=== PATIENT | male | born 1955 | race Caucasian/White ===

== ENCOUNTER 2017-12-19 13:06 | Emergency (ER) | payer MEDICAID, SELFPAY ==
[2017-12-19] VITALS (7 sets, daily range): BP systolic 131–152; BP diastolic 69–96; PULSE 58–73; RESP 16–20; TEMP 35.9; O2SAT 97–98; BMI 26.4
--- NOTE | 2017-12-19 13:22 | EKG12_ITS ---
Test Reason : NEURO S/SX Blood Pressure : / mmHG Vent. Rate : 062 BPM Atrial Rate : 062 BPM P-R Int : 192 ms QRS Dur : 102 ms QT Int : 422 ms P-R-T Axes : 041 063 062 degrees QTc Int : 428 ms Normal sinus rhythm Normal ECG Confirmed by IRINA SCHMIDT, MARGUERITE ([id number]), newspaper editor managing ZINA TEJADA ([id number]) on 12/22/2017 1:41:16 PM Referred By: WILLOW Confirmed By:MARGUERITE AREVALO MD
--- NOTE | 2017-12-19 13:22 | RAD_ITS ---
STUDY: X-RAY CHEST REASON FOR EXAM: Male, 62 years old. Facial droop TECHNIQUE: Frontal view of the chest COMPARISON: None. FINDINGS: The lungs are clear. There are no pleural effusions. There is no pneumothorax. The heart is normal in size. The visualized osseous structures are within normal limits. RAD/Chest 1 View IMPRESSION: No acute thoracic pathology. Electronically Signed: Omid Mace, at 14:32 EDT Tel , Service support ,
--- NOTE | 2017-12-19 13:22 | CT_ITS ---
STUDY: CT BRAIN WITHOUT CONTRAST REASON FOR EXAM: Male, 62 years old. 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 Weakness of the left side today. RADIATION DOSAGE (If Supplied By Facility): CTDIvol = ( 44.99 ) mGy, DLP = ( 829.85 ) mGycm TECHNIQUE: Transaxial CT imaging of the brain was performed without administration of intravenous contrast material. Coronal and sagittal 2-D MPR Individualized dose optimization techniques were used for this CT. COMPARISON: None. FINDINGS: Extracranial soft tissues including orbital contents exhibit no acute abnormality. Craniofacial osseous structures within the field of view exhibit no acute abnormality. Paranasal sinuses, mastoid air cells and middle ear cavities are clear. Mild features of age-related atrophy. No significant chronic white matter disease. Normal pituitary, brainstem and cerebellum There is no acute intracranial bleed, mass or mass effect nor any specific evidence of acute territorial infarct. CT/Brain/Head without Contrast IMPRESSION: No acute intracranial process. Electronically Signed: Jim Velasquez, at 14:03 EDT Tel , Service support ,
--- NOTE | 2017-12-19 13:25 | PCA ---
NO OLD EKG
[2017-12-19 13:41] LABS: Bedside Glucose 379 mg/dL (70-110)
[2017-12-19 13:58] LABS: Absolute Lymphocyte Count 1.61 X10^3/ul (0.83-4.51); Absolute Neutrophil Count 5.5 X10^3/uL (2.0-7.7); Basophil# 0.02 X10^3/uL; Basophil% 0.3 % (0-1); Eosinophil# 0.05 X10^3/uL; Eosinophils% 0.6 % (0-5); Hematocrit 41.4 % (40-54); Lymphocyte # 1.61 X10^3/ul (4.0); Lymphocyte % 20.4 % (19-41); Mean Corp Hgb Conc 33.8 g/gl (32-36); Mean Corpuscular Volume 85.7 fL (80-94); Mean Platelet Vol. 9.5 fl (6.2-12.0); Monocyte# 0.73 X10^3/uL; Monocyte% 9.3 % (0-10); Neutrophil # 5.47 X10^3/uL (2.7-7.7); Neutrophil % 69.3 % (47-70); Platelet Count 204 K/mm3 (150-450); RBC Distribution Width CV 13.3 % (11.6-14.6); RBC Distribution Width SD 42.1 fl (35.1-43.9); Red Blood Count 4.83 M/mm3 (4.6-6.2); White Blood Count 7.9 K/mm3 (4.4-11.0)
[2017-12-19 14:02] LABS: POSITIVE COUNT NO; POSITIVE DIFFERENTIAL NO; POSITIVE MORPHOLOGY NO
[2017-12-19 14:07] LABS: Partial Thromboplast Time 28.3 Seconds (24.1-36.2)
[2017-12-19 14:11] LABS: Anion Gap 7 (5-15); BUN 23 mg/dL (7-18); BUN/Creat Ratio 21.5 RATIO (10-20); Calcium,Total 8.3 mg/dL (8.5-10.1); Chloride 104 mmol/L (98-107); Creatinine, Serum 1.07 mg/dL (0.70-1.30); EST Glomerular Filtration Rate 75 mL/min (>60); Est Glom Filt Rate - Afr Amer 90 mL/min (>60); Estimated Creatinine Clearance 79.57 ml/min; Glucose 350 mg/dL (74-106); Potassium 4.4 mmol/L (3.5-5.1); Sodium Level 137 mmol/L (136-145)
--- NOTE | 2017-12-19 14:42 | ED.DCSUM_ITS ---
- ER Visit Summary Date of Service: 12/19/17 Chief Complaint: [Paresthesias to the left face and speech difficulty] History of Present Illness: The patient is a 62 M [presents the emergency department complaint of paresthesias to the left side of his face that started around 8 AM yesterday. Patient states that he has had a history of Cardenas's palsy in the past of the left side of the face that he is not completely recovered from. Patient states that he has had difficulty finding words to speak and at times has to focus on trying to pronounce things properly. Patient states that he had a difficult time swallowing yesterday. Patient denies any weakness in extremities. He denies any visual changes. Past medical history significant for diabetes, hypertension, high cholesterol, Cardenas' s palsy, and anxiety.] Physical Examination: [HEENT-PERRLA, EOMI. Cranial nerves II through XII grossly intact. TMs clear. Mucous membranes moist. No adenopathy. Cardiovascular-regular rate and rhythm without murmur or ectopy Lungs-clear to auscultation, chest wall stable without crepitus or subcu emphysema Abdomen-normoactive bowel sounds, soft, nontender, no rebound or rigidity, no peritoneal signs. Neuro wymm-nrpyxg-fwxa and heel ballard testing within normal limits, negative Romberg, negative pronator drift, fundi benign. NIH stroke scale was a 4 given for paresthesia to the left side of the face. Patient actually has weakness to the right side of the face however. Extremities-intact ?4, normal range of motion, normal pulses, atraumatic] Test Results: [CT scan of the brain without contrast was unremarkable. EKG showed sinus rhythm with a ventricular rate of 62 bpm. Chemistries unremarkable. CBC with differential is normal. Troponin was less than 0.015. Chest x-ray showed nothing acute.] Emergency Department Course and Treatment: [I discussed case with Dr. Rei Montague and patient will be discussed with hospitalist evaluate for admission] Treatment Plan: Admit for further workup and evaluation of suspected stroke [] Disposition: [Admit] Impression: [CVA] This note was generated with [employer] dictation software. It may contain incorrect words, spelling, and punctuation that were not noted in review of the chart prior to signing ED Disposition - Plan for ED Patient: Chief Complaint: Neuro S/Sx Referrals: [facility] Doctor,Out of [Primary Care Provider] -
--- NOTE | 2017-12-19 14:52 | ED.RN ---
spoke with Dr. Hughes regarding pt's home insulin and pt's symptoms.
--- NOTE | 2017-12-19 15:12 | ED.RN ---
Dr. Montague at bedside
--- NOTE | 2017-12-19 15:13 | PCM.CONS.GEN ---
Problem List (1) Cardenas's palsy Status: Chronic Reason for Consult Date of Consultation: 12/19/17 Reason for Consultation: new left facial weakness History of Present Illness: The patient is a 62 year old M with history of bells palsy x2, occuring about 10yrs ago, over the past several days has noted new symptoms including inability to whistle, drooling and abnormal sensations in his left upper lip. admits this is confounded by anxiety. no other symptoms. history of diabetes, reports averages 160, most recent hgba1c about 7.4. no medication changes or recent illness although about 2 weeks ago noted abnormal taste sensation. both episodes of bells 10 yrs ago associated with low temperature exposure. per er note:The patient is a 62 M [presents the emergency department complaint of paresthesias to the left side of his face that started around 8 AM yesterday. Patient states that he has had a history of Cardenas's palsy in the past of the left side of the face that he is not completely recovered from. Patient states that he has had difficulty finding words to speak and at times has to focus on trying to pronounce things properly. Patient states that he had a difficult time swallowing yesterday. Patient denies any weakness in extremities. He denies any visual changes. Past medical history significant for diabetes, hypertension, high cholesterol, Cardenas's palsy, and anxiety. Past Medical History Past Medical History (Chronic Problems): Chronic Problems Cardenas's palsy (Chronic) Allergies pentazocine [From Abhishek] Allergy (Verified 12/19/17 13:09) Nausea Home Medications: Ambulatory Orders Medication Instructions Recorded ALPRAZolam [Xanax] 0.5 mg PO BID PRN PRN 12/19/17 Carvedilol [Coreg] 25 mg PO BID 12/19/17 Insulin NPH Human Isophane See Protocol SQ QHS 12/19/17 [Humulin N] Insulin Regular, Human [Humulin R] See Protocol IJ DAILY 12/19/17 Lives: Alone Smoking Status: Never smoker Tobacco Use: Non-smoker Alcohol: None Drugs: None Review of Systems Constitutional: Denies: Chills, Fever, Weight Change HEENT: Denies: Head Aches, Sinus Congestion, Sinus Drainage Cardiovascular: Denies: Chest Pain, Palpitations Respiratory: Denies: Cough, Shortness of breath at rest, Sputum production Gastrointestinal: Denies: Abdominal Pain, Nausea, Vomiting Genitourinary: Denies: Dysuria Musculoskeletal: Denies: Joint Pain, Joint Tenderness Skin: Denies: Rash, Wounds Neurological: Denies: Numbness, Tingling, Focal weakness Psychiatric: Denies: Anxiety, Depression, Homicidal Ideations, Suicidal Ideations Hematologic/ Lymphatic: Denies: Easy Bruising, Easy Bleeding - Physical Exam General: Alert, Oriented x3, Cooperative HEENT: Atraumatic, PERRLA, EOMI, Normocephalic Neurological: Deep Tendon Reflexes 2+/4 and Symmetrical, Neuro grossly intact, Motor Exam 5/5 strength throughout, Facial Droop, - - right periperal 7th Psych/Mental Status: Normal Affect Vital Signs Temp Pulse Resp BP Pulse Ox 35.9 C L 58 L 20 H 140/96 H 97 12/19/17 13:07 12/19/17 15:00 12/19/17 15:00 12/19/17 15:00 12/19/17 15:00 Oxygen Delivery Method Room Air Weight: 88.451 kg Body Mass Index (BMI) 26.4 Finger Stick Blood Glucose 379 Laboratory Tests Past 24 Hrs 12/19/17 12/19/17 12/19/17 13:38 13:38 13:38 WBC 7.9 RBC 4.83 Hgb 14.0 Hct 41.4 MCV 85.7 MCH 29.0 MCHC 33.8 RDW 13.3 RDW Differential 42.1 Plt Count 204 MPV 9.5 Immature Gran % (Auto) 0.100 Neut % (Auto) 69.3 Lymph % (Auto) 20.4 [place] % (Auto) 9.3 Eos % (Auto) 0.6 Baso % (Auto) 0.3 Absolute Neuts (auto) 5.5 Absolute Lymphs (auto) 1.61 Total Counted Not Reportable PT 13.0 INR 1.0 APTT 28.3 Sodium 137 Potassium 4.4 Chloride 104 Carbon Dioxide 26.0 Anion Gap 7 BUN 23 H Creatinine 1.07 Estim Creat Clear Calc 79.57 Est GFR (MDRD) Af Amer 90 Est GFR (MDRD) Non-Af 75 BUN/Creatinine Ratio 21.5 H Glucose 350 H Calcium 8.3 L Troponin I < 0.015 POC Glucose 12/19/17 13:21 POC Glucose 379 H Assessment/Plan bells, concerning for recurrence x3 mri acyclovir medrol dose nenita asa daily (takes at home) bp control prn xanax
--- NOTE | 2017-12-19 15:56 | ED.RN ---
Pt does not want to stay until Thursday for his MRI. Dr Bazan spoke with pt and neurologist- will sign AMA papers. Dr Bazan ordering medications for dc. Text sent to Dr. Webster.
--- NOTE | 2017-12-19 16:04 | ED.DCSUM_ITS ---
- ER Visit Summary Date of Service: 12/19/17 Chief Complaint: [Facial numbness and possible stroke] History of Present Illness: The patient is a 62 M [presented to the emergency department with symptoms for greater than 24 hours and not a thrombolytic candidate. Patient with history of prior Cardenas's palsy. Patient had a complete workup in the emergency department was to be admitted for further evaluation including MRI to differentiate between stroke and possible Cardenas's palsy. Patient initially agreed to be admitted however when he found out that MRI may not be done tomorrow because it is Thursday and may only be done the following day he states that he will not agree to be admitted and is now asking to be discharged home. Patient understands that I have concerns that he may be having issues related to a stroke and needs further diagnostic workup. Patient was seen in the emergency department by Dr. Rei Montague and I did have a discussion with Dr. Montague regarding the fact that patient wishes to sign out AGAINST MEDICAL ADVICE. Dr. Montague asked that I at least start patient on acyclovir and Medrol Dosepak. Patient understands risk of stroke, further disability, . Patient is a and O ?3 and his mother is also present in the room with him.] Physical Examination: [] Test Results: [] Emergency Department Course and Treatment: [] Treatment Plan: [] Disposition: [Patient signed out AGAINST MEDICAL ADVICE] Impression: [CVA] This note was generated with [employer] dictation software. It may contain incorrect words, spelling, and punctuation that were not noted in review of the chart prior to signing ED Disposition - Plan for ED Patient: Chief Complaint: Neuro S/Sx
--- NOTE | 2017-12-19 16:16 | ED.DEP ---
ED Disposition - Plan for ED Patient: Chief Complaint: Neuro S/Sx Instructions: ED Thoreau Palsy, ED Stroke Completed Prescriptions: Acyclovir 800 mg PO 5X/DAY #35 tab Methylprednisolone [Medrol] 4 mg PO X1 #1 tab.ds.pk Referrals: [facility] Doctor,Out of [NON-STAFF] - Rei Montague MD [STAFF PHYSICIAN] - 3-5 Days
--- NOTE | 2017-12-19 16:20 | DCINST.ED_ITS ---
ED Disposition - Plan for ED Patient: Chief Complaint: Neuro S/Sx Instructions: ED Boyle Palsy, ED Stroke Completed Prescriptions: Acyclovir 800 mg PO 5X/DAY #35 tab Methylprednisolone [Medrol] 4 mg PO X1 #1 tab.ds.pk Referrals: [facility] Doctor,Out of [NON-STAFF] - Rei Montague MD [STAFF PHYSICIAN] - 3-5 Days
== END 2017-12-19 15:31 | disposition left against medical advice (07) ==
LOC: ED 13:38 → PCU 15:31 → ED 16:20
PROVIDERS: Emergency Provider Emergency Medicine
DX: I63.9 Cerebral infarction, unspecified (principal); R47.89 Other speech disturbances; R29.704 NIHSS score 4; Z53.21 Procedure and treatment not carried out due to patient leaving prior to being seen by health care provider; E11.9 Type 2 diabetes mellitus without complications; I10 Essential (primary) hypertension; G51.0 Bell's palsy; E78.00 Pure hypercholesterolemia, unspecified; F41.9 Anxiety disorder, unspecified; Z79.4 Long term (current) use of insulin; Z79.899 Other long term (current) drug therapy
CPT/HCPCS: 70450; 71045; 80048; 82962; 84484; 85025; 85610; 85730; 93005; 99285; A4216

== ENCOUNTER 2018-09-01 14:25 | Emergency (ER) | payer MEDICAID, SELFPAY ==
[2018-09-01 14:25] VITALS: BP 148/77; PULSE 59; RESP 14; TEMP 36.9; O2SAT 96; BMI 27.8
--- NOTE | 2018-09-01 14:58 | RAD_ITS ---
STUDY: X-RAY - RIGHT RADIUS AND ULNA REASON FOR EXAM: Male, 63 years old. Pain following injury. TECHNIQUE: 3 view(s) of the forearm. COMPARISON: None. FINDINGS: Soft tissue swelling. Normal visualized radius. Nondisplaced transverse fracture through the proximal shaft of the ulna. RAD/Forearm 2 Views IMPRESSION: Nondisplaced transverse fracture through the proximal shaft of the ulna. Soft tissue swelling. Electronically Signed: Dane Hicks, at 15:45 EDT , Service support ,
--- NOTE | 2018-09-01 15:19 | ED.DCSUM_ITS ---
- ER Visit Summary Date of Service: 09/01/18 Chief Complaint: Right forearm injury History of Present Illness: The patient is a 63 M who was carrying a heavy car bumper. He tripped backwards and states he twisted and landed on his right forearm. He is complaining of pain to the proximal right forearm. He has significant pain with any movement. He is right-hand dominant. He denies paresthesia. Physical Examination: Vital signs unremarkable. Patient sitting in bedside chair. He is uncomfortable with any movement, resting comfortably when sitting at rest. Right upper extremity examination reveals no tenderness of the shoulder, humerus, or elbow. He has tenderness of the musculature of the proximal right forearm. The compartments are soft with no sign of compartment syndrome. He has strong distal pulses. Is a strong hand grasp. Normal sensation is noted. Test Results: Right forearm x-rays reveal nondisplaced transverse fractures of the proximal shaft of the ulna. Soft tissue swelling is noted. Emergency Department Course and Treatment: Given naproxen and oxycodone for pain. Test results reviewed with the patient. He is placed in a sugar tong splint and a sling. He is referred to Dr. Nguyen for follow-up. Treatment Plan: [] Disposition: Discharge Impression: Right forearm fracture status post fall This note was generated with [employer] dictation software. It may contain incorrect words, spelling, and punctuation that were not noted in review of the chart prior to signing ED Disposition - Plan for ED Patient: Referrals: Care Physician,No Primary [Primary Care Provider] -
[2018-09-01] MEDS: oxyCODONE 5 MG Tablet PO (15:29)
[2018-09-01] MEDS: Naproxen 500 MG Tablet PO (15:29)
--- NOTE | 2018-09-01 15:56 | ED.DEP ---
ED Disposition - Plan for ED Patient: Disposition: Home or Assisted Living Instructions: ED Fx Upper Ext Prescriptions: Oxycodone HCl/Acetaminophen [Percocet 5/325] 1 tablet PO Q6H PRN PRN 5 Days #20 tablet PRN Reason: Pain Referrals: Jose Ballesteros DO [STAFF PHYSICIAN] - 5-7 Days
[2018-09-01 16:17] VITALS: BP 141/93; PULSE 52; RESP 16
== END 2018-09-01 16:18 | disposition home or self-care (01) ==
PROVIDERS: Emergency Provider Emergency Medicine
DX: S52.224A Nondisplaced transverse fracture of shaft of right ulna, initial encounter for closed fracture (principal); W01.0XXA Fall on same level from slipping, tripping and stumbling without subsequent striking against object, initial encounter; Y93.9 Activity, unspecified; Y92.89 Other specified places as the place of occurrence of the external cause; Y99.9 Unspecified external cause status; I10 Essential (primary) hypertension
CPT/HCPCS: 73090; 99283

== ENCOUNTER → 2018-09-20 08:19 | Outpatient (CLI) | payer MEDICAID, SELFPAY ==
[2018-09-06 08:07] VITALS: BMI 27.8
--- NOTE | 2018-09-20 08:21 | RAD_ITS ---
STUDY: X-RAY - RIGHT RADIUS AND ULNA REASON FOR EXAM: Male, 63 years old. Cast removal TECHNIQUE: 2 view(s) of the forearm. COMPARISON: 09/01/18 right forearm x-ray while FINDINGS: There is no demonstrated soft tissue swelling. There is a persistent unchanged appearing fracture of the proximal radius. There is no significant callus formation or significant evidence of healing. Normal visualized ulna. RAD/Forearm 2 Views IMPRESSION: Persistent fracture of the proximal radius. Electronically Signed: Leia Child MD at 17:42 EDT Tel , Service support ,
== END ==
PROVIDERS: Referring Provider Orthopaedic Surgery; Visit Provider Orthopaedic Surgery
DX: S52.009A Unspecified fracture of upper end of unspecified ulna, initial encounter for closed fracture (principal); X58.XXXA Exposure to other specified factors, initial encounter; Y93.9 Activity, unspecified; Y92.9 Unspecified place or not applicable; Y99.9 Unspecified external cause status
CPT/HCPCS: 73090

== ENCOUNTER → 2018-09-24 13:14 | Outpatient (CLI) | payer MEDICAID, SELFPAY ==
[2018-09-24 13:12] VITALS: BMI 27.8
--- NOTE | 2018-09-24 13:17 | RAD_ITS ---
STUDY: X-RAY - RIGHT RADIUS AND ULNA REASON FOR EXAM: Male, 63 years old. Reinjured arm, increased pain. TECHNIQUE: 3 view(s) of the forearm. COMPARISON: September 20, 2018. 09/01/2018. FINDINGS: There is no demonstrated soft tissue swelling. The oblique proximal radial metaphyseal fracture demonstrate a new cortical step-off of 0.4 cm. Normal visualized ulna. RAD/Forearm 2 Views IMPRESSION: Proximal radial fracture has a new cortical step-off. Electronically Signed: Roselia Bethea MD at 12:14 EDT , Service support ,
== END ==
PROVIDERS: Referring Provider Physician Assistant; Visit Provider Physician Assistant
DX: S52.001D Unspecified fracture of upper end of right ulna, subsequent encounter for closed fracture with routine healing (principal)
CPT/HCPCS: 73090

== ENCOUNTER 2018-09-28 08:14 | Day surgery (SDC) | payer MEDICAID, SELFPAY ==
[2018-09-27 07:57] VITALS: BMI 27.8
[2018-09-28] VITALS (7 sets, daily range): BP systolic 116–142; BP diastolic 73–81; PULSE 54–65; RESP 16; TEMP 36.3–36.4; O2SAT 96–100; BMI 27.3
--- NOTE | 2018-09-28 08:26 | EKG12_ITS ---
Test Reason : PRE-OP Blood Pressure : / mmHG Vent. Rate : 056 BPM Atrial Rate : 056 BPM P-R Int : 200 ms QRS Dur : 104 ms QT Int : 434 ms P-R-T Axes : 032 051 055 degrees QTc Int : 418 ms Sinus bradycardia Otherwise normal ECG Confirmed by NOHEMI SCHMIDT, JANELLE ([id number]), editorial specialist ELOISA KAUR ([id number]) on 09/29/2018 1:43:47 PM Referred By: Jose Ballesteros Confirmed By:JANELLE SONG MD
[2018-09-28 09:01] LABS: Anion Gap 3 (5-15); BUN 22 mg/dL (7-18); BUN/Creat Ratio 22.9 RATIO (10-20); Calcium,Total 8.6 mg/dL (8.5-10.1); Chloride 107 mmol/L (98-107); Creatinine, Serum 0.96 mg/dL (0.70-1.30); EST Glomerular Filtration Rate 84 mL/min (>60); Est Glom Filt Rate - Afr Amer 102 mL/min (>60); Estimated Creatinine Clearance 84.97 ml/min; Glucose 257 mg/dL (74-106); Potassium 4.2 mmol/L (3.5-5.1); Sodium Level 136 mmol/L (136-145)
[2018-09-28 09:06] LABS: Hemoglobin A1c 8.2 % (4.2-6.3)
[2018-09-28] MEDS: Cefazolin 2 GM in 0.9% Normal Saline 100 ML IV (10:59)
--- NOTE | 2018-09-28 11:00 | RAD_ITS ---
STUDY: X-RAY - RIGHT RADIUS AND ULNA REASON FOR EXAM: Male, 63 years old. ORIF TECHNIQUE: 2 view(s) of the forearm. COMPARISON: 09/24/2018 FINDINGS: 2 intraoperative fluoroscopic images are presented. Plate and screws in the ulna with normal alignment. Normally aligned mid ulnar fracture. RAD/Forearm 2 Views IMPRESSION: Operative changes as described. Electronically Signed: Jeramie Mccarthy MD at 12:58 EDT Tel , Service support ,
[2018-09-28] MEDS: Bupiv/Epi 0.5% Mpf 30 ML Vial (12:46)
--- NOTE | 2018-09-28 13:09 | PCM.DC.ORTHO ---
Additional Activity Instructions:: keep iced and elevated above heart x 1 week. must keep dressing on clean and dry until 10/02/18, then may remove and shower daily with warm water and antibacterial soap but do not submerge until valencia are removed. if any drainage then cover with guaze and kiya wrap. encourang elbow wrist range of motion but do not lift anything more then a coffee cup and do not put yourself in a position where you may re-injure the arm. start physical therapy next week, call office to have this arranged. f/u with DR. sharma 2 wks. call if any concerns. Allergies/Adverse Reactions: Allergies diphenhydramine [From Benadryl] Allergy (Verified 09/27/18 09:53) Other PASSED OUT pentazocine [From Talwin] Allergy (Verified 09/27/18 09:51) Nausea 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 Allergy (Uncoded 09/01/18 14:28) Mucosal lesions Medications to take at Discharge Carvedilol [Coreg] 25 mg PO BID 12/19/17 Insulin NPH Human Isophane [Humulin N] See Protocol SQ QHS 12/19/17 Insulin Regular, Human [Humulin R] See Protocol IJ DAILY 12/19/17 Aspirin 325 mg PO DAILY@0800 09/01/18 Cholecalciferol (Vitamin D3) [Vitamin D3] 2,000 unit PO DAILY 09/01/18 Oxycodone HCl/Acetaminophen [Percocet 5/325] 1 - 2 tablet PO Q4H PRN PRN 5 Days #30 tablet 09/28/18 The following prescriptions were given: Oxycodone HCl/Acetaminophen [Percocet 5/325] 1 - 2 tablet PO Q4H PRN PRN 5 Days #30 tablet PRN Reason: Pain Primary Care Physician: [facility] Doctor,Out of [Primary Care Provider] - Test Results: Test results from this visit will be discussed in further detail at your follow-up appointment, if applicable. Please Follow Up With: Jose Sharma DO - 2 wk
--- NOTE | 2018-09-28 13:12 | DCINST_ITS ---
Additional Activity Instructions:: keep iced and elevated above heart x 1 week. must keep dressing on clean and dry until 10/02/18, then may remove and shower daily with warm water and antibacterial soap but do not submerge until valencia are removed. if any drainage then cover with guaze and kiya wrap. encourang elbow wrist range of motion but do not lift anything more then a coffee cup and do not put yourself in a position where you may re-injure the arm. start physical therapy next week, call office to have this arranged. f/u with DR. sharma 2 wks. call if any concerns. Allergies/Adverse Reactions: Allergies diphenhydramine [From Benadryl] Allergy (Verified 09/27/18 09:53) Other PASSED OUT pentazocine [From Talwin] Allergy (Verified 09/27/18 09:51) Nausea 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 Allergy (Uncoded 09/01/18 14:28) Mucosal lesions Medications to take at Discharge Carvedilol [Coreg] 25 mg PO BID 12/19/17 Insulin NPH Human Isophane [Humulin N] See Protocol SQ QHS 12/19/17 Insulin Regular, Human [Humulin R] See Protocol IJ DAILY 12/19/17 Aspirin 325 mg PO DAILY@0800 09/01/18 Cholecalciferol (Vitamin D3) [Vitamin D3] 2,000 unit PO DAILY 09/01/18 Oxycodone HCl/Acetaminophen [Percocet 5/325] 1 - 2 tablet PO Q4H PRN PRN 5 Days #30 tablet 09/28/18 The following prescriptions were given: Oxycodone HCl/Acetaminophen [Percocet 5/325] 1 - 2 tablet PO Q4H PRN PRN 5 Days #30 tablet PRN Reason: Pain Primary Care Physician: [facility] Doctor,Out of [Primary Care Provider] - Test Results: Test results from this visit will be discussed in further detail at your follow- up appointment, if applicable. Please Follow Up With: Jose Sharma DO - 2 wk
--- NOTE | 2018-09-28 13:19 | OP.PCM_ITS ---
Report of Operation Date of Procedure: 09/28/18 Description of Surgical Findings:: Preoperative diagnosis: Subacute displaced ulnar shaft fracture Postoperative diagnosis: Same Procedure: Open reduction internal fixation of ulnar shaft with Synthes 2.7 mm LCDCP Anesthesia: General EBL: 10 Complications: None Condition: Stable to PACU Indication for procedure: This is a 63-year-old male sustained an injury to his right forearm who initially had a nondisplaced proximal to middle third junction ulnar shaft fracture he was treated initially with a cast after a delayed presentation to us he was converted to a short arm cast after 2 weeks in a long- arm cast. Then the patient decided to work under his car and a muffler fell on his arm and displaced his fracture. This point we did discuss operative versus nonoperative intervention risk benefits and alternatives were reviewed including risk of bleeding infection nerve, artery, bone, tissue damage, blood clot need for further surgery and continued pain nonunion where failure if he does not compliant with postoperative restrictions. Procedure: Patient was met in the preoperative holding area. Once again the operative extremity was identified by both patient and physician and was marked. Patient was brought back to the operating room on a wheeled cart and transferred to the operating table in the supine position. A well-padded tourniquet was placed on the right upper extremity and he was prepped and draped in the usual sterile fashion. A timeout was called to ensure the proper patient procedure and extremity were being contemplated. Fluoroscopy was brought in to visualize the fracture location. An Esmarch was used and the tourniquet was inflated to 250 mmHg dissection was carried down with sharp 15 blade on the ulnar border tween ECU and FCU tendons this was carried down as a full-thickness flap until the bone was reached. Electrocautery was used dissection maintained in this subperiosteal manner around the fracture site there was some callus noted to be already forming the fracture site was cleaned of callus and hematoma with a rongeur and a curette. The fracture was shortened and we had to use a distraction device to regain her length we then placed a [id number] reduction clamp across the fracture and placed a 2.7 mm lag screw we then placed a 2.7 mm LCDCP plate on the extensor side of the bone with 3 cortical screws in the proximal and distal fragment the plate was contoured to fit the bone with plate benders the wound was thoroughly irrigated fluoroscopy was used to ensure hardware placement and screw length which were saved to the PACS system the fascial layer was closed with 2-0 Vicryl 2-0 Vicryl was also used in the subcutaneous layer followed by valencia in the skin 20 cc of Marcaine with epinephrine was injected into the incisional area a soft dressing was applied in the form of Xeroform 4 x 4 ABD web roll and an Francisco wrap from the wrist to the axilla patient tolerated the procedure well he was brought back to the PACU in stable condition and all counts were correct he will be allowed immediate range of motion will bit but will be nonweightbearing and he will follow-up in 2 weeks he will start physical therapy next week.
[2018-09-28 13:45] LABS: Bedside Glucose 283 mg/dL (70-110)
== END 2018-09-28 14:37 | disposition home or self-care (01) ==
LOC: SDC 08:16 → AC 08:16
PROVIDERS: Anesthesiology; Referring Provider Orthopaedic Surgery; Visit Provider Orthopaedic Surgery
PROC: (CPT 25545; principal; 2018-09-28 09:30)
DX: S52.201A Unspecified fracture of shaft of right ulna, initial encounter for closed fracture (principal); W22.8XXA Striking against or struck by other objects, initial encounter; Y93.89 Activity, other specified; Y92.9 Unspecified place or not applicable; E11.9 Type 2 diabetes mellitus without complications; I10 Essential (primary) hypertension; Z79.899 Other long term (current) drug therapy; Z79.82 Long term (current) use of aspirin; Z79.4 Long term (current) use of insulin; K21.9 Gastro-esophageal reflux disease without esophagitis
CPT/HCPCS: 25545; 36415; 73090; 76000; 80048; 82962; 83036; 93005; C1713; J7120; J2405

== ENCOUNTER → 2018-11-08 | Outpatient (CLI) | payer MEDICAID, SELFPAY ==
[2018-11-08 08:10] VITALS: BMI 27.3
--- NOTE | 2018-11-08 08:14 | RAD_ITS ---
STUDY: X-RAY - RIGHT RADIUS AND ULNA REASON FOR EXAM: Male, 63 years old. Trauma TECHNIQUE: 2 view(s) of the forearm. COMPARISON: September 28, 2018 FINDINGS: There is no demonstrated soft tissue swelling. There is partially healed fracture of the proximal to mid ulnar shaft. There is incomplete bridging of fracture line raising question of delayed healing however clinical correlation recommended Normal visualized radius RAD/Forearm 2 Views IMPRESSION: Early healing fracture of the proximal to mid ulnar shaft. Possibility of delayed union not excluded and clinical correlation is recommended Electronically Signed: Rishabh Rocha MD at 18:22 EDT , Service support ,
== END | disposition home or self-care (01) ==
LOC: HPRAD 08:13
PROVIDERS: Referring Provider Orthopaedic Surgery; Visit Provider Orthopaedic Surgery
DX: S52.201A Unspecified fracture of shaft of right ulna, initial encounter for closed fracture (principal); Z47.89 Encounter for other orthopedic aftercare
CPT/HCPCS: 73090

== ENCOUNTER 2019-04-20 23:13 | Emergency (ER) | payer MEDICAID, SELFPAY ==
[2018-11-08 08:10] VITALS: BMI 27.3
[2019-04-20 23:15] VITALS: BP 143/78; PULSE 69; RESP 18; TEMP 36.6; O2SAT 96; BMI 27.8
--- NOTE | 2019-04-20 23:37 | ED.VIS.GEN ---
History of Present Illness Chief Complaint: Foreign Body Informant: Patient Narrative: Stated that he was giving himself insulin injections at night for diabetes and pulled out the syringe and the needle was not on it. He is not sure if the needles in his body or fell to the ground. He denies any symptoms. Currently he stated he feels normal. He is never had this happen before. He cannot palpate a syringe needle under his skin. - Past Medical History (1) Cardenas's palsy Status: Chronic Past Medical History - Allergies and Home Meds Allergies/Adverse Reactions: Allergies diphenhydramine [From Benadryl] Allergy (Verified 04/20/19 23:17) Other PASSED OUT pentazocine [From Talwin] Allergy (Verified 04/20/19 23:17) Nausea 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 Allergy (Uncoded 04/20/19 23:17) Mucosal lesions Primary Care Physician: Care Physician,No Primary [Primary Care Provider] - Prior records reviewed: Yes Past Medical History: - - Diabetes Surgical History: noncontributory Lives: With Family Smoking Status: Never smoker Alcohol: None Drugs: None Review of Systems General: Denies: Chills, Fever, Sweats Eyes: Denies: Visual changes - bilaterally, Diplopia ENT: Denies: Rhinorrhea, Sore throat Cardiovascular: Denies: Chest pain, Palpitations Respiratory: Denies: Dyspnea, Cough, Dyspnea on exertion Gastrointestinal: Denies: Abdominal pain, Nausea, Vomiting, Diarrhea, Melena, Hematochezia Genitourinary: Denies: Dysuria, Hematuria, Frequency Musculoskeletal: Denies: Back pain, Extremity Pain Skin: Denies: Rash, Wounds Neurological: Denies: Headache, Weakness, Numbness Physical Exam Vital Signs/Narrative: Vital Signs Temp Pulse Resp BP Pulse Ox 04/20/19 23:15 97.9 F 69 18 143/78 H 96 General: Well nourished, Well developed, No Acute Distress Head: Normocephalic, Atraumatic Eyes: Perrl, EOMI ENT: Moist mucous membranes, No rhinorrhea Neck: Supple, Nontender Cardiovascular: Regular rate, Regular rhythm, No murmurs Respiratory: No distress, CTA bilaterally, Chest nontender Abdomen: Soft, Nontender, Nondistended, Normal bowel sounds Back: Nontender, Normal Inspection Extremities: Nontender, No edema Skin: Normal color, No rash Neurological: Alert, Oriented x3, Cranial nerves II-XII grossly intact, Normal Strength, Normal Sensation Psychological: Normal affect, Normal Mood Diagnostic/Tx/Re-eval - Medical Decision Making Abdominal x-ray done to look for foreign body. X-ray negative for foreign body. Patient reassured. We will follow-up as an outpatient. ED Disposition - Plan for ED Patient: Disposition: Home or Assisted Living Diagnosis: No foreign body found on evaluation Instructions: Blank Diagnosis Form Referrals: Care Physician,No Primary [Primary Care Provider] - Additional Instructions: There is no foreign body seen in your skin. Please follow-up as an outpatient if you develop pain
--- NOTE | 2019-04-20 23:52 | RAD_ITS ---
STUDY: X-RAY - ABDOMEN/PELVIS REASON FOR EXAM: Male, 63 years old. Patient states that he is not sure if his insulin needle broke off into his abdomen as he was giving himself and injection. Patient states at the injection site was below his belly button towards the right little. TECHNIQUE: Two AP supine views of the abdomen and pelvis. COMPARISON: None. FINDINGS: Normal visualized lung bases. There is an unremarkable bowel gas pattern. There is no demonstrated free abdominal air. The visualized liver, spleen and kidneys are grossly normal in size and morphology. Normal soft tissue structures. There are multilevel degenerative changes of the visualized lumbar spine. RAD/Abdomen Single View IMPRESSION: Normal x-ray examination of the abdomen and pelvis. There is no visualized metallic foreign body. Electronically Signed: Doron Gerard MD at 0:19 EST , Service support ,
== END 2019-04-21 00:11 | disposition home or self-care (01) ==
PROVIDERS: Emergency Provider Emergency Medicine; PCP Internal Medicine
DX: Z03.89 Encounter for observation for other suspected diseases and conditions ruled out (principal); E11.9 Type 2 diabetes mellitus without complications; Z86.69 Personal history of other diseases of the nervous system and sense organs; Z79.4 Long term (current) use of insulin
CPT/HCPCS: 74018; 99282

== ENCOUNTER → 2019-11-28 12:07 | Outpatient (CLI) | payer MEDICAID, SELFPAY ==
[2019-11-28 12:04] VITALS: BMI 27.8
--- NOTE | 2019-11-28 12:08 | RAD_ITS ---
STUDY: X-RAY - RIGHT RADIUS AND ULNA REASON FOR EXAM: Male, 64 years old. INJURED ARM ONE WEEK AGO, PAIN AND TENDERNESS OVER ENTIRE FOREARM TECHNIQUE: 2 view(s) of the forearm. COMPARISON: 11/08/2018 FINDINGS: A previously described, surgically reduced fracture in the proximal ulna has healed. The hardware placed along the shaft of the proximal ulna is intact and free of complication. No acute fracture or suspicious lesion in the visualized distal humerus radius or ulna.. Joint spaces are well preserved. RAD/Forearm 2 Views IMPRESSION: Previously described, surgically reduced fracture in the proximal ulna has healed. Hardware is intact and free of complications No acute findings Electronically Signed: Lukasz Hendrix MD at 12:22 EDT , Service support ,
== END ==
PROVIDERS: PCP Internal Medicine; Referring Provider Physician Assistant Surgical; Visit Provider Physician Assistant Surgical
DX: S56.911A Strain of unspecified muscles, fascia and tendons at forearm level, right arm, initial encounter (principal)
CPT/HCPCS: 73090

== ENCOUNTER 2020-01-14 22:33 | Emergency (ER) | payer MEDICAID, SELFPAY ==
[2020-01-14 22:33] VITALS: BMI 25.3
[2020-01-14 22:34] VITALS: BP 170/76; PULSE 60; RESP 16; TEMP 36.6; O2SAT 97; BMI 26.8
--- NOTE | 2020-01-14 22:39 | CT_ITS ---
STUDY: CT BRAIN WITHOUT CONTRAST REASON FOR EXAM: Male, 64 years old. LOW BLOOD SUGAR AND PASSED OUT,HAS ABRASIONS ABOVE RT EYE -- HX:DIABETES,HTN,THOMPSON''S PALSY X 2 ON LT SIDE RADIATION DOSAGE (If Supplied By Facility): CTDIvol = ( 44.99 ) mGy, DLP = ( 846.73 ) mGycm TECHNIQUE: Transaxial CT imaging of the brain was performed without administration of intravenous contrast material. Individualized dose optimization techniques were used for this CT. COMPARISON: 12/19/2017 FINDINGS: Normal soft tissue structures. Normal calvarium. Normal size ventricles and extra-axial spaces for the patient''s age. Normal white matter tracts of the cerebral hemispheres. Normal basal ganglia and thalami. Normal brainstem. Normal cerebellum. There is no intracranial hemorrhage. There are no findings of an acute ischemic infarction. Right maxillary sinus mild mucosal thickening. CT/Brain/Head without Contrast IMPRESSION: Normal unenhanced CT scan of the brain. Right maxillary sinus disease. Electronically Signed: Manny Cosby DO at 23:45 EDT Tel [phone], Service support ,
--- NOTE | 2020-01-14 22:42 | ED.VIS.GEN ---
History of Present Illness Chief Complaint: Hypoglycemia Informant: Patient Onset: Today Context: Sudden Onset Timing: Continuous Current Severity: Moderate Maximum Severity: Severe Narrative: The patient is a 64-year-old male with insulin-dependent diabetes that presents to the emergency department after being hypoglycemic. The patient states that around 4:00, he took his blood sugar. He states that it was around 290. He gave himself correction along with what he was going to eat within an hour. He states that he got busy in his workshop, did not eat, and then became symptomatic with his low blood sugar. He thinks that he may have been unconscious for an hour or 2. He states that he came to and was crawling out of his workshop. He states that his significant other was intoxicated and did not realize that his blood sugar was low. He was able to get some sugary soda and was feeling improved. He states he did scrape his face while he was crawling. He is unsure if he hit his head. He does not know his last tetanus shot. He is not on any oral anti-hypoglycemics. Prior similar symptoms: No Recent Illness/Hospitalization: No Past Medical History - Allergies and Home Meds Allergies/Adverse Reactions: Allergies diphenhydramine [From Benadryl] Allergy (Verified 01/14/20 22:42) Other PASSED OUT pentazocine [From Talwin] Allergy (Verified 01/14/20 22:42) Nausea 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 Allergy (Uncoded 01/14/20 22:42) Mucosal lesions Primary Care Physician: Miriam Martinez MD [Primary Care Provider] - Prior records reviewed: Yes Past Medical History: - - Insulin-dependent diabetes Surgical History: noncontributory Smoking Status: Never smoker Review of Systems General: Denies: Chills, Fever, Sweats Eyes: Denies: Visual changes - bilaterally, Diplopia ENT: Denies: Rhinorrhea, Sore throat Cardiovascular: Denies: Chest pain, Palpitations Respiratory: Denies: Dyspnea, Cough, Dyspnea on exertion Gastrointestinal: Denies: Abdominal pain, Nausea, Vomiting, Diarrhea, Melena, Hematochezia Genitourinary: Denies: Dysuria, Hematuria, Frequency Musculoskeletal: Denies: Back pain, Extremity Pain Skin: Denies: Rash, Wounds Neurological: Denies: Headache, Weakness, Numbness Physical Exam Vital Signs/Narrative: Vital Signs Temp Pulse Resp BP Pulse Ox 01/14/20 22:34 97.9 F 60 16 170/76 H 97 Inital Vital Signs reviewed: Yes General: Well nourished, Well developed, No Acute Distress Head: Normocephalic, Trauma - Multiple abrasions including above the right upper eye, right zygomatic arch, and below the nose. No step-off. No laceration. Eyes: Perrl, EOMI ENT: Moist mucous membranes, No rhinorrhea Neck: Supple, Nontender Cardiovascular: Regular rate, Regular rhythm, No murmurs Respiratory: No distress, CTA bilaterally, Chest nontender Abdomen: Soft, Nontender, Nondistended, Normal bowel sounds Back: Nontender, Normal Inspection Extremities: Nontender, No edema Skin: Normal color, No rash Neurological: Alert, Oriented x3, Cranial nerves II-XII grossly intact, Normal Strength, Normal Sensation Psychological: Normal affect, Normal Mood Diagnostic/Tx/Re-eval - Medical Decision Making On arrival, the patient has no complaints. He is awake and alert. He is a GCS of 15. His blood sugar was in the 80s. We did attempt to establish IV, but after 2 attempts, the patient states he did not want any further pokes. I do feel that this is reasonable given his current lack of symptoms. With his facial trauma, I did obtain head CT. This is unremarkable for acute process. The patient was observed for 2 hours. He was able to eat. Repeat blood sugar has been normal. He is not on any long-acting oral anti-hyperglycemics. As his blood sugar is now back to normal and he has no further complaints, I do feel that he is safe for outpatient follow-up. He is comfortable with this plan of care. Impression 1. Symptomatic hypoglycemia-resolved 2. Facial abrasion ED Disposition - Plan for ED Patient: Instructions: ED HYPOGLYCEMIA Insulin Rxn Referrals: Miriam Martinez MD [Primary Care Provider] -
[2020-01-14 22:45] LABS: Bedside Glucose 81 mg/dL (70-110)
--- NOTE | 2020-01-14 23:41 | ED.RN ---
PT ARRIVES WCOLE ABRASIONS ON FACE, KNEES AND ARMS. STATES HIS S.O. LEFT HIM OUTSIDE AFTER HE PASSED OUT AND REFUSED TO GIVE HIM PEPSI TO RAISE HIS BLOOD SUGAR WHILE SHE TOOK VIDEOS. PT REQUESTS TO SPEAK WITH [employer]. MAKENZIE ODOM TOOK STATEMENT AND PROVIDED PT W/RESOURCES.
[2020-01-14] MEDS: Diphth,Pertuss(Acell),Tet Vac 0.5 ML Vial IM (23:50)
[2020-01-15 00:08] VITALS: BP 165/85; PULSE 58; RESP 17; O2SAT 99
[2020-01-15 00:16] LABS: Bedside Glucose 136 mg/dL (70-110)
== END 2020-01-15 00:40 | disposition home or self-care (01) ==
LOC: ED 23:52
PROVIDERS: Emergency Provider Emergency Medicine; PCP Internal Medicine
DX: E11.649 Type 2 diabetes mellitus with hypoglycemia without coma (principal); S00.81XA Abrasion of other part of head, initial encounter; W22.8XXA Striking against or struck by other objects, initial encounter; Y93.9 Activity, unspecified; Y92.9 Unspecified place or not applicable; Z79.4 Long term (current) use of insulin
CPT/HCPCS: 70450; 82962; 90715; 99285; J7030

== ENCOUNTER 2021-12-24 21:06 | Emergency (ER) | payer MEDICARE, BC, SELFPAY ==
[2021-12-24 21:06] VITALS: BP 159/90; PULSE 66; RESP 16; TEMP 36.5; BMI 26.2
--- NOTE | 2021-12-24 21:36 | EX.ED.VIS.EY ---
HPI History of Present Illness Chief Complaint: Eye Problem Detail of Chief Complaint: Bilateral eye irritation Informant: patient Onset/Context/Timing Location: Bilateral Eyes Onset: Today Narrative Narrative: Patient presents secondary to bilateral eye infection. He has had URI symptoms for the past 3 weeks. He was tested for COVID multiple times and found to be negative. Patient states this morning he woke up with eye discharge. No vision changes. [facility] Medical History Anxiety Diabetes HTN (hypertension) Osteoporosis Pancreatitis Home Medications carvedilol 25 mg tablet 25 mg PO BID 12/19/17 [History Last Taken 09/28/18 07:00] insulin NPH isoph U-100 human 100 unit/mL subcutaneous suspension See Protocol SQ QHS 12/19/17 [History Last Taken Unknown] insulin regular human 100 unit/mL injection solution See Protocol IJ DAILY 12/19/17 [History Last Taken Unknown] aspirin 325 mg tablet 325 mg PO DAILY@0800 09/01/18 [History Last Taken 09/23/18] cholecalciferol (vitamin D3) 50 mcg (2,000 unit) capsule 2,000 unit PO DAILY 09/01/18 [History Last Taken Unknown] Allergy/AdvReac Type Severity Reaction Status Date / Time diphenhydramine Allergy Other Verified 01/14/20 22:42 [From Benadryl] pentazocine [From Talwin] Allergy Nausea Verified 01/14/20 22:42 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 Allergy Mucosal Uncoded 01/14/20 22:42 lesions Surgical History h/o right ulnar plating Social History Smoking Status: Never smoker ROS ROS ED Constitutional Constitutional ED: Denies chills or fever(s) Eyes Eyes: Reports discharge from eye(s); Denies change in vision ENT ENT ED: Reports discharge from eye(s) bilateral; Denies rhinorrhea or sore throat Cardiovascular Cardiovascular: Denies chest pain or palpitations Respiratory/Chest Respiratory/Chest: Reports cough; Denies dyspnea Gastrointestinal Gastrointestinal: Denies abdominal pain, diarrhea, nausea or vomiting Genitourinary Genitourinary ED: Denies difficulty urinating or dysuria Musculoskeletal Musculoskeletal: Denies back pain or extremity pain Integumentary Denies Abrasions or rash Neurologic Neurologic: Denies headache(s) or weakness Allergic/Immunologic Allergic/Immunologic ED: Denies lip swelling or urticaria EXAM Physical Exam Const Vital Signs: 12/24/21 21:06 12/24/21 21:06 Temperature 97.7 F L 97.7 F L Temperature Source Temporal Temporal Pulse Rate 66 66 Respiratory Rate 16 16 Blood Pressure 159/90 H 159/90 H Blood Pressure Mean 113 113 Positive well nourished and well developed General Appearance ED: well developed HEENT Reports normocephalic and head/scalp atraumatic Eyes PERRL and EOMs intact bilaterally Eyes Narrative: Mild eye injection bilaterally with watering. No evidence of periorbital cellulitis. Neck supple Chest Wall inspection of chest normal and palpation of chest normal Resp normal respiratory effort and clear to auscultation bilaterally Cardio regular rate and regular rhythm GI normal to inspection, nondistended, normoactive bowel sounds Palpation: soft Extremity normal to inspection Neuro oriented x3 and no sensory deficits noted Sensorium / Orientation: alert Motor Exam: strength 5/5 throughout Psych mental status grossly normal Skin no rashes or lesions noted MDM MDM MDM Narrative Medical decision making narrative: I did discuss with patient that my suspicion is this is a viral in light of the fact that he has had URI symptoms for the past 3 weeks. There is no good way to tell from physical exam whether this is a bacterial or viral infection. Since he now has both eyes involved just today he will be treated with gentamicin ophthalmic drops. He was referred to Ophtho if not improving. Discharge Plan Triage Chief Complaint: Eye Problem ED Provider: Dayana Bonds Dx/Rx/DC Orders Clinical Impression: Conjunctivitis Instructions: ED Conjunctivitis, Nonspecific Prescriptions: No Action carvedilol 25 MG tablet 25 mg PO BID insulin regular human 100 UNIT/ML solution See Protocol IJ DAILY Protocol: 2. Sliding Scale Insulin Low-Med Dosing Condition: 150-209 mg/dl = 1 unit Condition: 210-269 mg/dl = 2 units Condition: 270-329 mg/dl = 3 units Condition: 330-389 mg/dl = 4 units Condition: 390-449 mg/dl = 5 units Condition: Greater than 449 call physician Protocol Text: - Use for Total Daily Dose of Insulin 28-36 units - Average size patients LOW MEDIUM DOSING ALGORITHM insulin NPH isoph U-100 human 100 UNIT/ML suspension See Protocol SQ QHS Protocol: 2. Sliding Scale Insulin Low-Med Dosing Condition: 150-209 mg/dl = 1 unit Condition: 210-269 mg/dl = 2 units Condition: 270-329 mg/dl = 3 units Condition: 330-389 mg/dl = 4 units Condition: 390-449 mg/dl = 5 units Condition: Greater than 449 call physician Protocol Text: - Use for Total Daily Dose of Insulin 28-36 units - Average size patients LOW MEDIUM DOSING ALGORITHM aspirin 325 MG tablet 325 mg PO DAILY@0800 cholecalciferol (vitamin D3) 2,000 UNIT capsule 2,000 unit PO DAILY Primary Care Provider: Miriam Martinez Referrals: Miriam Martinez MD [Primary Care Provider] - Lester Navas MD [STAFF PHYSICIAN] - As Needed Activity Restrictions/Additional Instructions: Gentamicin drops: 2 drops to each eye every 6 hours until symptoms resolved for 24 hours. Disposition Disposition: Home, Self Care
[2021-12-24] MEDS: Gentamicin Sulfate 1 OPTH.BTL 2 DRP EACH EYE (21:41)
[2021-12-24 22:25] VITALS: BP 145/89; PULSE 79; RESP 16; O2SAT 97
== END 2021-12-24 22:26 | disposition home or self-care (01) ==
PROVIDERS: Emergency Provider Emergency Medicine; PCP Internal Medicine; Visit Provider Emergency Medicine
DX: H10.9 Unspecified conjunctivitis (principal); E11.9 Type 2 diabetes mellitus without complications; Z79.4 Long term (current) use of insulin; I10 Essential (primary) hypertension; M81.0 Age-related osteoporosis without current pathological fracture; Z87.19 Personal history of other diseases of the digestive system; Z79.82 Long term (current) use of aspirin; Z79.899 Other long term (current) drug therapy
CPT/HCPCS: 99283

== ENCOUNTER 2023-05-10 15:50 | Emergency (ER) | payer MEDICARE, BC, SELFPAY ==
[2023-05-10 15:53] VITALS: BP 188/90; PULSE 54; RESP 18; TEMP 36.2; O2SAT 100
[2023-05-10 16:16] VITALS: BMI 26.4
--- NOTE | 2023-05-10 16:21 | EDS_ITS ---
<Statement entered by Dayana Bonds MD - 05/10/23 19:36> I have personally performed a face to face assessment of the patient and have reviewed the JUAN ANTONIO Note. Patient presents after near syncopal episodes at home. He was recently diagnosed with COVID and was started on Paxlovid. Patient states he has been having frequent diarrhea. Today several times when he was on the commode he became lightheaded and had near syncopal episodes. He states he has not had much urine output and is concerned he is dehydrated. Patient sitting upright in bed no acute distress. Head and neck examination unremarkable. Heart is bradycardic and regular. Lung sounds are clear. Abdomen is soft with no focal tenderness. Active bowel sounds are noted throughout. Lab work is unremarkable. Patient's vital signs of been stable in the emergency room. EKG is sinus bradycardia with no evidence of ischemia. At this time patient does feel improved after IV fluids. He has been up to urinate without difficulty and does not feel dizzy. He is comfortable with discharge to home. Return instructions given. HPI History of Present Illness Chief Complaint: Syncope Narrative Narrative: 3Patient is a 67-year-old male of insulin-dependent diabetes, hypertension hyperlipidemia who presents to the emergency department for near syncopal episodes. Patient was diagnosed with COVID-19 4 days ago, he was started on Paxlovid. Over the last 48 hours, patient multiple episodes of diarrhea. Today, patient 3-4 episodes of diarrhea, after each episode, he felt like he was almost going to pass out. He states he is feeling very thirsty, he feels he might be dehydrated. He denies any chest pain or shortness of breath. He thinks it may be a side effect of the Paxlovid. [facility] Medical History (Updated 05/10/23 @ 17:54 by ANTHONY Soriano) Anxiety Diabetes HTN (hypertension) Osteoporosis Pancreatitis Home Medications carvedilol 25 mg tablet 25 mg PO BID 12/19/17 [History Last Taken 09/28/18 07:00] insulin NPH isoph U-100 human 100 unit/mL subcutaneous suspension See Protocol SQ QHS 12/19/17 [History Last Taken Unknown] insulin regular human 100 unit/mL injection solution See Protocol IJ DAILY 12/19/17 [History Last Taken Unknown] aspirin 325 mg tablet 325 mg PO DAILY@0800 09/01/18 [History Last Taken 09/23/18] cholecalciferol (vitamin D3) 50 mcg (2,000 unit) capsule 2,000 unit PO DAILY 09/01/18 [History Last Taken Unknown] cyclobenzaprine 10 mg tablet ea PO 07/28/22 [History Last Taken Unknown] etodolac 500 mg tablet 500 mg PO BID #30 tabs 07/28/22 [Rx Last Taken Unknown] Allergy/AdvReac Type Severity Reaction Status Date / Time diphenhydramine Allergy Other Verified 05/10/23 15:52 [From Benadryl] pentazocine [From Talwin] Allergy Nausea Verified 05/10/23 15:52 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 Positive for weakness Eyes: Negative for vision loss, vision change, double vision ENT: Negative for any sore throat, ear pain, congestion Cardiovascular: Negative for any chest pain, tightness, palpitations Respiratory: Negative for any sputum production, hemoptysis, dyspnea, dyspnea on exertion, orthopnea. Positive for cough Gastrointestinal: Negative for any abdominal pain, nausea, vomiting, constipation, blood in stool, blood in vomit. Positive for diarrhea : Negative for any urinary frequency, dysuria, retention, blood in urine Muscle skeletal: Negative for any myalgias, arthralgias, neck pain, back pain Neurological: Negative for any headache, numbness or tingling, dizziness. Positive for near syncope Skin: Negative for any rashes, lumps, itching, abrasions, lacerations Psychiatric: Negative for any depression, anxiety, stress, suicidal ideation, homicidal ideation Hematologic: Negative for any easy bruising, excessive bruising, easy bleeding Allergies: Negative for any eczema, hives, rash EXAM Physical Exam Narrative Exam Narrative: Vital signs reviewed. HEET: Head normocephalic atraumatic, TMs clear bilaterally. Posterior pharynx is clear, dry mucous membranes. Nares clear bilaterally. Neck: Supple with no lymphadenopathy or tenderness. No signs of meningismus. Cardiac: Regular rate and rhythm no murmurs gallops or rubs, equal peripheral pulses bilaterally. Respiratory: Lungs clear to auscultation bilaterally. No chest tenderness. Abdomen: Soft, nontender, nondistended. No abdominal bruit or pulsatile masses. No hepatosplenomegaly Extremities: No peripheral edema, no signs of gross trauma or deformity. Active full range of motion of all extremities. Neuro: Cranial nerves II through XII intact, no focal neurological deficits. Skin: Clean dry and intact with no rash, purpura, petechiae, vesicles or pustules. Backs/flank: No CVA tenderness, no midline spinal tenderness, no deformity. Psych: Normal mood and affect. No SI, HI or acute psychosis. Const Vital Signs: 05/10/23 15:53 05/10/23 16:12 Temperature 97.2 F L Temperature Source Temporal Pulse Rate 54 L Respiratory Rate 18 Respiratory Effort Normal Non-Labored Respiratory Pattern Normal Blood Pressure 188/90 H Blood Pressure Mean 122 Pulse Ox 100 Oxygen Delivery Method Room Air [facility] Lab Data Labs: Laboratory Results - last 24 hr 05/10/23 16:40 WBC 4.8 RBC 5.15 Hgb 14.7 Hct 45.2 MCV 87.8 MCH 28.5 MCHC 32.5 RDW Std Deviation 41.2 RDW Coeff of [place] 12.7 Plt Count 217 MPV 9.2 Immature Gran % (Auto) 0.200 Neut % (Auto) 49.9 Lymph % (Auto) 31.9 [place] % (Auto) 14.3 H Eos % (Auto) 2.9 Baso % (Auto) 0.8 Absolute Neuts (auto) 2.4 Absolute Lymphs (auto) 1.52 Nucleated RBC % 0 Sodium 136 Potassium 4.3 Chloride 104 Carbon Dioxide 29.0 Anion Gap 3 L BUN 18 Creatinine 1.07 Estim Creat Clear Calc 72.33 Est GFR (MDRD) Af Amer 89 Est GFR (MDRD) Non-Af 73 BUN/Creatinine Ratio 16.8 Glucose 176 H Calcium 8.4 L Troponin I High Sens 7 EKG Sinus bradycardia with first-degree AV block: Attestation: I personally reviewed and interpreted this EKG as follows: Interpretation: Sinus Bradycardia Comments: Sinus bradycardia with first-degree AV block, rate of 53 bpm, MO interval 210 ms, QRS duration 104 ms, no acute ST elevation, no acute infarct noted. Treatment and Re-Evaluation :: Patient appears to be in no obvious distress, vital signs are stable, patient presenting to the emergency department with near syncopal episodes after having diarrhea, patient states this happened 3-4 times today. He states he feels generally well however this concerned him, he is also concerning for dehydration because he is not eating and drinking normally. Patient is on Paxlovid, differential diagnosis includes ongoing COVID-19, dehydration, dysrhythmia. Patient's physical examination is consistent with possible vasovagal, as all of these are happening after the patient has a bowel movement or during. Patient will receive basic labs, ensuring that there is no leukocytosis, patient will also receive a BMP to look for any electrolyte abnormality, look at the kidney function. IV fluids IV Zofran given. Patient was able to pass the oral challenge here. Patient's laboratory values showed a normal CBC, patient's chemistries were unremarkable, patient's troponin was negative. There is no evidence of any acute cardiopulmonary process, EKG was unremarkable. Patient is likely suffering from some slight dehydration, as well as vasovagal syncope after the bowel movements. He is instructed to continue to maintain hydration, he will follow-up outpatient, all questions were answered, patient stable for discharge. Discharge Plan Triage Chief Complaint: Syncope ED Midlevel Provider: Jay Lala ED Provider: Dayana Bonds Dx/Rx/DC Orders Clinical Impression: Acute dehydration, Diarrhea, Vasovagal near syncope Instructions: Causes of Syncope, ED Dehydration (Adult) Prescriptions: No Action cyclobenzaprine 10 mg tablet PO Patient Comments: TAKE 1 TABLET BY MOUTH THREE TIMES DAILY NEEDED etodolac 500 mg tablet 500 mg PO BID Qty: 30 0RF carvedilol 25 MG tablet 25 mg PO BID insulin regular human 100 UNIT/ML solution See Protocol IJ DAILY Protocol: 2. Sliding Scale Insulin Low-Med Dosing Condition: 150-209 mg/dl = 1 unit Condition: 210-269 mg/dl = 2 units Condition: 270-329 mg/dl = 3 units Condition: 330-389 mg/dl = 4 units Condition: 390-449 mg/dl = 5 units Condition: Greater than 449 call physician Protocol Text: - Use for Total Daily Dose of Insulin 28-36 units - Average size patients LOW MEDIUM DOSING ALGORITHM insulin NPH isoph U-100 human 100 UNIT/ML suspension See Protocol SQ [facility] Protocol: 2. Sliding Scale Insulin Low-Med Dosing Condition: 150-209 mg/dl = 1 unit Condition: 210-269 mg/dl = 2 units Condition: 270-329 mg/dl = 3 units Condition: 330-389 mg/dl = 4 units Condition: 390-449 mg/dl = 5 units Condition: Greater than 449 call physician Protocol Text: - Use for Total Daily Dose of Insulin 28-36 units - Average size patients LOW MEDIUM DOSING ALGORITHM aspirin 325 MG tablet 325 mg PO DAILY@0800 cholecalciferol (vitamin D3) 2,000 UNIT capsule 2,000 unit PO DAILY Primary Care Provider: Miriam Martinez Referrals: Miriam Martinez MD [Primary Care Provider] - Activity Restrictions/Additional Instructions: Please maintain hydration Disposition Disposition: Home, Self Care
--- NOTE | 2023-05-10 16:21 | EKG12_ITS ---
Test Reason : dizziness Blood Pressure : / mmHG Vent. Rate : 053 BPM Atrial Rate : 053 BPM P-R Int : 210 ms QRS Dur : 104 ms QT Int : 422 ms P-R-T Axes : 048 066 058 degrees QTc Int : 395 ms Sinus bradycardia with 1st degree A-V block Incomplete right bundle branch block Borderline ECG Confirmed by IRINA SCHMIDT, MARGUERITE ([id number]), medical transcription editor ANNA BOWDEN ([id number]) on 05/11/2023 10:58:51 AM Referred By: Confirmed By:MARGUERITE AREVALO MD
[2023-05-10] MEDS: 0.9% Normal Saline (1000mL) 1,000 ML 1000 ML IV (16:38)
[2023-05-10 16:46] LABS: Absolute Lymphocyte Count 1.52 X10^3/uL (0.83-4.51); Absolute Neutrophil Count 2.4 X10^3/uL (2.0-7.7); Basophil# 0.04 X10^3/uL; Basophil% 0.8 % (0-1); Eosinophil# 0.14 X10^3/uL; Eosinophils% 2.9 % (0-5); Hematocrit 45.2 % (40-54); Hemoglobin 14.7 g/dL (13.0-16.5); Lymphocyte # 1.52 X10^3/ul (0.83-4.51); Lymphocyte % 31.9 % (19-41); Mean Corp Hgb Conc 32.5 g/dL (32-36); Mean Corpuscular Hgb 28.5 pg (27.0-32.0); Mean Corpuscular Volume 87.8 fL (80-94); Mean Platelet Vol. 9.2 fl (6.2-12.0); Monocyte# 0.68 X10^3/uL; Monocyte% 14.3 % (0-10); NRBC Flagged by Analyzer 0 % (0-5); Neutrophil # 2.38 X10^3/uL (2.7-7.7); Neutrophil % 49.9 % (47-70); Platelet Count 217 K/mm3 (150-450); RBC Distribution Width CV 12.7 % (11.6-14.6); RBC Distribution Width SD 41.2 fl (35.1-43.9); Red Blood Count 5.15 M/mm3 (4.6-6.2); White Blood Count 4.8 K/mm3 (4.4-11.0)
[2023-05-10 17:09] LABS: Anion Gap 3 (5-15); BUN 18 mg/dL (7-18); BUN/Creat Ratio 16.8 RATIO (10-20); Calcium,Total 8.4 mg/dL (8.5-10.1); Chloride 104 mmol/L (98-107); Creatinine, Serum 1.07 mg/dL (0.70-1.30); EST Glomerular Filtration Rate 73 mL/min (>60); Est Glom Filt Rate - Afr Amer 89 mL/min (>60); Estimated Creatinine Clearance 72.33 ml/min; Glucose 176 mg/dL (74-106); Potassium 4.3 mmol/L (3.5-5.1); Sodium Level 136 mmol/L (136-145); Troponin-I HS 7 pg/mL (3.0-78.0)
[2023-05-10 18:04] VITALS: BP 158/78; PULSE 55; RESP 18; O2SAT 95
== END 2023-05-10 18:35 | disposition home or self-care (01) ==
PROVIDERS: Nurse Practitioner; Emergency Provider Emergency Medicine; PCP Internal Medicine; Visit Provider Emergency Medicine
DX: E86.0 Dehydration (principal); Z79.4 Long term (current) use of insulin; E11.9 Type 2 diabetes mellitus without complications; R55 Syncope and collapse; I10 Essential (primary) hypertension; R19.7 Diarrhea, unspecified; E78.5 Hyperlipidemia, unspecified; Z79.899 Other long term (current) drug therapy; Z79.82 Long term (current) use of aspirin
CPT/HCPCS: 80048; 84484; 85025; 93005; 96361; 96374; 99282; J7030; A4216; J2405

== ENCOUNTER → 2023-07-03 | Outpatient (CLI) | payer MEDICARE, BC, SELFPAY ==
--- OUTSIDE RECORDS SUMMARY | 2023-07-03 09:31 | XMS RPT_ITS | CCD ---
Author Name Unknown Address [address] [place] [address] Organization [facility] Care Team Providers Care Admissions Evaluator Name Role Phone Miriam Martinez MD Primary Care Provider PROVIDER, UNKNOWN Attending Unavailable PROVIDER, UNKNOWN Admitting Unavailable PATIENT, SELF Referring Unavailable NemMiriam allen MD Primary Care Provider BELEM CALDERON Attending Unavailable NEMR, GASAN Primary Care Unavailable NEMR, GASAN Primary Care Unavailable KUPIEC, BELEM Referring Unavailable LILIA YATES Attending Unavailable NEMR, GASAN Primary Care Unavailable KUPIEC, BELEM Referring Unavailable NEMR, GASAN Primary Care Unavailable NEMR, GASAN Primary Care Unavailable KUPIEC, BELEM Attending Unavailable NEMR, GASAN Primary Care Unavailable NEMR, GASAN Referring Unavailable NEMR, GASAN Primary Care Unavailable Allergies Allergy Classification Reported Allergen(s) Allergy Type Date of Onset Reaction(s) Facility (17 sources) Pentazocine; Translations: [PENTAZOCINE LACTATE] Drug Allergy 0 [facility] Work Phone: (17 sources) traMADol; Translations: [TRAMADOL HCL] Drug Allergy 0 Other: See Comments [facility] (1 source) Pentazocine; Translations: [PENTAZOCINE] Drug Allergy 0 [facility] (1 source) traMADol; Translations: [TRAMADOL] Drug Allergy 0 [facility] Medications Current Medications Medication Drug Class(es) Dates Sig (Normalized) Sig (Original) benoxinate hydrochloride 4 mg/ml / fluorescein sodium 2.5 mg/ml ophthalmic solution (1 source) Diagnostic Dye Start: 07-16-2022 End: 07-16-2022 fluorescein-dante xinate 0.25-0.4 % 1 Drop (FLURESS) cephalexin 500 mg oral capsule (1 source) Cephalosporin Antibacterial Start: 12-06-2021 End: 12-11-2021 take 1 capsule by mouth four times daily cephALEXin (KEFLEX) 500 mg capsule Take 1 capsule by mouth four times daily for 5 days. 20 capsule 0 12/06/2021 12/11/2021 Active Completed/Discontinued Medications Medication Drug Class(es) Dates Sig (Normalized) Sig (Original) ALPRAZolam 0.5 mg oral tablet (16 sources) Benzodiazepine take 1 tablet by tahco th every twenty-four hours as needed ALPRAZolam (XANAX) 0.5 mg tablet Take 0.5 mg by mouth at bedtime as needed. 0 Active Problems Active Problems Problem Classification Problem Date Documented Da te Episodic/Chronic Anxiety disorders (1 source) Anxiety disorder, unspecified; Translations: [Anxiety hyperventilation] Onset: 09-16-2022 Chronic Cataract (11 sources) Bilateral age-related nuclear cataracts; Translations: [Age-related nuclear cataract, bilateral] Onset: 07-16-2022 Chronic Diabetes mellitus with complications (20 sources) Hypoglycemic disorder; Translations: [Type 2 diabetes mellitus with hypoglycemia without coma] Onset: 02-01-2021 02-01-2021 Chronic Diabetes mellitus without complication (20 sources) Type 2 diabetes mellitus without complication; Translations: [Type 2 diabetes mellitus without complications] Onset: 09-23-2019 Chronic Disorders of lipid metabolism (20 sources) Mixed hyperlipidemia; Translations: [Mixed hyperlipidemia] Onset: 09-23-2019 09-23-2019 Chronic Essential hypertension (20 sources) Essential hypertension; Translations: [Essential (primary) hypertension] Onset: 09-23-2019 09-23-2019 Chronic Hypertension with complications and secondary hypertension (1 source) Hypertensive heart disease without heart failure; Translations: [Malignant hypertensive heart disease without heart failure] Onset: 09-16-2022 Chronic Miscellaneous mental health disorders (1 source) Other somatoform disorders; Translations: [Anxiety hyperventilation] Onset: 09-16-2022 Chronic Nutritional deficiencies (1 source) Vitamin D deficiency, unspecified; Translations: [Avitaminosis D] Onset: 09-16-2022 Chronic Other injuries and conditions due to external causes (1 source) Puncture wound - injury; Translations: [Other injury of unspecified body region, initial encounter] Episodic Other screening for suspected conditions (not mental disorders or infectious disease) (3 sources) Elevated prostate specific antigen [PSA]; Translations: [Encounter for screening for malignant neoplasm of prostate] Onset: 09-16-2022 Episodic Syncope (1 source) Syncope; Translations: [Syncope and collapse] 05-10-2023 Episodic Past or Other Problems Problem Classification Problem Date Documented Da te Episodic/Chronic Blindness and vision defects (11 sources) Disorder of refraction; Translations: [Unspecified disorder of refraction] Onset: 07-16-2022 Episodic Other aftercare (1 source) terminal worker (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) use of insulin; Translations: [Type 2 diabetes mellitus without complication, with long-term current use of insulin (HCC)] Onset: 09-23-2019 Episodic Other gastrointestinal disorders (19 sources) History of pancreatitis; Translations: [Personal history of other diseases of the digestive system] Onset: 09-23-2019 09-23-2019 Episodic Other gastrointestinal disorders (1 source) Personal history of other diseases of the digestive system; Translations: [History of pancreatitis] Onset: 09-23-2019 Episodic Results Test Name Value Interpretation Reference Range Facil ity Vital Signs Date Time Vital Sign Value Performing Clinician Malissa calabrese 09-24-2022 10:31-0400 Body height 180 cm [facility] THEATER PROJECTIONIST.[facility] Work Phone: [facility] 09-24-2022 10:31-0400 Body weight 86.73 kg [facility] THEATER PROJECTIONIST.[facility] Work Phone: [facility] 09-24-2022 10:31-0400 Diastolic blood pressure 76 mm[Hg] [facility] THEATER PROJECTIONIST.[facility] Work Phone: [facility] 09-24-2022 10:31-0400 Heart rate 55 /min [facility] THEATER PROJECTIONIST.[facility] Work Phone: [facility] 09-24-2022 10:31-0400 Respiratory rate 16 /min [facility] THEATER PROJECTIONIST.[facility] Work Phone: [facility] 09-24-2022 10:31-0400 SaO2% (BldA) [Mass fraction] 98 % Belem Kupiec THEATER PROJECTIONIST.DIRECTOR OF GLOBAL TALENT Work Phone: [facility] 09-24-2022 10:31-0400 Systolic blood pressure 160 mm[Hg] Belem Kupiec THEATER PROJECTIONIST.DIRECTOR OF GLOBAL TALENT Work Phone: [facility] 02-18-2022 13:36-0400 Diastolic blood pressure 80 mm[Hg] Belem Kupiec THEATER PROJECTIONIST.DIRECTOR OF GLOBAL TALENT Work Phone: [facility] 02-18-2022 13:36-0400 Systolic blood pressure 130 mm[Hg] Belem Kupiec THEATER PROJECTIONIST.DIRECTOR OF GLOBAL TALENT Work Phone: [facility] 02-18-2022 13:12-0400 Body height 177.3 cm Belem Kupiec THEATER PROJECTIONIST.DIRECTOR OF GLOBAL TALENT Work Phone: [facility] 02-18-2022 13:12-0400 [facility].DIRECTOR OF GLOBAL TALENT Work Phone: [facility] 02-18-2022 13:12-0400 Heart rate 58 /[facility]CTION[facility].DIRECTOR OF GLOBAL TALENT Work Phone: [facility] 02-18-2022 13:12-0400 SaO2% (BldA) [Mass fraction] 99 % Belem Kupiec THEATER PROJECTIONIST.DIRECTOR OF GLOBAL TALENT Work Phone: [facility] 12-06-2021 14:38-0400 Body temperature 97.7 [degF] Sandy Moe THEATER PROJECTIONIST.DIRECTOR OF GLOBAL TALENT Work Phone: [facility] 12-06-2021 14:38-0400 Body weight 87.27 kg Sandy Moe THEATER PROJECTIONIST.DIRECTOR OF GLOBAL TALENT Work Phone: [facility] 12-06-2021 14:38-0400 Diastolic blood pressure 84 mm[Hg] Sandy Moe THEATER PROJECTIONIST.DIRECTOR OF GLOBAL TALENT Work Phone: [facility] 12-06-2021 14:38-0400 Heart rate 61 /min Sandy Moe THEATER PROJECTIONIST.DIRECTOR OF GLOBAL TALENT Work Phone: [facility] 12-06-2021 14:38-0400 Respiratory rate 16 /min Sandy Moe THEATER PROJECTIONIST.DIRECTOR OF GLOBAL TALENT Work Phone: [facility] 12-06-2021 14:38-0400 SaO2% (BldA) [Mass fraction] 97 % [facility] PROJECTION[facility].DIRECTOR OF GLOBAL TALENT Work Phone: [facility] 12-06-2021 14:38-0400 Systolic blood pressure 148 mm[Hg] [facility] PROJECTION[facility].DIRECTOR OF GLOBAL TALENT Work Phone: [facility] 10-30-2021 13:03-0400 Body height 176.7 cm [facility] THEATER PROJECTIONIST.DIRECTOR OF GLOBAL TALENT Work Phone: [facility] 10-30-2021 13:03-0400 Body weight 88.36 kg [facility] THEATER PROJECTIONIST.DIRECTOR OF GLOBAL TALENT Work Phone: [facility] 10-30-2021 13:03-0400 Diastolic blood pressure 77 mm[Hg] [facility] THEATER PROJECTIONIST.DIRECTOR OF GLOBAL TALENT Work Phone: [facility] 10-30-2021 13:03-0400 Heart rate 59 /min [facility] THEATER PROJECTIONIST.DIRECTOR OF GLOBAL TALENT Work Phone: [facility] 10-30-2021 13:03-0400 SaO2% (BldA) [Mass fraction] 97 % [facility] THEATER PROJECTIONIST.DIRECTOR OF GLOBAL TALENT Work Phone: [facility] 10-30-2021 13:03-0400 Systolic blood pressure 148 mm[Hg] [facility] THEATER PROJECTIONIST.DIRECTOR OF GLOBAL TALENT Work Phone: [facility] Encounters Encounter Date Encounter Type Care Provider Facility Start: 06-29-2023 End: 06-30-2023 ambulatory [facility] Facility:[facility] Start: 05-10-2023 End: 05-10-2023 ambulatory [facility] Facility:[facility] Start: 05-10-2023 End: 05-10-2023 Patient encounter procedure Tl MONAE Work Phone: [facility] Procedures Date Procedure Procedure Detail Performing Clinician Start: 10-30-2021 Hemoglobin A1c/Hemoglobin.total in Blood Belem Calderon APRN.CNP Work Phone: Plan of Treatment Date Care Activity Detail Author Start: 01-13-2030 Urine microalbumin profile DTa P,Tdap,Td Vaccine (4 - Td or Tdap) [facility] Start: 11-05-2027 Urine microalbumin profile DTA P,TDAP,TD (3 - Td or Tdap) [facility] Start: 09-17-2027 PROSTATE CANCER SCRE ENING DISCUSSION PROSTATE CANCER SCREENING DISCUSSION [facility] Start: 07-30-2026 PROSTATE CANCER SCRE ENING DISCUSSION PROSTATE CANCER SCREENING DISCUSSION [facility] Start: 01-01-2024 3 comp foot exam completed Diabetic Foot Exam [facility] Start: 01-01-2024 BP Controlled (<130/80) BP Controlle d (<130/80) [facility] Start: 09-17-2023 Hepatitis B screening URINE AL BUMIN:CREATININE RATIO [facility] Start: 09-17-2023 Hepatitis B surface antibody level LDL CHOLESTEROL [facility] Start: 07-16-2023 Hepatitis C antibody , confirmatory test DILATED RETINAL EXAM [facility] Start: 07-03-2023 Hemoglobin A1c/Hemoglobin.total in Blood HbA1C [facility] Start: 03-18-2023 Hemoglobin A1c/Hemoglobin.total in Blood HBA1C [facility] Start: 02-06-2023 Influenza vaccination INFLUENZA (#1) [facility] Start: 01-22-2023 Hepatitis B screening URINE AL BUMIN:CREATININE RATIO [facility] Start: 12-24-2022 Hemoglobin A1c/Hemoglobin.total in Blood HBA1C [facility] Start: 08-05-2022 COVID-19 VACCINE (6 - Moderna series) COVID-19 VACCINE (6 - Moderna series) [facility] Start: 07-30-2022 Hepatitis B screening URINE AL BUMIN:CREATININE RATIO [facility] Start: 06-08-2022 ADVANCE DIRECTIVE DISCUSSION ADVANCE DIRECTIVE DISCUSSION [facility] Start: 06-08-2022 DEPRESSION ASSESSMENT DEPRESSION ASS ESSMENT [facility] Start: 05-09-2022 3 comp foot exam completed DIABETIC FOOT EXAM [facility] Start: 05-02-2022 Hemoglobin A1c/Hemoglobin.total in Blood HBA1C [facility] Start: 04-24-2022 Hemoglobin A1c/Hemoglobin.total in Blood HBA1C [facility] Start: 04-22-2022 Hepatitis B surface antibody level LDL CHOLESTEROL [facility] Start: 02-06-2022 Influenza vaccination INFLUENZA (#1) [facility] Start: 01-27-2022 Hemoglobin A1c/Hemoglobin.total in Blood HBA1C [facility] Start: 11-05-2021 COVID-19 VACCINE (5 - Booster for Moderna series) COVID-19 VACCINE (5 - Booster for Moderna series) [facility] Start: 2021 ADVANCE DIRECTIVE DISCUSSION ADVANCE DIRECTIVE DISCUSSION [facility] Start: 2021 PNEUMOVAX AGE 65 AND OVER WITH 5YR LOOKBACK (#1) PNEUMOVAX AGE 65 AND OVER WITH 5YR LOOKBACK (#1) [facility] Start: 06-08-2021 DEPRESSION ASSESSMENT DEPRESSION ASS ESSMENT [facility] Start: 2006 SHINGRIX VACCINE (1 of 2) SHINGRIX V ACCINE (1 of 2) [facility] Start: 2001 COLOGUARD (FIT-DNA) COLOGUARD (FIT-D NA) [facility] Start: 2001 Colonoscopy COLONOSCOPY [facility] Start: 2001 COLORECTAL CANCER SCREENING COLORECTAL CANCER SCREENING [facility] Start: [address] COLONOGRAPHY [facility] Start: 2001 FECAL OCCULT BLOOD FECAL OCCULT BLOO D [facility] Start: [address] [facility] Start: 1974 ANNUAL PCP TEAM NEEDLEWORKER [place] DISEASE VISIT ANNUAL PCP TEAM CHRONIC DISEASE VISIT [facility] Start: 1974 BP CONTROLLED (<130/80) BP CONTROLLE D (<130/80) [facility] Start: 1974 HEPATITIS C SCREENING HEPATITIS C SC REENING [facility] Start: 1974 HIV SCREENING HIV SCREENING [facility] Start: 1968 Adult depression scr eening assessment DEPRESSION SCREENING [facility] Start: 1966 Hepatitis C antibody , confirmatory test DILATED RETINAL EXAM [facility] Start: 1962 PNEUMOCOCCAL: 65+ (1 - PCV) PNEUMOCOCCAL: 65+ (1 - PCV) [facility] Immun[facility] Immunization Date Immunization Notes Care Provider Regine alvarado 03-28-2021 influenza, seasonal, injectable Belem Kupiec THEATER PROJECTIONIST.DIRECTOR OF GLOBAL TALENT Work Phone: [facility] Work Phone: 03-29-2020 Seasonal, quadrivale nt, recombinant, injectable influenza vaccine, preservative free Belem Kupiec THEATER PROJECTIONIST.DIRECTOR OF GLOBAL TALENT Work Phone: [facility] 04-22-2019 Influenza, injectabl e, Madin [place] Canine Kidney, quadrivalent with preservative Belem Kupiec THEATER PROJECTIONIST.DIRECTOR OF GLOBAL TALENT Work Phone: [facility] 11-04-2017 tetanus toxoid, redu yvonne diphtheria toxoid, and acellular pertussis vaccine, adsorbed Belem Kupiec THEATER PROJECTIONIST.DIRECTOR OF GLOBAL TALENT Work Phone: [facility] 03-11-2017 influenza, injectabl e, quadrivalent, preservative free Belem Kupiec THEATER PROJECTIONIST.DIRECTOR OF GLOBAL TALENT Work Phone: [facility] 04-14-2016 influenza, seasonal, injectable Belem Kupiec THEATER PROJECTIONIST.DIRECTOR OF GLOBAL TALENT Work Phone: [facility] 04-06-2015 influenza, injectabl e, quadrivalent, preservative free Belem Kupiec THEATER PROJECTIONIST.DIRECTOR OF GLOBAL TALENT Work Phone: [facility] 03-06-2014 influenza, injectabl e, quadrivalent, preservative free Belem Kupiec THEATER PROJECTIONIST.DIRECTOR OF GLOBAL TALENT Work Phone: [facility] 03-06-2014 tetanus toxoid, redu yvonne diphtheria toxoid, and acellular pertussis vaccine, adsorbed Belem Kupiec THEATER PROJECTIONIST.DIRECTOR OF GLOBAL TALENT Work Phone: [facility] 03-30-2013 influenza, injectabl e, quadrivalent, preservative free Belem Kupiec THEATER PROJECTIONIST.DIRECTOR OF GLOBAL TALENT Work Phone: [facility] 04-24-2009 influenza, seasonal, injectable, preservative free Belem Kupiec THEATER PROJECTIONIST.DIRECTOR OF GLOBAL TALENT Work Phone: [facility] 04-11-2009 novel [id number], preservative-free, injectable Belem Calderon THEATER PROJECTIONIST.DIRECTOR OF GLOBAL TALENT Work Phone: [facility] 04-28-2007 influenza virus vaccine, whole virus Belem Calderon THEATER PROJECTIONIST.DIRECTOR OF GLOBAL TALENT Work Phone: [facility] Payers Date Payer Category Payer Medicaid MEDICAID [facility] MEDICAID [id number] 2021-Present [phone] [address] [place] [address] Medicaid [id number] 2021 Medicaid [id number] 2021 Unknown MARIANO [place] ME DICARE SUPPLEMENT [id number] 2021-Present [phone] [address] [place] [address] Indemnity [id number] 2021 Unknown MARIANO [place] ME DICARE SUPPLEMENT [id number] 2021-Present [phone] [address] [place] [address] Indemnity [id number] 2021 Unknown [id number] 2021 Medicare MEDICARE MEDICAR E A AND B [id number] 2021-Present [phone] [address] [place] [id number] Medicare [id number] 2021 Medicare MEDICARE MEDICAR E A AND B [id number] 2021-Present [phone] [place] [address] Medicare [id number] 2021 Medicare [id number] 2017 Medicaid [id number] 1955 Unknown [id number] Social History Date Type Detail Facility Start: 09-23-2019 End: 02-18-2022 Tobacco smoking status NHIS Never smoked tobacco [facility] Work Phone: Start: 09-23-2019 End: 02-18-2022 Tobacco use and exposure Smokeless tobacco non-user [facility] Work Phone: Start: 08-02-2021 End: 12-31-2022 Alcohol intake Current drinker of alcohol (finding) [facility] Start: 09-23-2019 History SDOH Alcohol Frequency 2 [facility] Start: 1955 Sex Assigned At Not on file [facility] Start: 10-20-2021 End: 02-18-2022 Exposure to SARS-CoV-2 (event) Not sure [facility] Start: 09-24-2022 End: 10-16-2022 History of Social function [facility] Work Phone: Start: 09-24-2022 End: 10-16-2022 Tobacco use panel [facility] Work Phone: National Score (1-10 0), lower number is lower risk 62 [facility] Start: 10-23-2021 Gender identity Identifies as male gender (finding) [facility] Start: 10-23-2021 Sexual orientation Choose not to dis close [facility] How often to you hav e a drink containing alcohol? Monthly or less [facility] Work Phone: Medical Equipment Procedure Code Equipment Code Equipment Origin al Text Equipment Identifier Dates Use 4 pen needle s daily Start: 02-01-2021 End: 02-18-2022 Clinical Notes 09-02-2021 to 05-10-2023 Tl Weaver PA - 05/10/2023 3:30 PM ESTTelephone Encounter - Heather Randle MA - 12/19/2022 3:06 PM EDTTelephone Encounter - Belem Calderon APRN.CNP - 12/19/2022 2:48 PM EDT Note Date & Type Note Facility 05-10-2023 Note HNO ID: [id number] Author: Tl Weaver PA Service: ? Author Type: Physician Distance Education Director Type: Progress Notes Filed: 05/10/2023 3:31 PM Note Text: 67-year-old male COVID-positive at home presents for diarrhea and syncope. Patient states he has had presyncopal episodes for the past few days. Today he had diarrhea and had a syncopal episode. He did not hit his head. He is on Paxlovid for the COVID. Due to syncopal episodes, recommended evaluation in the emergency room. He understands. He will go to [place] [facility]. [facility] 05-10-2023 History of Presen t illness Narrative 67-year-old male COVID-positive at home presents for diarrhea and syncope. Patient states he has had presyncopal episodes for the past few days. Today he had diarrhea and had a syncopal episode. He did not hit his head. He is on Paxlovid for the COVID. Due to syncopal episodes, recommended evaluation in the emergency room. He understands. He will go to [place] [facility]. documented in this encounter [facility] 12-31-2022 Note HNO ID: [id number] Author: Angely Tan Ma Service: ? Author Type: ? Type: Procedures Filed: 12/31/2022 11:36 AM Note Text: [facility] 12-31-2022 Note HNO ID: [id number] Author: Belem Calderon APRN.CNP Service: ? Author Type: Nurse Practitioner Type: Progress Notes Filed: 12/31/2022 11:36 AM Note Text: Reason for Consultation: DM Type 2 Referring Physician: SELF HISTORY OF PRESENT ILLNESS; Mr. Gonzalez is a 67 year old male presenting for follow up regarding DM Type 2. He was initially diagnosed with diabetes age 31 after having pancreatitis. He does not have a family history of diabetes mellitus in his family . LV 09/24/22 A1C today is 7.8 Negative SOLANGE and islet cell AB Cpeptide 0.3 History in addition to diabetes: pancreatitis, hypertension, hyperlipidemia, hypoglycemia He started Dexcom CGM on 07/26/20. He decided against an insulin pump. Just started new G7 CGM. Using administrative supervisor for now but plans to connect with fermin Still trying to trust new CGM. Was having lows on vacation. Adjusting his insulin doses His current diabetes regimen is: Glucagon: baqsimi lantus 34 units daily HS (only 25 units if under 150) -- 30 or 34 or whatever Fiasp plus SS---11-14 units breakfast, 20-28 units dinner Plus sliding scale of lispro/humalog at meals or to cover a high sugar at meal time if not eating If Blood Glucose (mg/dL) is < 150 Add 0 units 151-200 Add 2 unit 201-250 Add 3 units 251-300 Add 4 units 301-350 Add 5 units 351-400 Add 6 units >400 Add 7 units Previous DM medications: Unable to recall previous oral agents--did not feel well on them and prefers insulin Regarding symptoms of hyperglycemia, he is not experiencing any symptoms such as polyuria, polydipsia, nocturia or rapid weight loss or blurry vision. Exercise: occasionally; less active in the winter Simran is checking his blood glucose continuously with Dexcom G7 CGM He did bring a logbook today for review: Dexcom 14 day download--not enough data to report today Hypoglycemia frequency: occasionally Hypoglycemia awareness: not always ; had a low that required EMS assistance in the past ; has been as low as 40 Overall, the patient has no acute complaints at this time. HLD: crestor 5mg 1/2 tab daily --not taking secondary to myalgia PAST MEDICAL HISTORY Diagnosis Date Diabetes (HCC) type 2 Hyperlipidemia Hypertension Pancreatitis PAST SURGICAL HISTORY Procedure Laterality Date OTHER broken arm-right--has titanium plate FAMILY HISTORY Problem Relation Age of Onset Heart disease Father Social History Tobacco Use Smoking status: Never Smokeless tobacco: Never Vaping Use Vaping Use: Never used Substance Use Topics Alcohol use: Yes Current Outpatient Medications Medication Sig Dispense Refill insulin aspart, niacinamide, (FIASP FLEXTOUCH U-100 INSULIN) 100 unit/mL (3 mL) pen Inject subcutaneously 11- 14 units breakfast, 11-14 units lunch, 20-24 units dinner plus SS up to 70 30 mL 5 glucagon (BAQSIMI) 3 mg/actuation nasal spray Use 1 [place] in the nose as needed for low blood sugar. May repeat after 15 minutes using a new device if there is no response. 2 Each 1 insulin glargine (LANTUS SOLOSTAR U-100 INSULIN) 100 unit/mL (3 mL) INJECT 34 UNITS SUBCUTANEOUSLY ONCE DAILY AT BEDTIME IF GLUCOSE IS OVER 150; IF UNDER 150 ONLY TAKE 25 UNITS 45 mL 3 Insulin [place], Disposable, (BD ULTRAFINE III MINI PEN) 31 gauge x 3/16 Use 4 pen needles daily 400 Each 3 ALPRAZolam (XANAX) 0.5 mg tablet Take 0.5 mg by mouth at bedtime as needed. carvedilol (COREG) 25 mg tablet Take 1 tablet by mouth twice daily. aspirin 325 mg tablet Take 1 tablet by mouth once daily. No current facility-administered medications for this visit. Allergies As of Date: 12/31/2022 Allergen Noted Reaction SYDNEE [PENTAZOCINE LACTATE] 08/08/2009 TRAMADOL HCL 11/22/2019 Other: See Comments Fully Assessed 12/31/2022 REVIEW OF SYSTEMS: Review of Systems Respiratory: Negative for difficulty breathing. Cardiovascular: Negative for chest pain. Gastrointestinal: Negative for nausea, vomiting, diarrhea and constipation. PHYSICAL EXAM: BP 129/74 Pulse 87 Resp 16 Ht 180 cm (5' 10.87 ) Wt 85.3 kg (188 lb) SpO2 99% BMI 26.32 kg/m2 Physical Exam Constitutional: Appearance: Normal appearance. Cardiovascular: Rate and Rhythm: Normal rate and regular rhythm. Pulmonary: Effort: Pulmonary effort is normal. Breath sounds: Normal breath sounds. Skin: General: Skin is warm and dry. Neurological: Mental Status: He is alert and oriented to person, place, and time. Psychiatric: Mood and Affect: Mood normal. Behavior: Behavior normal. Feet:Shoes and socks removed, No deformities, ulcers, calluses, and sensitive to 10 gm monofilament DATA: Creatinine Date Value Ref Range Status 09/16/2022 0.86 0.73 - 1.22 mg/dL Final Hemoglobin A1C (%) Date Value 07/30/2021 7.8 Hemoglobin A1C (POCT) (%) Date Value 12/31/2022 7.8 ) No components found for: URINEALBUMIN Cholesterol, Total (mg/dL) Date Value 04 (more content not included)... [facility] 12-19-2022 Miscellaneous Notes Form faxed to [employer] [facility] at on December 19, 2022; transmission ok. Form signed. Thank you Form on docs desk/basket for review from [employer] for Dexcom. Please review and sign. Needs to be faxed to [phone]. Attached last office note. documented in this encounter [facility] 12-19-2022 Miscellaneous Notes Received a request of office notes from [facility]. Office notes from: 06/26/2022 and 09/24/2022. Faxed to:[phone] Confirmation fax received. Transmission successful. documented in this encounter [facility] 11-24-2022 Miscellaneous Notes Called patient and left voicemail to call office back or check his [employer] messages. Encounter closed We can skip labs for the December visit. A1C will be done in the office the day of the appt. Thank you PT went to [facility] to have blood drawn as a follow up to starting his new insulin. Per Gilbert, there was not an order placed for the PT. PT questions if he needs blood work done before upcoming visit. PT added he is feeling great on his new insulin and feels confident his A1C will show improvement. Please call PT to advise if blood work is needed. documented in this encounter [facility] 10-16-2022 Miscellaneous Notes Reviewed. [employer] message sent to patient Glucose readings on your desk for review documented in this encounter [facility] 10-16-2022 Note HNO ID: [id number] Author: Heather Randle MA Service: ? Author Type: Histology Tech Type: Progress Notes Filed: 11/12/2022 8:59 AM Note Text: Patient came in with their own dexcom(they supplied it)and 2 weeks of data was transmitted successfully. Date and time was off by 1 full year, adjusted before patient left [facility] 09-24-2022 Miscellaneous Notes Prior Authorization: Medication/Dose: Fiasp FlexTouch 100 units/mL. Inject subcutaneous three times daily with meals plus SSI. TDD: 70 units. Diagnosis: Type 2 Diabetes (E11.9) Provider: Belem Calderon CNP Completed Via: [facility] Lanrdy: [id number] Insurance: [facility] [employer] [place] [employer] Phone: Fax: Pharmacy: [facility] Notes: Patient has been APPROVED. Simran Gonzalez (Landry: [id number]) Rx #: [id number] Fiasp FlexTouch 100UNIT/ML pen-injectors Form [facility] Electronic [place] Form (2016 INPDP) Created 2 hours ago Sent to Plan 37 minutes ago Plan Response 37 minutes ago Submit Clinical Questions less than a minute ago Determination Favorable less than a minute ago Message from Plan CaseId:[id number];Status:Approved; Review Type:Prior Auth;Coverage Start Date:08/25/2022;Coverage End Date:09/24/2023; Closed. documented in this encounter [facility] 09-24-2022 Note HNO ID: [id number] Author: Aminata Steele MA Service: ? Author Type: ? Type: Procedures Filed: 09/24/2022 4:03 PM Note Text: [facility] 09-24-2022 Note HNO ID: [id number] Author: Belem Calderon APRN.CNP Service: ? Author Type: Nurse Practitioner Type: Progress Notes Filed: 09/24/2022 4:03 PM Note Text: Reason for Consultation: DM Type 2 Referring Physician: SELF HISTORY OF PRESENT ILLNESS; Mr. Gonzalez is a 67 year old male presenting for follow up regarding DM Type 2. He was initially diagnosed with diabetes age 31 after having pancreatitis. He does not have a family history of diabetes mellitus in his family . LV 06/26/22 A1C 7.8 on 09/16/22 Negative SOLANGE and islet cell AB Cpeptide 0.3 History in addition to diabetes: pancreatitis, hypertension, hyperlipidemia, hypoglycemia States frustration with insulin and feels like sometimes it works and sometimes doesn't. He takes the full dose, skips or reduces lantus depending on his HS glucose He has days he does not eat and then takes multiple dose of humalog to get it down and then drops lower before dinner. He started Dexcom CGM on 07/26/20. He decided against an insulin pump. His current diabetes regimen is: Glucagon: denies lantus 34 units daily HS -- humalo05/21/30 plus SS--varies the doses. Plus sliding scale of lispro/humalog at meals or to cover a high sugar at meal time if not eating If Blood Glucose (mg/dL) is < 150 Add 0 units 151-200 Add 2 unit 201-250 Add 3 units 251-300 Add 4 units 301-350 Add 5 units 351-400 Add 6 units >400 Add 7 units Previous DM medications: Unable to recall previous oral agents--did not feel well on them and prefers insulin Regarding symptoms of hyperglycemia, he is not experiencing any symptoms such as polyuria, polydipsia, nocturia or rapid weight loss or blurry vision. Exercise: occasionally; less active in the winter Simran is checking his blood glucose continuously with Dexcom He did bring a logbook today for review: Dexcom 14 day download (09/10/22 to 09/23/22 ) In target High 44% Very high 9% Low <1% Very low 0% avg glucose 184 Estimated A1C 7.7 BG ranges 80's to 275 BG is stable overnight but at average of 180. He trends higher for the AM starting around 9 AM He is lowest from 4 pm to 8 pm before climbing higher again Hypoglycemia frequency: occasionally Hypoglycemia awareness: not always ; had a low that required EMS assistance in the past ; has been as low as 40 Overall, the patient has no acute complaints at this time. HLD: crestor 5mg 1/2 tab daily --not taking secondary to myalgia PAST MEDICAL HISTORY Diagnosis Date Diabetes (HCC) type 2 Hyperlipidemia Hypertension Pancreatitis PAST SURGICAL HISTORY Procedure Laterality Date OTHER broken arm-right--has titanium plate FAMILY HISTORY Problem Relation Age of Onset Heart disease Father Social History Tobacco Use Smoking status: Never Smokeless tobacco: Never Vaping Use Vaping Use: Never used Substance Use Topics Alcohol use: Yes Current Outpatient Medications Medication Sig Dispense Refill insulin glargine (LANTUS SOLOSTAR U-100 INSULIN) 100 unit/mL (3 mL) INJECT 34 UNITS SUBCUTANEOUSLY ONCE DAILY AT BEDTIME 45 mL 3 HUMALOG KWIKPEN INSULIN 100 unit/mL Inject 12 units breakfast, 14 units lunch, 30 units dinner plus sliding scale up to 80 units daily 75 mL 3 Insulin [place], Disposable, (BD ULTRAFINE III MINI PEN) 31 gauge x 3/16 Use 4 pen needles daily 400 Each 3 ALPRAZolam (XANAX) 0.5 mg tablet Take 0.5 mg by mouth at bedtime as needed. carvedilol (COREG) 25 mg tablet Take 1 tablet by mouth twice daily. aspirin 325 mg tablet Take 1 tablet by mouth once daily. cyclobenzaprine HCl (CYCLOBENZAPRINE ORAL) Take by mouth. 1/2 tab PRN (Patient not taking: Reported on 09/24/2022) No current facility-administered medications for this visit. Allergies As of Date: 09/24/2022 Allergen Noted Reaction SYDNEE [PENTAZOCINE LACTATE] 08/08/2009 TRAMADOL HCL 11/22/2019 Other: See Comments Fully Assessed 09/24/2022 REVIEW OF SYSTEMS: Review of Systems Respiratory: Negative for difficulty breathing. Cardiovascular: Negative for chest pain. Gastrointestinal: Negative for nausea, vomiting, diarrhea and constipation. PHYSICAL EXAM: BP 160/76 Pulse 55 Resp 16 Ht 180 cm (5' 10.87 ) Wt 86.7 kg (191 lb 3.2 oz) SpO2 98% BMI 26.77 kg/m2 Physical Exam Constitutional: Appearance: Normal appearance. Skin: General: Skin is warm and dry. Neurological: Mental Status: He is alert. Psychiatric: Mood and Affect: Mood normal. Behavior: Behavior normal. DATA: Creatinine Date Value Ref Range Status 09/16/2022 0.86 0.73 - 1.22 mg/dL Final Hemoglobin A1C (%) Date Value 09/16/2022 7.8 07/30/2021 7.8 Hemoglobin A1C (POCT) (%) Date Value 06/26/2022 7.2 ) No components found for: URINEALBUMIN Cholesterol, Total (mg/dL) Date Value 09/16/2022 201 04/22/2021 210 04/22/2021 214 HDL Cholesterol (mg/dL) Date Value 09/16/2022 49 04/22/2021 44 04/22/2021 44 LDL Cholesterol ( (more content not included)... [facility] 09-24-2022 Instructions Belem Calderon APRN.LINDA - 09/24/2022 10:52 AM EDT Continue lantus 34 units daily in the evening if glucose is over 150. *if bedtime glucose is under 150 take only 25 units lantus and have a 15 gram carb snack with protein. 2. Stop humalog 3. Start fiasp Breakfast 12 units Lunch 14 units Dinner 30 units Plus sliding scale of fiasp at meals or to cover a high sugar at meal time if not eating If Blood Glucose (mg/dL) is < 150 Add 0 units 151-200 Add 2 unit 201-250 Add 3 units 251-300 Add 4 units 301-350 Add 5 units 351-400 Add 6 units >400 Add 7 units 4. Send me glucose readings in 1-2 wks. 5. Follow up in 3 months. Belem Calderon, MSN, THEATER PROJECTIONIST, DIRECTIONAL DRILLER-C, CDE Endocrinology [facility]/[address] [place], [place] [address] Fax: documented in this encounter [facility] 09-24-2022 Procedure note Procedure(s): EXTERNAL CAFE OR [employer]AURANT MANAGER, CGM SYS Images from the original note were not included. documented in this encounter [facility] 09-24-2022 History of Presen t illness Narrative Reason for Consultation: DM Type 2 Referring Physician: SELF HISTORY OF PRESENT ILLNESS; Mr. Gonzalez is a 67 year old male presenting for follow up regarding DM Type 2. He was initially diagnosed with diabetes age 31 after having pancreatitis. He does not have a family history of diabetes mellitus in his family . LV 06/26/22 A1C 7.8 on 09/16/22 Negative SOLANGE and islet cell AB Cpeptide 0.3 History in addition to diabetes: pancreatitis, hypertension, hyperlipidemia, hypoglycemia States frustration with insulin and feels like sometimes it works and sometimes doesn't. He takes the full dose, skips or reduces lantus depending on his HS glucose He has days he does not eat and then takes multiple dose of humalog to get it down and then drops lower before dinner. He started Dexcom CGM on 07/26/20. He decided against an insulin pump. His current diabetes regimen is: Glucagon: denies lantus 34 units daily HS -- humalo05/21/30 plus SS--varies the doses. Plus sliding scale of lispro/humalog at meals or to cover a high sugar at meal time if not eating If Blood Glucose (mg/dL) is < 150 Add 0 units 151-200 Add 2 unit 201-250 Add 3 units 251-300 Add 4 units 301-350 Add 5 units 351-400 Add 6 units >400 Add 7 units Previous DM medications: Unable to recall previous oral agents--did not feel well on them and prefers insulin Regarding symptoms of hyperglycemia, he is not experiencing any symptoms such as polyuria, polydipsia, nocturia or rapid weight loss or blurry vision. Exercise: occasionally; less active in the winter Simran is checking his blood glucose continuously with Dexcom He did bring a logbook today for review: Dexcom 14 day download (09/10/22 to 09/23/22 ) In target High 44% Very high 9% Low <1% Very low 0% avg glucose 184 Estimated A1C 7.7 BG ranges 80's to 275 BG is stable overnight but at average of 180. He trends higher for the AM starting around 9 AM He is lowest from 4 pm to 8 pm before climbing higher again Hypoglycemia frequency: occasionally Hypoglycemia awareness: not always ; had a low that required EMS assistance in the past ; has been as low as 40 Overall, the patient has no acute complaints at this time. HLD: crestor 5mg 1/2 tab daily --not taking secondary to myalgia PAST MEDICAL HISTORY Diagnosis Date Diabetes (HCC) type 2 Hyperlipidemia Hypertension Pancreatitis PAST SURGICAL HISTORY Procedure Laterality Date OTHER broken arm-right--has titanium plate FAMILY HISTORY Problem Relation Age of Onset Heart disease Father Social History Tobacco Use Smoking status: Never Smokeless tobacco: Never Vaping Use Vaping Use: Never used Substance Use Topics Alcohol use: Yes Current Outpatient Medications Medication Sig Dispense Refill insulin glargine (LANTUS SOLOSTAR U-100 INSULIN) 100 unit/mL (3 mL) INJECT 34 UNITS SUBCUTANEOUSLY ONCE DAILY AT BEDTIME 45 mL 3 HUMALOG KWIKPEN INSULIN 100 unit/mL Inject 12 units breakfast, 14 units lunch, 30 units dinner plus sliding scale up to 80 units daily 75 mL 3 Insulin [place], Disposable, (BD ULTRAFINE III MINI PEN) 31 gauge x 3/16 Use 4 pen needles daily 400 Each 3 ALPRAZolam (XANAX) 0.5 mg tablet Take 0.5 mg by mouth at bedtime as needed. carvedilol (COREG) 25 mg tablet Take 1 tablet by mouth twice daily. aspirin 325 mg tablet Take 1 tablet by mouth once daily. cyclobenzaprine HCl (CYCLOBENZAPRINE ORAL) Take by mouth. 1/2 tab PRN (Patient not taking: Reported on 09/24/2022) No current facility-administered medications for this visit. Allergies As of Date: 09/24/2022 Allergen Noted Reaction TALWIN [PENTAZOCINE LACTATE] 08/08/2009 TRAMADOL HCL 11/22/2019 Other: See Comments Fully Assessed 09/24/2022 REVIEW OF SYSTEMS: Review of Systems Respiratory: Negative for difficulty breathing. Cardiovascular: Negative for chest pain. Gastrointestinal: Negative for nausea, vomiting, diarrhea and constipation. PHYSICAL EXAM: BP 160/76 Pulse 55 Resp 16 Ht 180 cm (5' 10.87 ) Wt 86.7 kg (191 lb 3.2 oz) SpO2 98% BMI 26.77 kg/m2 Physical Exam Constitutional: Appearance: Normal appearance. Skin: General: Skin is warm and dry. Neurological: Mental Status: He is alert. Psychiatric: Mood and Affect: Mood normal. Behavior: Behavior normal. DATA: Creatinine Date Value Ref Range Status 09/16/2022 0.86 0.73 - 1.22 mg/dL Final Hemoglobin A1C (%) Date Value 09/16/2022 7.8 07/30/2021 7.8 Hemoglobin A1C (POCT) (%) Date Value 06/26/2022 7.2 ) No components found for: URINEALBUMIN Cholesterol, Total (mg/dL) Date Value 09/16/2022 201 04/22/2021 210 04/22/2021 214 HDL Cholesterol (mg/dL) Date Value 09/16/2022 49 04/22/2021 44 04/22/2021 44 LDL Cholesterol (mg/dL) Date Value 09/16/2022 134 04/22/2021 140 04/22/2021 144 Triglyceride (mg/dL) Date Value 09/16/2022 89 04/22/2021 131 04/22/2021 132 IMPRESSION: Mr. Gonzalez is a 67 year old male here for evaluation of DM Type 2 complicated by hypertension, hyperlipidemia, hypoglycemia unawareness . RECOMMENDATIONS: (E11.9, Z79.4) Type 2 diabetes mellitus without complication, with long-term current use of insulin (HCC) (primary encounter diagnosis) Comment: Glycemic control is trending higher. Change humalog to fiasp. Reviewed the importance of taking the insulin doses at consistent time, consistent doses and eating meals regularly. He is contributing to some of the variability by holding doses of lantus. Plan: insulin aspart, niacinamide, (FIASP FLEXTOUCH U-100 INSULIN) 100 unit/mL (3 mL) pen, glucagon (BAQSIMI) 3 mg/actuation nasal spray, insulin glargine (LANTUS SOLOSTAR U-100 INSULIN) 100 unit/mL (3 mL) Continue lantus 34 units daily in the evening if glucose is over 150. *if bedtime glucose is under 150 take only 25 units lantus and have a 15 gram carb snack with protein. Stop humalog Start fiasp Breakfast 12 units Lunch 14 units Dinner 30 units Plus sliding scale of fiasp at meals or to cover a high sugar at meal time if not eating If Blood Glucose (mg/dL) is < 150 Add 0 units 151-200 Add 2 unit 201-250 Add 3 units 251-300 Add 4 units 301-350 Add 5 units 351-400 Add 6 units >400 Add 7 units Send me glucose readings in 1-2 wks. Follow up in 3 months. (E11.649) 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) Comment/Plan: glucagon (BAQSIMI) 3 mg/actuation nasal spray Continue Dexcom (I10) Essential hypertension Comment/Plan: Managed per PCP (Z87.19) History of pancreatitis Comment/Plan: avoid GLP-1 and DPP4 (E78.2) Mixed hyperlipidemia Comment/Plan: He declines statin due to myalgia Medical Decision Making: Level: 4 - Moderate Belem Calderon, MSN, THEATER PROJECTIONIST, DIRECTIONAL DRILLER-C, CDE Endocrinology [facility] Building/[address], [address] [place] [address] Fax: documented in this encounter [facility] 08-21-2022 Miscellaneous Notes Requester: Patient Last Visit in Endocrinology: Provider name: Belem CalderonLINDA , Date 06/26/2022 Next Scheduled Appt in Endo: 09/24/2022 Last Refill: 02/18/2022 Number of Refills given: 3 Requested Prescriptions Pending Prescriptions Disp Refills insulin glargine (LANTUS SOLOSTAR U-100 INSULIN) 100 unit/mL (3 mL) 45 mL 3 Sig: INJECT 34 UNITS SUBCUTANEOUSLY ONCE DAILY AT BEDTIME Please review and advise. Aminata Steele MA documented in this encounter [facility] 08-18-2022 Miscellaneous Notes Received a fax from [employer] to send most recent progress note for DM diagnosis. Faxed. Transmission okay. closed documented in this encounter [facility] 07-16-2022 Note HNO ID: [id number] Author: Lilia Yates OD Service: ? Author Type: TIME CYCLE OPERATOR Type: Progress Notes Filed: 07/16/2022 10:02 AM Note Text: Assessment and Plan: 1. Type 2 diabetes mellitus without retinopathy (HCC) -Patient education on the importance of strict blood sugar control in order to minimize the risk of vision loss from Diabetes Mellitus. -Advised close follow-up with primary care physician / tobacco sampler. -Advised keeping scheduled eye examinations with sooner follow-up if any new symptoms develop. -Return in one year for Dilated fundus examination. 2. Age-related nuclear cataract of both eyes -Patient Education on natural progression of cataract. -Cataract Surgery not indicated at this time. -Return as advised for follow-up or sooner if symptoms increase. 3. Refractive error -Glasses Rx given today. Lilia Yates OD I have reviewed, confirmed, and edited as necessary the relevant ophthalmic history, review of systems, allergies, patient history, and ophthalmological examination findings as obtained by the ophthalmic technical staff. I have seen and examined Simran Gonzalez. I have discussed the examination findings, diagnosis, and treatment options with Simran Gonzalez and/or his family. I have also reviewed and agree with the assessment and plan as stated above and agree with all its relevant components. I gave the patient the opportunity to ask questions about the examination findings, diagnosis, and treatment options. [facility] 07-16-2022 History of Presen t illness Narrative Assessment and Plan: 1. Type 2 diabetes mellitus without retinopathy (HCC) -Patient education on the importance of strict blood sugar control in order to minimize the risk of vision loss from Diabetes Mellitus. -Advised close follow-up with primary care physician / tobacco sampler. -Advised keeping scheduled eye examinations with sooner follow-up if any new symptoms develop. -Return in one year for Dilated fundus examination. 2. Age-related nuclear cataract of both eyes -Patient Education on natural progression of cataract. -Cataract Surgery not indicated at this time. -Return as advised for follow-up or sooner if symptoms increase. 3. Refractive error -Glasses Rx given today. Lilia Yates OD I have reviewed, confirmed, and edited as necessary the relevant ophthalmic history, review of systems, allergies, patient history, and ophthalmological examination findings as obtained by the ophthalmic technical staff. I have seen and examined Simran Gonzalez. I have discussed the examination findings, diagnosis, and treatment options with Simran Gonzalez and/or his family. I have also reviewed and agree with the assessment and plan as stated above and agree with all its relevant components. I gave the patient the opportunity to ask questions about the examination findings, diagnosis, and treatment options. documented in this encounter [facility] 07-16-2022 Instructions Lilia Yates OD - 07/16/2022 9:59 AM EST Patient education on the importance of strict blood sugar control in order to minimize the risk of vision loss from Diabetes Mellitus. Advised close follow-up with primary care physician / tobacco sampler. Advised keeping scheduled eye examinations with sooner follow-up if any new symptoms develop. Please call the office with decreased vision or increased eye pain. documented in this encounter [facility] 05-28-2022 Miscellaneous Notes Form faxed, Transmission ok CLOSED Form signed. Thank you Form on docs desk/basket for review from [employer]. Please review and sign. Needs to be faxed to [phone]. documented in this encounter [facility] 02-19-2022 Miscellaneous Notes Form faxed, transmission ok Closed Form signed. Thank you Request for last OV note, note from 02/18/22 faxed [phone] Transmission OK documented in this encounter [facility] 02-18-2022 History of Presen t illness Narrative Reason for Consultation: DM Type 2 Referring Physician: SELF HISTORY OF PRESENT ILLNESS; Mr. Gonzalez is a 66 year old male presenting for follow up regarding DM Type 2. He was initially diagnosed with diabetes age 31 after having pancreatitis. He does not have a family history of diabetes mellitus in his family . LV 10/30/21 A1C 8.2 on 01/22/22. Up from Negative SOLANGE and islet cell AB Cpeptide 0.3 History in addition to diabetes:hx of pancreatitis, hypertension, hyperlipidemia He started Dexcom CGM on 07/26/20. He decided against an insulin pump. Was sick in November and December. He was on steroids for a week. Then had an eye infection and was on medication Then he had shingles in January. His current diabetes regimen is: lantus 34 units daily HS humalo05/17/25 plus SS Plus sliding scale of lispro at meals or to cover a high sugar at meal time if not eating If Blood Glucose (mg/dL) is < 150 Add 0 units 151-200 Add 2 unit 201-250 Add 3 units 251-300 Add 4 units 301-350 Add 5 units 351-400 Add 6 units >400 Add 7 units Previous DM medications: Unable to recall previous oral agents--did not feel well on them and prefers insulin Regarding symptoms of hyperglycemia, he is not experiencing any symptoms such as polyuria, polydipsia, nocturia or rapid weight loss or blurry vision. Exercise: occasionally; less active in the winter Simran is checking his blood glucose continuously with Dexcom He did bring a logbook today for review: Dexcom 14 day download (02/05/22 to 02/18/22) In target 50% High 33% Very high 15% Low 1% Very low <1% avg glucose 179 Estimated A1C 7.6 BG is variable overnight but high on average Quinn with breakfast/coffee. BG is the best from 1 pm to 7 pm. Spikes after dinner from 7 pm to MN. Varies his doses of insulin. Hypoglycemia frequency: occasionally Hypoglycemia awareness: not always ; had a low that required EMS assistance in the past ; has been as low as 40 Overall, the patient has no acute complaints at this time. HLD: Taking crestor 5mg 1/2 tab daily --not taking secondary to myalgia PAST MEDICAL HISTORY Diagnosis Date Diabetes (HCC) type 2 Hyperlipidemia Hypertension Pancreatitis PAST SURGICAL HISTORY Procedure Laterality Date OTHER broken arm-right--has titanium plate FAMILY HISTORY Problem Relation Age of Onset Heart disease Father Social History Tobacco Use Smoking status: Never Smokeless tobacco: Never Vaping Use Vaping Use: Never used Substance Use Topics Alcohol use: Yes Current Outpatient Medications Medication Sig Dispense Refill cyclobenzaprine HCl (CYCLOBENZAPRINE ORAL) Take by mouth. 1/2 tab PRN ALPRAZolam (XANAX) 0.5 mg tablet Take 0.5 mg by mouth at bedtime as needed. carvedilol (COREG) 25 mg tablet Take 1 tablet by mouth twice daily. aspirin 325 mg tablet Take 1 tablet by mouth once daily. insulin glargine (LANTUS SOLOSTAR U-100 INSULIN) 100 unit/mL (3 mL) INJECT 34 UNITS SUBCUTANEOUSLY ONCE DAILY AT BEDTIME 45 mL 3 HUMALOG KWIKPEN INSULIN 100 unit/mL Inject 12 units breakfast, 10 units lunch, 25 units dinner plus sliding scale up to 80 units daily 75 mL 3 Insulin [place], Disposable, (BD ULTRAFINE III MINI PEN) 31 gauge x 08/21 Use 4 pen needles daily 400 Each 3 No current facility-administered medications for this visit. Allergies As of Date: 02/18/2022 Allergen Noted Reaction SYDNEE [PENTAZOCINE LACTATE] 08/08/2009 TRAMADOL HCL 11/22/2019 Other: See Comments Fully Assessed 02/18/2022 REVIEW OF SYSTEMS: Answers submitted by the patient for this visit: Endocrine Review of Systems (Submitted on 02/11/2022) Fatigue: No Night Sweats: No Recent Unintentional Weight Change: No Skin Color Changes: No Post-Nasal Drip: No Thyroid Pain (lower neck): No Trouble Swallowing: No Vision Disturbance: No Chest Pain: No Leg Swelling: No Blood Clots?: No Leg Pain while walking?: No Difficulty Breathing?: No Heartburn: No Nausea: No Vomiting?: No Diarrhea: No Constipation: No Abdominal Pain: No Bone Pain?: No Muscle Aches: No Muscle Weakness: No Joint Pain or Stiffness: Yes Headaches: No Dizziness: No Numbness?: No Urgency to Urinate?: No Increased Urination?: No Slow or Small Urine Stream?: Yes Flushing?: No Hot Flashes?: No Increased Thirst: No Change in Body Hair?: No Cold Intolerance: No Heat Intolerance?: No Core Review of Systems (Submitted on 02/11/2022) Night Sweats: No Recent Unintentional Weight Change: No Vision Disturbance: No Chest Pain: No Leg Swelling: No Difficulty Breathing?: No Nausea: No Diarrhea: No Muscle Aches: No Joint Pain or Stiffness: Yes Headaches: No Dizziness: No Fever : No Nasal Congestion: No Hearing Loss: No A Cough: No Irregular Heart Beat: No Black Tarry Stools: No Difficulty Urinating?: No Awaken at Night More Than Once to Urinate?: No Leg or Foot Discomfort at Night?: No A Rash: No Memory Loss: No Seizures: No PHYSICAL EXAM: BP 130/80 Pulse 58 Ht 177.3 cm (5' 9.8 ) Wt 86.1 kg (189 lb 14.4 oz) SpO2 99% BMI 27.4 kg/m2 Physical Exam Constitutional: Appearance: Normal appearance. Cardiovascular: Rate and Rhythm: Normal rate and regular rhythm. Pulmonary: Effort: Pulmonary effort is normal. Breath sounds: Normal breath sounds. Skin: General: Skin is warm and dry. Neurological: Mental Status: He is alert and oriented to person, place, and time. Psychiatric: Mood and Affect: Mood normal. Behavior: Behavior normal. DATA: Creatinine Date Value Ref Range Status 01/22/2022 0.92 0.73 - 1.22 mg/dL Final Hemoglobin A1C (%) Date Value 01/22/2022 8.2 07/30/2021 7.8 Hemoglobin A1C (POCT) (%) Date Value 10/30/2021 7.5 ) No components found for: URINEALBUMIN Cholesterol, Total (mg/dL) Date Value 04/22/2021 210 04/22/2021 214 HDL Cholesterol (mg/dL) Date Value 04/22/2021 44 04/22/2021 44 LDL Cholesterol (mg/dL) Date Value 04/22/2021 140 04/22/2021 144 Triglyceride (mg/dL) Date Value 04/22/2021 131 04/22/2021 132 IMPRESSION: Mr. Gonzalez is a 66 year old male here for evaluation of DM Type 2 complicated by hypertension and hyperlipidemia, hypoglycemia unawareness . RECOMMENDATIONS: (E11.9, Z79.4) Type 2 diabetes mellitus without complication, with long-term current use of insulin (HCC) (primary encounter diagnosis) Comment: glycemic control is trending higher though he was ill most of the summer. Plan: insulin glargine (LANTUS SOLOSTAR U-100 INSULIN) 100 unit/mL (3 mL), HUMALOG KWIKPEN INSULIN 100 unit/mL, Insulin [place], Disposable, (BD ULTRAFINE III MINI PEN) 31 gauge x 3/16 Continue the current insulin doses. Avoid fluctuating the doses. Follow up in 4 months (E11.649) 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) Comment/Plan: continue dexcom (I10) Essential hypertension Comment/Plan: Managed per PCP (Z87.19) History of pancreatitis Comment/Plan: avoid GLP-1 and DPP4 (E78.2) Mixed hyperlipidemia Comment/Plan: He declines statin due to myalgia (E11.69, N52.1) Erectile dysfunction associated with type 2 diabetes mellitus (HCC) Comment/Plan: CONSULT TO UROLOGY Medical Decision Making: Level: 4 - Moderate Belem Calderon, MSN, THEATER PROJECTIONIST, DIRECTIONAL DRILLER-C, CDE Endocrinology [facility]/[address], [address] [place], [place] [address] Fax: documented in this encounter [facility] 12-06-2021 Instructions Sandy Rosa APRN.LINDA - 12/06/2021 3:05 PM EDT Wound Care - Keep the area clean and dry -Clean with soap and water . Apply mupirocin ointment 2 - 3 times a day. -Tylenol or Ibuprofen for discomfort -Observe area for signs of infection: redness, warmth, foul odor, drainage or increase in discomfort. Call you primary care physician if this occurs. -Call your primary care physician's office for a follow up appointment. Start keflex with any signs of redness documented in this encounter [facility] 12-06-2021 History of Presen t illness Narrative Subjective The history is provided by the patient. No high school foreign language teacher was used. HPI Simran Gonzalez is a 66 year old male who presents today for CC wanting finger check due to poking it with a metal piece. This happened yesterday. He has used no treatment or medications. Last tetanus was 2017. BP 148/84 Pulse 61 Temp 36.5 C (97.7 F) (Tympanic) Resp 16 Wt 87.3 kg (192 lb 6.4 oz) SpO2 97% BMI 27.95 kg/m Social History Tobacco Use Smoking status: Never Smoker Smokeless tobacco: Never Used Vaping Use Vaping Use: Never used Substance Use Topics Alcohol use: Yes Drug use: Not on file PAST MEDICAL HISTORY Diagnosis Date Diabetes (HCC) type 2 Hyperlipidemia Hypertension Pancreatitis I have confirmed and edited as necessary, the [facility] Review of Systems Constitutional: Negative for chills and fever. Musculoskeletal: Negative for joint pain and myalgias. Skin: Negative for itching and rash. Superficial puncture in 4th finger left hand All other systems reviewed and are negative. Objective Physical Exam Vitals and nursing note reviewed. Pulmonary: Effort: Pulmonary effort is normal. Skin: General: Skin is warm and dry. Findings: Wound (puncture in distal lateral 4th finger, left) present. Neurological: Mental Status: He is alert and oriented to person, place, and time. Psychiatric: Mood and Affect: Affect normal. ASSESSMENT/PLAN: 1. Puncture wound - ICD9: 879.8, ICD10: T14.8XXA Wound care discussed Patient leaving Thursday [place] [employer] will take keflex with him and start if develops redness or swelling. Diagnosis and treatment plan were discussed and questions were answered to the patient's satisfaction. Pt acknowledged understanding of concepts and follow up plan. Specific signs and symptoms that would indicate the need for higher level of care were discussed in detail warranting prompt ER evaluation. Sandy Rosa APRN.LINDA documented in this encounter [facility] 10-30-2021 History of Presen t illness Narrative Reason for Consultation: DM Type 2 Referring Physician: SELF HISTORY OF PRESENT ILLNESS; Mr. Gonzalez is a 66 year old male presenting for follow up regarding DM Type 2. He was initially diagnosed with diabetes age 31 after having pancreatitis. He does not have a family history of diabetes mellitus in his family. LV 08/02/21 A1C today is 7.5 Negative SOLANGE and islet cell AB Cpeptide 0.3 He started Dexcom CGM on 07/26/20. He decided against an insulin pump. Reports a larger difference between his dexcom reading and finger sticks lately. History in addition to diabetes:hx of pancreatitis, hypertension, hyperlipidemia Exacerbating factors: none His current diabetes regimen is: lantus 30 units daily HS humalo05/17/25 plus SS--fluctuates doses Plus sliding scale of lispro at meals or to cover a high sugar at meal time if not eating If Blood Glucose (mg/dL) is < 150 Add 0 units 151-200 Add 2 unit 201-250 Add 3 units 251-300 Add 4 units 301-350 Add 5 units 351-400 Add 6 units >400 Add 7 units Previous DM medications: Unable to recall previous oral agents--did not feel well on them and prefers insulin Regarding symptoms of hyperglycemia, he is not experiencing any symptoms such as polyuria, polydipsia, nocturia or rapid weight loss or blurry vision. Exercise: occasionally; less active in the winter Simran is checking his blood glucose continuously with Dexcom He did bring a logbook today for review: Dexcom 14 day download (10/17/21 to 10/30/21) In target 61% High 31% Very high 6% Low 1% Very low <1% avg glucose 167 Estimated A1C 7.3 BG is above variable but above goal overnight on average. He tends to be best from 2 pm to 7 pm. He is rising after dinner. When he takes insulin at HS his overnight readings border on low. Hypoglycemia frequency: occasionally Hypoglycemia awareness: not always ; had a low that required EMS assistance in the past ; has been as low as 40 Overall, the patient has no acute complaints at this time. HLD: Taking crestor 5mg 1/2 tab daily --not taking secondary to myalgia PAST MEDICAL HISTORY Diagnosis Date Diabetes (HCC) type 2 Hyperlipidemia Hypertension Pancreatitis PAST SURGICAL HISTORY Procedure Laterality Date OTHER broken arm-right--has titanium plate FAMILY HISTORY Problem Relation Age of Onset Heart disease Father Social History Tobacco Use Smoking status: Never Smoker Smokeless tobacco: Never Used Vaping Use Vaping Use: Never used Substance Use Topics Alcohol use: Yes Drug use: Not on file Current Outpatient Medications Medication Sig Dispense Refill HUMALOG KWIKPEN INSULIN 100 unit/mL Inject 12 units breakfast, 10 units lunch, 25 units dinner plus sliding scale up to 80 units daily 75 mL 3 insulin glargine (LANTUS SOLOSTAR U-100 INSULIN) 100 unit/mL (3 mL) INJECT 30 UNITS SUBCUTANEOUSLY ONCE DAILY AT BEDTIME 15 mL 5 Insulin [place], Disposable, (BD ULTRAFINE III MINI PEN) 31 gauge x 3/16 Use 4 pen needles daily 400 Each 3 cyclobenzaprine HCl (CYCLOBENZAPRINE ORAL) Take by mouth. 1/2 tab PRN ALPRAZolam (XANAX) 0.5 mg tablet Take 0.5 mg by mouth at bedtime as needed. carvedilol (COREG) 25 mg tablet Take 1 tablet by mouth twice daily. aspirin 325 mg tablet Take 1 tablet by mouth once daily. No current facility-administered medications for this visit. Allergies As of Date: 10/30/2021 Allergen Noted Reaction SYDNEE [PENTAZOCINE LACTATE] 08/08/2009 TRAMADOL HCL 11/22/2019 Other: See Comments Fully Assessed 10/30/2021 REVIEW OF SYSTEMS: Review of Systems Respiratory: Negative for difficulty breathing. Cardiovascular: Negative for chest pain. Gastrointestinal: Negative for nausea, vomiting, diarrhea and constipation. PHYSICAL EXAM: BP 148/77 (BP Site: Left Arm, BP Position: Sitting, BP Cuff Size: Regular Adult) Pulse 59 Ht 176.7 cm (5' 9.57 ) Wt 88.4 kg (194 lb 12.8 oz) SpO2 97% BMI 28.3 kg/m2 Physical Exam Constitutional: Appearance: Normal appearance. Cardiovascular: Rate and Rhythm: Normal rate and regular rhythm. Pulmonary: Effort: Pulmonary effort is normal. Breath sounds: Normal breath sounds. Skin: General: Skin is warm and dry. Neurological: Mental Status: He is alert and oriented to person, place, and time. Psychiatric: Mood and Affect: Mood normal. Behavior: Behavior normal. DATA: Creatinine Date Value Ref Range Status 07/30/2021 0.84 0.73 - 1.22 mg/dL Final Hemoglobin A1C (%) Date Value 07/30/2021 7.8 ) No components found for: URINEALBUMIN Cholesterol, Total (mg/dL) Date Value 04/22/2021 210 04/22/2021 214 HDL Cholesterol (mg/dL) Date Value 04/22/2021 44 04/22/2021 44 LDL Cholesterol (mg/dL) Date Value 04/22/2021 140 04/22/2021 144 Triglyceride (mg/dL) Date Value 04/22/2021 131 04/22/2021 132 IMPRESSION: Mr. Gonzalez is a 66 year old male here for evaluation of DM Type 2 complicated by hypertension and hyperlipidemia, hypoglycemia unawareness . RECOMMENDATIONS: (E11.9, Z79.4) Type 2 diabetes mellitus without complication, with long-term current use of insulin ([facility]) (primary encounter diagnosis) Comment: Glycemic control is improving. Plan: HEMOGLOBIN A1C (POC), insulin glargine (LANTUS SOLOSTAR U-100 INSULIN) 100 unit/mL (3 mL) Increase lantus to 34 units daily. Recommend reducing humalog at breakfast and lunch by a couple units. Increase humalog at dinner to 30 units Avoid humalog at bedtime. Follow up in 3-4 months. (E11.649) 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) Comment/Plan: continue dexcom (I10) Essential hypertension Comment/Plan: Managed per PCP (Z87.19) History of pancreatitis Comment/Plan: avoid GLP-1 and DPP4 (E78.2) Mixed hyperlipidemia Comment/Plan: He declines statin due to myalgia I spent a total of 30 minutes on the date of the service which included preparing to see the patient, [id number] patient care, completing clinical documentation, obtaining and/or reviewing separately obtained history, performing a medically appropriate examination, counseling and educating the patient/family/caregiver, ordering medications, tests, or procedures and communicating results to the patient/family/caregiver. Belem Calderon, MSN, THEATER PROJECTIONIST, DIRECTIONAL DRILLER-C, CDE Endocrinology [facility] Office [facility]/[address] [place] [address] Fax: documented in this encounter [facility] 09-02-2021 Miscellaneous Notes Patient came into the office requesting refills as follows: Insurance will only cover Humalog. Pending Prescriptions Disp Refills HUMALOG KWIKPEN (U-100) INSULIN 100 UNIT/ML SUBCUTANEOUS 75 mL 3 Sig: Inject 12 units breakfast, 10 units lunch, 25 units dinner plus sliding scale up to 80 units daily JULIA: Yes Please review and advise. Angely Tan Ma documented in this encounter [facility] Diagnosis Type 2 diabetes mellitus without complication, with long-term current use of insulin (HCC)- Primary 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) Essential hypertension Unspecified essential hypertension History of pancreatitis Personal history of other diseases of digestive system Mixed hyperlipidemia [facility] Diagnosis Puncture wound- Primary Open wound(s) (multiple) of unspecified site(s), without mention of complication [facility] Diagnosis Type 2 diabetes mellitus without complication, with long-term current use of insulin (HCC)- Primary 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) Essential hypertension Unspecified essential hypertension History of pancreatitis Personal history of other diseases of digestive system Mixed hyperlipidemia Erectile dysfunction associated with type 2 diabetes mellitus (HCC) Type II or unspecified type diabetes mellitus with other specified manifestations, not stated as uncontrolled [facility]* Diagnosis Type 2 diabetes mellitus without retinopathy (HCC)- Primary Type II or unspecified type diabetes mellitus without mention of complication, not stated as uncontrolled Age-related nuclear cataract of both eyes Senile nuclear sclerosis Refractive error Unspecified disorder of refraction and accommodation [facility]* Diagnosis Type 2 diabetes mellitus without complication, with long-term current use of insulin ([facility]) [facility] Diagnosis Type 2 diabetes mellitus without complication, with long-term current use of insulin (HCC)- Primary 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) Essential hypertension Unspecified essential hypertension History of pancreatitis Personal history of other diseases of digestive system Mixed hyperlipidemia [facility]* Diagnosis Type 2 diabetes mellitus without complication, with long-term current use of insulin (HCC) [facility]* Diagnosis Syncope, unspecified syncope type- Primary documented in this encounter [facility] Reason for Referral Specialty Diagnoses / Procedures Referred By Taz djeesus Referred To Contact Urology Diagnoses Erectile dysfunction associated with type 2 diabetes mellitus (HCC) Procedures CONSULT TO UROLOGY OFFICE/OUTPATIENT [facility] 60-74 MINUTES Belem Calderon, THEATER PROJECTIONIST.DIRECTOR OF GLOBAL TALENT [address] [address] Referral ID Status Reason Start Date Expiration Date Visits Requested Visits Authorized [id number] Pending Review PCP Requested Referral 02/18/2022 02/18/2023 1 1 Medications Administered Section Active Administered Medications - up to 3 most recent administrations Medication Order MAR Action Action Date Dose Rate Site fluorescein-benoxinate 0.25-0.4 % 1 Drop (FLURESS) 1 Drop, BOTH EYES, DIRECTED, Starting on Thu07/16/22 at 0930, Until Thu07/16/22 at 2128, Administer for applanation tonometry. In the event of a Fluress shortage, administer Piercy-Fluor 1 drop into both eyes as directed for applanation tonometry, [facility] MED ORDERS Given 07/16/2022 9:30 AM EST 1 Drop PHENYLephrine 2.5 % 1 Drop (AK-DILATE, GIGI-SYNEPHRINE) 1 Drop, BOTH EYES, DIRECTED, Starting on Thu07/16/22 at 0930, Until Thu07/16/22 at 2128, Administer for dilation PROTECT FROM LIGHT, [facility] MED ORDERS Given 07/16/2022 9:30 AM EST 1 Drop tropicamide 1 % 1 Drop (MYDRIACYL) 1 Drop, BOTH EYES, DIRECTED, Starting on Thu07/16/22 at 0930, Until Thu07/16/22 at 2128, Administer for dilation, [facility] MED ORDERS Given 07/16/2022 9:30 AM EST 1 Drop Summary Purpose Family History No Family History Records FoundNo Family History Records Found Advance Directives No Advanced Directives Records FoundNo Advanced Directives Records Found Additional Source Comments Source Comments (unrecognize d section and content) In the event this informatio n is protected by the Federal Confidentiality of Alcohol and Drug Abuse Patient Records regulations: The Federal rules restrict any use of the information to criminally investigate or prosecute any alcohol or drug abuse patient.[facility] event this information is protected by the Federal Confidentiality of Alcohol and Drug Abuse Patient Records regulations: The Federal rules restrict any use of the information to criminally investigate or prosecute any alcohol or drug abuse patient.[facility] the event this information is protected by the Federal Confidentiality of Alcohol and Drug Abuse Patient Records regulations: The Federal rules restrict any use of the information to criminally investigate or prosecute any alcohol or drug abuse patient.[facility] the event this information is protected by the Federal Confidentiality of Alcohol and Drug Abuse Patient Records regulations: The Federal rules restrict any use of the information to criminally investigate or prosecute any alcohol or drug abuse patient.[facility] the event this information is protected by the Federal Confidentiality of Alcohol and Drug Abuse Patient Records regulations: The Federal rules restrict any use of the information to criminally investigate or prosecute any alcohol or drug abuse patient.[facility] the event this information is protected by the Federal Confidentiality of Alcohol and Drug Abuse Patient Records regulations: The Federal rules restrict any use of the information to criminally investigate or prosecute any alcohol or drug abuse patient.[facility] the event this information is protected by the Federal Confidentiality of Alcohol and Drug Abuse Patient Records regulations: The Federal rules restrict any use of the information to criminally investigate or prosecute any alcohol or drug abuse patient.[facility] the event this information is protected by the Federal Confidentiality of Alcohol and Drug Abuse Patient Records regulations: The Federal rules restrict any use of the information to criminally investigate or prosecute any alcohol or drug abuse patient.[facility] the event this information is protected by the Federal Confidentiality of Alcohol and Drug Abuse Patient Records regulations: The Federal rules restrict any use of the information to criminally investigate or prosecute any alcohol or drug abuse patient.[facility] the event this information is protected by the Federal Confidentiality of Alcohol and Drug Abuse Patient Records regulations: The Federal rules restrict any use of the information to criminally investigate or prosecute any alcohol or drug abuse patient.[facility] the event this information is protected by the Federal Confidentiality of Alcohol and Drug Abuse Patient Records regulations: The Federal rules restrict any use of the information to criminally investigate or prosecute any alcohol or drug abuse patient.[facility] the event this information is protected by the Federal Confidentiality of Alcohol and Drug Abuse Patient Records regulations: The Federal rules restrict any use of the information to criminally investigate or prosecute any alcohol or drug abuse patient.[facility] the event this information is protected by the Federal Confidentiality of Alcohol and Drug Abuse Patient Records regulations: The Federal rules restrict any use of the information to criminally investigate or prosecute any alcohol or drug abuse patient.[facility] the event this information is protected by the Federal Confidentiality of Alcohol and Drug Abuse Patient Records regulations: The Federal rules restrict any use of the information to criminally investigate or prosecute any alcohol or drug abuse patient.[facility] the event this information is protected by the Federal Confidentiality of Alcohol and Drug Abuse Patient Records regulations: The Federal rules restrict any use of the information to criminally investigate or prosecute any alcohol or drug abuse patient.[facility] the event this information is protected by the Federal Confidentiality of Alcohol and Drug Abuse Patient Records regulations: The Federal rules restrict any use of the information to criminally investigate or prosecute any alcohol or drug abuse patient.[facility] Reason for Visit (unrecogniz ed section and content) Reason Comments Insulin Dependent Diabetes Mellitus Reason Comments poked finger with a metal esha x 1 day Reason Comments Follow Up Insulin Dependent Diabetes Mellitus Reason Comments [facility] Reason Comments [facility] Form Dexcom Reason Comments Diabetes Specialty Diagnoses / Procedures Referred By Taz t Referred To Contact Ophthalmology Diagnoses Type 2 diabetes mellitus without complication, with long-term current use of insulin (HCC) Procedures CONSULT TO OPHTHALMOLOGY OFFICE/OUTPATIENT NEW HIGH MDM 60-74 MINUTES Belem Calderon APRN.DIRECTOR OF GLOBAL TALENT [phone] [address] Referral ID Status Reason Start Date Expiration Date Visits Requested Visits Authorized [id number] Pending Review PCP Requested Referral 06/26/2022 06/26/2023 1 1 Reason Comments [facility] Form Reason Onset Date Comments Refill Request 08/21/2022 Reason Comments PA--FIASP FLEXTOUCH ([place]) Reason Comments Dexcom Printout Reason Comments Question Reason Comments Request of office notes [facility] Reason Comments [facility] Form CMN for CGMS (de xcom) Care Teams (unrecognized sec tion and content) Admissions Evaluator Relationship Specialty Start Date End Date Miriam Martinez MD PCP - General Internal Medicine 11/18/16 Admissions Evaluator Relationship Specialty Start Date End Date Miriam Martinez MD PCP - General Internal Medicine 11/18/16 Admissions Evaluator Relationship Specialty Start Date End Date Miriam Martinez MD PCP - General Internal Medicine 11/18/16 Admissions Evaluator Relationship Specialty Start Date End Date Miriam Martinez MD PCP - General Internal Medicine 11/18/16 Admissions Evaluator Relationship Specialty Start Date End Date Miriam Martinez MD PCP - General Internal Medicine 11/18/16 Admissions Evaluator Relationship Specialty Start Date End Date Miriam Martinez MD PCP - General Internal Medicine 11/18/16 Admissions Evaluator Relationship Specialty Start Date End Date Miriam Martinez MD PCP - General Internal Medicine 11/18/16 Admissions Evaluator Relationship Specialty Start Date End Date Miriam Martinez MD PCP - General Internal Medicine 11/18/16 Admissions Evaluator Relationship Specialty Start Date End Date Miriam Martinez MD PCP - General Internal Medicine 11/18/16 Admissions Evaluator Relationship Specialty Start Date End Date Miriam Martinez MD PCP - General Internal Medicine 11/18/16 Admissions Evaluator Relationship Specialty Start Date End Date Miriam Martinez MD PCP - General Internal Medicine 11/18/16 Admissions Evaluator Relationship Specialty Start Date End Date Miriam Martinez MD PCP - General Internal Medicine 11/18/16 (unrecognized sect ion and content) No Status Records FoundNo Status Records Found INFORMATION SOURCE (unrecogn ized section and content) DATE CREATED AUTHOR AUTHOR'S ORGANIZ ATION 07/01/2023 [facility] FOR RECORDS PERTAINING TO PATIENTS WHO ARE OR HAVE BEEN ENROLLED IN A CHEMICAL DEPENDENCY/SUBSTANCEABUSE PROGRAM, SOME INFORMATION MAY BE OMITTED. This clinical summary was aggregated from multiple sources. Caution should be exercised in using it in the provision of clinical care. This summary normalizes information from multiple sources, and as a consequence, information in this document may materially change the coding, format and clinical context of patient data. In addition, data may be omitted in some cases. CLINICAL DECISIONS SHOULD BE BASED ON THE PRIMARY CLINICAL RECORDS. [facility] [employer] [facility] provides no warranty or guarantee of the accuracy or completeness of information in this document.
== END | disposition home or self-care (01) ==
PROVIDERS: PCP Internal Medicine; Referring Provider Otolaryngology; Visit Provider Otolaryngology
DX: G51.0 Bell's palsy (principal)
CPT/HCPCS: 36415

== ENCOUNTER → 2023-07-14 | Outpatient (CLI) | payer MEDICARE, BC, SELFPAY ==
--- NOTE | 2023-07-14 12:52 | MRI_ITS ---
STUDY: MRI BRAIN WITH AND WITHOUT CONTRAST REASON FOR EXAM: Male, 67 years old. RECURRENT FACIAL PARALYSIS TECHNIQUE: Standardized multiplanar fat and water weighted pulse sequences were obtained. IV 17cc clariscan was administered for the contrast portion of the examination. COMPARISON: CT of the brain January 14, 2020 FINDINGS: Normal size of the ventricles and extra-axial spaces for the patient''s age. There are a few tiny nonspecific punctate white matter lesions bilaterally without mass effect or restricted diffusion of uncertain etiology or clinical significance but most likely due to chronic small vessel ischemic changes in patient of this age. There is no significant white matter disease or evidence for acute infarct. . Normal bilateral basal ganglia. Normal thalami. There is no extra-axial fluid accumulation. Normal flow voids within the major intracranial circulation suggesting patency by spin echo criteria. Normal venous enhancement. There is no enhancing intra-axial or extra-axial abnormality. Normal sella turcica, pituitary gland, infundibular stalk, optic chiasm and hypothalamus. Normal tectal plate and pineal gland. Normal midbrain, vish and medulla. Normal cerebellum. Normal basal cisterns. Normal bilateral temporal bones. Normal bilateral internal auditory canals. No demonstrated orbital abnormality, within the constraints of a routine brain study. Mild mucosal thickening of the ethmoid sinuses bilaterally.. Normal calvarium and skull base. Normal visualized soft tissue structures. Normal visualized upper cervical spine. MRI/Brain W/WO Contrast IMPRESSION: Minimal nonspecific white matter changes. No mass or evidence for acute infarct. No definitive evidence for facial nerve schwannoma Electronically Signed: Rishabh Rocha MD at 16:49 EST ,
--- NOTE | 2023-07-14 13:08 | RAD_ITS ---
STUDY: X-RAY - ORBITS REASON FOR EXAM: Male, 67 years old. HISTORY OF METAL TO EYE TECHNIQUE: 2 view(s) of the orbits were obtained. COMPARISON: None. FINDINGS: Normal bilateral orbits without a metallic orbital foreign body. Normal visualized facial bones. Normal paranasal sinuses. The soft tissue structures are unremarkable. RAD/Orbits for Foreign Body IMPRESSION: No demonstrated metallic orbital foreign body. The patient is cleared for an MRI examination. Electronically Signed: Dane Hicks MD at 13:19 EST ,
[2023-07-14 13:36] LABS: EGFR FINGERSTICK > 60.0000 mL/min (>60)
--- OUTSIDE RECORDS SUMMARY | 2023-07-14 16:51 | XMS RPT_ITS | CCD ---
Author Name Unknown Address [address] [place] [address] Organization [facility] Care Team Providers Care Mold Closer Helper Name Role Phone Nemr Miriam SCHMIDT Primary Care Provider PROVIDER, UNKNOWN Attending Unavailable PROVIDER, UNKNOWN Admitting Unavailable PATIENT, SELF Referring Unavailable Nemr Miriam SCHMIDT Primary Care Provider NEMR, GASAN Referring Unavailable NEMR, GASAN Primary Care Unavailable KUPIEC, BELEM Attending Unavailable NEMR, GASAN Primary Care Unavailable NEMR, GASAN Primary Care Unavailable KUPIEC, BELEM Referring Unavailable APARNAFLLAVERNE LILIA Attending Unavailable NEMR, GASAN Primary Care Unavailable KUPIEC, BELEM Attending Unavailable NEMR, GASAN Primary Care Unavailable KUPIEC, BELEM Referring Unavailable NEMR, GASAN Primary Care Unavailable NEMR, GASAN Primary Care Unavailable KUPIEC, BELEM Attending Unavailable NEMR, GASAN Primary Care Unavailable Allergies Allergy Classification Reported Allergen(s) Allergy Type Date of Onset Reaction(s) Facility (18 sources) Pentazocine; Translations: [PENTAZOCINE LACTATE] Drug Allergy 0 [facility] Work Phone: (18 sources) traMADol; Translations: [TRAMADOL HCL] Drug Allergy 0 Other: See Comments [facility] (1 source) Pentazocine; Translations: [PENTAZOCINE] Drug Allergy [address] [facility] (1 source) traMADol; Translations: [TRAMADOL] Drug Allergy [address] [facility] Medications Current Medications Medication Drug [...] Sig (Original) ALPRAZolam 0.5 mg oral tablet (17 sources) Benzodiazepine take 1 tablet by tacho th every twenty-four hours as needed ALPRAZolam (XANAX) 0.5 mg tablet Take 0.5 mg by mouth at bedtime as needed. 0 Active Problems Active Problems Problem Classification Problem Date Documented Da te Episodic/Chronic Anxiety disorders (1 source) Anxiety disorder, unspecified; Translations: [Anxiety hyperventilation] Onset: 09-16-2022 Chronic Cataract (12 sources) Bilateral age-related nuclear cataracts; Translations: [Age-related [...] Translations: [Avitaminosis D] Onset: 09-16-2022 Chronic Other aftercare (2 sources) long-term (current) use of insulin; Translations: [Type 2 diabetes mellitus with hypoglycemia without coma, with long-term current use of insulin (HCC)] Onset: 09-23-2019 Episodic Other gastrointestinal disorders (20 sources) History of pancreatitis; Translations: [Personal history of other diseases of the digestive system] Onset: 09-23-2019 09-23-2019 Episodic Other injuries and conditions due to external [...] Da te Episodic/Chronic Blindness and vision defects (12 sources) Disorder of refraction; Translations: [Unspecified disorder of refraction] Onset: 07-16-2022 Episodic Other gastrointestinal disorders (1 source) Personal history of other diseases of the digestive system; Translations: [History of pancreatitis] Onset: 09-23-2019 Episodic Results Test Name Value Interpretation Reference Range Facil ity Vital Signs Date Time Vital Sign Value Performing Clinician Malissa calabrese 07-10-2023 09:35-0500 Body height 180 cm Belem Calderon APRN.LINDA Work Phone: [facility] 07-10-2023 09:35-0500 Body weight 88 kg Belem Calderon FRAME STRAIGHTENER.LINDA Work Phone: [facility] 07-10-2023 09:35-0500 Diastolic blood pressure 74 mm[Hg] Belem Calderon FRAME STRAIGHTENER.CURBER Work Phone: [facility] 07-10-2023 09:35-0500 Heart rate 53 /min Belem Vicente FRAME STRAIGHTENER.LINDA Work Phone: [facility] 07-10-2023 09:35-0500 SaO2% (BldA) [Mass fraction] 97 % Belem Calderon FRAME STRAIGHTENER.LINDA Work Phone: [facility] 07-10-2023 09:35-0500 Systolic blood pressure 118 mm[Hg] Belem Kupiec FRAME STRAIGHTENER.CURBER Work Phone: [facility] 09-24-2022 10:31-0400 [facility] Work Phone: [facility] 09-24-2022 10:31-0400 Body [facility] 86.[facility].CURBER Work Phone: [facility] 09-24-2022 10:31-0400 Diastolic blood pressure 76 mm[Hg] Belem Kupiec FRAME STRAIGHTENER.CURBER Work Phone: [facility] 09-24-2022 10:31-0400 Heart rate 55 /[facility].CURBER Work Phone: [facility] 09-24-2022 10:31-0400 Respiratory rate 16 /[facility].CURBER Work Phone: [facility] 09-24-2022 10:31-0400 SaO2% (BldA) [Mass fraction] 98 % [facility].CURBER Work Phone: [facility] 09-24-2022 10:31-0400 Systolic blood pressure 160 mm[Hg] Belem Kupiec FRAME STRAIGHTENER.CURBER Work Phone: [facility] 02-18-2022 13:36-0400 Diastolic blood pressure 80 mm[Hg] Belem Kupiec FRAME STRAIGHTENER.CURBER Work Phone: [facility] 02-18-2022 13:36-0400 Systolic blood pressure 130 mm[Hg] Belem Kupiec FRAME STRAIGHTENER.CURBER Work Phone: [facility] 02-18-2022 13:12-0400 Body height [facility].3 [facility].CURBER Work Phone: [facility] 02-18-2022 13:12-0400 [facility] 86.14 [facility]CURBER Work Phone: [facility] 02-18-2022 13:12-0400 Heart rate 58 /min Belem Bobyiec FRAME STRAIGHTENER.CURBER Work Phone: [facility] 02-18-2022 13:12-0400 SaO2% (BldA) [Mass fraction] 99 % [facility]AIGHT[facility].CURBER Work Phone: [facility] 12-06-2021 14:38-0400 Body temperature 97.7 [degF] Sandy Moe FRAME STRAIGHTENER.CURBER Work Phone: [facility] 12-06-2021 14:38-0400 Body weight 87.27 kg Sandy Moe FRAME STRAIGHTENER.CURBER Work Phone: [facility] 12-06-2021 14:38-0400 Diastolic blood pressure 84 mm[Hg] Sandy Moe FRAME STRAIGHTENER.CURBER Work Phone: [facility] 12-06-2021 14:38-0400 Heart rate 61 /min Sandy Moe FRAME STRAIGHTENER.CURBER Work Phone: [facility] 12-06-2021 14:38-0400 Respiratory rate 16 /min Sandy Moe FRAME STRAIGHTENER.CURBER Work Phone: [facility] 12-06-2021 14:38-0400 SaO2% (BldA) [Mass fraction] 97 % Sandy Moe FRAME STRAIGHTENER.CURBER Work Phone: [facility] 12-06-2021 14:38-0400 Systolic blood pressure 148 mm[Hg] Sandy Moe FRAME STRAIGHTENER.CURBER Work Phone: [facility] 10-30-2021 13:03-0400 Body height 176.7 [facility].CURBER Work Phone: [facility] 10-30-2021 13:03-0400 Body weight 88.36 [facility].CURBER Work Phone: [facility] 10-30-2021 13:03-0400 Diastolic blood pressure 77 mm[Hg] Belem Vicente FRAME STRAIGHTENER.CURBER Work Phone: [facility] 10-30-2021 13:03-0400 Heart rate 59 /min [facility] Jules FRAME STRAIGHTENER.CURBER Work Phone: [facility] 10-30-2021 13:03-0400 SaO2% (BldA) [Mass fraction] 97 % [facility] FRAME STRAIGHTENER.CURBER Work Phone: [facility] 10-30-2021 13:03-0400 Systolic blood pressure 148 mm[Hg] [facility] FRAME STRAIGHTENER.CURBER Work Phone: [facility] Encounters Encounter Date Encounter Type Care Provider Facility Start: 07-10-2023 End: 07-10-2023 ambulatory BELEM [facility] Facility:[facility] [place] Start: 07-10-2023 End: 07-10-2023 Patient encounter procedure Belemaquiles Vicente FRAME STRAIGHTENER.CURBER Work Phone: Endocrinology Procedures Date Procedure Procedure Detail Performing Clinician Start: 10-30-2021 Hemoglobin A1c/Hemoglobin.total in Blood [facility] STRAIGHTENER.CURBER Work Phone: Plan of Treatment Date Care Activity Detail Author Start: 01-13-2030 Urine microalbumin profile DTa P,Tdap,Td Vaccine (4 - Td or Tdap) [facility] Start: 06-29-2028 Prostate specific an tigen measurement Prostate Cancer Screening Discussion [facility] Start: 11-05-2027 Urine microalbumin profile DTA P,TDAP,TD (3 - Td or Tdap) [facility] Start: 09-17-2027 PROSTATE CANCER SCRE ENING DISCUSSION PROSTATE CANCER SCREENING DISCUSSION [facility] Start: 07-30-2026 PROSTATE CANCER SCRE ENING DISCUSSION PROSTATE CANCER SCREENING DISCUSSION [facility] Start: 07-10-2024 BP Controlled (<130/80) BP Controlle d (<130/80) [facility] Start: 06-29-2024 Hepatitis B screening Urine Al bumin:Creatinine Ratio [facility] Start: 06-29-2024 Hepatitis B surface antibody level LDL Cholesterol [facility] Start: 01-01-2024 3 comp foot exam completed Diabetic Foot Exam [facility] Start: 01-01-2024 BP Controlled (<130/80) BP Controlle d (<130/80) [facility] Start: 01-01-2024 Diabetic foot examination Diabetic F oot Exam [facility] Start: 12-28-2023 Hemoglobin A1c measurement HbA1C [facility] Start: 09-17-2023 Hepatitis B screening URINE AL BUMIN:CREATININE RATIO [facility] Start: 09-17-2023 Hepatitis B surface antibody level LDL CHOLESTEROL [facility] Start: 07-16-2023 Glaucoma screening Dilated Retinal E xam [facility] Start: 07-16-2023 Hepatitis C antibody , confirmatory test DILATED RETINAL EXAM [facility] Start: 07-03-2023 Hemoglobin A1c/Hemoglobin.total in Blood HbA1C [facility] Start: 06-08-2023 Advance Directive Discussion Advance Directive Discussion [facility] Start: 06-08-2023 Depression Assessment Depression Ass essment [facility] Start: 03-18-2023 Hemoglobin A1c/Hemoglobin.total in Blood HBA1C [facility] Start: 02-06-2023 Influenza vaccination INFLUENZA (#1) [facility] Start: 01-22-2023 Hepatitis B screening URINE AL BUMIN:CREATININE RATIO [facility] Start: 12-24-2022 Hemoglobin A1c/Hemoglobin.total in Blood HBA1C [facility] Start: 08-05-2022 COVID-19 VACCINE (6 - Moderna series) COVID-19 VACCINE (6 - Moderna series) [facility] Start: 07-30-2022 Hepatitis B screening URINE AL BUMIN:CREATININE RATIO [facility] Start: 06-08-2022 ADVANCE DIRECTIVE DISCUSSION ADVANCE DIRECTIVE DISCUSSION [facility] Start: 06-08-2022 DEPRESSION ASSESSMENT DEPRESSION ASS ESSMENT [facility] Start: 05-09-2022 3 comp foot exam completed DIABETIC FOOT EXAM [facility] Start: 05-02-2022 Hemoglobin A1c/Hemoglobin.total in Blood HBA1C [facility] Start: 04-24-2022 Hemoglobin A1c/Hemoglobin.total in Blood HBA1C [facility] Start: 04-22-2022 Hepatitis B surface antibody level LDL CHOLESTEROL [facility] Start: 02-06-2022 Influenza vaccination INFLUENZA (#1) [facility] Start: 01-27-2022 Hemoglobin A1c/Hemoglobin.total in Blood HBA1C [facility] Start: 11-05-2021 COVID-19 VACCINE (5 - Booster for Moderna series) COVID-19 VACCINE (5 - Booster for Moderna series) [facility] Start: 2021 ADVANCE DIRECTIVE DISCUSSION ADVANCE DIRECTIVE DISCUSSION [facility] Start: 2021 PNEUMOVAX AGE 65 AND OVER WITH 5YR LOOKBACK (#1) PNEUMOVAX AGE 65 AND OVER WITH 5YR LOOKBACK (#1) [facility] Start: 06-08-2021 DEPRESSION ASSESSMENT DEPRESSION ASS ESSMENT [facility] Start: 2006 SHINGRIX VACCINE (1 of 2) SHINGRIX V ACCINE (1 of 2) [facility] Start: 2001 COLOGUARD (FIT-DNA) COLOGUARD (FIT-D NA) [facility] Start: 2001 Colonoscopy COLONOSCOPY [facility] Start: 2001 COLORECTAL CANCER SCREENING COLORECTAL CANCER SCREENING [facility] Start: [address] COLONOGRAPHY [facility] Start: 2001 FECAL OCCULT BLOOD FECAL OCCULT BLOO D [facility] Start: 2001 Screening for malign ant neoplasm of colon [facility] Start: 2001 SIGMOIDOSCOPY SIGMOIDOSCOPY [facility] Start: 1974 ANNUAL PCP TEAM METAL ANNEALER [place] DISEASE VISIT ANNUAL PCP TEAM CHRONIC DISEASE VISIT [facility] Start: 1974 BP CONTROLLED (<130/80) BP CONTROLLE D (<130/80) [facility] Start: 1974 HEPATITIS C SCREENING HEPATITIS C SC REENING [facility] Start: 1974 HIV SCREENING HIV SCREENING [facility] Start: 1968 Adult depression scr eening assessment DEPRESSION SCREENING [facility] Start: 1966 Hepatitis C antibody , confirmatory test DILATED RETINAL EXAM [facility] Start: 1962 PNEUMOCOCCAL: 65+ (1 - PCV) PNEUMOCOCCAL: 65+ (1 - PCV) [facility] Immunizations Immunization Date Immunization Notes Care Provider Regine alvarado 03-28-2021 influenza, seasonal, injectable Belem Kupiec FRAME STRAIGHTENER.CURBER Work Phone: [facility] Work Phone: 03-29-2020 Seasonal, quadrivale nt, recombinant, injectable influenza vaccine, preservative free Belem Kupiec FRAME STRAIGHTENER.CURBER Work Phone: [facility] 04-22-2019 Influenza, injectabl e, Madin Maria Dolores Canine Kidney, quadrivalent with preservative Belem Kupiec FRAME STRAIGHTENER.CURBER Work Phone: [facility] 11-04-2017 tetanus toxoid, redu yvonne diphtheria toxoid, and acellular pertussis vaccine, adsorbed Belem Kupiec FRAME STRAIGHTENER.CURBER Work Phone: [facility] 03-11-2017 influenza, injectabl e, quadrivalent, preservative free Belem Kupiec FRAME STRAIGHTENER.CURBER Work Phone: [facility] 04-14-2016 influenza, seasonal, injectable Belem Kupiec FRAME STRAIGHTENER.CURBER Work Phone: [facility] 04-06-2015 influenza, injectabl e, quadrivalent, preservative free Belem Kupiec FRAME STRAIGHTENER.CURBER Work Phone: [facility] 03-06-2014 influenza, injectabl e, quadrivalent, preservative free Belem Kupiec FRAME STRAIGHTENER.CURBER Work Phone: [facility] 03-06-2014 tetanus toxoid, redu yvonne diphtheria toxoid, and acellular pertussis vaccine, adsorbed Belem Kupiec FRAME STRAIGHTENER.CURBER Work Phone: [facility] 03-30-2013 influenza, injectabl e, quadrivalent, preservative free Belem Kupiec FRAME STRAIGHTENER.CURBER Work Phone: [facility] 04-24-2009 influenza, seasonal, injectable, preservative free Belem Kupiec FRAME STRAIGHTENER.CURBER Work Phone: [facility] 04-11-2009 novel [id number], preservative-free, injectable Belem Kupiec FRAME STRAIGHTENER.CURBER Work Phone: [facility] 04-28-2007 influenza virus vaccine, whole virus Belem Calderon FRAME STRAIGHTENER.CURBER Work Phone: [facility] Payers Date Payer Category Payer Medicaid MEDICAID [facility] MEDICAID [id number] 2021-Present [phone] [address] [place] [address] Medicaid [id number] 2021 Medicaid [id number] 2021 Unknown MARIANO QUIN[place] ME DICARE SUPPLEMENT [id number] 2021-Present [phone] [address] [place] [address] Indemnity [id number] 2021 Unknown ANTHEM NOLANEM ME DICARE SUPPLEMENT [id number] 2021-Present [phone] [address] [place] [address] Indemnity [id number] 2021 Unknown [id number] 2021 Medicare MEDICARE MEDICAR E A AND B [id number] 2021-Present [phone] [place] [address] Medicare [id number] 2021 Medicare MEDICARE MEDICAR E A AND B [id number] 2021-Present [phone] [place] [address] Medicare [id number] 2021 Medicare [id number] 2017 Medicaid [id number] 1955 Unknown [id number] Social History Date Type Detail Facility Start: 09-23-2019 End: 02-18-2022 Tobacco smoking status NHIS Never smoked tobacco [facility] Work Phone: Start: 09-23-2019 End: 02-18-2022 Tobacco use and exposure Smokeless tobacco non-user [facility] Work Phone: Start: 08-02-2021 End: 07-10-2023 Alcohol intake Current drinker of alcohol (finding) [facility] Start: 09-23-2019 History SDOH Alcohol Frequency 2 [facility] Start: 1955 Sex Assigned At Not on file [facility] Start: 10-20-2021 End: 02-18-2022 Exposure to SARS-CoV-2 (event) Not sure [facility] Start: 09-24-2022 End: 10-16-2022 History of Social function [facility] Work Phone: Start: 09-24-2022 End: 10-16-2022 Tobacco use panel [facility] Work Phone: National Score (1-10 0), lower number is lower risk 62 [facility] Start: 10-23-2021 Gender identity Identifies as male gender (finding) [facility] Start: 10-23-2021 Sexual orientation Choose not to dis close [facility] How often to you hav e a drink containing alcohol? Monthly or less [facility] Work Phone: Medical Equipment Procedure Code Equipment Code Equipment Origin al Text Equipment Identifier Dates Use 4 pen needle s daily Start: 02-01-2021 End: 02-18-2022 Clinical Notes 09-02-2021 to 07-10-2023 Belem Calderon APRN.LINDA - 07/10/2023 9:30 AM Tl Pleitez PA - 05/10/2023 3:30 PM ESTTelephone Encounter - Heather Randle MA - 12/19/2022 3:06 PM EDTPatient Instructions Note Date & Type Note Facility 07-10-2023 Note HNO ID: [id number] Author: BELEM CALDERON APRN.CURBER Service: ? Author Type: Nurse Practitioner Type: Progress Notes Filed: 07/10/2023 11:16 Note Text: Reason for Consultation: DM Type 2 Referring Physician: SELF HISTORY OF PRESENT ILLNESS; Mr. Gonzalez is a 67 year old male presenting for follow up regarding DM Type 2. He was initially diagnosed with diabetes age 31 after having pancreatitis. He does not have a family history of diabetes mellitus in his family . LV 12/31/22 A1C 7.3 on 06/29/23 History of diabetes, pancreatitis, hypertension, hyperlipidemia, hypoglycemia Negative SOLANGE and islet cell AB Cpeptide 0.3 He was sick for a month with covid and cold. He started Dexcom CGM on 07/26/20. He decided against an insulin pump. He is having cardiac eval due to low heart rate. His current diabetes regimen is: Glucagon: baqsimi lantus 34 units daily HS (only 25 units if under 150) Fiasp plus SS---11-14 units breakfast, 20-24 units dinner --as high as 30 units at dinner Plus sliding scale of lispro/humalog at [...] bring a logbook today for review: Dexcom download (06/27/23 to 07/10/23) In range 49% High 43% Very high 7% Low <1% Very low 0% Estimated A1C 7.7 Average BG 182 BG is highest from MN to 3 AM and again after dinner around 7-9 pm Hypoglycemia frequency: occasionally Hypoglycemia awareness: not always ; had a low that required EMS assistance in the past ; has been as low as 40 Overall, the patient has no acute complaints at this time. HLD: Off statin secondary to myalgia --crestor PAST MEDICAL HISTORY Diagnosis Date Diabetes (HCC) type 2 Hyperlipidemia Hypertension Pancreatitis PAST SURGICAL HISTORY Procedure Laterality Date OTHER broken arm-right--has titanium plate FAMILY HISTORY Problem Relation Age of Onset Heart disease Father Social History Tobacco Use Smoking status: Never Smokeless tobacco: Never Vaping Use Vaping Use: Never used Substance Use Topics Alcohol use: Yes Current Outpatient Medications Medication Sig Dispense Refill lisinopril (ZESTRIL) 20 mg tablet insulin aspart, niacinamide, (FIASP FLEXTOUCH U-100 INSULIN) 100 unit/mL (3 mL) pen Inject subcutaneously 11- 14 units breakfast, 11-14 units lunch, 20-24 units dinner plus SS up to 70 30 mL 2 glucagon (BAQSIMI) 3 mg/actuation nasal spray Use 1 Maxwell in the nose as needed for low blood sugar. May repeat after 15 minutes using a new device if there is no response. 2 Each 1 insulin glargine (LANTUS SOLOSTAR U-100 INSULIN) 100 unit/mL (3 mL) INJECT 34 UNITS SUBCUTANEOUSLY ONCE DAILY AT BEDTIME IF GLUCOSE IS OVER 150; IF UNDER 150 ONLY TAKE 25 UNITS 45 mL 3 Insulin Bowlegs, Disposable, (BD ULTRAFINE III MINI PEN) 31 gauge x 3/16 Use 4 pen needles daily 400 Each 3 ALPRAZolam (XANAX) 0.5 mg tablet Take 0.5 mg by mouth at bedtime as needed. carvedilol (COREG) 25 mg tablet Take 1 tablet by mouth twice daily. (Patient taking differently: Take 12.5 mg by mouth two times a day.) aspirin 325 mg tablet Take 1 tablet by mouth once daily. No current facility-administered medications for this visit. Allergies As of Date: 07/10/2023 Allergen Noted Reaction SYDNEE [PENTAZOCINE LACTATE] 08/08/2009 TRAMADOL HCL 11/22/2019 Other: See Comments Fully Assessed 07/10/2023 REVIEW OF SYSTEMS: Review of Systems Respiratory: Negative for difficulty breathing. Cardiovascular: Negative for chest pain. Gastrointestinal: Negative for nausea, vomiting, diarrhea and constipation. PHYSICAL EXAM: BP 118/74 Pulse 53 Ht 180 cm (5' 10.87 ) Wt 88 kg (194 lb 0.1 oz) SpO2 97% BMI 27.16 kg/m2 Physical Exam Constitutional: Appearance: Normal appearance. Cardiovascular: Rate and Rhythm: Normal rate and regular rhythm. Pulmonary: Effort: Pulmonary effort is normal. Breath sounds: Normal breath sounds. Skin: General: Skin is warm and dry. Neurological: Mental Status: He is alert and oriented to person, place, and time. Psychiatric: Mood and Affect: Mood normal. Behavior: Behavior normal. DATA: Creatinine Date Value Ref Range Status 06/29/2023 0.88 0.73 - 1.22 mg/dL Final Hemoglobin A1C (%) Date Value 06/29/2023 7.3 07/30/2021 7.8 Hemoglobin A1C (POCT) (%) Date Value 12/31/2022 7.8 ) No components found for: URINE (more content not included)... [facility] 07-10-2023 History of Presen t illness Narrative Reason for Consultation: DM Type 2 Referring Physician: SELF HISTORY OF PRESENT ILLNESS; Mr. Gonzalez is a 67 year old male presenting for follow up regarding DM Type 2. He was initially diagnosed with diabetes age 31 after having pancreatitis. He does not have a family history of diabetes mellitus in his family . LV 12/31/22 A1C 7.3 on 06/29/23 History of diabetes, pancreatitis, hypertension, hyperlipidemia, hypoglycemia Negative SOLANGE and islet cell AB Cpeptide 0.3 He was sick for a month with covid and cold. He started Dexcom CGM on 07/26/20. He decided against an insulin pump. He is having cardiac eval due to low heart rate. His current diabetes regimen is: Glucagon: baqsimi lantus 34 units daily HS (only 25 units if under 150) Fiasp plus SS---11-14 units breakfast, 20-24 units dinner --as high as 30 units at dinner Plus sliding scale of lispro/humalog at [...] bring a logbook today for review: Dexcom download (06/27/23 to 07/10/23) In range 49% High 43% Very high 7% Low <1% Very low 0% Estimated A1C 7.7 Average BG 182 BG is highest from MN to 3 AM and again after dinner around 7-9 pm Hypoglycemia frequency: occasionally Hypoglycemia awareness: not always ; had a low that required EMS assistance in the past ; has been as low as 40 Overall, the patient has no acute complaints at this time. HLD: Off statin secondary to myalgia --crestor PAST MEDICAL HISTORY Diagnosis Date Diabetes (HCC) type 2 Hyperlipidemia Hypertension Pancreatitis PAST SURGICAL HISTORY Procedure Laterality Date OTHER broken arm-right--has titanium plate FAMILY HISTORY Problem Relation Age of Onset Heart disease Father Social History Tobacco Use Smoking status: Never Smokeless tobacco: Never Vaping Use Vaping Use: Never used Substance Use Topics Alcohol use: Yes Current Outpatient Medications Medication Sig Dispense Refill lisinopril (ZESTRIL) 20 mg tablet insulin aspart, niacinamide, (FIASP FLEXTOUCH U-100 INSULIN) 100 unit/mL (3 mL) pen Inject subcutaneously 11- 14 units breakfast, 11-14 units lunch, 20-24 units dinner plus SS up to 70 30 mL 2 glucagon (BAQSIMI) 3 mg/actuation nasal spray Use 1 Maxwell in the nose as needed for low blood sugar. May repeat after 15 minutes using a new device if there is no response. 2 Each 1 insulin glargine (LANTUS SOLOSTAR U-100 INSULIN) 100 unit/mL (3 mL) INJECT 34 UNITS SUBCUTANEOUSLY ONCE DAILY AT BEDTIME IF GLUCOSE IS OVER 150; IF UNDER 150 ONLY TAKE 25 UNITS 45 mL 3 Insulin Bowlegs, Disposable, (BD ULTRAFINE III MINI PEN) 31 gauge x 3/16 Use 4 pen needles daily 400 Each 3 ALPRAZolam (XANAX) 0.5 mg tablet Take 0.5 mg by mouth at bedtime as needed. carvedilol (COREG) 25 mg tablet Take 1 tablet by mouth twice daily. (Patient taking differently: Take 12.5 mg by mouth two times a day.) aspirin 325 mg tablet Take 1 tablet by mouth once daily. No current facility-administered medications for this visit. Allergies As of Date: 07/10/2023 Allergen Noted Reaction WESLEYWIN [PENTAZOCINE LACTATE] 08/08/2009 TRAMADOL HCL 11/22/2019 Other: See Comments Fully Assessed 07/10/2023 REVIEW OF SYSTEMS: Review of Systems Respiratory: Negative for difficulty breathing. Cardiovascular: Negative for chest pain. Gastrointestinal: Negative for nausea, vomiting, diarrhea and constipation. PHYSICAL EXAM: BP 118/74 Pulse 53 Ht 180 cm (5' 10.87 ) Wt 88 kg (194 lb 0.1 oz) SpO2 97% BMI 27.16 kg/m2 Physical Exam Constitutional: Appearance: Normal appearance. Cardiovascular: Rate and Rhythm: Normal rate and regular rhythm. Pulmonary: Effort: Pulmonary effort is normal. Breath sounds: Normal breath sounds. Skin: General: Skin is warm and dry. Neurological: Mental Status: He is alert and oriented to person, place, and time. Psychiatric: Mood and Affect: Mood normal. Behavior: Behavior normal. DATA: Creatinine Date Value Ref Range Status 06/29/2023 0.88 0.73 - 1.22 mg/dL Final Hemoglobin A1C (%) Date Value 06/29/2023 7.3 07/30/2021 7.8 Hemoglobin A1C (POCT) (%) Date Value 12/31/2022 7.8 ) No components found for: URINEALBUMIN Cholesterol, Total (mg/dL) Date Value 06/29/2023 195 04/22/2021 210 04/22/2021 214 HDL Cholesterol (mg/dL) Date Value 06/29/2023 42 04/22/2021 44 04/22/2021 44 LDL Cholesterol (mg/dL) Date Value 06/29/2023 127 04/22/2021 140 04/22/2021 144 Triglyceride (mg/dL) Date Value 06/29/2023 128 04/22/2021 131 04/22/2021 132 IMPRESSION: Mr. Gonzalez is a 67 year old male here for evaluation of DM Type 2 complicated by hypertension, hyperlipidemia, hypoglycemia unawareness . RECOMMENDATIONS: (E11.649, Z79.4) Type 2 diabetes mellitus with hypoglycemia without coma, with long-term current use of insulin (HCC) (primary encounter diagnosis) Comment: Glycemic control is above goal. Plan: insulin glargine (LANTUS SOLOSTAR U-100 INSULIN) 100 unit/mL (3 mL), insulin aspart, niacinamide, (FIASP FLEXTOUCH U-100 INSULIN) 100 unit/mL (3 mL) pen Continue use of CGM. Avoid taking insulin between meals. Increase breakfast and dinner doses of fiasp a couple units Avoid fluctuating lantus dose. Follow up in 4 months (E11.649) 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) Comment/Plan: continue Dexcom CGM (I10) Essential hypertension Comment/Plan: Managed per PCP (Z87.19) History of pancreatitis Comment/Plan: avoid GLP-1 and DPP4 (E78.2) Mixed hyperlipidemia Comment/Plan: He declines statin due to myalgia I spent a total of 30 minutes on the date of the service which included preparing to see the patient, [id number] patient care, completing clinical documentation, obtaining and/or reviewing separately obtained history, performing a medically appropriate examination, counseling and educating the patient/family/caregiver, ordering medications, tests, or procedures, and communicating results to the patient/family/caregiver. Belem Calderon, MSN, FRAME STRAIGHTENER, APPETIZER PACKER-C, CDE Endocrinology [facility] Office [facility]/[address] [place] [address] Fax: documented in this encounter [facility] 05-10-2023 Note HNO ID: [id number] Author: Tl Weaver PA Service: ? Author Type: Physician Ticket Taker Ferryboat Type: Progress Notes Filed: 05/10/2023 3:31 PM [...] room. He understands. He will go to [facility]. [facility] 05-10-2023 History of Presen t illness Narrative [...] room. He understands. He will go to [facility]. documented in this encounter [facility] 12-31-2022 Note HNO ID: [id number] Author: Angely Tan Ma Service: ? Author Type: ? Type: Procedures Filed: 12/31/2022 11:36 AM Note Text: [facility] 12-31-2022 Note HNO ID: [id number] Author: Belem Calderon APRN.CNP Service: ? Author [...] pump. Just started new G7 CGM. Using police manager for now but plans to connect with fermin Still trying to trust new CGM. Was having lows on vacation. Adjusting his insulin doses His current diabetes regimen is: Glucagon: baqsimi lantus 34 units daily HS (only 25 units if under 150) -- 30 or 34 or whatever Fiasp 14/14/ plus SS---11-14 units breakfast, 20-28 units dinner [...] (BAQSIMI) 3 mg/actuation nasal spray Use 1 Maxwell in the nose as needed for low blood sugar. May repeat after 15 minutes using a new device if there is no response. 2 Each 1 insulin glargine (LANTUS SOLOSTAR U-100 INSULIN) 100 unit/mL (3 mL) INJECT 34 UNITS SUBCUTANEOUSLY ONCE DAILY AT BEDTIME IF GLUCOSE IS OVER 150; IF UNDER 150 ONLY TAKE 25 UNITS 45 mL 3 Insulin Bowlegs, Disposable, (BD ULTRAFINE III MINI PEN) 31 [...] As of Date: 12/31/2022 Allergen Noted Reaction WESLEYWIN [PENTAZOCINE LACTATE] 08/08/2009 TRAMADOL HCL 11/22/2019 Other: [...] 04 (more content not included)... [facility] 12-19-2022 Miscellaneous Notes Form faxed to [facility] at on December 19, 2022; transmission ok. Form signed. Thank you Form on docs desk/basket for review from [facility] for Dexcom. Please review and sign. Needs to be faxed to [phone]. Attached last office note. documented in this encounter [facility] 12-19-2022 Miscellaneous Notes Received a request of office notes from [facility]. Office notes from: 06/26/2022 and 09/24/2022. Faxed to:[phone] Confirmation fax received. Transmission successful. documented in this encounter [facility] 11-24-2022 Miscellaneous Notes Called patient and left voicemail to call office back or check his Up[employer] messages. Encounter closed We can skip labs for the December visit. A1C will be done in the office the day of the appt. Thank you PT went to [facility] to have blood drawn as a [...] work is needed. documented in this encounter [facility] 10-16-2022 Miscellaneous Notes Reviewed. message sent to patient Glucose readings on your desk for review documented in this encounter [facility] 10-16-2022 Note HNO ID: [id number] Author: Heather Randle MA Service: ? Author Type: Easement Man Type: Progress Notes Filed: 11/12/2022 8:59 AM Note Text: Patient came in with their own dexcom(they supplied it)and 2 weeks of data was transmitted successfully. Date and time was off by 1 full year, adjusted before patient left [facility] 09-24-2022 Miscellaneous Notes Prior Authorization: Medication/Dose: Fiasp FlexTouch 100 units/mL. Inject subcutaneous three times daily with meals plus SSI. TDD: 70 units. Diagnosis: Type 2 Diabetes (E11.9) Provider: Belem Calderon CNP Completed Via: [facility] [place]: [id number] Insurance: [employer] [place] Phone: Fax: Pharmacy: [facility] Notes: Patient has been APPROVED. Simran Gonzalez ([place]: [id number]) Rx #: [id number] Fiasp FlexTouch 100UNIT/ML pen-injectors Form [employer] Medicare Electronic PA Form (2016 DCPDP) Created 2 hours ago Sent to Plan 37 minutes ago Plan Response 37 minutes ago Submit Clinical Questions less than a minute ago Determination Favorable less than a minute ago Message from Plan CaseId:[id number];Status:Approved; Review Type:Prior Auth;Coverage Start Date:08/25/2022;Coverage End Date:09/24/2023; Closed. documented in this encounter [facility] 09-24-2022 Note HNO ID: [id number] Author: Aminata Steele MA Service: ? Author Type: ? Type: Procedures Filed: 09/24/2022 4:03 PM Note Text: [facility] 09-24-2022 Note HNO ID: [id number] Author: Belem Calderon APRN.CURBER Service: ? Author Type: Nurse Practitioner Type: [...] 80 units daily 75 mL 3 Insulin Bowlegs, Disposable, (BD ULTRAFINE III MINI PEN) 31 [...] ( (more content not included)... [facility] 09-24-2022 Instructions Belem Calderon APRN.LINDA - 09/24/2022 [...] up in 3 months. Belem Calderon, MSN, FRAME STRAIGHTENER, APPETIZER PACKER-C, CDE Endocrinology [facility] Medical Office [facility]/[address], [address] [place], [place] [address] Fax: documented in this encounter [facility] 09-24-2022 Procedure note Procedure(s): EXTERNAL CHIMNEY SWEEPER, CGM SYS Images from the original note were not included. documented in this encounter [facility] 09-24-2022 History of Presen t illness Narrative [...] 80 units daily 75 mL 3 Insulin Bowlegs, Disposable, (BD ULTRAFINE III MINI PEN) 31 gauge x /16 Use 4 pen needles daily 400 Each [...] complication, with long-term current use of insulin ([facility]) (primary encounter diagnosis) Comment: Glycemic control is [...] Decision Making: Level: 4 - Moderate Belem Calderon MSN, FRAME STRAIGHTENER, APPETIZER PACKER-C, CDE Endocrinology [facility] Office [facility]/[address] [place], [place] [address] Fax: documented in this encounter [facility] 08-21-2022 Miscellaneous Notes Requester: Patient Last Visit in Endocrinology: Provider name: Belem Calderon CNP , Date 06/26/2022 Next Scheduled Appt in Endo: 09/24/2022 Last Refill: 02/18/2022 Number of Refills given: 3 Requested Prescriptions Pending Prescriptions Disp Refills insulin glargine (LANTUS SOLOSTAR U-100 INSULIN) 100 unit/mL (3 mL) 45 mL 3 Sig: INJECT 34 UNITS SUBCUTANEOUSLY ONCE DAILY AT BEDTIME Please review and advise. Aminata Steele MA documented in this encounter [facility] 08-18-2022 Miscellaneous Notes Received a fax from [employer] [facility] to send most recent progress note for DM diagnosis. Faxed. Transmission okay. closed documented in this encounter [facility] 07-16-2022 Note HNO ID: [id number] Author: Lilia Santizo OD Service: ? Author Type: ITALIAN TUTOR Type: Progress Notes Filed: 07/16/2022 10:02 AM Note Text: Assessment and Plan: 1. Type 2 diabetes mellitus without retinopathy (HCC) -Patient education on the importance of strict blood sugar control in order to minimize the risk of vision loss from Diabetes Mellitus. -Advised close follow-up with primary care physician / area field person. -Advised keeping scheduled eye examinations with sooner follow-up if any new symptoms develop. -Return in one year for Dilated fundus examination. 2. Age-related nuclear cataract of both eyes -Patient Education on natural progression of cataract. -Cataract Surgery not indicated at this time. -Return as advised for follow-up or sooner if symptoms increase. 3. Refractive error -Glasses Rx given today. Lilia Santizo OD I have reviewed, confirmed, and edited [...] findings, diagnosis, and treatment options. [facility] 07-16-2022 History of Presen t illness Narrative Assessment and Plan: 1. Type 2 diabetes mellitus without retinopathy (HCC) -Patient education on the importance of strict blood sugar control in order to minimize the risk of vision loss from Diabetes Mellitus. -Advised close follow-up with primary care physician / area field person. -Advised keeping scheduled eye examinations with sooner follow-up if any new symptoms develop. -Return in one year for Dilated fundus examination. 2. Age-related nuclear cataract of both eyes -Patient Education on natural progression of cataract. -Cataract Surgery not indicated at this time. -Return as advised for follow-up or sooner if symptoms increase. 3. Refractive error -Glasses Rx given today. Lilia Santizo OD I have reviewed, confirmed, and edited [...] and treatment options. documented in this encounter [facility] 07-16-2022 Instructions Lilia Santizo OD - 07/16/2022 9:59 AM EST Patient education on the importance of strict blood sugar control in order to minimize the risk of vision loss from Diabetes Mellitus. Advised close follow-up with primary care physician / area field person. Advised keeping scheduled eye examinations with sooner follow-up if any new symptoms develop. Please call the office with decreased vision or increased eye pain. documented in this encounter [facility] 05-28-2022 Miscellaneous Notes Form faxed, Transmission ok CLOSED Form signed. Thank you Form on docs desk/basket for review from [employer]. Please review and sign. Needs to be faxed to [phone]. documented in this encounter [facility] 02-19-2022 Miscellaneous Notes Form faxed, transmission ok Closed Form signed. Thank you Request for last OV note, note from 02/18/22 faxed [phone] Transmission OK documented in this encounter [facility] 02-18-2022 History of Presen t illness Narrative [...] 80 units daily 75 mL 3 Insulin Bowlegs, Disposable, (BD ULTRAFINE III MINI PEN) 31 [...] mL), HUMALOG KWIKPEN INSULIN 100 unit/mL, Insulin Bowlegs, Disposable, (BD ULTRAFINE III MINI PEN) 31 [...] Level: 4 - Moderate Belem Calderon, MSN, FRAME STRAIGHTENER, APPETIZER PACKER-C, CDE Endocrinology [facility] Medical Office [facility]/[address], [facility] [address] [place] [address] Fax: documented in this encounter [facility] 12-06-2021 Instructions Sandy Rosa APRN.LINDA - 12/06/2021 [...] signs of redness documented in this encounter [facility] 12-06-2021 History of Presen t illness Narrative Subjective The history is provided by the patient. No scalping machine operator was used. HPI Simran Gonzalez is a [...] have confirmed and edited as necessary, the [facility] Review of Systems Constitutional: Negative for [...] Wound care discussed Patient leaving Thursday for [employer] will take keflex with him and start [...] Sandy Rosa APRN.LINDA documented in this encounter [facility] 10-30-2021 History of Presen t illness Narrative [...] DAILY AT BEDTIME 15 mL 5 Insulin Bowlegs, Disposable, (BD ULTRAFINE III MINI PEN) 31 gauge x /16 Use 4 pen needles daily 400 Each [...] which included preparing to see the patient, [id number] patient care, completing clinical documentation, obtaining and/or reviewing separately obtained history, performing a medically appropriate examination, counseling and educating the patient/family/caregiver, ordering medications, tests, or procedures and communicating results to the patient/family/caregiver. Belem Calderon, MSN, FRAME STRAIGHTENER, APPETIZER PACKER-C, CDE Endocrinology [facility] Medical Office [facility]/[address], [address] [place] [address] Fax: documented in this encounter [facility] 09-02-2021 Miscellaneous Notes Patient came into the office requesting refills as follows: Insurance will only cover Humalog. Pending Prescriptions Disp Refills HUMALOG KWIKPEN (U-100) INSULIN 100 UNIT/ML SUBCUTANEOUS 75 mL 3 Sig: Inject 12 units breakfast, 10 units lunch, 25 units dinner plus sliding scale up to 80 units daily JULIA: Yes Please review and advise. Angely Tan Ma documented in this encounter [facility] Diagnosis Type 2 diabetes mellitus without complication, with long-term current use of insulin ([facility])- Primary 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) Essential hypertension Unspecified essential hypertension History of pancreatitis Personal history of other diseases of digestive system Mixed hyperlipidemia [facility] Puncture wound- Primary Open wound(s) (multiple) of unspecified site(s), without mention of complication [facility] Diagnosis Type 2 diabetes mellitus without [...] stated as uncontrolled [facility] Diagnosis Type 2 diabetes mellitus without retinopathy (HCC)- Primary Type II or unspecified type diabetes mellitus without mention of complication, not stated as uncontrolled Age-related nuclear cataract of both eyes Senile nuclear sclerosis Refractive error Unspecified disorder of refraction and accommodation [facility] Diagnosis Type 2 diabetes mellitus without complication, with long-term current use of insulin (HCC) [facility] Diagnosis Type 2 diabetes mellitus without complication, with long-term current use of insulin (HCC)- Primary 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) Essential hypertension Unspecified essential hypertension History of pancreatitis Personal history of other diseases of digestive system Mixed hyperlipidemia [facility] Diagnosis Type 2 diabetes mellitus without complication, with long-term current use of insulin (HCC) documented in this encounter [facility] note* Diagnosis Syncope, unspecified syncope type- Primary documented in this encounter [facility] note* Diagnosis Type 2 diabetes mellitus with hypoglycemia without coma, with long-term current use of insulin (HCC)- Primary 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) Essential hypertension Unspecified essential hypertension History of pancreatitis Personal history of other diseases of digestive system Mixed hyperlipidemia documented in this encounter [facility] Reason for Referral Specialty Diagnoses / Procedures Referred By Taz dejesus Referred To Contact Urology Diagnoses Erectile dysfunction associated with type 2 diabetes mellitus (HCC) Procedures CONSULT TO UROLOGY OFFICE/OUTPATIENT [facility] 60-74 MINUTES Belem Calderon, SHAR.CURBER [address] [address] Referral ID Status Reason Start Date Expiration Date Visits Requested Visits Authorized [id number] Pending Review PCP Requested Referral 02/18/2022 02/18/2023 1 1 Medications Administered Section Active Administered Medications - up to 3 most recent administrations Medication Order MAR Action Action Date Dose Rate Site fluorescein-benoxinate 0.25-0.4 % 1 Drop (FLURESS) 1 Drop, BOTH EYES, DIRECTED, Starting on Thu07/16/22 at 0930, Until Thu07/16/22 at 2129, Administer for applanation tonometry. In the event of a Fluress shortage, administer [place]-Fluor 1 drop into both eyes as directed [...] or prosecute any alcohol or drug abuse patient.[facility] the event this information is protected by the Federal Confidentiality of Alcohol and Drug Abuse Patient Records regulations: The Federal rules restrict any use of the information to criminally investigate or prosecute any alcohol or drug abuse patient.[facility] the event this information is protected by the Federal Confidentiality of Alcohol and Drug Abuse Patient Records regulations: The Federal rules restrict any use of the information to criminally investigate or prosecute any alcohol or drug abuse patient.[facility] the event this information is protected by the Federal Confidentiality of Alcohol and Drug Abuse Patient Records regulations: The Federal rules restrict any use of the information to criminally investigate or prosecute any alcohol or drug abuse patient.[facility] Hospital[facility] the event this information is protected by the Federal Confidentiality of Alcohol and Drug Abuse Patient Records regulations: The Federal rules restrict any use of the information to criminally investigate or prosecute any alcohol or drug abuse patient.[facility] HospitalIn the event this information is protected by the Federal Confidentiality of Alcohol and Drug Abuse Patient Records regulations: The Federal rules restrict any use of the information to criminally investigate or prosecute any alcohol or drug abuse patient.[facility] HospitalIn the event this information is protected by the Federal Confidentiality of Alcohol and Drug Abuse Patient Records regulations: The Federal rules restrict any use of the information to criminally investigate or prosecute any alcohol or drug abuse patient.[facility] HospitalIn the event this information is protected by the Federal Confidentiality of Alcohol and Drug Abuse Patient Records regulations: The Federal rules restrict any use of the information to criminally investigate or prosecute any alcohol or drug abuse patient.[facility] HospitalIn the event this information is protected by the Federal Confidentiality of Alcohol and Drug Abuse Patient Records regulations: The Federal rules restrict any use of the information to criminally investigate or prosecute any alcohol or drug abuse patient.[facility] HospitalIn the event this information is protected by the Federal Confidentiality of Alcohol and Drug Abuse Patient Records regulations: The Federal rules restrict any use of the information to criminally investigate or prosecute any alcohol or drug abuse patient.[facility] HospitalIn the event this information is protected by the Federal Confidentiality of Alcohol and Drug Abuse Patient Records regulations: The Federal rules restrict any use of the information to criminally investigate or prosecute any alcohol or drug abuse patient.[facility] HospitalIn the event this information is protected by the Federal Confidentiality of Alcohol and Drug Abuse Patient Records regulations: The Federal rules restrict any use of the information to criminally investigate or prosecute any alcohol or drug abuse patient.[facility] HospitalIn the event this information is protected by the Federal Confidentiality of Alcohol and Drug Abuse Patient Records regulations: The Federal rules restrict any use of the information to criminally investigate or prosecute any alcohol or drug abuse patient.[facility] HospitalIn the event this information is protected by the Federal Confidentiality of Alcohol and Drug Abuse Patient Records regulations: The Federal rules restrict any use of the information to criminally investigate or prosecute any alcohol or drug abuse patient.[facility] HospitalIn the event this information is protected by the Federal Confidentiality of Alcohol and Drug Abuse Patient Records regulations: The Federal rules restrict any use of the information to criminally investigate or prosecute any alcohol or drug abuse patient.[facility] HospitalIn the event this information is protected by the Federal Confidentiality of Alcohol and Drug Abuse Patient Records regulations: The Federal rules restrict any use of the information to criminally investigate or prosecute any alcohol or drug abuse patient.[facility] HospitalIn the event this information is protected by the Federal Confidentiality of Alcohol and Drug Abuse Patient Records regulations: The Federal rules restrict any use of the information to criminally investigate or prosecute any alcohol or drug abuse patient.[facility] Reason for Visit (unrecogniz ed section and [...] NEW HIGH MDM 60-74 MINUTES Belem Calderon APRN.CURBER [address] [address] Referral ID Status Reason Start Date Expiration Date Visits Requested Visits Authorized [id number] Pending Review PCP Requested Referral 06/26/2022 06/26/2023 1 1 Reason Comments [facility] Form Reason Onset Date Comments Refill Request 08/21/2022 Reason Comments PA--FIASP FLEXTOUCH ([place]) Reason Comments Dexcom Printout Reason Comments Question Reason Comments Request of office notes [facility] Reason Comments [facility] Form CMN for CGMS (de xcom) Care Teams (unrecognized sec tion and content) Mold Closer Helper Relationship Specialty Start Date End Date Miriam Martinez MD PCP - General Internal Medicine 11/18/16 Mold Closer Helper Relationship Specialty Start Date End Date Miriam Martinez MD PCP - General Internal Medicine 11/18/16 Mold Closer Helper Relationship Specialty Start Date End Date Miriam Martinez MD PCP - General Internal Medicine 11/18/16 Mold Closer Helper Relationship Specialty Start Date End Date Miriam Martinez MD PCP - General Internal Medicine 11/18/16 Mold Closer Helper Relationship Specialty Start Date End Date Miriam Martinez MD PCP - General Internal Medicine 11/18/16 Mold Closer Helper Relationship Specialty Start Date End Date Miriam Martinez MD PCP - General Internal Medicine 11/18/16 Mold Closer Helper Relationship Specialty Start Date End Date Miriam aMrtinez MD PCP - General Internal Medicine 11/18/16 Mold Closer Helper Relationship Specialty Start Date End Date Miriam Martinez MD PCP - General Internal Medicine 11/18/16 [employer] Relationship Specialty Start Date End Date Miriam Martinez MD PCP - General Internal Medicine 11/18/16 [employer] Relationship Specialty Start Date End Date Miriam Martinez MD PCP - General Internal Medicine 11/18/16 [employer] Relationship Specialty Start Date End Date Miriam Martinez MD PCP - General Internal Medicine 11/18/16 [employer] Relationship Specialty Start Date End Date Miriam Martinez MD PCP - General Internal [facility] 11/18/16 [employer] Relationship Specialty Start Date End Date Miriam Martinez MD PCP - General Internal [facility] 11/18/16 (unrecognized sect ion and content) No Status Records FoundNo Status Records Found INFORMATION SOURCE (unrecogn ized section and content) DATE CREATED AUTHOR AUTHOR'S ORGANIZ ATION 07/11/2023 [facility] FOR RECORDS PERTAINING TO PATIENTS WHO ARE [...] BE BASED ON THE PRIMARY CLINICAL RECORDS. [employer] provides no warranty or guarantee of the accuracy or completeness of information in this document.
== END | disposition home or self-care (01) ==
LOC: MRI 12:32
PROVIDERS: PCP Internal Medicine; Referring Provider Otolaryngology; Visit Provider Otolaryngology
DX: G51.8 Other disorders of facial nerve (principal)
CPT/HCPCS: 70030; 70553; A9575

== ENCOUNTER 2023-08-20 23:22 | Emergency (ER) | payer MEDICARE, BC, SELFPAY ==
[2023-08-20 23:23] VITALS: BP 175/86; PULSE 80; RESP 17; TEMP 36.9; O2SAT 98; BMI 27.0
--- OUTSIDE RECORDS SUMMARY | 2023-08-20 23:50 | XMS RPT_ITS | CCD ---
Author Name Unknown Address [address] [place] [address] Organization [facility] Care Team Providers Care Commuter Train Operator Name Role Phone Nemr Miriam SCHMIDT Primary [...] Allergy Type Date of Onset Reaction(s) Facility (19 sources) Pentazocine; Translations: [PENTAZOCINE LACTATE] Drug Allergy 0 [facility] Work Phone: (19 sources) traMADol; Translations: [TRAMADOL HCL] Drug Allergy 0 Other: See Comments [facility] (1 source) Pentazocine; Translations: [PENTAZOCINE] Drug Allergy 0 [employer] [facility] (1 source) traMADol; Translations: [TRAMADOL] Drug Allergy 0 [facility] [employer] [facility] Medications Current Medications Medication Drug [...] Sig (Original) ALPRAZolam 0.5 mg oral tablet (18 sources) Benzodiazepine take 1 tablet by tacho th every twenty-four hours as needed ALPRAZolam (XANAX) 0.5 mg tablet Take 0.5 mg by mouth at bedtime as needed. 0 Active Problems Active Problems Problem Classification Problem Date Documented Da te Episodic/Chronic Anxiety disorders (1 source) Anxiety disorder, unspecified; Translations: [Anxiety hyperventilation] Onset: 09-16-2022 Chronic Cataract (13 sources) Bilateral age-related nuclear cataracts; Translations: [Age-related [...] Onset: 09-16-2022 Chronic Other aftercare (2 sources) custodial (current) use of insulin; Translations: [Type 2 diabetes mellitus with hypoglycemia without coma, with long-term current use of insulin (HCC)] Onset: 09-23-2019 Episodic Other injuries and conditions due [...] Da te Episodic/Chronic Blindness and vision defects (13 sources) Disorder of refraction; Translations: [Unspecified disorder of refraction] Onset: 07-16-2022 Episodic Other gastrointestinal disorders (20 sources) History [...] 180 cm Belem Calderon APRN.LINDA Work Phone: [facility] 07-10-2023 09:35-0500 Body weight 88 kg Belem Calderon STRADDLE BUG.LINDA Work Phone: [facility] 07-10-2023 09:35-0500 Diastolic blood pressure 74 mm[Hg] Belem Calderon STRADDLE BUG.LINDA Work Phone: [facility] 07-10-2023 09:35-0500 Heart rate 53 /min Belem Vicente STRADDLE BUG.LINDA Work Phone: [facility] 07-10-2023 09:35-0500 SaO2% (BldA) [Mass fraction] 97 % Belem Vicente STRADDLE BUG.LINDA Work Phone: [facility] 07-10-2023 09:35-0500 Systolic blood pressure 118 mm[Hg] Belem Kupiec STRADDLE BUG.MOMD TEACHER Work Phone: [facility] 09-24-2022 10:31-0400 [facility].MOMD TEACH[facility] Work Phone: [facility] 09-24-2022 10:31-0400 Body [facility] 86.73 [facility].MOMD TEACHER Work Phone: [facility] 09-24-2022 10:31-0400 Diastolic blood pressure 76 mm[Hg] Belem Kupiec STRADDLE BUG.MOMD TEACHER Work Phone: [facility] 09-24-2022 10:31-0400 Heart rate 55 /[facility].MOMD TEACHER Work Phone: [facility] 09-24-2022 10:31-0400 Respiratory rate 16 /min [facility] STR[facility] BUG.MOMD TEACHER Work Phone: [facility] 09-24-2022 10:31-0400 SaO2% (BldA) [Mass fraction] 98 % [facility] STR[facility] BUG.MOMD TEACHER Work Phone: [facility] 09-24-2022 10:31-0400 Systolic blood pressure 160 mm[Hg] Belem Kupiec STRADDLE BUG.MOMD TEACHER Work Phone: [facility] 02-18-2022 13:36-0400 Diastolic blood pressure 80 mm[Hg] Belem Kupiec STRADDLE BUG.MOMD TEACHER Work Phone: [facility] 02-18-2022 13:36-0400 Systolic blood pressure 130 mm[Hg] Belem Kupiec STRADDLE BUG.MOMD TEACHER Work Phone: [facility] 02-18-2022 13:12-0400 Body height 177.3 [facility].MOMD TEACHER Work Phone: [facility] 02-18-2022 13:12-0400 Body weight 86.14 [facility].MOMD TEACHER Work Phone: [facility] 02-18-2022 13:12-0400 Heart rate 58 /min Belem Bobyiec STRADDLE BUG.MOMD TEACHER Work Phone: [facility] 02-18-2022 13:12-0400 SaO2% (BldA) [Mass fraction] 99 % [facility] STRADDLE BUG.MOMD TEACHER Work Phone: [facility] 12-06-2021 14:38-0400 Body temperature 97.7 [degF] Sandy Moe STRADDLE BUG.MOMD TEACHER Work Phone: [facility] 12-06-2021 14:38-0400 Body weight 87.27 kg Sandy Moe STRADDLE BUG.MOMD TEACHER Work Phone: [facility] 12-06-2021 14:38-0400 Diastolic blood pressure 84 mm[Hg] Sandy Moe STRADDLE BUG.MOMD TEACHER Work Phone: [facility] 12-06-2021 14:38-0400 Heart rate 61 /min Sandy Moe STRADDLE BUG.MOMD TEACHER Work Phone: [facility] 12-06-2021 14:38-0400 Respiratory rate 16 /min Sandy Moe STRADDLE BUG.MOMD TEACHER Work Phone: [facility] 12-06-2021 14:38-0400 SaO2% (BldA) [Mass fraction] 97 % Sandy Moe STRADDLE BUG.MOMD TEACHER Work Phone: [facility] 12-06-2021 14:38-0400 Systolic blood pressure 148 mm[Hg] Sandy Moe STRADDLE BUG.MOMD TEACHER Work Phone: [facility] 10-30-2021 13:03-0400 Body height 176.7 [facility].MOMD TEACHER Work Phone: [facility] 10-30-2021 13:03-0400 Body weight 88.36 kg [facility] STRADDLE BUG.MOMD TEACHER Work Phone: [facility] 10-30-2021 13:03-0400 Diastolic blood pressure 77 mm[Hg] Belem Vicente STRADDLE BUG.MOMD TEACHER Work Phone: [facility] 10-30-2021 13:03-0400 Heart rate 59 /min [facility] Jules STRADDLE BUG.MOMD TEACHER Work Phone: [facility] 10-30-2021 13:03-0400 SaO2% (BldA) [Mass fraction] 97 % [facility] STRADDLE BUG.MOMD TEACHER Work Phone: [facility] 10-30-2021 13:03-0400 Systolic blood pressure 148 mm[Hg] [facility] STRADDLE BUG.MOMD TEACHER Work Phone: [facility] Encounters Encounter Date Encounter Type Care Provider Facility Start: 07-10-2023 End: 07-10-[address] [facility] Facility:[facility] Start: 07-10-2023 End: 07-10-2023 Patient encounter procedure Belemaquiles Vicente STRADDLE BUG.MOMD TEACHER Work Phone: Endocrinology Procedures Date Procedure Procedure Detail Performing Clinician Start: 10-30-2021 Hemoglobin A1c/Hemoglobin.total in Blood [facility] STRADDLE BUG.MOMD TEACHER Work Phone: Plan of Treatment Date Care Activity Detail Author Start: 01-13-2030 Urine microalbumin profile DTa P,Tdap,Td Vaccine (4 - Td or Tdap) [facility] Start: 06-29-2028 Prostate specific an tigen measurement Prostate Cancer Screening Discussion [facility] Start: 11-05-2027 Urine microalbumin profile DTA P,TDAP,TD (3 - Td or Tdap) [facility] Start: 09-17-2027 PROSTATE CANCER SCRE ENING DISCUSSION PROSTATE CANCER SCREENING DISCUSSION [facility] Start: 07-30-2026 PROSTATE CANCER SCRE ENING DISCUSSION PROSTATE CANCER SCREENING DISCUSSION [facility] Start: 07-10-2024 BP Controlled (<130/80) BP Controlle d (<130/80) [facility] Start: 06-29-2024 Hepatitis B screening Urine Al bumin:Creatinine Ratio [facility] Start: 06-29-2024 Hepatitis B surface antibody level LDL Cholesterol [facility] Start: 01-01-2024 3 comp foot exam completed Diabetic Foot Exam [facility] Start: 01-01-2024 BP Controlled (<130/80) BP Controlle d (<130/80) [facility] Start: 01-01-2024 Diabetic foot examination Diabetic F oot Exam [facility] Start: 12-28-2023 Hemoglobin A1c measurement HbA1C [facility] Start: 09-17-2023 Hepatitis B screening URINE AL BUMIN:CREATININE RATIO [facility] Start: 09-17-2023 Hepatitis B surface antibody level LDL CHOLESTEROL [facility] Start: 07-16-2023 Glaucoma screening Dilated Retinal E xam [facility] Start: 07-16-2023 Hepatitis C antibody , confirmatory test DILATED RETINAL EXAM [facility] Start: 07-03-2023 Hemoglobin A1c/Hemoglobin.total in Blood HbA1C [facility] Start: 06-08-2023 Advance Directive Discussion Advance Directive Discussion [facility] Start: 06-08-2023 Depression Assessment Depression Ass essment [facility] Start: 03-18-2023 Hemoglobin A1c/Hemoglobin.total in Blood HBA1C [facility] Start: 02-06-2023 Influenza vaccination INFLUENZA (#1) [facility] Start: 01-22-2023 Hepatitis B screening URINE AL BUMIN:CREATININE RATIO [facility] Start: 12-24-2022 Hemoglobin A1c/Hemoglobin.total in Blood HBA1C [facility] Start: 08-05-2022 COVID-19 VACCINE (6 - Moderna series) COVID-19 VACCINE (6 - Moderna series) [facility] Start: 07-30-2022 Hepatitis B screening URINE AL BUMIN:CREATININE RATIO [facility] Start: 06-08-2022 ADVANCE DIRECTIVE DISCUSSION ADVANCE DIRECTIVE DISCUSSION [facility] Start: 06-08-2022 DEPRESSION ASSESSMENT DEPRESSION ASS ESSMENT [facility] Start: 05-09-2022 3 comp foot exam completed DIABETIC FOOT EXAM [facility] Start: 05-02-2022 Hemoglobin A1c/Hemoglobin.total in Blood HBA1C [facility] Start: 04-24-2022 Hemoglobin A1c/Hemoglobin.total in Blood HBA1C [facility] Start: 04-22-2022 Hepatitis B surface antibody level LDL CHOLESTEROL [facility] Start: 02-06-2022 Influenza vaccination INFLUENZA (#1) [facility] Start: 01-27-2022 Hemoglobin A1c/Hemoglobin.total in Blood HBA1C [facility] Start: 11-05-2021 COVID-19 VACCINE (5 - Booster for Moderna series) COVID-19 VACCINE (5 - Booster for Moderna series) [facility] Start: 2021 ADVANCE DIRECTIVE DISCUSSION ADVANCE DIRECTIVE DISCUSSION [facility] Start: 2021 PNEUMOVAX AGE 65 AND OVER WITH 5YR LOOKBACK (#1) PNEUMOVAX AGE 65 AND OVER WITH 5YR LOOKBACK (#1) [facility] Start: 06-08-2021 DEPRESSION ASSESSMENT DEPRESSION ASS ESSMENT [facility] Start: 2006 SHINGRIX VACCINE (1 of 2) SHINGRIX V ACCINE (1 of 2) [facility] Start: 2001 COLOGUARD (FIT-DNA) COLOGUARD (FIT-D NA) [facility] Start: 2001 Colonoscopy COLONOSCOPY [facility] Start: 2001 COLORECTAL CANCER SCREENING COLORECTAL CANCER SCREENING [facility] Start: [address] [facility] Start: 2001 FECAL OCCULT BLOOD FECAL OCCULT BLOO D [facility] Start: 2001 Screening for malign ant neoplasm of colon [facility] Start: 2001 SIGMOIDOSCOPY SIGMOIDOSCOPY [facility] Start: 1974 ANNUAL PCP TEAM INTERNET MARKETING ASSISTANT [place] DISEASE VISIT ANNUAL PCP TEAM CHRONIC DISEASE VISIT [facility] Start: 1974 BP CONTROLLED (<130/80) BP CONTROLLE D (<130/80) [facility] Start: 1974 HEPATITIS C SCREENING HEPATITIS C SC REENING [facility] Start: 1974 HIV SCREENING HIV SCREENING [facility] Start: 1968 Adult depression scr eening assessment DEPRESSION SCREENING [facility] Start: 1966 Hepatitis C antibody , confirmatory test DILATED RETINAL EXAM [facility] Start: 1962 PNEUMOCOCCAL: 65+ (1 - PCV) PNEUMOCOCCAL: 65+ (1 - PCV) [facility] Immunizations Immunization Date Immunization Notes Care Provider Regine alvarado 03-28-2021 influenza, seasonal, injectable Belem Kupiec STRADDLE BUG.MOMD TEACHER Work Phone: [facility] Work Phone: 03-29-2020 Seasonal, quadrivale nt, recombinant, injectable influenza vaccine, preservative free Belem Kupiec STRADDLE BUG.MOMD TEACHER Work Phone: [facility] 04-22-2019 Influenza, injectabl e, Madin Maria Dolores Canine Kidney, quadrivalent with preservative Belem Kupiec STRADDLE BUG.MOMD TEACHER Work Phone: [facility] 11-04-2017 tetanus toxoid, redu yvonne diphtheria toxoid, and acellular pertussis vaccine, adsorbed Belem Kupiec STRADDLE BUG.MOMD TEACHER Work Phone: [facility] 03-11-2017 influenza, injectabl e, quadrivalent, preservative free Belem Kupiec STRADDLE BUG.MOMD TEACHER Work Phone: [facility] 04-14-2016 influenza, seasonal, injectable Belem Kupiec STRADDLE BUG.MOMD TEACHER Work Phone: [facility] 04-06-2015 influenza, injectabl e, quadrivalent, preservative free Belem Kupiec STRADDLE BUG.MOMD TEACHER Work Phone: [facility] 03-06-2014 influenza, injectabl e, quadrivalent, preservative free Belem Kupiec STRADDLE BUG.MOMD TEACHER Work Phone: [facility] 03-06-2014 tetanus toxoid, redu yvonne diphtheria toxoid, and acellular pertussis vaccine, adsorbed Belem Kupiec STRADDLE BUG.MOMD TEACHER Work Phone: [facility] 03-30-2013 influenza, injectabl e, quadrivalent, preservative free Belem Kupiec STRADDLE BUG.MOMD TEACHER Work Phone: [facility] 04-24-2009 influenza, seasonal, injectable, preservative free Belem Kupiec STRADDLE BUG.MOMD TEACHER Work Phone: [facility] 04-11-2009 novel [id number], preservative-free, injectable Belem Kupiec STRADDLE BUG.MOMD TEACHER Work Phone: [facility] 04-28-2007 influenza virus vaccine, whole virus Belem Calderon STRADDLE BUG.MOMD TEACHER Work Phone: [facility] Payers Date Payer Category Payer Medicaid MEDICAID [facility] MEDICAID [id number] 2021-Present [phone] [address] [place] [address] Medicaid [id number] 2021 Medicaid [id number] 2021 Unknown MARIANO QUIN[place] ME DICARE SUPPLEMENT [id number] 2021-Present [phone] [address] [place] [address] Indemnity [id number] 2021 Unknown ANTHEM NOLANEM ME DICARE SUPPLEMENT [id number] 2021-Present [phone] [address] [place] [address] Indemnity [id number] 2021 Unknown [id number] 2021 Medicare MEDICARE MEDICAR E A AND B [id number] 2021-Present [phone] [place] [address] Medicare [id number] 2021 Medicare MEDICARE MEDICAR E A AND B [id number] 2021-Present [phone] [place] [address] Medicare [id number] 2021 Medicare [id number] 2017 Medicaid [id number] 1955 Unknown [id number] Social History Date Type Detail Facility Start: 09-23-2019 End: 02-18-2022 Tobacco smoking status NHIS Never smoked tobacco [facility] Work Phone: Start: 09-23-2019 End: 02-18-2022 Tobacco use and exposure Smokeless tobacco non-user [facility] Work Phone: Start: 08-02-2021 End: 12-31-2022 Alcohol intake Current drinker of alcohol (finding) [facility] Start: 09-23-2019 History SDOH Alcohol Frequency 2 [facility] Start: 1955 Sex Assigned At Not on file [facility] Start: 10-20-2021 End: 02-18-2022 Exposure to SARS-CoV-2 (event) Not sure [facility] Start: 09-24-2022 End: 10-16-2022 History of Social function [facility] Work Phone: Start: 09-24-2022 End: 10-16-2022 Tobacco use panel [facility] Work Phone: National Score (1-10 0), lower number is lower risk 62 [facility] Start: 10-23-2021 Gender identity Identifies as male gender (finding) [facility] Start: 10-23-2021 Sexual orientation Choose not to dis close [facility] How often to you hav e a drink containing alcohol? Monthly or less [facility] Work Phone: Medical Equipment Procedure Code Equipment Code Equipment Origin al Text Equipment Identifier Dates Use 4 pen needle s daily Start: 02-01-2021 End: 02-18-2022 Clinical Notes 09-02-2021 to 07-10-2023 Belem Calderon APRN.CNP - 07/10/2023 9:30 AM ESTTeleTisha Downs - 06/03/2023 2:19 PM ESTTelephone Encounter - Angely Tan MA - 06/02/2023 3:18 PM ESTPatient Instructions Note Date & Type Note Facility 07-10-2023 Note HNO ID: [id number] Author: BELEM CALDERON APRN.MOMD TEACHER Service: ? Author Type: Nurse Practitioner Type: Progress Notes Filed: 07/10/2023 11:16 Note Text: Reason for Consultation: DM Type 2 Referring Physician: SELF HISTORY OF PRESENT ILLNESS; Mr. Bush is a 67 year old male presenting [...] Exercise: occasionally; less active in the winter Kemar is checking his blood glucose continuously with [...] (BAQSIMI) 3 mg/actuation nasal spray Use 1 Edison in the nose as needed for low blood sugar. May repeat after 15 minutes using a new device if there is no response. 2 Each 1 insulin glargine (LANTUS SOLOSTAR U-100 INSULIN) 100 unit/mL (3 mL) INJECT 34 UNITS SUBCUTANEOUSLY ONCE DAILY AT BEDTIME IF GLUCOSE IS OVER 150; IF UNDER 150 ONLY TAKE 25 UNITS 45 mL 3 Insulin [place], Disposable, (BD ULTRAFINE III MINI PEN) 31 [...] found for: URINE (more content not included)... [facility] 07-10-2023 History of Presen t illness Narrative Reason for Consultation: DM Type 2 Referring Physician: SELF HISTORY OF PRESENT ILLNESS; Mr. Bush is a 67 year old male presenting [...] Exercise: occasionally; less active in the winter Kemar is checking his blood glucose continuously with [...] (BAQSIMI) 3 mg/actuation nasal spray Use 1 Edison in the nose as needed for low blood sugar. May repeat after 15 minutes using a new device if there is no response. 2 Each 1 insulin glargine (LANTUS SOLOSTAR U-100 INSULIN) 100 unit/mL (3 mL) INJECT 34 UNITS SUBCUTANEOUSLY ONCE DAILY AT BEDTIME IF GLUCOSE IS OVER 150; IF UNDER 150 ONLY TAKE 25 UNITS 45 mL 3 Insulin [place], Disposable, (BD ULTRAFINE III MINI PEN) 31 [...] As of Date: 07/10/2023 Allergen Noted Reaction TALWIN [PENTAZOCINE LACTATE] 08/08/2009 [...] 128 04/22/2021 131 04/22/2021 132 IMPRESSION: Mr. Bush is a 67 year old male here [...] which included preparing to see the patient, [id number] patient care, completing clinical documentation, obtaining and/or reviewing separately obtained history, performing a medically appropriate examination, counseling and educating the patient/family/caregiver, ordering medications, tests, or procedures, and communicating results to the patient/family/caregiver. Belem Calderon, MSN, STRADDLE BUG, REHAB TECH-C, CDE Endocrinology [facility] Office [facility]/[address] [place] [address] Fax: documented in this encounter [facility] 06-03-2023 Miscellaneous Notes Patient called back and stated he is leaving for [place] in the morning and needs filled today Please review this message on behalf of provider who is out of the office at this time. Thank you Patient requesting refills as follows: Requested Prescriptions Pending Prescriptions Disp Refills insulin aspart, niacinamide, (FIASP FLEXTOUCH U-100 INSULIN) 100 unit/mL (3 mL) pen 30 mL 11 Sig: Inject subcutaneously 11- 14 units breakfast, 11-14 units lunch, 20-24 units dinner plus SS up to 70 Please review and advise. Angely Tan Ma Patient is requesting his prescription FIASP FLEXTOUCH U-100 INSULIN to be refilled. Please advise. documented in this encounter [facility] 05-10-2023 Note HNO ID: [id number] Author: Tl Weaver PA Service: ? Author Type: Physician Client Resolution Specialist Type: Progress Notes Filed: 05/10/2023 3:31 PM [...] room. He understands. He will go to [facility]. [facility] 05-10-2023 History of Presen t illness [...] room. He understands. He will go to [facility]. documented in this encounter [facility] 12-31-2022 Note HNO ID: [id number] Author: Angely Tan Ma Service: ? Author Type: ? Type: Procedures Filed: 12/31/2022 11:36 AM Note Text: [facility] 12-31-2022 Note HNO ID: [id number] Author: Belem Calderon APRN.MOMD TEACHER Service: ? Author Type: Nurse Practitioner Type: Progress Notes Filed: 12/31/2022 11:36 AM Note Text: Reason for Consultation: DM Type 2 Referring Physician: SELF HISTORY OF PRESENT ILLNESS; Mr. Bush is a 67 year old male presenting [...] pump. Just started new G7 CGM. 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 May repeat after 15 minutes using a new device if there is no response. 2 Each 1 insulin glargine (LANTUS SOLOSTAR U-100 INSULIN) 100 unit/mL (3 mL) INJECT 34 UNITS SUBCUTANEOUSLY ONCE DAILY AT BEDTIME IF GLUCOSE IS OVER 150; IF UNDER 150 ONLY TAKE 25 UNITS 45 mL 3 Insulin [place], Disposable, (BD ULTRAFINE III MINI PEN) 31 [...] Date Value 04 (more content not included)... [facility] 12-19-2022 Miscellaneous Notes Form faxed to [employer] [facility] at on December 19, 2022; transmission ok. Form signed. Thank you Form on docs desk/basket for review from [employer] for Dex[employer]. Please review and sign. Needs to be faxed to [phone]. Attached last office note. documented in this encounter [facility] 12-19-2022 Miscellaneous Notes Received a request of office notes from [facility]. Office notes from: 06/26/2022 and 09/24/2022. Faxed to:[phone] Confirmation fax received. Transmission successful. documented in this encounter [facility] 11-24-2022 Miscellaneous Notes Called patient and left voicemail to call office back or check his [employer] messages. Encounter closed We can skip labs [...] work is needed. documented in this encounter [facility] 10-16-2022 Miscellaneous Notes Reviewed. [employer] message sent to patient Glucose readings on your desk for review documented in this encounter [facility] 10-16-2022 Note HNO ID: [id number] Author: Heather Randle MA Service: ? Author Type: Night Filler Type: Progress Notes Filed: 11/12/2022 8:59 AM Note Text: Patient came in with their own dexcom(they supplied it)and 2 weeks of data was transmitted successfully. Date and time was off by 1 full year, adjusted before patient left [facility] 09-24-2022 Miscellaneous Notes Prior Authorization: Medication/Dose: Fiasp FlexTouch 100 units/mL. Inject subcutaneous three times daily with meals plus SSI. TDD: 70 units. Diagnosis: Type 2 Diabetes (E11.9) Provider: Belem Calderon CNP Completed Via: CMM [place]: [id number] Insurance: [employer] Phone: Fax: Pharmacy: [facility] Notes: Patient has been APPROVED. Kemar Bush (Landry: [id number]) Rx #: [id number] Fiasp FlexTouch 100UNIT/ML pen-injectors [facility] Form (2016 [facility]) Created 2 hours ago Sent to Plan 37 minutes ago Plan Response 37 minutes ago Submit Clinical Questions less than a minute ago Determination Favorable less than a minute ago Message from Plan CaseId:[id number];Status:Approved; Review Type:Prior Auth;Coverage Start Date:08/25/2022;Coverage End Date:09/24/2023; Closed. documented in this encounter [facility] 09-24-2022 Note HNO ID: [id number] Author: Aminata Steele MA Service: ? Author Type: ? Type: Procedures Filed: 09/24/2022 4:03 PM Note Text: [facility] 09-24-2022 Note HNO ID: [id number] Author: Belem Calderon APRN.CNP Service: ? Author Type: Nurse Practitioner Type: Progress Notes Filed: 09/24/2022 4:03 PM Note Text: Reason for Consultation: DM Type 2 Referring Physician: SELF HISTORY OF PRESENT ILLNESS; Mr. Bush is a 67 year old male presenting [...] Exercise: occasionally; less active in the winter Kemar is checking his blood glucose continuously with [...] 80 units daily 75 mL 3 Insulin [place], Disposable, (BD ULTRAFINE III MINI PEN) 31 [...] As of Date: 09/24/2022 Allergen Noted Reaction WESLEYWIN [PENTAZOCINE LACTATE] 08/08/2009 [...] LDL Cholesterol ( (more content not included)... [facility] 09-24-2022 Instructions Belem Calderon APRN.MOMD TEACHER - 09/24/2022 10:52 AM EDT Continue lantus [...] up in 3 months. Belem Calderon, MSN, STRADDLE BUG, REHAB TECH-C, CDE Endocrinology [facility] Office [facility]/[address] [place] [address] Fax: documented in this encounter [facility] 09-24-2022 Procedure note Procedure(s): EXTERNAL CHEESE SPRAYER, CGM SYS Images from the original note were not included. documented in this encounter [facility] 09-24-2022 History of Presen t illness Narrative Reason for Consultation: DM Type 2 Referring Physician: SELF HISTORY OF PRESENT ILLNESS; Mr. Bush is a 67 year old male presenting [...] Exercise: occasionally; less active in the winter Kemar is checking his blood glucose continuously with [...] 80 units daily 75 mL 3 Insulin [place], Disposable, (BD ULTRAFINE III MINI PEN) 31 [...] As of Date: 09/24/2022 Allergen Noted Reaction WESLEYWIN [PENTAZOCINE LACTATE] 08/08/2009 [...] 89 04/22/2021 131 04/22/2021 132 IMPRESSION: Mr. Bush is a 67 year old male here for evaluation of DM Type 2 complicated by hypertension, hyperlipidemia, hypoglycemia unawareness . RECOMMENDATIONS: (E11.9, Z79.4) Type 2 diabetes mellitus without complication, with long-term current use of insulin ([facility]) (primary encounter diagnosis) Comment: Glycemic [...] Level: 4 - Moderate Belem Calderon, MSN, STRADDLE BUG, REHAB TECH-C, CDE Endocrinology [facility] Office [facility]/[address], [address] [place] [address] Fax: documented in this encounter [facility] 08-21-2022 Miscellaneous Notes Requester: Patient Last [...] Aminata Steele MA documented in this encounter [facility] 08-18-2022 Miscellaneous Notes Received a fax from [employer] to send most recent progress note for DM diagnosis. Faxed. Transmission okay. closed documented in this encounter [facility] 07-16-2022 Note HNO ID: [id number] Author: Lilia Santizo OD Service: ? Author Type: SHOT CORE DRILL OPERATOR HELPER Type: Progress Notes Filed: 07/16/2022 10:02 AM Note Text: Assessment and Plan: 1. Type 2 diabetes mellitus without retinopathy (HCC) -Patient education on the importance of strict blood sugar control in order to minimize the risk of vision loss from Diabetes Mellitus. -Advised close follow-up with primary care physician / biological chemist. -Advised keeping scheduled eye examinations with sooner [...] technical staff. I have seen and examined Kemar Bush. I have discussed the examination findings, diagnosis, and treatment options with Kemar Bush and/or his family. I have also reviewed and agree with the assessment and plan as stated above and agree with all its relevant components. I gave the patient the opportunity to ask questions about the examination findings, diagnosis, and treatment options. [facility] 07-16-2022 History of Presen t illness Narrative Assessment and Plan: 1. Type 2 diabetes mellitus without retinopathy (HCC) -Patient education on the importance of strict blood sugar control in order to minimize the risk of vision loss from Diabetes Mellitus. -Advised close follow-up with primary care physician / biological chemist. -Advised keeping scheduled eye examinations with sooner [...] technical staff. I have seen and examined Kemar Bush. I have discussed the examination findings, diagnosis, and treatment options with Kemar Bush and/or his family. I have also reviewed and agree with the assessment and plan as stated above and agree with all its relevant components. I gave the patient the opportunity to ask questions about the examination findings, diagnosis, and treatment options. documented in this encounter [facility] 07-16-2022 Instructions Lilia Santizo OD - 07/16/2022 9:59 AM EST Patient education on the importance of strict blood sugar control in order to minimize the risk of vision loss from Diabetes Mellitus. Advised close follow-up with primary care physician / biological chemist. Advised keeping scheduled eye examinations with sooner follow-up if any new symptoms develop. Please call the office with decreased vision or increased eye pain. documented in this encounter [facility] 05-28-2022 Miscellaneous Notes Form faxed, Transmission ok CLOSED Form signed. Thank you Form on docs desk/basket for review from [employer]. Please review and sign. Needs to be faxed to [phone]. documented in this encounter [facility] 02-19-2022 Miscellaneous Notes Form faxed, transmission ok Closed Form signed. Thank you Request for last OV note, note from 02/18/22 faxed [phone] Transmission OK documented in this encounter [facility] 02-18-2022 History of Presen t illness Narrative Reason for Consultation: DM Type 2 Referring Physician: SELF HISTORY OF PRESENT ILLNESS; Mr. Bush is a 66 year old male presenting [...] Exercise: occasionally; less active in the winter Kemar is checking his blood glucose continuously with [...] 80 units daily 75 mL 3 Insulin [place], Disposable, (BD ULTRAFINE III MINI PEN) 31 gauge x 08/21 Use 4 pen needles daily 400 Each 3 No current facility-administered medications for this visit. Allergies As of Date: 02/18/2022 Allergen Noted Reaction WESLEYWIN [PENTAZOCINE LACTATE] 08/08/2009 [...] Value 04/22/2021 131 04/22/2021 132 IMPRESSION: Mr. Bush is a 66 year old male here [...] mL), HUMALOG KWIKPEN INSULIN 100 unit/mL, Insulin [place], Disposable, (BD ULTRAFINE III MINI PEN) 31 [...] Level: 4 - Moderate Belem Calderon, MSN, STRADDLE BUG, REHAB TECH-C, CDE Endocrinology [facility] Office [facility]/[address] [place], [place] [address] Fax: documented in this encounter [facility] 12-06-2021 Instructions Sandy Rosa APRN.LINDA - [...] signs of redness documented in this encounter [facility] 12-06-2021 History of Presen t illness Narrative Subjective The history is provided by the patient. No school speech language pathologist was used. HPI Kemar Bush is a 66 year old male who [...] have confirmed and edited as necessary, the [facility] Review of Systems Constitutional: Negative for [...] care discussed Patient leaving Thursday for [place] will take keflex with him and start [...] Sandy Rosa APRN.LINDA documented in this encounter [facility] 10-30-2021 History of Presen t illness Narrative Reason for Consultation: DM Type 2 Referring Physician: SELF HISTORY OF PRESENT ILLNESS; Mr. Bush is a 66 year old male presenting [...] Exercise: occasionally; less active in the winter Kemar is checking his blood glucose continuously with [...] DAILY AT BEDTIME 15 mL 5 Insulin [place], Disposable, (BD ULTRAFINE III MINI PEN) 31 [...] Value 04/22/2021 131 04/22/2021 132 IMPRESSION: Mr. Bush is a 66 year old male here [...] which included preparing to see the patient, [id number] patient care, completing clinical documentation, obtaining and/or reviewing separately obtained history, performing a medically appropriate examination, counseling and educating the patient/family/caregiver, ordering medications, tests, or procedures and communicating results to the patient/family/caregiver. Belem Calderon, MSN, STRADDLE BUG, REHAB TECH-C, CDE Endocrinology [facility] Medical Office [facility]/[place] [address] Fax: documented in this encounter [facility] 09-02-2021 Miscellaneous Notes Patient came into [...] Angely Tan Ma documented in this encounter [facility] Diagnosis Type 2 diabetes mellitus without complication, with long-term current use of insulin (HCC)- Primary 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) Essential hypertension Unspecified essential hypertension History of pancreatitis Personal history of other diseases of digestive system Mixed hyperlipidemia [facility] Puncture wound- Primary Open wound(s) (multiple) of unspecified site(s), without mention of complication [facility] Diagnosis Type 2 diabetes mellitus [...] stated as uncontrolled [facility] Diagnosis Type 2 diabetes mellitus without retinopathy (HCC)- Primary Type II or unspecified type diabetes mellitus without mention of complication, not stated as uncontrolled Age-related nuclear cataract of both eyes Senile nuclear sclerosis Refractive error Unspecified disorder of refraction and accommodation [facility] Diagnosis Type 2 diabetes mellitus without complication, with long-term current use of insulin (HCC) [facility] Diagnosis Type 2 diabetes mellitus without complication, with long-term current use of insulin (HCC)- Primary 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) Essential hypertension Unspecified essential hypertension History of pancreatitis Personal history of other diseases of digestive system Mixed hyperlipidemia [facility] Diagnosis Type 2 diabetes mellitus without complication, with long-term current use of insulin (HCC) [facility] Diagnosis Syncope, unspecified syncope type- Primary [facility] Diagnosis Type 2 diabetes mellitus with hypoglycemia without coma, with long-term current use of insulin (HCC)- Primary 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) Essential hypertension Unspecified essential hypertension History of pancreatitis Personal history of other diseases of digestive system Mixed hyperlipidemia [facility] Diagnosis Type 2 diabetes mellitus without complication, with long-term current use of insulin ([facility]) documented in this encounter [facility] Reason for Referral Specialty Diagnoses / Procedures Referred By Taz dejesus Referred To Contact Urology Diagnoses Erectile dysfunction associated with type 2 diabetes mellitus (HCC) Procedures CONSULT TO UROLOGY OFFICE/OUTPATIENT [facility] 60-74 MINUTES Belem Calderon APRN.MOMD TEACHER [address] [address] Referral ID Status Reason Start Date Expiration Date Visits Requested Visits Authorized [id number] Pending Review PCP Requested Referral 02/18/2022 02/18/2023 1 1 Medications Administered Section Active Administered Medications - up to 3 most recent administrations Medication Order MAR Action Action Date Dose Rate Site fluorescein-benoxinate 0.25-0.4 % 1 Drop (FLURESS) 1 Drop, BOTH EYES, DIRECTED, Starting on Thu07/16/22 at 0930, Until Thu07/16/22 at 2128, Administer for applanation tonometry. In the event of a Fluress shortage, administer [place]-Fluor 1 drop into both eyes as directed [...] or prosecute any alcohol or drug abuse patient.[facility] the event this information is protected by the Federal Confidentiality of Alcohol and Drug Abuse Patient Records regulations: The Federal rules restrict any use of the information to criminally investigate or prosecute any alcohol or drug abuse patient.[facility] the event this information is protected by the Federal Confidentiality of Alcohol and Drug Abuse Patient Records regulations: The Federal rules restrict any use of the information to criminally investigate or prosecute any alcohol or drug abuse patient.[facility] the event this information is protected by the Federal Confidentiality of Alcohol and Drug Abuse Patient Records regulations: The Federal rules restrict any use of the information to criminally investigate or prosecute any alcohol or drug abuse patient.[facility] the event this information is protected by the Federal Confidentiality of Alcohol and Drug Abuse Patient Records regulations: The Federal rules restrict any use of the information to criminally investigate or prosecute any alcohol or drug abuse patient.[facility] the event this information is protected by the Federal Confidentiality of Alcohol and Drug Abuse Patient Records regulations: The Federal rules restrict any use of the information to criminally investigate or prosecute any alcohol or drug abuse patient.[facility] the event this information is protected by the Federal Confidentiality of Alcohol and Drug Abuse Patient Records regulations: The Federal rules restrict any use of the information to criminally investigate or prosecute any alcohol or drug abuse patient.[facility] the event this information is protected by the Federal Confidentiality of Alcohol and Drug Abuse Patient Records regulations: The Federal rules restrict any use of the information to criminally investigate or prosecute any alcohol or drug abuse patient.[facility] the event this information is protected by the Federal Confidentiality of Alcohol and Drug Abuse Patient Records regulations: The Federal rules restrict any use of the information to criminally investigate or prosecute any alcohol or drug abuse patient.[facility] the event this information is protected by the Federal Confidentiality of Alcohol and Drug Abuse Patient Records regulations: The Federal rules restrict any use of the information to criminally investigate or prosecute any alcohol or drug abuse patient.[facility] the event this information is protected by the Federal Confidentiality of Alcohol and Drug Abuse Patient Records regulations: The Federal rules restrict any use of the information to criminally investigate or prosecute any alcohol or drug abuse patient.[facility] the event this information is protected by the Federal Confidentiality of Alcohol and Drug Abuse Patient Records regulations: The Federal rules restrict any use of the information to criminally investigate or prosecute any alcohol or drug abuse patient.[facility] the event this information is protected by the Federal Confidentiality of Alcohol and Drug Abuse Patient Records regulations: The Federal rules restrict any use of the information to criminally investigate or prosecute any alcohol or drug abuse patient.[facility] the event this information is protected by the Federal Confidentiality of Alcohol and Drug Abuse Patient Records regulations: The Federal rules restrict any use of the information to criminally investigate or prosecute any alcohol or drug abuse patient.[facility] the event this information is protected by the Federal Confidentiality of Alcohol and Drug Abuse Patient Records regulations: The Federal rules restrict any use of the information to criminally investigate or prosecute any alcohol or drug abuse patient.[facility] the event this information is protected by the Federal Confidentiality of Alcohol and Drug Abuse Patient Records regulations: The Federal rules restrict any use of the information to criminally investigate or prosecute any alcohol or drug abuse patient.[facility] the event this information is protected by the Federal Confidentiality of Alcohol and Drug Abuse Patient Records regulations: The Federal rules restrict any use of the information to criminally investigate or prosecute any alcohol or drug abuse patient.[facility]In the event this information is protected by the Federal Confidentiality of Alcohol and Drug Abuse Patient Records regulations: The Federal rules restrict any use of the information to criminally investigate or prosecute any alcohol or drug abuse patient.[facility] Reason for Visit (unrecogniz ed section and content) Reason Comments Insulin Dependent Diabetes Mellitus Reason Comments poked finger with a metal esha x 1 day Reason Comments Follow Up Insulin Dependent Diabetes Mellitus Reason Comments [facility] Reason Comments [facility] Form Dexcom Reason Comments Diabetes Specialty Diagnoses / Procedures Referred By Taz t Referred To Contact Ophthalmology Diagnoses Type 2 diabetes mellitus without complication, with long-term current use of insulin (HCC) Procedures CONSULT TO OPHTHALMOLOGY OFFICE/OUTPATIENT NEW HIGH MDM 60-74 MINUTES Belem Calderon, SHAR.MOMD TEACHER [address] [address] Referral ID Status Reason Start Date Expiration Date Visits Requested Visits Authorized [id number] Pending Review PCP Requested Referral 06/26/2022 06/26/2023 1 1 Reason Comments [facility] Progress Note Form Reason Onset Date Comments Refill Request 08/21/2022 Reason Comments PA--FIASP FLEXTOUCH ([place]) Reason Comments Dexcom Printout Reason Comments Question Reason Comments Request of office notes [facility] Reason Comments [facility] Form CMN for CGMS (de xcom) Reason Onset Date Comments Refill Request 06/03/2023 Care Teams (unrecognized sec tion and content) Commuter Train Operator Relationship Specialty Start Date End Date Miriam Martinez MD PCP - General Internal Medicine 11/18/16 Commuter Train Operator Relationship Specialty Start Date End Date Miriam Martinez MD PCP - General Internal Medicine 11/18/16 Commuter Train Operator Relationship Specialty Start Date End Date Miriam Martinez MD PCP - General Internal Medicine 11/18/16 Commuter Train Operator Relationship Specialty Start Date End Date Miriam Martinez MD PCP - General Internal Medicine 11/18/16 Commuter Train Operator Relationship Specialty Start Date End Date Miriam Martinez MD PCP - General Internal Medicine 11/18/16 Commuter Train Operator Relationship Specialty Start Date End Date Miriam Martinez MD PCP - General Internal Medicine 11/18/16 Commuter Train Operator Relationship Specialty Start Date End Date Miriam Martinez MD PCP - General Internal Medicine 11/18/16 Commuter Train Operator Relationship Specialty Start Date End Date Miriam Martinez MD PCP - General Internal Medicine 11/18/16 Commuter Train Operator Relationship Specialty Start Date End Date Miriam Martinez MD PCP - General Internal Medicine 11/18/16 Commuter Train Operator Relationship Specialty Start Date End Date Miriam Martinez MD PCP - General Internal Medicine 11/18/16 Commuter Train Operator Relationship Specialty Start Date End Date Miriam Martinez MD PCP - General Internal Medicine 11/18/16 Commuter Train Operator Relationship Specialty Start Date End Date Miriam Martinez MD PCP - General Internal Medicine 11/18/16 Commuter Train Operator Relationship Specialty Start Date End Date Miriam Martinez MD PCP - General Internal Medicine 11/18/16 Commuter Train Operator Relationship Specialty Start Date End Date Miriam Martinez MD PCP - [facility] Internal [facility] 11/18/16 (unrecognized sect ion and content) No Status Records FoundNo Status Records Found INFORMATION SOURCE (unrecogn ized section and content) DATE CREATED AUTHOR AUTHOR'S ORGANIZ ATION 07/11/2023 [facility] FOR RECORDS PERTAINING TO PATIENTS WHO [...] BE BASED ON THE PRIMARY CLINICAL RECORDS. [employer] provides no warranty or guarantee of the accuracy or completeness of information in this document.
[2023-08-21] MEDS: 0.9% Normal Saline (1000mL) 1,000 ML 999 ML IV (00:23)
[2023-08-21] MEDS: Insulin Lispro 100 UNIT/ML INSULN.PEN SC (00:23)
[2023-08-21 00:26] LABS: Absolute Lymphocyte Count 1.23 X10^3/uL (0.83-4.51); Absolute Neutrophil Count 3.8 X10^3/uL (2.0-7.7); Basophil# 0.05 X10^3/uL; Basophil% 0.8 % (0-1); Eosinophil# 0.22 X10^3/uL; Eosinophils% 3.7 % (0-5); Hematocrit 38.7 % (40-54); Lymphocyte # 1.23 X10^3/ul (0.83-4.51); Lymphocyte % 20.5 % (19-41); Mean Corp Hgb Conc 33.6 g/dL (32-36); Mean Corpuscular Hgb 28.8 pg (27.0-32.0); Mean Corpuscular Volume 85.8 fL (80-94); Mean Platelet Vol. 9.2 fl (6.2-12.0); Monocyte# 0.69 X10^3/uL; Monocyte% 11.5 % (0-10); NRBC Flagged by Analyzer 0 % (0-5); Neutrophil # 3.81 X10^3/uL (2.7-7.7); Neutrophil % 63.3 % (47-70); Platelet Count 224 K/mm3 (150-450); RBC Distribution Width CV 12.9 % (11.6-14.6); RBC Distribution Width SD 40.2 fl (35.1-43.9); Red Blood Count 4.51 M/mm3 (4.6-6.2)
[2023-08-21 00:45] LABS: Anion Gap 7 (5-15); BUN 25 mg/dL (7-18); BUN/Creat Ratio 19.7 RATIO (10-20); Calcium,Total 8.5 mg/dL (8.5-10.1); Chloride 103 mmol/L (98-107); Creatinine, Serum 1.27 mg/dL (0.70-1.30); EST Glomerular Filtration Rate 60 mL/min (>60); Est Glom Filt Rate - Afr Amer 73 mL/min (>60); Estimated Creatinine Clearance 60.11 ml/min; Glucose 305 mg/dL (74-106); Magnesium 1.9 mg/dL (1.6-2.6); Potassium 3.9 mmol/L (3.5-5.1); Sodium Level 136 mmol/L (136-145)
--- NOTE | 2023-08-21 01:12 | EX.ED.DYSGE1 ---
HPI History of Present Illness Chief Complaint: Hypoglycemia Informant: patient Narrative Narrative: Patient is a 68-year-old male with past medical history of insulin-dependent diabetes hypertension anxiety. He states that he did not eat a large dinner but still took his normal regular insulin around 630 this evening. He states he noticed that he started to feel off and checked his blood sugar and it dropped as low as 40. He states he drank multiple sodas and took multiple glucose tabs for this. He reports after taking all his sugar he had bouts of diarrhea and then continue to monitor his blood sugar and it was increasing into the 300s and this concerned him so he presents for evaluation [facility] Medical History (Updated 08/21/23 @ 01:[address] Fred Carver DO) Anxiety Diabetes HTN (hypertension) Osteoporosis Pancreatitis Home Medications carvedilol 25 mg tablet 12.5 mg PO DAILY 12/19/17 [History Last Taken 09/28/18 07:00] insulin NPH isoph U-100 human 100 unit/mL subcutaneous suspension See Protocol SQ QHS 12/19/17 [History Last Taken Unknown] insulin regular human 100 unit/mL injection solution See Protocol IJ DAILY 12/19/17 [History Last Taken Unknown] aspirin 325 mg tablet 325 mg PO DAILY@0800 09/01/18 [History Last Taken 09/23/18] cholecalciferol (vitamin D3) 50 mcg (2,000 unit) capsule 2,000 unit PO DAILY 09/01/18 [History Last Taken Unknown] alprazolam 0.5 mg tablet 0.5 mg PO .DAILYPRN PRN anxiety 08/20/23 [History Last Taken Unknown] Allergy/AdvReac Type Severity Reaction Status Date / Time diphenhydramine Allergy Other Verified 08/20/23 23:26 [From Benadryl] pentazocine [From Talwin] Allergy Nausea Verified 08/20/23 23:26 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 Allergy Mucosal Uncoded 05/10/23 15:52 lesions Surgical History h/o right ulnar plating Social History Smoking Status: Never smoker ROS ROS ED Constitutional Constitutional ED: Denies chills or fever(s) Eyes Eyes: Denies change in vision ENT ENT ED: Denies sore throat Cardiovascular Cardiovascular: Denies chest pain Respiratory/Chest Respiratory/Chest: Denies cough or dyspnea Gastrointestinal Gastrointestinal: Reports diarrhea; Denies abdominal pain, nausea or vomiting Genitourinary Genitourinary ED: Denies dysuria Musculoskeletal Musculoskeletal: Denies myalgias Integumentary Denies rash Neurologic Neurologic: Denies headache(s) Psychiatric Psychiatric: Reports anxiety; Denies suicidal ideation or suicidal thoughts Hematologic/Lymphatic Hematologic/Lymphatic: Denies easy bleeding or easy bruising EXAM Physical Exam Const Vital Signs: 08/20/23 23:23 Temperature 98.4 F Temperature Source Temporal Pulse Rate 80 Respiratory Rate 17 Blood Pressure 175/86 H Blood Pressure Mean 115 Pulse Ox 98 Oxygen Delivery Method Room Air Positive well nourished and well developed General Appearance ED: well developed; Negative for pallor HEENT Reports dry mucous membranes HEENT Narrative: Mucous membranes are dry and tacky but there are no secondary changes to suggest infection in the posterior pharynx Mouth ED: Yes dry mucous membranes Mouth: dry mucous membranes Eyes PERRL and EOMs intact bilaterally General Eye ED: Negative for scleral icterus Neck supple Neck Narrative: No nuchal rigidity or meningeal signs noted Resp normal respiratory effort and clear to auscultation bilaterally Cardio regular rate and regular rhythm Rate: other Other Details: Radial and carotid pulses are equal and symmetric GI non-tender and non-distended GI Narrative: Abdomen is soft nontender nondistended with hyperactive bowel sounds no voluntary guarding or rigidity or pulsatile mass Auscultation: hyperactive bowel sounds Palpation: soft Extremity normal to inspection Neuro oriented x3, CN's II-XII intact bilaterally and no sensory deficits noted Sensorium / Orientation: alert Motor Exam: strength 5/5 throughout Psych mental status grossly normal Skin no rashes or lesions noted Skin Narrative: Skin turgor slightly increased General Skin Exam: Negative for jaundice or pallor MDM MDM MDM Narrative Medical decision making narrative: Patient arrived to the ER hypertensive otherwise with stable vitals. He reported inadvertently taking a larger insulin dose despite only eating a small amount for dinner. He states he then tried to overcorrect by drinking multiple sodas and taking an multiple sugar pills. Now blood sugar is elevated. Demential diagnosis is for DKA versus HHS versus dehydration versus acute kidney injury versus electrolyte abnormality. As patient did this inadvertently there is no need for psychiatric evaluation. Basic blood work was obtained and it shows normal anion gap as well as normal bicarb going against DKA. Serum osmolality is 298 going against HHS. Patient blood work also revealed no signs of acute kidney injury or severe electrolyte abnormality. Patient was given 5 units of subq insulin as well as 1 L of fluid and his blood sugar remained stable at approximately 300. As he does not have signs of DKA or HHS or electrolyte abnormality or acute kidney injury and his blood sugar is now holding stable there is no need for further evaluation in ER and patient is otherwise safe for discharge History & Record Review Discussion w/independent historian: Patient Lab Data Attestation: I reviewed the patient's lab results. Labs: Laboratory Results - last 24 hr 08/21/23 00:18 WBC 6.0 RBC 4.51 L Hgb 13.0 Hct 38.7 L MCV 85.8 MCH 28.8 MCHC 33.6 RDW Std Deviation 40.2 RDW Coeff of [place] 12.9 Plt Count 224 MPV 9.2 Immature Gran % (Auto) 0.200 Neut % (Auto) 63.3 Lymph % (Auto) 20.5 [place] % (Auto) 11.5 H Eos % (Auto) 3.7 Baso % (Auto) 0.8 Absolute Neuts (auto) 3.8 Absolute Lymphs (auto) 1.23 Nucleated RBC % 0 Sodium 136 Potassium 3.9 Chloride 103 Carbon Dioxide 26.0 Anion Gap 7 BUN 25 H Creatinine 1.27 Estim Creat Clear Calc 60.11 Est GFR (MDRD) Af Amer 73 Est GFR (MDRD) Non-Af 60 BUN/Creatinine Ratio 19.7 Glucose 305 H Calcium 8.5 Magnesium 1.9 Discharge Plan Triage Chief Complaint: Hypoglycemia ED Provider: Fred Carver Dx/Rx/DC Orders Clinical Impression: Insulin adverse reaction, Insulin dependent diabetes mellitus, Hypertension Instructions: ED Diabetic Insulin Reaction Prescriptions: No Action carvedilol 25 MG tablet 12.5 mg PO DAILY insulin regular human 100 UNIT/ML solution See Protocol IJ DAILY Protocol: 2. Sliding Scale Insulin Low-Med Dosing Condition: 150-209 mg/dl = 1 unit Condition: 210-269 mg/dl = 2 units Condition: 270-329 mg/dl = 3 units Condition: 330-389 mg/dl = 4 units Condition: 390-449 mg/dl = 5 units Condition: Greater than 449 call physician Protocol Text: - Use for Total Daily Dose of Insulin 28-36 units - Average size patients LOW MEDIUM DOSING ALGORITHM Rx Instructions: SLIDING SCALE insulin NPH isoph U-100 human 100 UNIT/ML suspension See Protocol SQ QHS Protocol: 2. Sliding Scale Insulin Low-Med Dosing Condition: 150-209 mg/dl = 1 unit Condition: 210-269 mg/dl = 2 units Condition: 270-329 mg/dl = 3 units Condition: 330-389 mg/dl = 4 units Condition: 390-449 mg/dl = 5 units Condition: Greater than 449 call physician Protocol Text: - Use for Total Daily Dose of Insulin 28-36 units - Average size patients LOW MEDIUM DOSING ALGORITHM Rx Instructions: SLIDING SCALE aspirin 325 MG tablet 325 mg PO DAILY@0800 cholecalciferol (vitamin D3) 2,000 UNIT capsule 2,000 unit PO DAILY alprazolam 0.5 mg tablet 0.5 mg PO .DAILYPRN PRN (Reason: anxiety) Primary Care Provider: Miriam Martinez Referrals: Miriam Martinez MD [Primary Care Provider] - Activity Restrictions/Additional Instructions: Please continue to monitor your blood sugar but take your diabetic medications as directed by your doctor and return to the ER should you have any further concerns Disposition Disposition: Home, Self Care
[2023-08-21 01:25] VITALS: BP 162/87; PULSE 75; RESP 17; TEMP 36.9; O2SAT 97
== END 2023-08-21 01:25 | disposition home or self-care (01) ==
PROVIDERS: Emergency Provider Emergency Medicine; PCP Internal Medicine; Visit Provider Emergency Medicine
DX: E11.649 Type 2 diabetes mellitus with hypoglycemia without coma (principal); E11.65 Type 2 diabetes mellitus with hyperglycemia; Z79.4 Long term (current) use of insulin; I10 Essential (primary) hypertension; Z79.82 Long term (current) use of aspirin; Z79.899 Other long term (current) drug therapy; F41.9 Anxiety disorder, unspecified; T38.3X5A Adverse effect of insulin and oral hypoglycemic [antidiabetic] drugs, initial encounter
CPT/HCPCS: 80048; 83735; 85025; 96360; 96372; 99282; J7030

== ENCOUNTER 2024-08-18 22:51 | Emergency (ER) | payer MEDICARE, BC, SELFPAY ==
[2024-08-18 22:53] VITALS: BP 181/83; PULSE 96; RESP 18; TEMP 36.8; O2SAT 98
[2024-08-18 22:57] VITALS: BMI 25.1
[2024-08-18 23:16] LABS: Bedside Glucose 102 mg/dL (74-106)
--- NOTE | 2024-08-18 23:19 | EX.ED.DYSGE1 ---
HPI History of Present Illness Chief Complaint: Hypoglycemia Informant: patient Narrative Narrative: Patient is a 69-year-old male with past medical history of insulin-dependent diabetes as well as hypertension. He has a Dexcom in place to monitor his blood sugar. He states that he has been diabetic for 30 years and he has found recently that he is very sensitive to medication. He reports this evening he took 5 units of Humalog and then 10 to 20 minutes later noticed his blood sugars were starting to crash. He states that he took the Humalog because his sugar at approximately 250 and then just a few minutes later after taking the medication was dropping to 150 and continue to trend down. He states that he did not take extra medication on purpose or by accident but had concerned that if his blood sugars continue to drop he would lose consciousness and he revived with IV glucose and even potentially a glucose drip and secondary to that he presents to the hospital for evaluation [facility] Medical History (Updated 08/19/24 @ 01:[address] Fred Carver, DO) Anxiety Osteoporosis Pancreatitis Diabetes HTN (hypertension) Home Medications ?Medication ?Instructions ?Recorded ?Last Taken ?Type carvedilol 25 mg tablet 12.5 mg PO DAILY 12/19/17 09/28/18 07:00 History insulin NPH isoph U-100 human 100 See Protocol SQ QHS 12/19/17 Unknown History unit/mL subcutaneous suspension insulin regular human 100 unit/mL See Protocol IJ DAILY 12/19/17 Unknown History injection solution aspirin 325 mg tablet 325 mg PO DAILY@0800 09/01/18 09/23/18 History cholecalciferol (vitamin D3) 50 2,000 unit PO DAILY 09/01/18 Unknown History mcg (2,000 unit) capsule alprazolam 0.5 mg tablet 0.5 mg PO .DAILYPRN PRN anxiety 08/20/23 Unknown History Allergy/AdvReac Type Severity Reaction Status Date / Time diphenhydramine (From Allergy Other Verified 08/18/24 22:55 Benadryl) pentazocine (From Talwin) Allergy Nausea Verified 08/18/24 22:55 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 Allergy Mucosal Uncoded 05/10/23 15:52 lesions Surgical History h/o right ulnar plating Social History Smoking Status: Never smoker ROS ROS ED Constitutional Constitutional ED: Denies chills or fever(s) Eyes Eyes: Denies blurry vision or change in vision ENT ENT ED: Denies sore throat Cardiovascular Cardiovascular: Denies chest pain Respiratory/Chest Respiratory/Chest: Denies cough or dyspnea Gastrointestinal Gastrointestinal: Denies abdominal pain, diarrhea, nausea or vomiting Genitourinary Genitourinary ED: Denies dysuria Musculoskeletal Musculoskeletal: Denies myalgias Integumentary Denies rash Neurologic Neurologic: Denies headache(s) Psychiatric Psychiatric: Reports anxiety; Denies suicidal ideation or suicidal thoughts Hematologic/Lymphatic Hematologic/Lymphatic: Denies easy bleeding or easy bruising EXAM Physical Exam Const Vital Signs: 08/18/24 22:53 Temperature 98.3 F Temperature Source Temporal Pulse Rate 96 Respiratory Rate 18 Blood Pressure 181/83 H Blood Pressure Mean 115 Pulse Ox 98 Oxygen Delivery Method Room Air Positive well nourished and well developed General Appearance ED: well developed; Negative for pallor HEENT Reports moist mucous membranes HEENT Narrative: No tongue or cheek biting to suggest seizure activity No signs of infection noted in the posterior pharynx Eyes PERRL and EOMs intact bilaterally General Eye ED: Negative for scleral icterus Neck supple Neck Narrative: No nuchal rigidity or meningeal signs Resp normal respiratory effort and clear to auscultation bilaterally Cardio regular rate and regular rhythm GI normal to inspection, nondistended, normoactive bowel sounds, non-tender, non-distended and no masses Auscultation: normoactive bowel sounds Palpation: soft Extremity normal to inspection Neuro oriented x3, CN's II-XII intact bilaterally and no sensory deficits noted Sensorium / Orientation: alert Motor Exam: strength 5/5 throughout Psych Mood & Affect: anxious Skin no rashes or lesions noted General Skin Exam: Negative for jaundice or pallor MDM MDM MDM Narrative Medical decision making narrative: Patient presented to the ER hypertensive but has a past medical history of this. He states that once he noted his sugar is starting to drop he took multiple packets of sugar as well as candy and Pepsi on his way to the hospital. He shows that his Dexcom is not reading approximately 160 and the lowest it read was 68. He denies any sick symptoms and he states he did not try to harm himself deliberately by overdosing on any type of insulin. I discussed with patient watching him in the ER to ensure his blood sugar does not trend back down where he would need IV glucose or a continuous infusion of dextrose. The patient states that his blood sugar is now trending up and he feels perfectly normal and does not feel that labs or his observation in the ER is necessary. As he denies that this was a deliberate self-harm attempt there is no need for psychiatric evaluation. We discussed that this could be a malfunction to his Dexcom but he states he checked his blood sugar with an Accu-Chek at home and it confirmed that his blood sugar was dropping low and therefore he does not want us to perform a Accu-Chek at this time. Therefore as the patient is awake alert and oriented his blood sugar has now responded to the self treatment of ingestion of glucose and he did not attempt to harm himself deliberately with a insulin overdose nor other signs of infection he is otherwise safe for discharge History & Record Review Discussion w/independent historian: Patient Lab Data Labs: Laboratory Results - last 24 hr 08/18/24 22:57 POC Glucose 102 Discharge Plan Triage Chief Complaint: Hypoglycemia ED Provider: Fred Carver Dx/Rx/DC Orders Clinical Impression: Hypoglycemia, Insulin dependent diabetes mellitus, Hypertension Instructions: Diabetes- Measuring Glucose at Home Prescriptions: No Action carvedilol 25 MG tablet 12.5 mg PO DAILY insulin regular human 100 UNIT/ML solution See Protocol IJ DAILY Protocol: 2. Sliding Scale Insulin Low-Med Dosing Condition: 150-209 mg/dl = 1 unit Condition: 210-269 mg/dl = 2 units Condition: 270-329 mg/dl = 3 units Condition: 330-389 mg/dl = 4 units Condition: 390-449 mg/dl = 5 units Condition: Greater than 449 call physician Protocol Text: - Use for Total Daily Dose of Insulin 28-36 units - Average size patients LOW MEDIUM DOSING ALGORITHM Rx Instructions: SLIDING SCALE insulin NPH isoph U-100 human 100 UNIT/ML suspension See Protocol SQ QHS Protocol: 2. Sliding Scale Insulin Low-Med Dosing Condition: 150-209 mg/dl = 1 unit Condition: 210-269 mg/dl = 2 units Condition: 270-329 mg/dl = 3 units Condition: 330-389 mg/dl = 4 units Condition: 390-449 mg/dl = 5 units Condition: Greater than 449 call physician Protocol Text: - Use for Total Daily Dose of Insulin 28-36 units - Average size patients LOW MEDIUM DOSING ALGORITHM Rx Instructions: SLIDING SCALE aspirin 325 MG tablet 325 mg PO DAILY@0800 cholecalciferol (vitamin D3) 2,000 UNIT capsule 2,000 unit PO DAILY alprazolam 0.5 mg tablet 0.5 mg PO .DAILYPRN PRN (Reason: anxiety) Primary Care Provider: Miriam Martinez Referrals: Miriam Martinez MD [Primary Care Provider] - Print Language: Divehi Disposition Disposition: Home, Self Care Discharge Date/Time: 08/18/24 23:22
== END 2024-08-18 23:22 | disposition home or self-care (01) ==
LOC: ED 23:21
PROVIDERS: Emergency Provider Emergency Medicine; PCP Internal Medicine; Visit Provider Emergency Medicine
DX: E11.649 Type 2 diabetes mellitus with hypoglycemia without coma (principal); Z79.4 Long term (current) use of insulin; I10 Essential (primary) hypertension; F41.9 Anxiety disorder, unspecified; Z79.899 Other long term (current) drug therapy; Z79.82 Long term (current) use of aspirin
CPT/HCPCS: 82962; 99282

== ENCOUNTER 2025-01-29 01:34 | Emergency (ER) | payer MEDICARE, BC, SELFPAY ==
[2025-01-29 01:35] VITALS: BP 154/80; PULSE 80; RESP 16; TEMP 36.7; O2SAT 100; BMI 24.7
[2025-01-29 02:31] LABS: Hematocrit 41.1 % (40-54); Hemoglobin 13.9 g/dL (13.0-16.5); Immature Granulocytes Count 0.020 X10^3/uL (0.0-0.0); Mean Corp Hgb Conc 33.8 g/dL (32-36); Mean Corpuscular Volume 86.3 fL (80-94); Mean Platelet Vol. 11.2 fl (6.2-12.0); NRBC Flagged by Analyzer 0 % (0-5); Platelet Count 227 K/mm3 (150-450); RBC Distribution Width CV 12.7 % (11.6-14.6); RBC Distribution Width SD 39.9 fl (35.1-43.9); Red Blood Count 4.76 M/mm3 (4.6-6.2); White Blood Count 9.2 K/mm3 (4.4-11.0)
--- OUTSIDE RECORDS SUMMARY | 2025-01-29 02:45 | XMS RPT_ITS | CCD ---
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 Mary Martinez MD Primary Care Provider Dr. Fred Carver DO Emergency Provider [phone] Marisol Downs DO Unavailable [phone] NEMR, GASAN Primary Care Unavailable ETHAN CALDERON Attending Unavailable NEMR, GASAN Primary Care Unavailable KUPIECETHAN Attending Unavailable NEMR, GASAN Primary Care Unavailable NEMR, GASAN Primary Care Unavailable KUPIEChata ETHAN Attending Unavailable NEMR, GASAN Primary Care Unavailable KUPETHAN BUTTS Attending Unavailable NEMR, GASAN Primary Care Unavailable Allergies Allergy Classification Reported Allergen(s) Allergy Type Date of Onset Reaction(s) Facility (20 sources) Pentazocine; Translations: [PENTAZOCINE LACTATE] Drug Allergy 08-09-19 10 [facility] Work Phone: (20 sources) traMADol; Translations: [TRAMADOL HCL] Drug Allergy 11-22-19 20 Other: See Comments [facility] (8 sources) Pentazocine; Translations: [PENTAZOCINE] Drug Allergy 08-09-19 10 Nausea [facility] Repository (2 sources) traMADol; Translations: [TRAMADOL] Drug Allergy 11-22-19 20 Other [facility] Repository (5 sources) diphenhydrAMINE Drug Allergy 05-10-20 23 Other [facility] Comment on above: PASSED OUT (6 sources) 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; Translations: [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] Allergy to substance 05-10-20 Mucosal lesions [facility] (1 source) diphenhydrAMINE Drug Allergy 08-19-19 [facility] Repository Medications Current Medications Medication Drug Class(es) Dates Sig (Normalized) Sig (Original) ALPRAZolam 0.5 mg oral tablet (20 sources) Benzodiazepine Start: 07-04-2022 Alprazolam 0.5 mg tablet Active 0.5 mg PO .DAILYPRN as needed for anxiety August 20, 2023 12:00am Comment on above: Take 0.5 mg by mouth at bedtime as needed. aspirin 325 mg oral tablet (20 sources) Platelet Aggregation Inhibitor, Nonsteroidal Anti-inflammatory Drug Start: 09-01-2018 take 1 tablet by mouth once daily aspirin 325 mg tablet Take 1 tablet by mouth once daily. 09/23/2019 Active take 1 tablet by mouth once cara y aspirin EC 81 MG tablet 1 tablet orally Once a day for 30 days Active Comment on above: Take 1 tablet by tacho th once daily. benoxinate hydrochloride 4 mg/ml / fluorescein sodium 2.5 mg/ml ophthalmic solution (1 source) Diagnostic Dye Start: 3 End: 3 fluorescein-benoxina te 0.25-0.4 % 1 Drop (FLURESS) carvedilol 25 mg oral tablet (20 sources) alpha-Adrenergic Nunu, beta-Adrenergic Nunu Start: 8 End: 5 take 1 tablet by mouth twice daily carvedilol (COREG) 25 mg tablet Take 1 tablet by mouth twice daily. 09/23/2019 06/22/2024 Discontinued Start: 12-19-2017 Carvedilol 25 MG tablet Active 12.5 mg PO DAILY December 19, 2017 12:00am Start: 12-19-2017 take 12.5 mg by mout h once daily Carvedilol Active 12.5 MG PO DAILY December 19, 2017 12:00am Comment on above: Take 1 tablet by tacho th twice daily. cephalexin 500 mg oral capsule (1 source) Cephalosporin Antibacterial Start: 2021 End: 2021 take 1 capsule by mouth four times daily cephALEXin (KEFLEX) 500 mg capsule Take 1 capsule by mouth four times daily for 5 days. 20 capsule 0 12/06/2021 12/11/2021 Active Comment on above: Take 1 capsule by mo [facility] four times daily for 5 days. cholecalciferol 0.05 mg oral capsule (5 sources) Vitamin D Start: 2018 take 1 capsule by mouth once daily Cholecalciferol (Vitamin D3) 2,000 UNIT capsule Active 2000 U PO DAILY September 01, 2018 12:00am etodolac 500 mg oral tablet (6 sources) Nonsteroidal Anti-inflammatory Drug Start: 2022 End: 2023 etodolac (LODINE) 500 MG tablet Take by mouth. 07/28/2022 Active glucagon 3 mg nasal powder (20 sources) Antihypoglycemic Agent Start: 2022 End: 2024 glucagon (BAQSIMI) 3 mg/actuation nasal spray Indications: Type 2 diabetes mellitus with hypoglycemia without coma, with long-term current use of insulin ([facility]) Use 1 spray in the nose as needed for low blood sugar. May repeat after 15 minutes using a new device if there is no response. 2 each 1 09/21/2024 Active Comment on above: Use 1 [place] in the n ose as needed for low blood sugar. May repeat after 15 minutes using a new device if there is no response. 3 ml insulin glargine 100 unt/ml pen injector (20 sources) Insulin Analog Start: 2024 insulin glargine (LANTUS SOLOSTAR U-100 INSULIN) 100 unit/mL (3 mL) Indications: Type 2 diabetes mellitus with hypoglycemia without coma, with long-term current use of insulin ([facility]) INJECT 30 UNITS SUBCUTANEOUSLY ONCE DAILY IN THE PM UNLESS GLUCOSE IS UNDER 200 THEN ONLY TAKE 18 UNITS 15 mL 3 11/03/2024 Active Start: 09-21-2024 End: 11-03-2024 insulin glargine (LANTUS IFEANYI OSTAR U-100 INSULIN) 100 unit/mL (3 mL) Indications: Type 2 diabetes mellitus with hypoglycemia without coma, with long-term current use of insulin ([facility]) INJECT 15 UNITS SUBCUTANEOUSLY ONCE DAILY IN AM 15 mL 3 09/21/2024 11/03/2024 Discontinued (Adjust Sig - Block E-Cancel) Start: 06-22-2024 End: 09-21-2024 insulin glargine (LANTUS IFEANYI OSTAR U-100 INSULIN) 100 unit/mL (3 mL) Indications: Type 2 diabetes mellitus with hypoglycemia without coma, with long-term current use of insulin (HCC) INJECT 30 UNITS SUBCUTANEOUSLY ONCE DAILY AT BEDTIME IF GLUCOSE IS OVER 150; IF UNDER 150 ONLY TAKE 25 UNITS 45 mL 3 09/14/2024 09/21/2024 Discontinued Start: 08-21-2022 End: 06-22-2024 insulin glargine (LANTUS IFEANYI OSTAR U-100 INSULIN) 100 unit/mL (3 mL) Indications: Type 2 diabetes mellitus with hypoglycemia without coma, with long-term current use of insulin (HCC) INJECT 34 UNITS SUBCUTANEOUSLY ONCE DAILY AT BEDTIME IF GLUCOSE IS OVER 150; IF UNDER 150 ONLY TAKE 25 UNITS 45 mL 3 07/10/2023 06/22/2024 Discontinued (Adjust Sig - Block E-Cancel) Start: 02-18-2022 End: 09-24-2022 insulin glargine (LANTUS IFEANYI OSTAR U-100 INSULIN) 100 unit/mL (3 mL) Indications: Type 2 diabetes mellitus without complication, with long-term current use of insulin (HCC) INJECT 34 UNITS SUBCUTANEOUSLY ONCE DAILY AT BEDTIME IF GLUCOSE IS OVER 150; IF UNDER 150 ONLY TAKE 25 UNITS 45 mL 3 09/24/2022 Active Start: 10-30-2021 End: 02-18-2022 insulin glargine (LANTUS IFEANYI OSTAR U-100 INSULIN) 100 unit/mL (3 mL) Indications: Type 2 diabetes mellitus without complication, with long-term current use of insulin (HCC) INJECT 34 UNITS SUBCUTANEOUSLY ONCE DAILY AT BEDTIME 45 mL 3 02/18/2022 Active Start: 05-09-2021 End: 10-30-2021 insulin glargine (LANTUS IFEANYI OSTAR U-100 INSULIN) 100 unit/mL (3 mL) Indications: Type 2 diabetes mellitus without complication, with long-term current use of insulin (HCC) INJECT 30 UNITS SUBCUTANEOUSLY ONCE DAILY AT BEDTIME 15 mL 5 05/09/2021 10/30/2021 Discontinued Comment on above: INJECT 30 UNITS SUBC UTANEOUSLY ONCE DAILY AT BEDTIME INJECT 34 UNITS SUBC UTANEOUSLY ONCE DAILY AT BEDTIME INJECT 34 UNITS SUBC UTANEOUSLY ONCE DAILY AT BEDTIME IF GLUCOSE IS OVER 150; IF UNDER 150 ONLY TAKE 25 UNITS insulin isophane, human 100 unt/ml injectable suspension (5 sources) Start: 12-19-2017 Insulin Nph Isoph U-100 Human 100 UNIT/ML suspension Active 0 U SQ AT BEDTIME December 19, 2017 12:00am SLIDING SCALE Please contact the information source for Protocol details. Start: 12-19-2017 Insulin Nph Is oph U-100 Human Active 0 UNIT SQ AT BEDTIME December 19, 2017 12:00am SLIDING SCALE 3 ml insulin lispro 100 unt/ml pen injector (20 sources) Insulin Analog Start: 09-21-2024 inject 7 [IU] by subcutaneous injection at breakfast, then inject 7 [IU] by subcutaneous injection at lunch, then inject 12 [IU] by subcutaneous injection at dinner insulin lispro (HUMALOG KWIKPEN INSULIN) 100 unit/mL Indications: Type 2 diabetes mellitus with hypoglycemia without coma, with long-term current use of insulin ([facility]) Inject subcutaneously 7 units breakfast, 7 units lunch, 12 units dinner plus Ss #1 up to 40 units daily 45 mL 3 09/21/2024 Active Start: 11-10-2023 End: 09-21-2024 inject 15 [IU] by subcutaneous injection at breakfast, then inject 15 [IU] by subcutaneous injection at lunch, then inject 22 [IU] by subcutaneous injection at dinner insulin lispro (HUMALOG KWIKPEN INSULIN) 100 unit/mL Inject subcutaneously 15 units breakfast, 15 units lunch, 22 units dinner plus Ss #1 up to 70 units daily 75 mL 3 11/10/2023 09/21/2024 Discontinued Start: 10-23-2023 End: 11-10-2023 inject 10 [IU] by subcutaneous injection at breakfast, then inject 10 [IU] by subcutaneous injection at lunch, then inject 22 [IU] by subcutaneous injection at dinner insulin lispro (ADMELOG SOLOSTAR U-100 INSULIN) 100 unit/mL Indications: Type 2 diabetes mellitus with hypoglycemia without coma, with long-term current use of insulin (HCC) Inject subcutaneously 10 units breakfast, 10 units lunch, 22 units dinner plus SS #1 up to 60 units daily 30 mL 3 10/23/2023 11/10/2023 Discontinued Start: 08-22-2022 inject 12 [IU] by norman bcutaneous injection at breakfast, then inject 10 [IU] by subcutaneous injection at lunch, then inject 25 [IU] by subcutaneous injection once at dinner, then inject 80 [IU] by subcutaneous injection once daily HumaLOG KwikPen 100 UNIT/ML SOPN injection INJECT 12 UNITS SUBCUTANEOUSLY WITH BREAKFAST, 10 UNITS WITH LUNCH, 25 UNITS WITH DINNER, PLUS INJECT PER SLIDING SCALE. MAX 80 UNITS DAILY. 08/22/2022 Active Start: 06-26-2022 End: 09-24-2022 insulin lispro, 1 Unit Dial, (HUMALOG KWIKPEN) 100 UNIT/ML SOPN injection Inject 12 units breakfast, 14 units lunch, 30 units dinner plus sliding scale up to 80 units daily 06/26/2022 Active Start: 05-21-2022 HUMALOG KWIKPE N INSULIN 100 unit/mL Indications: Type 2 diabetes mellitus without complication, with long-term current use of insulin (HCC) Inject 12 units breakfast, 10 units lunch, 25 units dinner plus sliding scale up to 80 units daily 75 mL 3 05/21/2022 Active Start: 08-02-2021 End: 02-18-2022 HUMALOG KWIKPEN INSULIN 100 unit/mL Indications: Type 2 diabetes mellitus without complication, with long-term current use of insulin (HCC) Inject 12 units breakfast, 10 units lunch, 25 units dinner plus sliding scale up to 80 units daily 75 mL 3 02/18/2022 Active Comment on above: Inject 12 units tracy kfast, 10 units lunch, 25 units dinner plus sliding scale up to 80 units daily Inject 12 units tracy kfast, 14 units lunch, 30 units dinner plus sliding scale up to 80 units daily insulin, regular, human 100 unt/ml injectable solution (6 sources) Insulin Start: 12-19-2017 Insulin Regular Human 100 UNIT/ML solution Active 0 U IJ DAILY December 19, 2017 12:00am SLIDING SCALE Please contact the information source for Protocol details. Start: 12-19-2017 Insulin Regula r Human Active 0 UNIT IJ DAILY December 19, 2017 12:00am SLIDING SCALE insulin regular (HumuLIN R) 100 UNIT/ML injection Inject under the skin. Active lisinopril 20 mg oral tablet (20 sources) Angiotensin Converting Enzyme Inhibitor Start: 07-03-2023 lisinopril (ZESTRIL) 20 mg tablet 07/03/2023 Active magnesium oxide 400 mg oral tablet (1 source) magnesium oxide (MAG-OX) 400 MG tablet 1 tablet as needed Orally PRN for 30 day(s) Active Multiple Vitamin (Multi Vitamin Daily) TABS (1 source) take 1 tablet by mouth once daily Multiple Vitamin (Multi Vitamin Daily) TABS 1 tablet Orally Once a day for 30 day(s) Active mupirocin 0.02 mg/mg topical ointment (1 source) RNA Synthetase Inhibitor Antibacterial Start: 12-06-2021 End: 12-16-2021 mupirocin (BACTROBAN) 2 % ointment Apply 1 application to affected area three times daily for 10 days. 30 g 0 12/06/2021 12/16/2021 Active Comment on above: Apply 1 application to affected area three times daily for 10 days. phenylephrine hydrochloride 25 mg/ml ophthalmic solution (1 source) alpha-1 Adrenergic Agonist Start: 07-16-2022 End: 07-16-2022 PHENYLephrine 2.5 % 1 Drop (AK-DILATE, GIGI-SYNEPHRINE) sildenafil 100 mg oral tablet (1 source) Phosphodiesterase 5 Inhibitor Start: 12-27-2021 take 1 tablet by mouth once daily as needed sildenafil citrate (VIAGRA) 100 MG tablet 1 tablet as needed Orally Once a day for 30 day(s) 12/27/2021 Active tropicamide 10 mg/ml ophthalmic solution (1 source) Anticholinergic Start: 07-16-2022 End: 07-16-2022 tropicamide 1 % 1 Drop (MYDRIACYL) Completed/Discontinued Medications Medication Drug Class(es) Dates Sig (Normalized) Sig (Original) acetaminophen 325 mg / oxyCODONE hydrochloride 5 mg oral tablet (10 sources) Opioid Agonist Start: 09-28-2018 End: 10-03-2018 Oxycodone-Acetamino phen 1 TABLET tablet Discontinued 1 - 2 {tbl} PO EVERY 4 HOURS NEEDED as needed for Pain 04 11September 28, 2018 12:00am October 02, 2018 12:00am October 03, 2018 12:08am Start: 09-28-2018 End: 10-03-2018 take 1 tablet by mouth every four hours as needed Oxycodone-Acetaminophen Discontinued 1 - 2 TABLET PO EVERY 4 HOURS NEEDED 04 11September 28, 2018 12:00am October 03, 2018 12:08am Start: 09-01-2018 End: 09-06-2018 Oxycodone-Acetaminophen 1 TA BLET tablet Discontinued 1 {tbl} PO EVERY 6 HOURS NEEDED as needed for Pain 25 10September 01, 2018 12:00am September 05, 2018 12:00am September 06, 2018 12:09am Start: 09-01-2018 End: 09-06-2018 take 1 tablet by mouth every six hours as needed Oxycodone-Acetaminophen Discontinued 1 TABLET PO EVERY 6 HOURS NEEDED 25 10September 01, 2018 12:00am September 06, 2018 12:09am cyclobenzaprine hydrochloride 10 mg oral tablet (15 sources) Muscle Relaxant Start: 07-28-2022 End: 08-20-2023 Cyclobenzaprine 10 mg tablet Discontinued NMA PO July 28, 2022 1:00am August 20, 2023 11:41pm Start: 07-28-2022 End: 08-20-2023 Cyclobenzaprine Discontinued EACH PO July 28, 2022 1:00am August 20, 2023 11:41pm Start: 07-28-2022 Cyclobenzaprin e Active EACH PO July 28, 2022 12:00am End: 09-24-2022 cyclobenzaprine HCl (CYCLOBE NZAPRINE ORAL) Take by mouth. 1/2 tab PRN 0 09/24/2022 Discontinued cyclobenzaprine HCl (CYCLOBENZAPRINE ORAL) Take by mouth. 1/2 tab PRN 0 Active Comment on above: Take by mouth. 1/2 t ab PRN 3 ml insulin aspart, human 100 unt/ml pen injector (17 sources) Insulin Analog Start: 12-31-2022 End: 10-23-2023 insulin aspart, niacinamide, (FIASP FLEXTOUCH U-100 INSULIN) 100 unit/mL (3 mL) pen Indications: Type 2 diabetes mellitus with hypoglycemia without coma, with long-term current use of insulin (HCC) Inject subcutaneously 11- 14 units breakfast, 11-14 units lunch, 20-24 units dinner plus SS up to 70 30 mL 3 07/10/2023 10/23/2023 Discontinued Start: 10-16-2022 insulin aspart , niacinamide, (FIASP FLEXTOUCH U-100 INSULIN) 100 unit/mL (3 mL) pen Indications: Type 2 diabetes mellitus without complication, with long-term current use of insulin (HCC) Inject subcutaneously 14 units breakfast, 14 units lunch, 32 units dinner plus SS up to 70 30 mL 5 10/16/2022 Active Start: 09-24-2022 End: 10-16-2022 insulin aspart, niacinamide, (FIASP FLEXTOUCH U-100 INSULIN) 100 unit/mL (3 mL) pen Indications: Type 2 diabetes mellitus without complication, with long-term current use of insulin (HCC) Inject subcutaneously 12 units breakfast, 14 units lunch, 30 units dinner plus SS up to 70 30 mL 5 09/24/2022 10/16/2022 Discontinued (Adjust Sig - Block E-Cancel) insulin aspart ( NOVOLOG) 100 UNIT/ML SOPN flexpen injection INJECT 12-14 UNITS SUBCUTANEOUSLY WITH BREAKFAST 12-14 UNITS WITH LUNCH AND 25- 30 UNITS WITH DINNER PLUS SLIDING SCALE UP TO 40 UNITS DAILY Subcutaneous THREE TIMES A DAY Active Comment on above: Inject subcutaneousl y 12 units breakfast, 14 units lunch, 30 units dinner plus SS up to 70 Inject subcutaneousl y 14 units breakfast, 14 units lunch, 32 units dinner plus SS up to 70 Inject subcutaneousl y 11- 14 units breakfast, 11-14 units lunch, 20-24 units dinner plus SS up to 70 1000 ml sodium chloride 9 mg/ml injection (1 source) Start: End: take 30 mL intravenously every hour 30 mL/hr, INTRAVENOUS, CONTINUOUS, Starting on Thu11/18/23 at 0830, Until Thu02/12/24 at 1330, Preprocedure Problems Active Problems Problem Classification Problem Date Documented Date Episodic/Chronic Adjustment disorders (2 sources) Adjustment disorder with anxious mood; Translations: [Adjustment disorder with anxiety] 11-03-2024 Chronic Anxiety disorders (4 sources) Anxiety; Translations: [Anxiety disorder, unspecified] Onset: 11-03-2024 09-27-2024 Chronic Cataract (20 sources) Bilateral age-related nuclear cataracts; Translations: [Age-related [...] Translations: [Mixed hyperlipidemia] Onset: 09-23-2019 09-23-2019 Chronic E Codes: Adverse effects of medical drugs (2 sources) Insulin adverse reaction; Translations: [Adverse effect of insulin and oral hypoglycemic [antidiabetic] drugs, initial encounter] 08-21-2023 Episodic Essential hypertension (20 sources) Essential hypertension; Translations: [Essential (primary) hypertension] Onset: 09-23-2019 09-23-2019 Chronic Hypertension with complications and secondary hypertension (20 sources) Hypertensive heart disease without congestive heart failure; Translations: [Hypertensive heart disease without heart failure] Onset: 08-27-2022 10-23-2023 Chronic Inflammation; infection of eye (except that caused by tuberculosis or sexually transmitteddisease) (5 sources) Conjunctivitis; Translations: [Unspecified conjunctivitis] 01-01-2022 Episodic Nutritional deficiencies (1 source) Vitamin D deficiency, unspecified; Translations: [Avitaminosis D] Onset: 03-25-2024 Chronic Other endocrine disorders (1 source) Hypoglycemia; Translations: [Hypoglycemia, unspecified] 08-18-2024 Chronic Other injuries and conditions due to external causes (1 source) Puncture wound - injury; Translations: [Other injury of unspecified body region, initial encounter] Episodic Other nutritional; endocrine; and metabolic disorders (4 sources) Abnormal weight loss; Translations: [Abnormal weight loss] 10-23-2023 Episodic Residual codes; unclassified (5 sources) History of operation on musculoskeletal system; Translations: [Other specified postprocedural states] 11-28-2019 Episodic Sprains and strains (5 sources) Strain of muscle of upper limb; Translations: [Strain of unspecified muscles, fascia and tendons at forearm level, right arm, initial encounter] 11-28-2019 Episodic Past or Other Problems Problem Classification Problem Date Documented Da te Episodic/Chronic Blindness and vision defects (20 sources) Disorder of refraction; Translations: [Unspecified disorder of refraction] Onset: 07-16-2022 Episodic Fluid and electrolyte disorders (20 sources) Dehydration; Translations: [Dehydration] Onset: 05-14-2023 05-10-2023 Episodic Genitourinary symptoms and ill-defined conditions (1 source) Dysuria; Translations: [Dysuria] Onset: 06-20-2024 Episodic Nutritional deficiencies (1 source) Deficiency of other specified B group vitamins; Translations: [Low folic acid] Onset: 06-20-2024 Episodic Other aftercare (1 source) detention (current) use of insulin; Translations: [Type 2 diabetes mellitus with hypoglycemia without coma, with long-term current use of insulin (HCC)] Onset: 07-10-2023 Episodic Other connective tissue disease (1 source) Myalgia, unspecified site; Translations: [Myalgia] Onset: 06-20-2024 Episodic Other gastrointestinal disorders (20 sources) History of pancreatitis; Translations: [Personal history of other diseases of the digestive system] Onset: 09-23-2019 09-23-2019 Episodic Other gastrointestinal disorders (20 sources) Diarrhea; Translations: [Diarrhea, unspecified] Onset: 10-23-2023 05-10-2023 Episodic Other gastrointestinal disorders (1 source) Personal history of other diseases of the digestive system; Translations: [History of pancreatitis] Onset: 09-23-2019 Episodic Other nervous system disorders (20 sources) Cardenas's palsy; 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] Onset: 10-23-2023 09-28-2018 Episodic Other nutritional; endocrine; and metabolic disorders (1 source) Abnormal weight loss; Translations: [Loss of weight] Onset: 03-25-2024 Episodic Other screening for suspected conditions (not mental disorders or infectious disease) (3 sources) Patient encounter status; Translations: [Encounter for screening for malignant neoplasm of colon] Onset: 03-25-2024 10-26-2023 Episodic Syncope (20 sources) Vasovagal symptom; Translations: [Syncope and collapse] Onset: 10-23-2023 05-10-2023 Episodic Unclassified (5 sources) h/o right ulnar plating 01-05-2022 Unclassified (5 sources) Negative measurement finding; Translations: [No foreign body found on evaluation] 04-22-2019 Results Test Name Value Interpretation Reference Range [facility] SIMRAN [facility]ALEZ ([id number]) 1955 M Date Time Provider Department 12/05/24 ETHAN CALDERON During your visit today, we recorded the following information about you: Aminata Major MA 12/05/2024 9:35 AM Signed Received a request for office notes from [facility] Notes from: 11/03/2024 Faxed via [employer] at [phone] Transmission Successful. Allergies As of Date: 12/05/2024 Noted Allergy Reaction TALWIN (PENTAZOCINE LACTATE) 08/08/2009 TRAMADOL HCL 11/22/2019 14 - Other: See Comments Comments: Pt states no allergy, but ineffective Date Reviewed: 11/03/2024 Reviewed by: Ethan Calderon APRN.PEGA DEVELOPER - Fully Assessed Reason for Visit: Office Notes [Other] Cmt: [facility] Prescriptions as of 12/05/2024 - insulin glargine (LANTUS SOLOSTAR U-100 INSULIN) 100 unit/mL (3 mL) INJECT 30 UNITS SUBCUTANEOUSLY ONCE DAILY IN THE PM UNLESS GLUCOSE IS UNDER 200 THEN ONLY TAKE 18 UNITS - glucagon (BAQSIMI) 3 mg/actuation nasal spray Use 1 spray in the nose as needed for low blood sugar. May repeat after 15 minutes using a new device if there is no response. - insulin lispro (HUMALOG KWIKPEN INSULIN) 100 unit/mL Inject subcutaneously 7 units breakfast, 7 units lunch, 12 units dinner plus Ss #1 up to 40 units daily - lisinopril (ZESTRIL) 20 mg tablet - Insulin [place], Disposable, (BD ULTRAFINE III MINI PEN) 31 gauge x 3/16 Use 4 pen needles daily - ALPRAZolam (XANAX) 0.5 mg tablet Take 0.5 mg by mouth at bedtime as needed. - aspirin 325 mg tablet Take 1 tablet by mouth once daily. 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] 10/23/2023 Dehydration [E86.0] 05/14/2023 Diarrhea [R19.7] 10/23/2023 Disorder associated with type 2 diabetes mellit*08/27/2022 Hypertensive heart disease without congestive h*08/27/2022 Vasovagal symptom [R55] 10/23/2023 Encounter Status:Closed by AMINATA MAJOR on 12/05/24 [facility] CNOVon 11-03-2024 CNOV Office Visit (ENDMED ) -- LISASIMRAN ([id number]) 1955 M Date Time Provider Department 11/03/24 11:15 AM ETHAN CALDERON During your visit today, we recorded the following information about you: Pulse Respiration Blood pressure Weight 64/minute 16/minute 148/80 79 kg Height 1.803 m Ethan Calderon APRN.CNP 11/03/2024 1:05 PM Signed Reason for Consultation: DM Type 2 Referring Physician: SELF HISTORY OF PRESENT ILLNESS; Mr. Gonzalez is a 69 year old male presenting for follow up regarding DM Type 2. He was initially diagnosed with diabetes age 31 after having pancreatitis. He does not have a family history of diabetes mellitus in his family. LV 09/21/24 A1C 8.8 on 09/21/24 Interval visit today due to A1C and glucose management concerns. History of diabetes, pancreatitis, hypertension, hyperlipidemia, hypoglycemia He messaged me after his appointment in September and was reconsidering seeing a psychiatrist to help him with diabetes/medication anxieties. Met with someone yesterday at [facility] Negative SOLANGE and islet cell AB Cpeptide 0.3 He started Dexcom CGM on 07/26/20. He did not make the insulin changes discussed last visit. Still taking in between insulin doses but worries about taking a full dose before the meal. Admits missing some of the doses. Under stress due to work and home life. He previously decided against an insulin pump. He had been losing weight --now mostly stabalized. He was worked up by PCP and no causes noted. He was referred to filer finish His current diabetes regimen is: Glucagon: baqsimi lantus 15 units daily in AM---taking 29 to 32 units in PM instead Humalog 7-8 units breakfast, 7 units lunch, 12 units dinner --forgets doses. Plus sliding scale of humalog at meals or to cover a high sugar at meal time if not eating If Blood Glucose (mg/dL) is < 150 Give 0 units 151-200 Give 1 unit 201-250 Give 2 units 251-300 Give 3 units 301-350 Give 4 units > 351 Give 5 units Previous DM medications: Unable to recall previous oral agents--did not feel well on them and prefers insulin Fiasp--unable to control glucose Novolog --ineffective Admelog--ineffective Regarding symptoms of hyperglycemia, he is not experiencing any symptoms such as polyuria, polydipsia, nocturia or rapid weight loss or blurry vision. Exercise: occasionally; less active in the winter Simran is checking his blood glucose continuously with Dexcom G7 CGM-- not using at this time. He did bring a logbook today for review: CGM download (10/21/24 to 11/03/24) BG ranges 100 to 300 TIR 41% Very high 18% High 41% Low 0% Very low 0% Avg glucose 201 GMI 8.1% BG is best from 5 AM to 9 AM and 5 pm to 8 pm. BG rises after breakfast and dinner. Hypoglycemia frequency: occasionally Hypoglycemia awareness: not always ; had a low that required EMS assistance in the past ; has been as low as 40 Overall, the patient has no acute complaints at this time. HLD: Off statin secondary to myalgia --crestor PAST MEDICAL HISTORY Diagnosis Date Diabetes (HCC) type 2 Hyperlipidemia Hypertension Pancreatitis (HCC) PAST SURGICAL HISTORY Procedure Laterality Date OTHER broken arm-right--has titanium plate FAMILY HISTORY Problem Relation Age of Onset Heart disease Father Social History Tobacco Use Smoking status: Never Smokeless tobacco: Never Vaping Use Vaping status: Never Used Substance Use Topics Alcohol use: Yes Current Outpatient Medications Medication Sig Dispense Refill glucagon (BAQSIMI) 3 mg/actuation nasal spray Use 1 spray in the nose as needed for low blood sugar. May repeat after 15 minutes using a new device if there is no response. 2 each 1 insulin lispro (HUMALOG KWIKPEN INSULIN) 100 unit/mL Inject subcutaneously 7 units breakfast, 7 units lunch, 12 units dinner plus Ss #1 up to 40 units daily 45 mL 3 insulin glargine (LANTUS SOLOSTAR U-100 INSULIN) 100 unit/mL (3 mL) INJECT 15 UNITS SUBCUTANEOUSLY ONCE DAILY IN AM 15 mL 3 lisinopril (ZESTRIL) 20 mg tablet Insulin [place], Disposable, (BD ULTRAFINE III MINI PEN) 31 gauge x 08/21 Use 4 pen needles daily 400 Each 3 ALPRAZolam (XANAX) 0.5 mg tablet Take 0.5 mg by mouth at bedtime as needed. aspirin 325 mg tablet Take 1 tablet by mouth once daily. No current facility-administered medications for this visit. Allergies As of Date: 11/03/2024 Allergen Noted Reaction SYDNEE [PENTAZOCINE LACTATE] 08/08/2009 TRAMADOL HCL 11/22/2019 Other: See Comments Fully Assessed 11/03/2024 REVIEW OF SYSTEMS: Review of Systems Respiratory: Negative for difficulty breathing. Cardiovascular: Negative for chest pain. Gastrointestinal: Negative for nausea, vomiting, diarrhea and constipation. PHYSICAL EXAM: BP 148/80 Pulse 64 Resp 16 Ht 180.3 cm (5' 10.98) Wt 79 kg (174 lb 2.6 oz) SpO2 99% BMI 24 (more content not included)... Normal [facility] CNOVon 09-21-2024 CNOV Office Visit ([facility] ) -- SIMRAN GONZALEZ ([id number]) 1955 M Date Time Provider Department 09/21/24 11:30 AM ETHAN CALDERON During your visit today, we recorded the following information about you: Pulse Respiration Blood pressure Weight 63/minute 16/minute 107/69 79.6 kg Height 1.803 m Ethan Calderon APRN.[facility] 09/21/2024 12:35 PM Signed Reason for Consultation: DM Type 2 Referring Physician: SELF HISTORY OF PRESENT ILLNESS; Mr. Gonzalez is a 69 year old male presenting for follow up regarding DM Type 2. He was initially diagnosed with diabetes age 31 after having pancreatitis. He does not have a family history of diabetes mellitus in his family . LV 06/22/24 A1C today is 8.8 History of diabetes, pancreatitis, hypertension, hyperlipidemia, hypoglycemia Negative SOLANGE and islet cell AB Cpeptide 0.3 He started Dexcom CGM on 07/26/20. Currently without CGM due to sensor failures. He expects a shipment today. He skipped basaglar the last two nights since he does not have CGM. He also admits taking small doses of humalog within approximately 3 hours and reports he drops low rapidly. States pharmacy gave him basaglar vs lantus and feels it is more potent and has not been able to take as much. He is fearful of hypoglycemia and states he does not have anyone at home to help him. Reports living with an alcoholic who would or could not help him. 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 He notes he has lots of anxiety and has seen mental health professionals in the past and did not feel it or medication were helpful and is not interested in seeing anyone again. He previously decided against an insulin pump. States he is losing weight again. He was worked up by PCP and no causes noted. He would like see filer finish His current diabetes regimen is: Glucagon: baqsimi Basaglar 30 units daily HS (only 25 units if under 150 at HS)--sometimes 32 units Humalog 15 units breakfast, 15 units lunch, 22 units dinner Plus sliding scale of humalog at meals or to cover a high sugar at meal time if not eating If Blood Glucose (mg/dL) is < 150 Give 0 units 151-200 Give 1 unit 201-250 Give 2 units 251-300 Give 3 units 301-350 Give 4 units > 351 Give 5 units Previous DM medications: Unable to recall previous oral agents--did not feel well on them and prefers insulin Fiasp--unable to control glucose Novolog --ineffective Admelog--ineffective Regarding symptoms of hyperglycemia, he is not experiencing any symptoms such as polyuria, polydipsia, nocturia or rapid weight loss or blurry vision. Exercise: occasionally; less active in the winter Simran is checking his blood glucose continuously with Dexcom G7 CGM-- not using at this time. He did bring a logbook today for review: No BG readings to review today. Hypoglycemia frequency: Hypoglycemia awareness: not always ; had a low that required EMS assistance in the past ; has been as low as 40 Overall, the patient has no acute complaints at this time. HLD: Off statin secondary to myalgia --crestor PAST MEDICAL HISTORY Diagnosis Date Diabetes (HCC) type 2 Hyperlipidemia Hypertension Pancreatitis (HCC) PAST SURGICAL HISTORY Procedure Laterality Date OTHER broken arm-right--has titanium plate FAMILY HISTORY Problem Relation Age of Onset Heart disease Father Social History Tobacco Use Smoking status: Never Smokeless tobacco: Never Vaping Use Vaping status: Never Used Substance Use Topics Alcohol use: Yes Current Outpatient Medications Medication Sig Dispense Refill insulin glargine (LANTUS SOLOSTAR U-100 INSULIN) 100 unit/mL (3 mL) INJECT 30 UNITS SUBCUTANEOUSLY ONCE DAILY AT BEDTIME IF GLUCOSE IS OVER 150; IF UNDER 150 ONLY TAKE 25 UNITS 45 mL 3 insulin lispro (HUMALOG KWIKPEN INSULIN) 100 unit/mL Inject subcutaneously 15 units breakfast, 15 units lunch, 22 units dinner plus Ss #1 up to 70 units daily 75 mL 3 lisinopril (ZESTRIL) 20 mg tablet glucagon (BAQSIMI) 3 mg/actuation nasal spray Use 1 [place] in the nose as needed for low blood sugar. May repeat after 15 minutes using a new device if there is no response. 2 Each 1 Insulin [place], Disposable, (BD ULTRAFINE III MINI PEN) 31 gauge x /16 Use 4 pen needles daily 400 Each 3 ALPRAZolam (XANAX) 0.5 mg tablet Take 0.5 mg by mouth at bedtime as needed. aspirin 325 mg tablet Take 1 tablet by mouth once daily. No current facility-administered medications for this visit. Allergies As of Date: 09/21/2024 Allergen Noted Reaction SYDNEE [PENTAZOCINE LACTATE] 08/08/2009 TRAMADOL HCL 11/22/2019 Other: See Comments Fully Assessed 09/21/2024 REVIEW OF SYSTEMS: Answers submitted by the patient for this visit: Core Review of Systems (Submitted on 4 (more content not included)... Normal [facility] HEMOGLOBIN A1C (POC)on 09-21 HbA1c (Bld) [Mass fraction] 8.8 % Abnormal 4.3 - 5.6 % [facility] Comment on above: Location:[facility], [address] [place] [address], [id number] Point of care (POC) Hemoglobin A1c (HGBA1C) testing is intended to assess glucose control and provide a management tool for patients known to have diabetes and their healthcare providers. Target HGBA1C levels may depend on specific clinical circumstances. POC HGBA1C is not intended for use as a diagnostic or screening test; laboratory-based testing should be used for diagnostic purposes. The following information is supplemental and may not be applicable to specific diabetes management situations: The POC device roughener provides a normal range of 4.2% to 6.5% for the HGBA1C POC test. However, the [place] [employer] guidelines indicate that patients with HGBA1C in the range of 5.7% to 6.4% are at increased risk for development of diabetes and that intervention by lifestyle modification may be beneficial. A HGBA1C level greater than or equal to 6.5% is considered diagnostic of diabetes, pending confirmatory testing. Use of HGBA1C testing to evaluate glucose control may not be appropriate for patients with hemoglobin variants or other conditions (e.g. anemia) that alter red blood cell lifespan. Interpretation and review of laboratory results Abnormal [facility] 09-15-2024 BIRGIT Telephone ([facility]) -- SIMRAN GONZALEZ ([id number]) 1955 Date Time Provider Department 09/15/24 ETHAN CALDERON During your visit today, we recorded the following information about you: Dayana Batista, RN 09/15/2024 2:46 PM Signed Received a faxed request from [facility] requesting chart notes from the last office visit for diabetes supplies. Faxed notes from 06/22/24 to [phone]. Transmission ok. Closed. Allergies As of Date: 09/15/2024 Noted Allergy Reaction TALWIN (PENTAZOCINE LACTATE) 08/08/2009 TRAMADOL HCL 11/22/2019 14 - Other: See Comments Comments: Pt states no allergy, but ineffective Date Reviewed: 06/22/2024 Reviewed by: Ethan Calderon APRN.[employer]GA [employer] - Fully Assessed Reason for Visit: [facility] Chart Note Request [Other] Prescriptions as of 09/15/2024 - insulin glargine (LANTUS SOLOSTAR U-100 INSULIN) 100 unit/mL (3 mL) INJECT 30 UNITS SUBCUTANEOUSLY ONCE DAILY AT BEDTIME IF GLUCOSE IS OVER 150; IF UNDER 150 ONLY TAKE 25 UNITS - insulin lispro (HUMALOG KWIKPEN INSULIN) 100 unit/mL Inject subcutaneously 15 units breakfast, 15 units lunch, 22 units dinner plus Ss #1 up to 70 units daily - lisinopril (ZESTRIL) 20 mg tablet - glucagon (BAQSIMI) 3 mg/actuation nasal spray Use 1 [place] in the nose as needed for low blood sugar. May repeat after 15 minutes using a new device if there is no response. - Insulin [place], Disposable, (BD ULTRAFINE III MINI PEN) 31 gauge x 08/21 Use 4 pen needles daily - ALPRAZolam (XANAX) 0.5 mg tablet Take 0.5 mg by mouth at bedtime as needed. - aspirin 325 mg tablet Take 1 tablet by mouth once daily. 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 Dehydration [E86.0] 05/14/2023 Diarrhea [R19.7] 10/23/2023 Disorder associated with type 2 diabetes mellit*08/27/2022 Hypertensive heart disease without congestive h*08/27/2022 Vasovagal symptom [R55] 10/23/2023 Encounter Status:Closed by DAYANA BATISTA on 09/15/24 [facility] 09-13-2024 LINDAN Telephone ([facility]) -- SIMRAN GONZALEZ ([id number]) 1955 Date Time Provider Department 09/13/24 ETHAN CALDERON During your visit today, we recorded the following information about you: Aminata Major MA 09/13/2024 11:21 AM Signed Received a request for office notes from [facility] Notes from: 06/22/2024 Faxed via [employer] at [phone] Transmission Successful. Allergies As of Date: 09/13/2024 Noted Allergy Reaction TALWIN (PENTAZOCINE LACTATE) 08/08/2009 TRAMADOL HCL 11/22/2019 14 - Other: See Comments Comments: Pt states no allergy, but ineffective Date Reviewed: 06/22/2024 Reviewed by: Ethan Calderon APRN.PEGA DEVELOPER - Fully Assessed Reason for Visit: Office Notes [Other] Cmt: [facility] Prescriptions as of 09/13/2024 - insulin glargine (LANTUS SOLOSTAR U-100 INSULIN) 100 unit/mL (3 mL) INJECT 30 UNITS SUBCUTANEOUSLY ONCE DAILY AT BEDTIME IF GLUCOSE IS OVER 150; IF UNDER 150 ONLY TAKE 25 UNITS - insulin lispro (HUMALOG KWIKPEN INSULIN) 100 unit/mL Inject subcutaneously 15 units breakfast, 15 units lunch, 22 units dinner plus Ss #1 up to 70 units daily - lisinopril (ZESTRIL) 20 mg tablet - glucagon (BAQSIMI) 3 mg/actuation nasal spray Use 1 [place] in the nose as needed for low blood sugar. May repeat after 15 minutes using a new device if there is no response. - Insulin [place], Disposable, (BD ULTRAFINE III MINI PEN) 31 gauge x 08/21 Use 4 pen needles daily - ALPRAZolam (XANAX) 0.5 mg tablet Take 0.5 mg by mouth at bedtime as needed. - aspirin 325 mg tablet Take 1 tablet by mouth once daily. 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, [address] Emergency Department Summary on 08-18-2024 Emergency Department Summary [facility] Medical Records Department [address] [place] [address] Emergency Department Summary 08/18/24 MR#: [id number] Acct: [id number] Name: SIMRAN GONZALEZ Rep #: [id number] : 1955 69 From: Fred Carver DO PCP: Dr. Mary Martinez MD Status:DEP ER Location: ED HPI History of Present Illness Chief Complaint: Hypoglycemia Informant: patient Narrative Narrative: Patient is a 69-year-old male with past medical history of insulin-dependent diabetes as well as hypertension. He has a Dexcom in place to monitor his blood sugar. He states that he has been diabetic for 30 years and he has found recently that he is very sensitive to medication. He reports this evening he took 5 units of Humalog and then 10 to 20 minutes later noticed his blood sugars were starting to crash. He states that he took the Humalog because his sugar at approximately 250 and then just a few minutes later after taking the medication was dropping to 150 and continue to trend down. He states that he did not take extra medication on purpose or by accident but had concerned that if his blood sugars continue to drop he would lose consciousness and he revived with IV glucose and even potentially a glucose drip and secondary to that he presents to the hospital for evaluation [facility] Medical History (Updated 08/19/24 @ 01:[address] Fred Carver DO) Anxiety Osteoporosis Pancreatitis Diabetes HTN (hypertension) Home Medications ???Medication ???Instructions ???Recorded ???Last Taken ???Type carvedilol 25 mg tablet 12.5 mg PO DAILY 12/19/17 09/28/18 07:00 History insulin NPH isoph U-100 human 100 See Protocol SQ QHS 12/19/17 Unkn own History unit/mL subcutaneous suspension insulin regular human 100 unit/mL See Protocol IJ DAILY 12/19/17 Un known History injection solution aspirin 325 mg tablet 325 mg PO DAILY@0800 09/01/1809/06 History cholecalciferol (vitamin D3) 50 2,000 unit PO DAILY 09/01/18 Unkno wn History mcg (2,000 unit) capsule alprazolam 0.5 mg tablet 0.5 mg PO .DAILYPRN PRN anxiety Unknown History Allergy/AdvReac Type Severity Reaction Status Date / Time diphenhydramine (From Allergy Other Verified 08/18/24 22:55 Benadryl) pentazocine (From Talwin) Allergy Nausea Verified 08/18/24 22:55 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 Allergy Mucosal Uncoded 05/10/23 15:52 lesions Surgical History h/o right ulnar plating Social History Smoking Status: Never smoker ROS ROS ED Constitutional Constitutional ED: Denies chills or fever(s) Eyes Eyes: Denies blurry vision or change in vision ENT ENT ED: Denies sore throat Cardiovascular Cardiovascular: Denies chest pain Respiratory/Chest Respiratory/Chest: Denies cough or dyspnea Gastrointestinal Gastrointestinal: Denies abdominal pain, diarrhea, nausea or vomiting Genitourinary Genitourinary ED: Denies dysuria Musculoskeletal Musculoskeletal: Denies myalgias Integumentary Denies rash Neurologic Neurologic: Denies headache(s) Psychiatric Psychiatric: Reports anxiety; Denies suicidal ideation or suicidal thoughts Hematologic/Lymphatic Hematologic/Lymphatic: Denies easy bleeding or easy bruising EXAM Physical Exam Const Vital Signs: 08/18/24 22:53 Temperature 98.3 F Temperature Source Temporal Pulse Rate 96 Respiratory Rate 18 Blood Pressure 181/83 H Blood Pressure Mean 115 Pulse Ox 98 Oxygen Delivery Method Room Air Positive well nourished and well developed General Appearance ED: well developed; Negative for pallor HEENT Reports moist mucous membranes HEENT Narrative: No tongue or cheek biting to suggest seizure activity No signs of infection noted in the posterior pharynx Eyes PERRL and EOMs intact bilaterally General Eye ED: Negative for scleral icterus Neck supple Neck Narrative: No nuchal rigidity or meningeal signs Resp normal respiratory effort and clear to auscultation bilaterally Cardio regular rate and regular rhythm GI normal to inspection, nondistended, normoactive bowel sounds, non-tender, non-distended and no masses Auscultation: normoactive bowel sounds Palpation: soft Extremity normal to inspection Neuro oriented x3, CN's II-XII intact bilaterally and no sensory deficits noted Sensorium / Orientation: alert Motor Exam: strength 5/5 throughout Psych Mood Affect: anxious Skin no rashes or lesions noted General Skin Exam: Negative for jaundice or pallor MDM MDM MDM Narrative Medical decision making narrative: Patient presented to the ER hypertensive but has a past medical history of this. He states that once he noted his sugar is starting to drop he t (more content not included)... Normal [facility]dered By: Fred Carver on 08-18-2024 Bedside Glucose (Misc Panel) 102 mg/dL 74-106 [facility] Comment on above: MANAGEMENT OF PATIEN T CARE PER NURSING PROTOCOL CNOVon 06-22-2024 CNOV Office Visit ([facility] ) -- HUSSAINSIMRAN GR ([id number]) 1955 M Date Time Provider Department 06/22/24 11:30 AM ETHAN CALDERON During your visit today, we recorded the following information about you: Pulse Blood pressure Weight 61/minute 126/76 80.8 kg Ethan Calderon APRN.PEGA DEVELOPER 06/22/2024 4:37 PM Signed Reason for Consultation: DM Type 2 Referring Physician: SELF HISTORY OF PRESENT ILLNESS; Mr. Gonzalez is a 68 year old male presenting for follow up regarding DM Type 2. He was initially diagnosed with diabetes age 31 after having pancreatitis. He does not have a family history of diabetes mellitus in his family . LV 02/10/24 A1C 8.8 on 06/20/24 History of diabetes, pancreatitis, hypertension, hyperlipidemia, hypoglycemia Negative SOLANGE and islet cell AB Cpeptide 0.3 More sedentary in the winter. Feels BG is easier to manage during this time. Weight stable. Admits he is scared to take insulin. Anxiety about having a low. Forgets an occasional dose. May take after eating Reduces the insulin amount He started Dexcom CGM on 07/26/20. He decided against an insulin pump. His current diabetes regimen is: Glucagon: baqsimi lantus 34 units daily HS (only 25 units if under 150 at HS) --only taking 30 units Humalog 15 units breakfast, 15 units lunch, 22 units dinner Plus sliding scale of humalog at meals or to cover a high sugar at meal time if not eating If Blood Glucose (mg/dL) is < 150 Give 0 units 151-200 Give 1 unit 201-250 Give 2 units 251-300 Give 3 units 301-350 Give 4 units > 351 Give 5 units Previous DM medications: Unable to recall previous oral agents--did not feel well on them and prefers insulin Fiasp--unable to control glucose Novolog --ineffective Admelog--ineffective Regarding symptoms of hyperglycemia, he is not experiencing any symptoms such as polyuria, polydipsia, nocturia or rapid weight loss or blurry vision. Exercise: occasionally; less active in the winter Simran is checking his blood glucose continuously with Dexcom G7 CGM He did bring a logbook today for review: Dexcom download (06/09/24 to 06/22/24) In range 38% High 45 % Very high 17 % Low 0% Very low 0% GMI 8.1 Average BG 200 BG ranges 100 to 300 BG is best from 5 AM to 10 AM. BG is highest from 1 pm to 2 pm and again after dinner from 8 pm to 5 AM Hypoglycemia frequency: occasionally Hypoglycemia awareness: not always [...] Never Smokeless tobacco: Never Vaping Use Vaping status: Never Used Substance Use Topics Alcohol use: Yes Current Outpatient Medications Medication Sig Dispense Refill insulin glargine (LANTUS SOLOSTAR U-100 INSULIN) 100 unit/mL (3 mL) INJECT 30 UNITS SUBCUTANEOUSLY ONCE DAILY AT BEDTIME IF GLUCOSE IS OVER 150; IF UNDER 150 ONLY TAKE 25 UNITS 45 mL 3 insulin lispro (HUMALOG KWIKPEN INSULIN) 100 unit/mL Inject subcutaneously 15 units breakfast, 15 units lunch, 22 units dinner plus Ss #1 up to 70 units daily 75 mL 3 lisinopril (ZESTRIL) 20 mg tablet glucagon (BAQSIMI) 3 mg/actuation nasal spray Use 1 [place] in the nose as needed for low blood sugar. May repeat after 15 minutes using a new device if there is no response. 2 Each 1 Insulin [place], Disposable, (BD ULTRAFINE III MINI PEN) 31 gauge x 08/21 Use 4 pen needles daily 400 Each 3 ALPRAZolam (XANAX) 0.5 mg tablet Take 0.5 mg by mouth at bedtime as needed. aspirin 325 mg tablet Take 1 tablet by mouth once daily. No current facility-administered medications for this visit. Allergies As of Date: 06/22/2024 Allergen Noted Reaction SYDNEE [PENTAZOCINE LACTATE] 08/08/2009 TRAMADOL HCL 11/22/2019 Other: See Comments Fully Assessed 06/22/2024 REVIEW OF SYSTEMS: Review of Systems Respiratory: Negative for difficulty breathing. Cardiovascular: Negative for chest pain. Gastrointestinal: Negative for nausea, vomiting, diarrhea and constipation. PHYSICAL EXAM: BP 126/76 (BP Site: Right Arm, BP Position: Sitting, BP Cuff Size: Large Adult) Pulse 61 Wt 80.8 kg (178 lb 2.1 oz) SpO2 99% BMI 24.86 kg/m2 Physical Exam Constitutional: Appearance: Normal appearance. Cardiovascular: Rate and Rhythm: Normal rate and regular rhythm. Pulmonary: Effort: Pulmonary effort is normal. Breath sounds: Normal breath sounds. Skin: General: Skin is warm and dry. Neurological: Mental Status: He is (more content not included)... Normal [facility] 25(OH)D3 [facility]-mCncon 2024 25-hydroxyvitamin D3 [Mass/Vol] 49.5 ng/mL Normal 31.0-80.0 [facility] Comment on above: Order Comment: Speci men Type: BLOOD SPECIMENOrdering Facility: Mary Martinez MD - [facility] Address: [address] [place] [address] Result Comment: Clas sification of 25 [place] Vitamin D status: Deficiency/Insufficiency: < or = 30 ng/ml. Sufficiency/Optimal Levels: 31-80 ng/mL Toxicity: > 100 ng/mL. Test performed by chemiluminescent immunoassay. Performed By: #### 1 989-3 ####[facility] LABCLIA [id number] [place] [address] [place] ALBUMIN/CREATININE RATIO, UR INEon 06-20-2024 Albumin DL <= 20 mg/L (U) [Mass/Vol] mg/dL Normal [facility] Comment on above: Order Comment: Speci men Type: URINE SPECIMENOrdering Facility: Mary Martinez MD - [facility] Address: [address] [place] [address] Performed By: #### U ACR ####[facility] LABCLIA [id number] [place] [address] [facility] Albumin/Creatinine (U) [Mass ratio] <15 Normal <30 [facility] Comment on above: Order Comment: Speci men Type: URINE SPECIMENOrdering Facility: Mary Martinez MD - [facility] Address: [address] [place] [address] Result Comment: Adul t Male and Female Nephrotic Criteria: <30 mg/g is considered normal to mildly increased 30-300 mg/g is considered moderately increased >300 mg/g is considered severely increased KDIGO. (2013). KDIGO 2012 Clinical Practice Guideline for the Evaluation and Management of Chronic Kidney Disease. Official Journal of the International Society of Nephrology, 3(1), 1-150. Performed By: #### U ACR ####[facility] LABCLIA [id number] [place] [address] [place] Creatinine (U) [Mass/Vol] 81.6 mg/dL Normal 20.0-300.0 [facility] Comment on above: Order Comment: Speci men Type: URINE SPECIMENOrdering Facility: Mary Martinez MD - [facility] Address: [address] [place] [address] Performed By: #### U ACR ####[facility] LABCLIA [id number] [place] [id number] [place] CBC W Auto Differential pane l (Bld)on 06-20-2024 Basophils (Bld) [#/Vol] 0.05 10*3/uL Normal <0.11 [facility] Comment on above: Order Comment: Speci men Type: BLOOD SPECIMENOrdering Facility: Mary Martinez MD - [facility] Address: [address] [place] [address] Performed By: #### 5 7021-8 ####[facility] MILLTOWNCLIA [id number] [place] [address] [place] Basophils/100 WBC (Bld) 0.9 % Normal [facility] Comment on above: Order Comment: Speci men Type: BLOOD SPECIMENOrdering Facility: Mary Martinez MD - [facility] Address: [address] [place] [address] Performed By: #### 5 7021-8 ####[facility] MILLKIMBERLYWNCLIA [id number] [place] [address] [place] Differential cell count method Nom (Bld) Auto Normal [facility] Comment on above: Order Comment: Speci men Type: BLOOD SPECIMENOrdering Facility: Mary Martinez MD - [facility] Address: [address] [place] [address] Performed By: #### 5 7021-8 ####[facility] MILLTOWNCLIA [id number] [place] [address] [place] Eosinophils (Bld) [#/Vol] 0.23 10*3/uL Normal <0.46 [facility] Comment on above: Order Comment: Speci men Type: BLOOD SPECIMENOrdering Facility: Mary Martinez MD - [facility] Address: [address] [place] [address] Performed By: #### 5 7021-8 ####[facility] MILLTOWNCLIA [id number] [place] [address] [place] Eosinophils/100 WBC (Bld) 3.9 % Normal [facility] Comment on above: Order Comment: Speci men Type: BLOOD SPECIMENOrdering Facility: Mary Martinez MD - [facility] Address: [address] [place] [address] Performed By: #### 5 7021-8 ####[facility] SILVERWMADISONLIA [id number] [place] [address] [place] Erythrocyte distribution width (RBC) [Ratio] 12.3 % Normal 11.5-15.0 [facility] Comment on above: Order Comment: Speci men Type: BLOOD SPECIMENOrdering Facility: Mary Martinez MD - [facility] Address: [address] [place] [address] Performed By: #### 5 7021-8 ####[facility] MARYTRE [id number] [place] [address] [place] Hematocrit (Bld) [Volume fraction] 43.5 % Normal 39.0-51.0 [facility] Comment on above: Order Comment: Speci men Type: BLOOD SPECIMENOrdering Facility: Mary Martinez MD - [facility] Address: [address] [place] [address] Performed By: #### 5 7021-8 ####[facility]ITALKALANI [id number] [place] [address] [place] Hemoglobin (Bld) [Mass/Vol] 14.9 g/dL Normal 13.0-17.0 [facility] Comment on above: Order Comment: Speci men Type: BLOOD SPECIMENOrdering Facility: Mary Martinez MD - [facility] Address: [address] [place] [address] Performed By: #### 5 7021-8 ####[facility] MARYKIMBERLYWMARGIE [id number] [place] [address] [place] Immature granulocytes (Bld) [#/Vol] 10*3/uL Normal <0.10 [facility] Comment on above: Order Comment: Speci men Type: BLOOD SPECIMENOrdering Facility: Mary Martinez MD - [facility] Address: [address] [place] [address] Performed By: #### 5 7021-8 ####[facility] MARYTRE [id number] [place] [address] [place] Immature granulocytes/100 WBC (Bld) 0.2 % Normal [facility] Comment on above: Order Comment: Speci men Type: BLOOD SPECIMENOrdering Facility: Mary Martinez MD - [facility] Address: [address] [place] [address] Performed By: #### 5 7021-8 ####[facility] MARYKIMBERLYWDEVANA [id number] [place] [address] [place] Lymphocytes (Bld) [#/Vol] 1.57 10*3/uL Normal 1.00-4.00 [facility] Comment on above: Order Comment: Speci men Type: BLOOD SPECIMENOrdering Facility: Mary Martinez MD - [facility] Address: [address] [place] [address] Performed By: #### 5 7021-8 ####[facility] MARYELIZABETHA [id number] [place] [address] [place] Lymphocytes/100 WBC (Bld) 26.8 % Normal [facility] Comment on above: Order Comment: Speci men Type: BLOOD SPECIMENOrdering Facility: Mary Martinez MD - [facility] Address: [address] [place] [address] Performed By: #### 5 7021-8 ####[facility] MARYKIMBERLYWDEVANA [id number] [place] [address] [place] MCH (RBC) [Entitic mass] 29.0 pg Normal 26.0-34.0 [facility] Comment on above: Order Comment: Speci men Type: BLOOD SPECIMENOrdering Facility: Mary Martinez MD - [facility] Address: [address] [place] [address] Performed By: #### 5 7021-8 ####[facility] MARYELIZABETHA [id number] [place] [address] [place] MCHC (RBC) [Mass/Vol] 34.3 g/dL Normal 30.5-36.0 [facility] Comment on above: Order Comment: Speci men Type: BLOOD SPECIMENOrdering Facility: Mary Martinez MD - [facility] Address: [address] [place] [address] Performed By: #### 5 7021-8 ####[facility]OSPITALJRA [id number] [place] [address] [place] MCV (RBC) [Entitic vol] 84.6 fL Normal 80.0-100.0 [facility] Comment on above: Order Comment: Speci men Type: BLOOD SPECIMENOrdering Facility: Mary Martinez MD - [facility] Address: [address] [place] [address] Performed By: #### 5 7021-8 ####[facility]ITALMARGIE [id number] [place] [address] [place] Monocytes (Bld) [#/Vol] 0.57 10*3/uL Normal <0.87 [facility] Comment on above: Order Comment: Speci men Type: BLOOD SPECIMENOrdering Facility: Mary Martinez MD - [facility] Address: [address] [place] [address] Performed By: #### 5 7021-8 ####[facility]ITALDEVANA [id number] [place] [address] [place] Monocytes/100 WBC (Bld) 9.7 % Normal [facility] Comment on above: Order Comment: Speci men Type: BLOOD SPECIMENOrdering Facility: Mary Martinez MD - [facility] Address: [address] [place] [address] Performed By: #### 5 7021-8 ####[facility]ITALDEVANA [id number] [place] [address] [place] Neutrophils (Bld) [#/Vol] 3.42 10*3/uL Normal 1.45-7.50 [facility] Comment on above: Order Comment: Speci men Type: BLOOD SPECIMENOrdering Facility: Mary Martinez MD - [facility] Address: [address] [place] [address] Performed By: #### 5 7021-8 ####[facility] AMRYELIZABETHSugey [id number] [place] [address] [place] Neutrophils/100 WBC (Bld) 58.5 % Normal [facility] Comment on above: Order Comment: Speci men Type: BLOOD SPECIMENOrdering Facility: Mary Martinez MD - [facility] Address: [address] [place] [address] Performed By: #### 5 7021-8 ####[facility] DIANA [id number] [place] [address] [place] Nucleated RBC (Bld) [#/Vol] 10*3/uL Normal <0.01 [facility] Comment on above: Order Comment: Speci men Type: BLOOD SPECIMENOrdering Facility: Mary Martinez MD - [facility] Address: [address] [place] [address] Performed By: #### 5 7021-8 ####[facility] ORTIZ [id number] [place] [address] [place] Nucleated RBC/100 WBC (Bld) [Ratio] 0.0 /100 WBC Normal [facility] Comment on above: Order Comment: Speci men Type: BLOOD SPECIMENOrdering Facility: Mary Martinez MD - [facility] Address: [address] [place] [address] Performed By: #### 5 7021-8 ####[facility] SERVICESTRE [id number] [place] [address] [place] Platelet mean volume (Bld) [Entitic vol] 9.4 fL Normal 9.0-12.7 [facility] Comment on above: Order Comment: Speci men Type: BLOOD SPECIMENOrdering Facility: Mary Martinez MD - [facility] Address: [address] [place] [address] Performed By: #### 5 7021-8 ####[facility] SILVERWNCLIA [id number] [place] [address] [place] Platelets (Bld) [#/Vol] 261 10*3/uL Normal 150-400 [facility] Comment on above: Order Comment: Speci men Type: BLOOD SPECIMENOrdering Facility: Mary Martinez MD - [facility] Address: [address] [place] [address] Performed By: #### 5 7021-8 ####[facility] MARYSAN JOSENCLIA [id number] [place] [address] [place] RBC (Bld) [#/Vol] 5.14 10*6/uL Normal 4.20-6.00 [facility] Comment on above: Order Comment: Speci men Type: BLOOD SPECIMENOrdering Facility: Mary Martinez MD - [facility] Address: [address] [place] [address] Performed By: #### 5 7021-8 ####[facility]ITALMADISONLIA [id number] [place] [address] [place] WBC (Bld) [#/Vol] 5.85 10*3/uL Normal 3.70-11.00 [facility] Comment on above: Order Comment: Speci men Type: BLOOD SPECIMENOrdering Facility: Mary Martinez MD - [facility] Address: [address] [place] [address] Performed By: #### 5 7021-8 ####[facility]ITALMADISONLIA [id number] [place] [address] [place] CRP SerPl-mCncon 06-20-2024 CRP [Mass/Vol] mg/L Normal <0.9 [facility] Comment on above: Order Comment: Speci men Type: BLOOD SPECIMENOrdering Facility: Mary Martinez MD - [facility] Address: [address] [place] [address] Performed By: #### 3 016-3, 1987- ####[facility] LABCLIA [id number] [facility] [id number] [address] [place] Comprehensive metabolic 2000 panelon 06-20-2024 Albumin [Mass/Vol] 4.0 g/dL Normal 3.9-4.9 [facility] Comment on above: Order Comment: Speci men Type: BLOOD SPECIMENOrdering Facility: Mary Martinez MD - [facility] Address: [address] [place] [address] Performed By: #### 2 4323-8, ####[facility] DIANA [id number] [place] [address] [place] ALP [Catalytic activity/Vol] 61 U/L Normal 38-113 [facility] Comment on above: Order Comment: Speci men Type: BLOOD SPECIMENOrdering Facility: Mary Martinez MD - [facility] Address: [address] [place] [address] Performed By: #### 2 4323-8, ####[facility] GILBERTKERBS MEMORIAL HOSPITALMARGIE [id number] [place] [address] [place] ALT [Catalytic activity/Vol] 20 U/L Normal 10-54 [facility] Comment on above: Order Comment: Speci men Type: BLOOD SPECIMENOrdering Facility: Mary Martinez MD - [facility] Address: [address] [place] [address] Performed By: #### 2 4323-8, ####[facility] GILBERTKERBS MEMORIAL HOSPITALMARGIE [id number] [place] [address] [place] Anion gap [Moles/Vol] 7 mmol/L Low 8-15 [facility] Comment on above: Order Comment: Speci men Type: BLOOD SPECIMENOrdering Facility: Mary Martinez MD - [facility] Address: [address] [place] [address] Performed By: #### 2 432-8, ####[facility] MILLTOWNCLIA [id number] [place] [address] [place] AST [Catalytic activity/Vol] 20 U/L Normal 14-40 [facility] Comment on above: Order Comment: Speci men Type: BLOOD SPECIMENOrdering Facility: Mary Martinez MD - [facility] Address: [address] [place] [address] Performed By: #### 2 4328, ####[facility]OSPITALWNCLIA [id number] [place] [address] [place] Bilirubin [Mass/Vol] 0.4 mg/dL Normal 0.2-1.3 [facility] Comment on above: Order Comment: Speci men Type: BLOOD SPECIMENOrdering Facility: Mary Martinez MD [facility] Address: [address] [place] [address] Performed By: #### 2 4328, ####[facility] HOSPITALWNCLIA [id number] [place] [address] [place] Calcium [Mass/Vol] 9.3 mg/dL Normal 8.5-10.2 [facility] Comment on above: Order Comment: Speci men Type: BLOOD SPECIMENOrdering Facility: Mary Martinez MD - [facility] Address: [address] [place] [address] Performed By: #### 2 4328, ####[facility]OS[facility]ITALMADISONLIA [id number] [place] [address] [place] Chloride [Moles/Vol] 101 mmol/L Normal 98-107 [facility] Comment on above: Order Comment: Speci men Type: BLOOD SPECIMENOrdering Facility: Mary Martinez MD - [facility] Address: [address] [place] [address] Performed By: #### 2 4323, ####[facility] SILVERWNCLIA [id number] [place] [address] [place] CO2 [Moles/Vol] 26 mmol/L Normal 22-30 [facility] Comment on above: Order Comment: Speci men Type: BLOOD SPECIMENOrdering Facility: Mary Martinez MD - [facility] Address: [address] [place] [address] Performed By: #### 2 4328, ####[facility]ITALDEVANA [id number] [place] [address] [place] Creatinine [Mass/Vol] 0.90 mg/dL Normal 0.73-1.22 [facility] Comment on above: Order Comment: Speci men Type: BLOOD SPECIMENOrdering Facility: Mary Martinez MD - [facility] Address: [address] [place] [address] Performed By: #### 2 43208-13, ####[facility]ITALMADISONLIA [id number] [place] [address] [facility] Creatinine and Glomerular filtration rate.predicted panel (S/P/Bld) 94 mL/min/1.73m??? Normal >=60 [facility] Comment on above: Order Comment: Speci men Type: BLOOD SPECIMENOrdering Facility: Mary Martinez MD - [facility] Address: [address] [place] [address] Result Comment: Dionna mated Glomerular Filtration Rate (eGFR) is calculated using the 2020 CKD-EPI creatinine equation. This equation utilizes serum creatinine, sex, and age as parameters. The creatinine assay has traceable calibration to isotope dilution-mass spectrometry. Refer to KDIGO guidelines for clinical interpretation. In patients with unstable renal function, e.g. those with acute kidney injury, the eGFR may not accurately reflect actual GFR. Performed By: #### 2 4323-8, ####[facility] HOSPITALPaolaNCLIA [id number] [place] [address] [place] Glucose [Mass/Vol] 232 mg/dL High 74-99 [facility] Comment on above: Order Comment: Speci men Type: BLOOD SPECIMENOrdering Facility: Mary Martinez MD - [facility] Address: [address] [place] [address] Result Comment: The [place] Diabetes Association (ADA) provides guidance for cutoff values for fasting glucose and random glucose. The ADA defines fasting as no caloric intake for at least 8 hours. Fasting plasma glucose results between 100 to 125 mg/dL indicate increased risk for diabetes (prediabetes). Fasting plasma glucose results greater than or equal to 126 mg/dL meet the criteria for diagnosis of diabetes. In the absence of unequivocal hyperglycemia, results should be confirmed by repeat testing. In a patient with classic symptoms of hyperglycemia or hyperglycemic crisis, random plasma glucose results greater than or equal to 200 mg/dL meet the criteria for diagnosis of diabetes. Reference: Standards of Medical Care in Diabetes 2016, [place] Diabetes Association. Diabetes Care. 2016.39(Suppl 1). Performed By: #### 2 4323-8, ####[facility] MILLTOWNCLIA [id number] [place] [address] [place] Potassium [Moles/Vol] 4.4 mmol/L Normal 3.7-5.1 [facility] Comment on above: Order Comment: Speci men Type: BLOOD SPECIMENOrdering Facility: Mary Martinez MD - [facility] Address: [address] [place] [address] Performed By: #### 2 4323-8, ####[facility] MILLTOWNCLIA [id number] [place] [address] [place] Protein [Mass/Vol] 6.7 g/dL Normal 6.3-8.0 [facility] Comment on above: Order Comment: Speci men Type: BLOOD SPECIMENOrdering Facility: Mary Martinez MD - [facility] Address: [address] [place] [address] Performed By: #### 2 4323-8, ####[facility] [id number] [place] [address] [place] Sodium [Moles/Vol] 134 mmol/L Low 136-144 [facility] Comment on above: Order Comment: Speci men Type: BLOOD SPECIMENOrdering Facility: MD Sonia Diazier Address: [address] [place] [address] Performed By: #### 2 4323-8, 43118-8 ####[facility] [id number] [place] [address] [place] Urea nitrogen [Mass/Vol] 20 mg/dL Normal 9-24 [facility] Comment on above: Order Comment: Speci men Type: BLOOD SPECIMENOrdering Facility: MD Sonia Diazier Address: [address] [place] [address] Performed By: #### 2 4323-8, ####[facility] [id number] [place] [address] [place] ESR Westergren method (Bld) [Velocity]on 06-20-2024 ESR (Bld) [Velocity] 10 mm/h Normal 0-15 [facility] Comment on above: Order Comment: Speci men Type: BLOOD SPECIMENOrdering Facility: MD Sonia Diaz Address: [address] [place] [address] Performed By: #### 4 537-7 ####[facility] LABCLIA [id number] [facility] [id number] [place] [address] [place] HbA1c (Bld)on 06-20-2024 Average glucose Estimated from glycated hemoglobin (Bld) [Mass/Vol] 206 mg/dL Normal [facility] Comment on above: Order Comment: Speci men Type: BLOOD SPECIMENOrdering Facility: MD Sonia Diaz [facility] Address: [address] [place] [address] Result Comment: eAG: (Estimated average glucose) is a calculated value from HgbA1c and is technical service representative of the average blood glucose level in the last 2-3 month period. Performed By: #### 5 5454-3 ####[facility] LABCLIA [id number] [place] [address] [place] HbA1c (Bld) [Mass fraction] 8.8 % High 4.3-5.6 [facility] Comment on above: Order Comment: Speci men Type: BLOOD SPECIMENOrdering Facility: Mary Martinez MD - [facility] Address: [address] [place] [address] Result Comment: [place] Diabetes Association guidelines indicate that patients with HgbA1c in the range 5.7-6.4% are at increased risk for development of diabetes, and intervention by lifestyle modification may be beneficial. HgbA1c greater or equal to 6.5% is considered diagnostic of diabetes. Performed By: #### 5 5454-3 ####[facility] LABCLIA [id number] [place] [address] [place] Magnesium SerPl-mCncon 06-20 Magnesium [Mass/Vol] 2.0 mg/dL Normal 1.7-2.3 [facility] Comment on above: Order Comment: Speci men Type: BLOOD SPECIMENOrdering Facility: Mary Martinez MD - [facility] Address: [address] [place] [address] Performed By: #### 2 4323-8, 29918-1 ####[facility] [id number] [place] [address] [place] TSH SerPl-aCncon 06-20-2024 TSH Qn 2.920 m[IU]/L Normal 0.270-4.200 [facility] Comment on above: Order Comment: Speci men Type: BLOOD SPECIMENOrdering Facility: Mary Martinez MD - [facility] Address: [address] [place] [address] Performed By: #### 3 016-3, 1987-10 ####[facility] LABCLIA [id number] [place] [address] [place] URINALYSIS, REFLEX MICROSCOP ICon 06-20-2024 Bilirubin Ql (U) Negative Normal Negative [facility] Comment on above: Order Comment: Speci men Type: URINE SPECIMENOrdering Facility: Mary Martinez MD - [facility] Address: [address] [place] [address] Performed By: #### L [id number] ####[facility] LABCLIA [id number] [place] [address] [place] Clarity (Unsp spec) Clear Normal Clear [facility] Comment on above: Order Comment: Speci men Type: URINE SPECIMENOrdering Facility: MD Sonia Diaz [facility] Address: [address] [place] [address] Performed By: #### L [id number] ####[facility] LABCLIA [id number] [place] [address] [place] Color (U) Yellow Normal Yellow [facility] Comment on above: Order Comment: Speci men Type: URINE SPECIMENOrdering Facility: MD Sonia Diaz [facility] Address: [address] [place] [address] Performed By: #### L [id number] ####[facility] LABCLIA [id number] [place] [address] [place] Glucose Test strip (U) [Mass/Vol] Negative Normal Negative [facility] Comment on above: Order Comment: Speci men Type: URINE SPECIMENOrdering Facility: Mary Martinez MD - [facility] Address: [address] [place] [address] Performed By: #### L [id number] ####[facility] LABCLIA [id number] [place] [address] [place] Hemoglobin Ql (U) Negative Normal Negative [facility] Comment on above: Order Comment: Speci men Type: URINE SPECIMENOrdering Facility: Mary Martinez MD - [facility] Address: [address] [place] [address] Performed By: #### L [id number] ####[facility] LABCLIA [id number] [place] [address] [place] Ketones Ql (U) Negative Normal Negative [facility] Comment on above: Order Comment: Speci men Type: URINE SPECIMENOrdering Facility: Mary Martinez MD - [facility] Address: [address] [place] [address] Performed By: #### L [id number] ####[facility] LABCLIA [id number] [place] [id number] [place] Leukocyte esterase Test strip Ql (U) Negative Normal Negative [facility] Comment on above: Order Comment: Speci men Type: URINE SPECIMENOrdering Facility: Mary Martinez MD - [facility] Address: [address] [place] [address] Performed By: #### L [id number] ####[facility] LABCLIA [id number] [place] [address] [place] Nitrite Ql (U) Negative Normal Negative [facility] Comment on above: Order Comment: Speci men Type: URINE SPECIMENOrdering Facility: MD Sonia Diaz [facility] Address: [address] [place] [address] Performed By: #### L [id number] ####[facility] LABCLIA [id number] [place] [id number] [place] pH (U) 6.0 [pH] Normal <8.5 [facility] Comment on above: Order Comment: Speci men Type: URINE SPECIMENOrdering Facility: Mary Martinez MD - Premier Address: [address] [place] [address] Performed By: #### L [id number] ####[facility] LABCLIA [id number] [place] [id number] [place] Protein (U) [Mass/Vol] Negative Normal Negative [facility] Comment on above: Order Comment: Speci men Type: URINE SPECIMENOrdering Facility: Mary Martinez MD - [facility] Address: [address] [place] [address] Performed By: #### L [id number] ####[facility] LABCLIA [id number] [place] [address] [place] Specific gravity (U) [Rel density] 1.015 Normal 1.005-1.030 [facility] Comment on above: Order Comment: Speci men Type: URINE SPECIMENOrdering Facility: Mary Martinez MD - [facility] Address: [address] [place] [address] Performed By: #### L [id number] ####[facility] LABIA [id number] [place] [address] [place] Urobilinogen Ql (U) 0.2 EU/dL Normal 0.2-1.0 EU/dL [facility] Comment on above: Order Comment: Speci men Type: URINE SPECIMENOrdering Facility: Mary Martinez MD - [facility] Address: [address] [place] [address] Performed By: #### L [id number] ####[facility] LABIA [id number] [place] [address] [place] Allison 05-25-2024 LINDAN Telephone (Fifty100) -- SIMRAN GONZALEZ ([id number]) 1955 M Date Time Provider Department 05/25/24 ETHAN CALDERON During your visit today, we recorded the following information about you: Aminata Major MA 05/25/2024 12:53 PM Signed Type of letter/form/fax request: CMN for CGMS Form received from: [facility] Placed on Provider (Adolfo) for completion Completed form needs to be faxed to [phone] Clinical notes attached. Ethan Calderon APRN.LINDA 05/26/2024 7:22 AM Signed Form signed. Thank you Kathryn Fountain RN 05/26/2024 11:46 AM Signed Form faxed to [phone]. Closed Allergies As of Date: 05/25/2024 Noted Allergy Reaction TALWIN (PENTAZOCINE LACTATE) 08/08/2009 TRAMADOL HCL 11/22/2019 14 - Other: See Comments Comments: Pt states no allergy, but ineffective Date Reviewed: 02/10/2024 Reviewed by: Ethan Calderon APRN.LINDA - Fully Assessed Reason for Visit: CMN for CGMS [Other] Cmt: [facility] Prescriptions as of 05/26/2024 - insulin lispro (HUMALOG KWIKPEN INSULIN) 100 unit/mL Inject subcutaneously 15 units breakfast, 15 units lunch, 22 units dinner plus Ss #1 up to 70 units daily - lisinopril (ZESTRIL) 20 mg tablet - insulin glargine (LANTUS SOLOSTAR U-100 INSULIN) 100 unit/mL (3 mL) INJECT 34 UNITS SUBCUTANEOUSLY ONCE DAILY AT BEDTIME IF GLUCOSE IS OVER 150; IF UNDER 150 ONLY TAKE 25 UNITS - glucagon (BAQSIMI) 3 mg/actuation nasal spray Use 1 [place] in the nose as needed for low blood sugar. May repeat after 15 minutes using a new device if there is no response. - Insulin [place], Disposable, (BD ULTRAFINE III MINI PEN) 31 gauge x 08/21 Use 4 pen needles daily - ALPRAZolam (XANAX) 0.5 mg tablet Take 0.5 mg by mouth at bedtime as needed. - carvedilol (COREG) 25 mg tablet Take 1 tablet by mouth twice daily. - aspirin 325 mg tablet Take 1 tablet by mouth once daily. 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 Dehydration [E86.0] 05/14/2023 Diarrhea [R19.7] 10/23/2023 Disorder associated with type 2 diabetes mellit*08/27/2022 Hypertensive heart disease without congestive h*08/27/2022 Vasovagal symptom [R55] 10/23/2023 Encounter Status:Closed by KATHRYN FOUNTAIN on 05/26/24 Normal [facility] 25(OH)D3 [facility] 2023 25-hydroxyvitamin D3 [Mass/Vol] 57.3 ng/mL Normal 31.0-80.0 [facility] Comment on above: Order Comment: Speci men Type: BLOOD SPECIMENOrdering Facility: MD Sonia Diaz Address: [address] [place] [address] Performed By: #### 1 989-3 ####[facility] LABCLIA [id number] [place] [address] [place] CBC W Auto Differential pane l (Bld)on 03-25-2024 Basophils (Bld) [#/Vol] 0.05 10*3/uL Normal <0.11 [facility] Comment on above: Order Comment: Speci men Type: BLOOD SPECIMENOrdering Facility: MD Sonia Diaz Address: [address] [place] [address] Performed By: #### 5 7021-8 ####[facility] [id number] [place] [address] [place] Basophils/100 WBC (Bld) 0.9 % Normal [facility] Comment on above: Order Comment: Speci men Type: BLOOD SPECIMENOrdering Facility: MD Sonia Diaz Address: [address] [place] [address] Performed By: #### 5 7021-8 ####[facility] MILLKIMBERLYWMADISONLIA [id number] [place] [address] [place] Differential cell count method Nom (Bld) Auto Normal [facility] Comment on above: Order Comment: Speci men Type: BLOOD SPECIMENOrdering Facility: Mary Martinez MD - [facility] Address: [address] [place] [address] Performed By: #### 5 7021-8 ####[facility] MILLKIMBERLYWDEVANA [id number] [place] [address] [place] Eosinophils (Bld) [#/Vol] 0.19 10*3/uL Normal <0.46 [facility] Comment on above: Order Comment: Speci men Type: BLOOD SPECIMENOrdering Facility: Mary Martinez MD - [facility] Address: [address] [place] [address] Performed By: #### 5 7021-8 ####[facility] HE[facility] SERVICESELIZABETHA [id number] [place] [address] [place] Eosinophils/100 WBC (Bld) 3.4 % Normal [facility] Comment on above: Order Comment: Speci men Type: BLOOD SPECIMENOrdering Facility: Mary Martinez MD - [facility] Address: [address] [place] [address] Performed By: #### 5 7021-8 ####[facility] SILVERWMARGIE [id number] [place] [address] [place] Erythrocyte distribution width (RBC) [Ratio] 12.5 % Normal 11.5-15.0 [facility] Comment on above: Order Comment: Speci men Type: BLOOD SPECIMENOrdering Facility: Mary Martinez MD - [facility] Address: [address] [place] [address] Performed By: #### 5 7021-8 ####[facility] SERVICESTRE [id number] [place] [id number] [place] Hematocrit (Bld) [Volume fraction] 42.9 % Normal 39.0-51.0 [facility] Comment on above: Order Comment: Speci men Type: BLOOD SPECIMENOrdering Facility: Mary Martinez MD - [facility] Address: [address] [place] [address] Performed By: #### 5 7021-8 ####[facility] MARYTRE [id number] [place] [address] [place] Hemoglobin (Bld) [Mass/Vol] 14.6 g/dL Normal 13.0-17.0 [facility] Comment on above: Order Comment: Speci men Type: BLOOD SPECIMENOrdering Facility: Mary Martinez MD - [facility] Address: [address] [place] [address] Performed By: #### 5 7021-8 ####[facility] MARYKIMBERLYWDEVANA [id number] [place] [address] [place] Immature granulocytes (Bld) [#/Vol] 10*3/uL Normal <0.10 [facility] Comment on above: Order Comment: Speci men Type: BLOOD SPECIMENOrdering Facility: Mary Martinez MD - [facility] Address: [address] [place] [address] Performed By: #### 5 7021-8 ####[facility] MARYELIZABETHA [id number] [place] [address] [place] Immature granulocytes/100 WBC (Bld) 0.4 % Normal [facility] Comment on above: Order Comment: Speci men Type: BLOOD SPECIMENOrdering Facility: Mary Martinez MD - [facility] Address: [address] [place] [address] Performed By: #### 5 7021-8 ####[facility] MARYKIMBERLYWMAIDSONLIA [id number] [place] [address] [place] Lymphocytes (Bld) [#/Vol] 1.65 10*3/uL Normal 1.00-4.00 [facility] Comment on above: Order Comment: Speci men Type: BLOOD SPECIMENOrdering Facility: Mary Martinez MD - [facility] Address: [address] [place] [address] Performed By: #### 5 7021-8 ####[facility] LUIS [id number] [place] [address] [place] Lymphocytes/100 WBC (Bld) 29.9 % Normal [facility] Comment on above: Order Comment: Speci men Type: BLOOD SPECIMENOrdering Facility: Mary Martinez MD - [facility] Address: [address] [place] [address] Performed By: #### 5 7021-8 ####[facility] HOS[facility]ITALMARGIE [id number] [place] [address] [place] MCH (RBC) [Entitic mass] 29.7 pg Normal 26.0-34.0 [facility] Comment on above: Order Comment: Speci men Type: BLOOD SPECIMENOrdering Facility: Mary Martinez MD - [facility] Address: [address] [place] [address] Performed By: #### 5 7021-8 ####[facility]ITALJ[facility] LUIS [id number] [place] [address] [place] MCHC (RBC) [Mass/Vol] 34.0 g/dL Normal 30.5-36.0 [facility] Comment on above: Order Comment: Speci men Type: BLOOD SPECIMENOrdering Facility: Mary Martinez MD - [facility] Address: [address] [place] [address] Performed By: #### 5 7021-8 ####[facility]ITALJ[facility] LUIS [id number] [place] [address] [place] MCV (RBC) [Entitic vol] 87.2 fL Normal 80.0-100.0 [facility] Comment on above: Order Comment: Speci men Type: BLOOD SPECIMENOrdering Facility: Mary Martinez MD - [facility] Address: [address] [place] [address] Performed By: #### 5 7021-8 ####[facility] GIL[facility]ERTDEVON HERNANDEZTRE [id number] [place] [address] [place] Monocytes (Bld) [#/Vol] 0.56 10*3/uL Normal <0.87 [facility] Comment on above: Order Comment: Speci men Type: BLOOD SPECIMENOrdering Facility: Mary Martinez MD - [facility] Address: [address] [place] [address] Performed By: #### 5 7021-8 ####[facility] DIANA [id number] [place] [address] [place] Monocytes/100 WBC (Bld) 10.1 % Normal [facility] Comment on above: Order Comment: Speci men Type: BLOOD SPECIMENOrdering Facility: Mary Martinez MD - [facility] Address: [address] [place] [address] Performed By: #### 5 7021-8 ####[facility] MARYTRE [id number] [place] [address] [place] Neutrophils (Bld) [#/Vol] 3.05 10*3/uL Normal 1.45-7.50 [facility] Comment on above: Order Comment: Speci men Type: BLOOD SPECIMENOrdering Facility: Mary Martinez MD - [facility] Address: [address] [place] [address] Performed By: #### 5 7021-8 ####[facility] SERVICESTRE [id number] [place] [address] [place] Neutrophils/100 WBC (Bld) 55.3 % Normal [facility] Comment on above: Order Comment: Speci men Type: BLOOD SPECIMENOrdering Facility: Mary Martinez MD - [facility] Address: [address] [place], [place] [id number] Performed By: #### 5 7021-8 ####[facility] SILVERWMADISONLIA [id number] [place] [address] [place] Nucleated RBC (Bld) [#/Vol] 10*3/uL Normal <0.01 [facility] Comment on above: Order Comment: Speci men Type: BLOOD SPECIMENOrdering Facility: Mary Martinez MD - [facility] Address: [address] [place] [address] Performed By: #### 5 7021-8 ####[facility]ITALDEVANA [id number] [place] [address] [place] Nucleated RBC/100 WBC (Bld) [Ratio] 0.0 /100 WBC Normal [facility] Comment on above: Order Comment: Speci men Type: BLOOD SPECIMENOrdering Facility: Mary Martinez MD - [facility] Address: [address] [place] [address] Performed By: #### 5 7021-8 ####[facility]ITAL[facility] LUISA [id number] [place] [address] [place] Platelet mean volume (Bld) [Entitic vol] 9.4 fL Normal 9.0-12.7 [facility] Comment on above: Order Comment: Speci men Type: BLOOD SPECIMENOrdering Facility: Mary Martinez MD - [facility] Address: [address] [place] [address] Performed By: #### 5 7021-8 ####[facility]ITALMADISONLIA [id number] [place] [address] [place] Platelets (Bld) [#/Vol] 239 10*3/uL Normal 150-400 [facility] Comment on above: Order Comment: Speci men Type: BLOOD SPECIMENOrdering Facility: Mary Martinez MD - [facility] Address: [address] [place] [address] Performed By: #### 5 7021-8 ####[facility] HOS[facility]ITALNCLIA [id number] [place] [address] [place] RBC (Bld) [#/Vol] 4.92 10*6/uL Normal 4.20-6.00 [facility] Comment on above: Order Comment: Speci men Type: BLOOD SPECIMENOrdering Facility: Mary Martinez MD - [facility] Address: [address] [place] [address] Performed By: #### 5 7021-8 ####[facility] [id number] [place] [address] [place] WBC (Bld) [#/Vol] 5.52 10*3/uL Normal 3.70-11.00 [facility] Comment on above: Order Comment: Speci men Type: BLOOD SPECIMENOrdering Facility: Mary Martinez MD - [facility] Address: [address] [place] [address] Performed By: #### 5 7021-8 ####[facility] HOSPITALLIA [id number] [place] [address] [place] CRP SerPl-ncon 03-25-2024 CRP [Mass/Vol] mg/L Normal <0.9 [facility] Comment on above: Order Comment: Speci men Type: BLOOD SPECIMENOrdering Facility: Mary Martinez MD - [facility] Address: [address] [place] [address] Performed By: #### 2 132-9, 1987-10 ####[facility] LABCLIA [id number] [address] [address] [place] Comprehensive metabolic 2000 panelon 03-25-2024 Albumin [Mass/Vol] 4.1 g/dL Normal 3.9-4.9 [facility] Comment on above: Order Comment: Speci men Type: BLOOD SPECIMENOrdering Facility: Mary Martinez MD - [facility] Address: [address] [place] [address] Performed By: #### 1 239, ####[facility] MILLTOWNCLIA [id number] [place] [address] [place] ALP [Catalytic activity/Vol] 62 U/L Normal 38-113 [facility] Comment on above: Order Comment: Speci men Type: BLOOD SPECIMENOrdering Facility: Mary Martinez MD - [facility] Address: [address] [place] [address] Performed By: #### 1 9123-02, ####[facility] MILLTOWNCLIA [id number] [place] [address] [place] ALT [Catalytic activity/Vol] 18 U/L Normal 10-54 [facility] Comment on above: Order Comment: Speci men Type: BLOOD SPECIMENOrdering Facility: Mary Martinez MD - [facility] Address: [address] [place] [address] Performed By: #### 1 9123-02, ####[facility] MILLTOWNCLIA [id number] [place] [address] [place] Anion gap [Moles/Vol] 11 mmol/L Normal 8-15 [facility] Comment on above: Order Comment: Speci men Type: BLOOD SPECIMENOrdering Facility: Mary Martinez MD - [facility] Address: [address] [place] [address] Performed By: #### 1 9123-02, ####[facility] MILLTOWNCLIA [id number] [place] [address] [place] AST [Catalytic activity/Vol] 19 U/L Normal 14-40 [facility] Comment on above: Order Comment: Speci men Type: BLOOD SPECIMENOrdering Facility: Mary Martinez MD - [facility] Address: [address] [place] [address] Performed By: #### 1 9123-02, ####[facility] MILLTOWNCLIA [id number] [place] [address] [place] Bilirubin [Mass/Vol] 0.5 mg/dL Normal 0.2-1.3 [facility] Comment on above: Order Comment: Speci men Type: BLOOD SPECIMENOrdering Facility: Mary Martinez MD - [facility] Address: [address] [place] [address] Performed By: #### 1 9123-9, ####[facility] MILLTOWNCLIA [id number] [place] [address] [place] Calcium [Mass/Vol] 9.6 mg/dL Normal 8.5-10.2 [facility] Comment on above: Order Comment: Speci men Type: BLOOD SPECIMENOrdering Facility: Mary Martinez MD - [facility] Address: [address] [place] [address] Performed By: #### 1 9123-9, ####[facility] MILLTOWNCLIA [id number] [place] [address] [place] Chloride [Moles/Vol] 103 mmol/L Normal 98-107 [facility] Comment on above: Order Comment: Speci men Type: BLOOD SPECIMENOrdering Facility: Mary Martinez MD - Premier Address: [address] [place] [address] Performed By: #### 1 9123-9, ####[facility] MILLTOWNCLIA [id number] [place] [address] [place] CO2 [Moles/Vol] 24 mmol/L Normal 22-30 [facility] Comment on above: Order Comment: Speci men Type: BLOOD SPECIMENOrdering Facility: Mary Martinez MD - Premier Address: [address] [place] [address] Performed By: #### 1 9123-9, ####[facility] MILLTOWNCLIA [id number] [place] [address] [place] Creatinine [Mass/Vol] 0.88 mg/dL Normal 0.73-1.22 [facility] Comment on above: Order Comment: Jordyn metcalf Type: BLOOD SPECIMENOrdering Facility: MD Sonia Diaz Address: [address] [place] [address] Performed By: #### 1 9123-9, ####[facility] [id number] [place] [address] [place] Creatinine and Glomerular filtration rate.predicted panel (S/P/Bld) 94 mL/min/1.73m??? Normal >=60 [facility] Comment on above: Order Comment: Jordyn metcalf Type: BLOOD SPECIMENOrdering Facility: MD Sonia Diazier Address: [address] [place] [address] Result Comment: Dionna mated Glomerular Filtration Rate (eGFR) is calculated using the 2020 CKD-EPI creatinine equation. This equation utilizes serum creatinine, sex, and age as parameters. The creatinine assay has traceable calibration to isotope dilution-mass spectrometry. Refer to KDIGO guidelines for clinical interpretation. In patients with unstable renal function, e.g. those with acute kidney injury, the eGFR may not accurately reflect actual GFR. Performed By: #### 1 9123-9, ####[facility] [id number] [place] [address] [place] Glucose [Mass/Vol] 156 mg/dL High 74-99 [facility] Comment on above: Order Comment: Jordyn metcalf Type: BLOOD SPECIMENOrdering Facility: MD Sonia Diazier Address: [address] [place] [address] Result Comment: The [place] [employer] (ADA) provides guidance for cutoff values for fasting glucose and random glucose. The ADA defines fasting as no caloric intake for at least 8 hours. Fasting plasma glucose results between 100 to 125 mg/dL indicate increased risk for diabetes (prediabetes). Fasting plasma glucose results greater than or equal to 126 mg/dL meet the criteria for diagnosis of diabetes. In the absence of unequivocal hyperglycemia, results should be confirmed by repeat testing. In a patient with classic symptoms of hyperglycemia or hyperglycemic crisis, random plasma glucose results greater than or equal to 200 mg/dL meet the criteria for diagnosis of diabetes. Reference: Standards of Medical Care in Diabetes 2016, [place] [employer]. Diabetes Care. 2016.39(Suppl 1). Performed By: #### 1 9123-9, 96793-5 ####[facility] SHEPPARDWMARGIE [id number] [place] [address] [place] Potassium [Moles/Vol] 4.3 mmol/L Normal 3.7-5.1 [facility] Comment on above: Order Comment: Jordyn metcalf Type: BLOOD SPECIMENOrdering Facility: Mary Martinez [facility] Address: [address] [place] [address] Performed By: #### 1 9123-9, ####[facility] ORTIZ [id number] [place] [address] [place] Protein [Mass/Vol] 6.9 g/dL Normal 6.3-8.0 [facility] Comment on above: Order Comment: Jordyn metcalf Type: BLOOD SPECIMENOrdering Facility: Mary Martinez MD - [facility] Address: [address] [place] [address] Performed By: #### 1 9123-9, ####[facility] ORTIZ [id number] [place] [address] [place] Sodium [Moles/Vol] 138 mmol/L Normal 136-144 [facility] Comment on above: Order Comment: Jordyn metcalf Type: BLOOD SPECIMENOrdering Facility: Mary Martinez MD - Ramiroier Address: [address] [place] [address] Performed By: #### 1 9123-9, ####[facility] ORTZI [id number] [place] [address] [place] Urea nitrogen [Mass/Vol] 20 mg/dL Normal 9-24 [facility] Comment on above: Order Comment: Speci men Type: BLOOD SPECIMENOrdering Facility: Mary Martinez MD - [facility] Address: [address] [place] [address] Performed By: #### 1 9123-9, 37608-0 ####[facility] [id number] [place] [address] [place] ESR Westergren method (Bld) [Velocity]on 03-25-2024 ESR (Bld) [Velocity] 2 mm/h Normal 0-15 [facility] Comment on above: Order Comment: Speci men Type: BLOOD SPECIMENOrdering Facility: Mary Martinez MD - [facility] Address: [address] [place] [address] Performed By: #### 4 537-7 ####[facility] LABCLIA [id number] [place] [address] [place] Free PSA [Mass/Vol]on 2023 Free PSA/Total PSA [Mass fraction] 28 % Normal [facility] Comment on above: Order Comment: Speci men Type: BLOOD SPECIMENOrdering Facility: Mary Martinez MD - [facility] Address: [address] [place] [address] Result Comment: Tota l and free PSA test methodology used is the Electrochemiluminescence Immunoassay by [employer]. Total or free PSA values by differing methodologies cannot be interchanged. The below table lists the probability of finding prostate cancer upon needle biopsy, for men 50 years or older and total PSA concentrations from 4.0-10.0 ng/mL. Results should be interpreted within the broader clinical context. Free PSA(%) 50-59 years 60-69 years >69 years <11 49.2% 57.5% 64.5% 11-18 26.9% 33.9% 40.8% 19-25 18.3% 23.9% 29.7% >25 9.1% 12.2% 15.8% Performed By: #### 3 024-7, 3016-3, 14778-6 ####[facility] LABCLIA [id number] [place] [address] [place]#### 31330-6 ####[facility] LABCLIA [id number] [place] [address] [place] [facility] [id number] [place] [address] [place] Prostate specific Ag [Mass/Vol] 2.55 ng/mL Normal <2.60 [facility] Comment on above: Order Comment: Speci men Type: BLOOD SPECIMENOrdering Facility: Mary Martinez MD - [facility] Address: [address] [place] [address] Result Comment: Tota l PSA test methodology used is the Electrochemiluminescence Immunoassay by [employer]. Total PSA values by differing methodologies cannot be interchanged. Performed By: #### 3 024-7, 3016-3, 75668-9 ####[facility] LABCLIA [id number] [place] [address] [place]#### 67198-8 ####[facility] LABCLIA [id number] [place] [address] [place] [facility] [id number] [place] [address] [place] HbA1c (Bld)on 03-25-2024 Average glucose Estimated from glycated hemoglobin (Bld) [Mass/Vol] 194 mg/dL Normal [facility] Comment on above: Order Comment: Speci men Type: BLOOD SPECIMENOrdering Facility: Mary Martinez MD - [facility] Address: [address] [place] [address] Result Comment: eAG: (Estimated average glucose) is a calculated value from HgbA1c and is technical service representative of the average blood glucose level in the last 2-3 month period. Performed By: #### 5 5454-3 ####[facility] LABCLIA [id number] [place] [address] [place] HbA1c (Bld) [Mass fraction] 8.4 % High 4.3-5.6 [facility] Comment on above: Order Comment: Speci men Type: BLOOD SPECIMENOrdering Facility: Mary Martinez MD - [facility] Address: [address] [place] [address] Result Comment: [place] Diabetes Association guidelines indicate that patients with HgbA1c in the range 5.7-6.4% are at increased risk for development of diabetes, and intervention by lifestyle modification may be beneficial. HgbA1c greater or equal to 6.5% is considered diagnostic of diabetes. Performed By: #### 5 5454-3 ####[facility] LABCLIA [id number] [place] [address] [place] Lipid 1996 panelon 4 Cholesterol [Mass/Vol] 200 mg/dL High <200 [facility] Comment on above: Order Comment: Speci men Type: BLOOD SPECIMENOrdering Facility: Mary Martinez MD - [facility] Address: [address] [place] [address] Result Comment: <200 mg/dL, Desirable 200-239 mg/dL, Borderline high >239 mg/dL, High Performed By: #### 3 024-7, 3016-3, 34325-1 ####[facility] LABCLIA [id number] [place] [address] [place]#### 33651-4 ####[facility] LABCLIA [id number] [place] [address] [place] [facility] [id number] [place] [address] [place] Cholesterol in HDL [Mass/Vol] 54 mg/dL Normal >39 [facility] Comment on above: Order Comment: Speci men Type: BLOOD SPECIMENOrdering Facility: Mary Martinez MD - [facility] Address: [address] [place] [address] Result Comment: 40-5 9 mg/dL, Acceptable >59 mg/dL, High: Negative risk factor for coronary heart disease <40 mg/dL, Low: Positive risk factor for coronary heart disease Performed By: #### 3 024-7, 3016-3, 89300-2 ####[facility] LABCLIA [id number] [place] [id number] [place]#### 78574-5 ####[facility] LABCLIA [id number] [address] [id number] [address] [place] Cholesterol in LDL [Mass/Vol] 129 mg/dL High <100 [facility] Comment on above: Order Comment: Speci men Type: BLOOD SPECIMENOrdering Facility: Mary Martinez MD - [facility] Address: [address] [place] [address] Result Comment: <100 mg/dL, Optimal 100-129 mg/dL, Near optimal/above optimal 130-159 mg/dL, Borderline high 160-189 mg/dL, High >189 mg/dL, Very high Secondary prevention optimal LDL Cholesterol levels are recommended to be < 70 mg/dL Performed By: #### 3 024-7, 3016-3, 84623-9 ####[facility] LABCLIA [id number] [place] [address] [place]#### 45471-7 ####[facility] LABCLIA [id number] [place] [id number] [place] [facility] [id number] [address] [place] Cholesterol in LDL/Cholesterol in HDL [Mass ratio] 2.39 {ratio} Normal <2.54 [facility] Comment on above: Order Comment: Speci men Type: BLOOD SPECIMENOrdering Facility: Mary Martinez MD - [facility] Address: [address] [place] [address] Result Comment: Madelin brar: 1. National Cholesterol Education Program ATP III Guideline At-A-Glance Quick Desk Reference: National Heart, Lung, and Blood [place]. National Institutes of Health. 2001: NIH Publication No. 01-3305. 2. An International Atherosclerosis Society position paper: global recommendations for the management of dyslipidemia: executive summary, Atherosclerosis. 2014: 232(2):410-413. Performed By: #### 3 024-7, 3016-3, 08558-8 ####[facility] LABCLIA [id number] [place] [address] [place]#### 07261-5 ####[facility] LABCLIA [id number] [facility] [address] [facility] [id number] [place] [address] [place] Cholesterol in VLDL [Mass/Vol] 17 mg/dL Normal <30 [facility] Comment on above: Order Comment: Speci men Type: BLOOD SPECIMENOrdering Facility: Mary Martinez MD - [facility] Address: [address] [place] [address] Performed By: #### 3 024-7, 3016-3, 99602-3 ####[facility] LABCLIA [id number] [place] [address] [place]#### 72566-9 ####[facility] LABCLIA [id number] [facility] [place] [id number] [facility] [id number] [place] [address] [place] Cholesterol non HDL [Mass/Vol] 146 mg/dL High <130 [facility] Comment on above: Order Comment: Speci men Type: BLOOD SPECIMENOrdering Facility: Mary Martinez MD - [facility] Address: [address] [place], [place] [id number] Result Comment: <130 mg/dL, Optimal 130-159 mg/dL, Near optimal/above optimal 160-189 mg/dL, Borderline high 190-219 mg/dL, High >219 mg/dL, Very high Secondary prevention optimal non HDL Cholesterol levels are recommended to be <100 mg/dL Performed By: #### 3 024-7, 3016-3, 19085-0 ####[facility] LABCLIA [id number] [address] [place]#### 35591-1 ####[facility] LABCLIA [id number] [address] [id number] [place] [address] [place] [facility] Cholesterol.total/Ch olesterol in HDL [Mass ratio] 3.70 {ratio} Normal <5.10 [facility] Comment on above: Order Comment: Speci men Type: BLOOD SPECIMENOrdering Facility: Mary Martinez MD - [facility] Address: [address] [place] [address] Performed By: #### 3 024-7, 3, 12543-0 ####[facility] LABCLIA [id number] [address] [place]#### 40878-6 ####[facility] LABCLIA [id number] [address] [id number] [address] [place] [facility] FASTING TIME 13 hrs Normal [facility] Comment on above: Order Comment: Speci men Type: BLOOD SPECIMENOrdering Facility: Mary Martinez MD - [facility] Address: [address] [place] [address] Performed By: #### 3 024-7, 3016-3, 36995-7 ####[facility] LABCLIA [id number] [address] [address] [place]#### 54051-1 ####[facility] LABCLIA [id number] [place] [address] [place] [facility] [id number] [place] [address] [place] Triglyceride [Mass/Vol] 84 mg/dL Normal <150 [facility] Comment on above: Order Comment: Speci men Type: BLOOD SPECIMENOrdering Facility: Mary Martinez MD - [facility] Address: [address] [place] [address] Result Comment: <150 mg/dL, Normal 150-199 mg/dL, Borderline high 200-499 mg/dL, High >499 mg/dL, Very high Performed By: #### 3 024-7, 3016-3, 09052-7 ####[facility] LABCLIA [id number] [place] [address] [place]#### 45304-3 ####[facility] LABCLIA [id number] [place] [id number] [place] [facility] [id number] [place] [address] [place] Magnesium SerPl-mCncon 03-25 Magnesium [Mass/Vol] 2.0 mg/dL Normal 1.7-2.3 [facility] Comment on above: Order Comment: Speci men Type: BLOOD SPECIMENOrdering Facility: Mary Martinez MD - [facility] Address: [address] [place] [address] Performed By: #### 1 9123-9, 74887-5 ####[facility] [id number] [place] [address] [place] T4 Free SerPl-mCncon 10-18-2 024 Free T4 [Mass/Vol] 1.1 ng/dL Normal 0.9-1.7 [facility] Comment on above: Order Comment: Speci men Type: BLOOD SPECIMENOrdering Facility: Mary Martinez MD - [facility] Address: [address] [place] [address] Performed By: #### 3 024-7, 3016-3, 29145-2 ####[facility] LABCLIA [id number] [place] [address] [place]#### 72002-9 ####[facility] LABCLIA [id number] [address] [id number] [place] [address] [place] TSH SerPl-aCncon 03-25-2024 TSH Qn 2.970 m[IU]/L Normal 0.270-4.200 [facility] Comment on above: Order Comment: Speci men Type: BLOOD SPECIMENOrdering Facility: Mary Martinez MD - [facility] Address: [address] [place] [address] Performed By: #### 3 024-7, 3016-3, 43297-6 ####[facility] LABCLIA [id number] [address] [place]#### 67763-1 ####[facility] LABCLIA [id number] [address] [facility] [id number] [place] [address] [place] URINALYSIS, DIPSTICK ONLYon 03-25-2024 Bilirubin Ql (U) Negative Normal Negative [facility] Comment on above: Order Comment: Speci men Type: URINE SPECIMENOrdering Facility: Mary Martinez MD - [facility] Address: [address] [place] [address] Performed By: #### L [id number], UA ####[facility] LABCLIA [id number] [place] [address] [place] Clarity (Unsp spec) Clear Normal Clear [facility] Comment on above: Order Comment: Speci men Type: URINE SPECIMENOrdering Facility: Mary Martinez MD - [facility] Address: [address] [place] [address] Performed By: #### L [id number], UA ####[facility] LABCLIA [id number] [place] [address] [place] Color (U) Yellow Normal Yellow [facility] Comment on above: Order Comment: Speci men Type: URINE SPECIMENOrdering Facility: MD Sonia Diaz [facility] Address: [address] [place] [address] Performed By: #### L [id number], UA ####[facility] LABCLIA [id number] [place] [address] [place] Glucose Test strip (U) [Mass/Vol] Negative Normal Negative [facility] Comment on above: Order Comment: Speci men Type: URINE SPECIMENOrdering Facility: MD Sonia Diaz [facility] Address: [address] [place] [address] Performed By: #### L [id number], UA ####[facility] LABCLIA [id number] [place] [address] [place] Hemoglobin Ql (U) Negative Normal Negative [facility] Comment on above: Order Comment: Speci men Type: URINE SPECIMENOrdering Facility: Mary Martinez MD - [facility] Address: [address] [place] [address] Performed By: #### L [id number], UA ####[facility] LABCLIA [id number] [place] [address] [place] Ketones Ql (U) Negative Normal Negative [facility] Comment on above: Order Comment: Speci men Type: URINE SPECIMENOrdering Facility: Mary Martinez MD - [facility] Address: [address] [place] [address] Performed By: #### L [id number], UA ####[facility] LABCLIA [id number] [place] [address] [place] Leukocyte esterase Test strip Ql (U) Negative Normal Negative [facility] Comment on above: Order Comment: Speci men Type: URINE SPECIMENOrdering Facility: Mary Martinez MD - [facility] Address: [address] [place] [address] Performed By: #### L [id number], UA ####[facility] LABCLIA [id number] [place] [address] [place] Nitrite Ql (U) Negative Normal Negative [facility] Comment on above: Order Comment: Speci men Type: URINE SPECIMENOrdering Facility: Mary Martinez MD - [facility] Address: [address] [place] [address] Performed By: #### L [id number], UA ####[facility] LABCLIA [id number] [place] [address] [place] pH (U) 6.0 [pH] Normal <8.5 [facility] Comment on above: Order Comment: Speci men Type: URINE SPECIMENOrdering Facility: Mary Martinez MD - [facility] Address: [address] [place] [address] Performed By: #### L [id number], UA ####[facility] LABCLIA [id number] [place] [address] [place] Protein (U) [Mass/Vol] Negative Normal Negative [facility] Comment on above: Order Comment: Speci men Type: URINE SPECIMENOrdering Facility: Mary Martinez MD - [facility] Address: [address] [place] [address] Performed By: #### L [id number], UA ####[facility] LABCLIA [id number] [place] [address] [place] Specific gravity (U) [Rel density] 1.018 Normal 1.005-1.030 [facility] Comment on above: Order Comment: Speci men Type: URINE SPECIMENOrdering Facility: Mary Martinez MD - [facility] Address: [address] [place] [address] Performed By: #### L [id number], UA ####[facility] LABCLIA [id number] [place] [address] [place] Urobilinogen Ql (U) 0.2 EU/dL Normal 0.2-1.0 EU/dL [facility] Comment on above: Order Comment: Speci men Type: URINE SPECIMENOrdering Facility: Mary Martinez MD - [facility] Address: [address] [place] [address] Performed By: #### L [id number], UA ####[facility] LABIA [id number] [place] [address] [place] Vit B12 [facility] 10-18-2 024 Cobalamin (Vitamin B12) [Mass/Vol] 1334 pg/mL High 232-1245 [facility] Comment on above: Order Comment: Speci men Type: BLOOD SPECIMENOrdering Facility: Mary Martinez MD - [facility] Address: [address] [place] [address] Performed By: #### 2 132-9, 1987-10 ####[facility] LABIA [id number] [place] [address] [place] CNOVon 02-10-2024 CNOV Office Visit (ENDMED ) -- SIMRAN GONZALEZ ([id number]) 1955 M Date Time Provider Department 02/10/24 11:00 AM ETHAN CALDERON ENDMONIQUE During your visit today, we recorded the following information about you: Pulse Respiration Blood pressure Weight 60/minute 16/minute 136/78 81.1 kg Height 1.803 m Ethan Calderon APRN.CNP 02/10/2024 11:49 AM Signed Reason for Consultation: DM Type 2 Referring Physician: SELF HISTORY OF PRESENT ILLNESS; Mr. Gonzalez is a 68 year old male presenting for follow up regarding DM Type 2. He was initially diagnosed with diabetes age 31 after having pancreatitis. He does not have a family history of diabetes mellitus in his family . LV 11/10/23 A1C today is 8.8. up from 8.4 History of diabetes, pancreatitis, hypertension, hyperlipidemia, hypoglycemia Eating anything and everything to keep his weight up which he is maintaining but his BG has been higher. He is reluctant to take more insulin to cover the increased food intake due to fear of hypoglycemia. He reduces his insulin doses and forgets sometimes. Negative SOLANGE and islet cell AB Cpeptide 0.3 He started Dexcom CGM on 07/26/20. He decided against an insulin pump. His current diabetes regimen is: Glucagon: baqsimi lantus 34 units daily HS (only 25 units if under 150 at HS) Humalog 15 units breakfast, 15 units lunch, 22 units dinner Plus sliding scale of humalog at meals or to cover a high sugar at meal time if not eating If Blood Glucose (mg/dL) is < 150 Give 0 units 151-200 Give 1 unit 201-250 Give 2 units 251-300 Give 3 units 301-350 Give 4 units > 351 Give 5 units Previous DM medications: Unable to recall previous oral agents--did not feel well on them and prefers insulin Fiasp--unable to control glucose Novolog --ineffective Admelog--ineffective Regarding symptoms of hyperglycemia, he is not experiencing any symptoms such as polyuria, polydipsia, nocturia or rapid weight loss or blurry vision. Exercise: occasionally; less active in the winter Simran is checking his blood glucose continuously with Dexcom G7 CGM He did bring a logbook today for review: Dexcom download (01/28/24 to 02/10/24) In range 31% High 42% Very high 27% Low 0% Very low 0% GMI 8.4 Average BG 212 BG ranges 100 to 300 BG is elevated and highest overnight. BG rises about 8 pm and stays high until 6 AM. BG is best from 6 AM to 2 pm but still above goal on average Hypoglycemia frequency: occasionally Hypoglycemia awareness: not always ; had a low that required EMS assistance in the past ; has been as low as 40 Overall, the patient has no acute complaints at this time. HLD: Off statin secondary to myalgia --crestor PAST MEDICAL HISTORY No date: Diabetes (HCC) Comment: type 2 No date: Hyperlipidemia No date: Hypertension No date: Pancreatitis PAST SURGICAL HISTORY No date: OTHER Comment: broken arm-right--has titanium plate FAMILY HISTORY Problem Relation Age of Onset Heart disease Father Social History Tobacco Use Smoking status: Never Smokeless tobacco: Never Vaping Use Vaping status: Never Used Substance Use Topics Alcohol use: Yes Current Outpatient Medications Medication Sig Dispense Refill insulin lispro (HUMALOG KWIKPEN INSULIN) 100 unit/mL Inject subcutaneously 15 units breakfast, 15 units lunch, 22 units dinner plus Ss #1 up to 70 units daily 75 mL 3 lisinopril (ZESTRIL) 20 mg tablet insulin glargine (LANTUS SOLOSTAR U-100 INSULIN) 100 unit/mL (3 mL) INJECT 34 UNITS SUBCUTANEOUSLY ONCE DAILY AT BEDTIME IF GLUCOSE IS OVER 150; IF UNDER 150 ONLY TAKE 25 UNITS 45 mL 3 glucagon (BAQSIMI) 3 mg/actuation nasal spray Use 1 [place] in the nose as needed for low blood sugar. May repeat after 15 minutes using a new device if there is no response. 2 Each 1 Insulin [place], Disposable, (BD ULTRAFINE III MINI PEN) 31 gauge x 3/16 Use 4 pen needles daily 400 Each 3 ALPRAZolam (XANAX) 0.5 mg tablet Take 0.5 mg by mouth at bedtime as needed. carvedilol (COREG) 25 mg tablet Take 1 tablet by mouth twice daily. (Patient taking differently: Take 12.5 mg by mouth once daily.) aspirin 325 mg tablet Take 1 tablet by mouth once daily. No current facility-administered medications for this visit. Facility-Administered Medications Ordered in Other Visits Medication Dose Route Frequency Provider Last Rate Last Admin NaCl 0.9% iv infusion 30 mL/hr INTRAVENOUS CONTINUOUS Huy Hauser I, MD 30 mL/hr at 11/18/23 0812 30 mL/hr at 11/18/23 0812 Allergies As of Date: 02/10/2024 Allergen Noted Reaction SYDNEE [PENTAZOCINE LACTATE] 08/08/2009 TRAMADOL HCL 11/22/2019 Other: See Comments Fully Assessed 02/10/2024 REVIEW OF SYSTEMS: Answers submitted by the patient for this visit: Core Review of Systems (Submitted on 02/08/2024) Fever : No Night sweats: No Recent unintentional weight (more content not included)... Normal [facility] HEMOGLOBIN A1C (POC)on 02-09 HbA1c (Bld) [Mass fraction] 8.8 % Abnormal 4.3 - 5.6 % [facility] Comment on above: Location:[address], [address] Point of care (POC) Hemoglobin A1c (HGBA1C) testing is intended to assess glucose control and provide a management tool for patients known to have diabetes and their healthcare providers. Target HGBA1C levels may depend on specific clinical circumstances. POC HGBA1C is not intended for use as a diagnostic or screening test; laboratory-based testing should be used for diagnostic purposes. The following information is supplemental and may not be applicable to specific diabetes management situations: The POC device roughener provides a normal range of 4.2% to 6.5% for the HGBA1C POC test. However, the [place] Diabetes Association guidelines indicate that patients with HGBA1C in the range of 5.7% to 6.4% are at increased risk for development of diabetes and that intervention by lifestyle modification may be beneficial. A HGBA1C level greater than or equal to 6.5% is considered diagnostic of diabetes, pending confirmatory testing. Use of HGBA1C testing to evaluate glucose control may not be appropriate for patients with hemoglobin variants or other conditions (e.g. anemia) that alter red blood cell lifespan. Interpretation and review of laboratory results Abnormal [facility] Colonoscopy Study observatio non 11-18-2023 [facility] Radiology Study observation (narrative) [facility] HEMOGLOBIN A1C (POC)on 11-09 HbA1c (Bld) [Mass fraction] 8.4 % Abnormal 4.3 - 5.6 % [facility] Comment on above: [facility] [address] Point of care (POC) Hemoglobin A1c (HGBA1C) testing is intended to assess glucose control and provide a management tool for patients known to have diabetes and their healthcare providers. Target HGBA1C levels may depend on specific clinical circumstances. POC HGBA1C is not intended for use as a diagnostic or screening test; laboratory-based testing should be used for diagnostic purposes. The following information is supplemental and may not be applicable to specific diabetes management situations: The POC device roughener provides a normal range of 4.2% to 6.5% for the HGBA1C POC test. However, the [place] Diabetes [employer] guidelines indicate that patients with HGBA1C in the range of 5.7% to 6.4% are at increased risk for development of diabetes and that intervention by lifestyle modification may be beneficial. A HGBA1C level greater than or equal to 6.5% is considered diagnostic of diabetes, pending confirmatory testing. Use of HGBA1C testing to evaluate glucose control may not be appropriate for patients with hemoglobin variants or other conditions (e.g. anemia) that alter red blood cell lifespan. Interpretation and review of laboratory results Abnormal [facility] GLUCOSE, BLOOD (POC)on 10-22 Glucose [Mass/Vol] 190 mg/dL Abnormal 74 - 99 mg/dL [facility] Comment on above: Location:[address], [address] The Accu-Chek Inform II glucose meter has not been approved for testing on patients receiving intensive medical intervention or therapy and results from this point of care glucose test should not be used for patient management decisions in these cases. Inaccurate results may also occur from other interfering factors, such as N-acetylcysteine (blood concentrations of greater than 5mg/dL), galactose, extremes of hematocrit (<10 or >65), or high doses of ascorbic acid (vitamin C) greater than 3mg/dL. Consider alternate testing mechanisms (e.g. core lab, blood gas instrument) in the above situations. Interpretation and review of laboratory results Abnormal [facility] Absolute lymphocyte countOrd ered By: Fred Carver on 08-21-2023 Lymphocytes Auto (Unsp spec) [#/Vol] 1.23 10*3/uL 0.83-4.51 [facility] Automated lymphocyte count a s percentage of total leukocytesOrdered By: Fred Carver on 08-21-2023 Lymphocytes/100 WBC Auto (Unsp spec) 20.5 % 19-41 [facility] Basophil percentageOrdered B y: Fred Carver on 08-21-2023 Basophils/100 WBC (Bld) 0.8 % 0-1 [facility] Chloride [Moles/Vol] 103 mmol/L 98-107 [facility] Eosinophils/100 WBC (Bld) 3.7 % 0-5 [facility] Glucose [Mass/Vol] 305 mg/dL 74-106 [facility] Comment on above: Glucose result great er than or equal to 200 mg/dLsuggests DIABETES MELLITUS per A.D.A. criteria. Hemoglobin (Bld) [Mass/Vol] 13.0 g/dL 13.0-16.5 [facility] Monocytes/100 WBC (Bld) 11.5 % 0-10 [facility] Neutrophils (Bld) [#/Vol] 3.8 10*3/uL 2.0-7.7 [facility] Neutrophils/100 WBC (Bld) 63.3 % 47-70 [facility] Potassium [Moles/Vol] 3.9 mmol/L 3.5-5.1 [facility] Sodium [Moles/Vol] 136 mmol/L 136-145 [facility] WBC (Bld) [#/Vol] 6.0 10*3/uL 4.4-11.0 [facility] Determination of erythrocyte mean corpuscular volume (MCV)Ordered By: Fred Carver on 08-21-2023 MCV (RBC) [Entitic vol] 85.8 fL 80-94 [facility] Erythrocyte distribution wid th ratioOrdered By: Fred Carver on 08-21-2023 Erythrocyte distribution width (RBC) [Ratio] 12.9 % 11.6-14.6 [facility] Erythrocyte distribution wid th standard deviationOrdered By: Fred Carver on 08-21-2023 Erythrocyte distribution width (RBC) [Entitic vol] 40.2 fL 35.1-43.9 [facility] Hematocrit Auto (Bld) [Volum e fraction]Ordered By: Fred Carver on 08-21-2023 Hematocrit (Bld) [Volume fraction] 38.7 % 40-54 [facility] Immature granulocytes/100 WB C Auto (Bld)Ordered By: Fred Carver on 08-21-2023 Immature granulocytes/100 WBC (Bld) 0.200 % 0.0-0.9 [facility] Comment on above: IG% - Immature Granu locytes (promyelocytes, myelocytes and metamyelocytes) > 1% indicates that a LEFT SHIFT is Present. Laboratory - Chemistry and C hemistry - challengeOrdered By: Fred Carver on 08-21-2023 CO2 [Moles/Vol] 26.0 mmol/L 21.0-32.0 [facility] Magnesium [Mass/Vol] 1.9 mg/dL 1.6-2.6 [facility] Urea nitrogen/Creatinine [Mass ratio] 19.7 mg/mg 10-20 [facility] Laboratory - Hematology and Cell countsOrdered By: Fred Carver on 08-21-2023 MCH (RBC) [Entitic mass] 28.8 pg 27.0-32.0 [facility] MCHC (RBC) [Mass/Vol] 33.6 g/dL 32-36 [facility] Nucleated RBC/100 WBC (Bld) [Ratio] 0 % 0-5 [facility] Platelet mean volume (Bld) [Entitic vol] 9.2 fL 6.2-12.0 [facility] Platelets (Bld) [#/Vol] 224 10*3/uL 150-450 [facility] No Panel InformationOrdered By: Fred Carver on 08-21-2023 Estimated Creatinine Clearance Calc 60.11 ml/min [facility] Estimated GFR (MDRD) Amer 73 mL/min >60 [facility] Comment on above: GFR Calc Estimated GFR (MDRD) Non-Af Amer 60 mL/min >60 [facility] Comment on above: Non- GFR Calc RBC Auto (Bld) [#/Vol]Ordere d By: Fred Carver on 08-21-2023 RBC (Bld) [#/Vol] 4.51 10*6/uL 4.6-6.2 [facility] Serum or plasma calcium sawyer urement (mass/volume)Ordered By: Fred Carver on 08-21-2023 Calcium [Mass/Vol] 8.5 mg/dL 8.5-10.1 [facility] Serum or plasma creatinine m easurement (mass/volume)Ordered By: Fred Carver on 08-21-2023 Creatinine [Mass/Vol] 1.27 mg/dL 0.70-1.30 [facility] Comment on above: The validity of the calculated GFR & GFRAA in patients over 70 years has not been determined. Clinical correlation is essential. Serum or plasma urea nitroge n measurement (mass/volume)Ordered By: Fred Carver on 08-21-2023 Urea nitrogen [Mass/Vol] 25 mg/dL 12-23 [facility] Thin prep Papanicolaou smear with manual screeningOrdered By: Fred Carver on 08-21-2023 Thin prep Papanicolaou smear with manual screening 10-20 [facility] Basophil percentageOrdered B y: Chris iPllai on 07-14-2023 Creatinine [Mass/Vol] 1.0 mg/dL 0.70-1.30 [facility] No Panel InformationOrdered By: Chris Pillai on 07-14-2023 Bedside Estimated GFR (eGFR) > 60.0000 mL/min >60 [facility] No Panel InformationOrdered By: Chris Pillai on 07-03-2023 Miscellaneous Test See comment [facility] Comment on above: TEST RESULTS LIMITSL yme (B. burgdorferi) PCRLyme (B. burgdorferi) PCR Negative Negative No B. burgdorferi DNA Detected. A negative PCR result for Borrelia burgdorferi on a blood sample does not eliminate the possibility of Lyme disease. CDC recommends that two-tiered serological testing in conjunction with clinical evaluation be used as the primary method of diagnosis.This test was developed and its performance characteristics determined by [employer]. It has not been cleared or approved by the Food and Drug Administration. The FDA has determined that such clearance or approval is not necessary. TESTING PERFORMED AT [facility]. ORIGINAL REPORT ON FILE IN LAB CONTAINS ADDITIONAL TEST SITE INFORMATION. ____ Absolute lymphocyte countOrd ered By: Jay Lala on 05-10-2023 Lymphocytes Auto (Unsp spec) [#/Vol] 1.52 10*3/uL 0.83-4.51 [facility] Basophil percentageOrdered B y: Jay Lala on 05-10-2023 Basophils/100 WBC (Bld) 0.8 % 0-1 [facility] Chloride [Moles/Vol] 104 mmol/L 98-107 [facility] Eosinophils/100 WBC (Bld) 2.9 % 0-5 [facility] Glucose [Mass/Vol] 176 mg/dL 74-106 [facility] Comment on above: Fasting Glucose resu lt greater than or equal to 126 mg/dL suggests DIABETES MELLITUS per A.D.A. criteria. Neutrophils (Bld) [#/Vol] 2.4 10*3/uL 2.0-7.7 [facility] Neutrophils/100 WBC (Bld) 49.9 % 47-70 [facility] Potassium [Moles/Vol] 4.3 mmol/L 3.5-5.1 [facility] Comment on above: Moderate Hemolysis, Result may be falsely increased. Sodium [Moles/Vol] 136 mmol/L 136-145 [facility] WBC (Bld) [#/Vol] 4.8 10*3/uL 4.4-11.0 [facility] Blood erythrocytes count (nu mber/volume)Ordered By: Jay Lala on 05-10-2023 RBC (Bld) [#/Vol] 5.15 10*6/uL 4.6-6.2 [facility] Blood hemoglobin measurement (mass/volume)Ordered By: Jay Lala on 05-10-2023 Hemoglobin (Bld) [Mass/Vol] 14.7 g/dL 13.0-16.5 [facility] Blood lymphocytes/100 leukoc ytesOrdered By: Jay Lala on 05-10-2023 Lymphocytes/100 WBC (Bld) 31.9 % 19-41 [facility] Blood monocytes/100 leukocyt esOrdered By: Jay Lala on 05-10-2023 Monocytes/100 WBC (Bld) 14.3 % 0-10 [facility] Blood platelet mean volumeOr dered By: Jay Lala on 05-10-2023 Platelet mean volume (Bld) [Entitic vol] 9.2 fL 6.2-12.0 [facility] Determination of erythrocyte mean corpuscular volume (MCV)Ordered By: Jay Lala on 05-10-2023 MCV (RBC) [Entitic vol] 87.8 fL 80-94 [facility] Hematocrit Auto (Bld) [Volum e fraction]Ordered By: Jay Lala on 05-10-2023 Hematocrit (Bld) [Volume fraction] 45.2 % 40-54 [facility] Laboratory - Chemistry and C hemistry - challengeOrdered By: Jay Lala on 05-10-2023 CO2 [Moles/Vol] 29.0 mmol/L 21.0-32.0 [facility] Urea nitrogen/Creatinine [Mass ratio] 16.8 mg/mg 10-20 [facility] Laboratory - Hematology and Cell countsOrdered By: Jay Lala on 05-10-2023 Erythrocyte distribution width (RBC) [Entitic vol] 41.2 fL 35.1-43.9 [facility] Erythrocyte distribution width (RBC) [Ratio] 12.7 % 11.6-14.6 [facility] Immature granulocytes/100 WBC (Bld) 0.200 % 0.0-0.9 [facility] Comment on above: IG% - Immature Granu locytes (promyelocytes, myelocytes and metamyelocytes) > 1% indicates that a LEFT SHIFT is Present. MCH (RBC) [Entitic mass] 28.5 pg 27.0-32.0 [facility] Nucleated RBC/100 WBC (Bld) [Ratio] 0 % 0-5 [facility] MCHC Auto (RBC) [Mass/Vol]Or dered By: Jay Lala on 05-10-2023 MCHC (RBC) [Mass/Vol] 32.5 g/dL 32-36 [facility] No Panel InformationOrdered By: Jay Lala on 05-10-2023 Estimated Creatinine Clearance Calc 72.33 ml/min [facility] Estimated GFR (MDRD) Amer 89 mL/min >60 [facility] Comment on above: GFR Calc Estimated GFR (MDRD) Non-Af Amer 73 mL/min >60 [facility] Comment on above: Non- GFR Calc Troponin I High Sensitivity 7 pg/mL 3.0-78.0 [facility] Comment on above: Please Note: New James t Units and Gender Specific Reference Ranges. For more information see Policy Stat Procedure [place] High Sensitivity Troponin (TNIH) and attachments. Platelets bldOrdered By: Lore Lala on 05-10-2023 Platelets (Bld) [#/Vol] 217 10*3/uL 150-450 [facility] Serum or plasma calcium sawyer urement (mass/volume)Ordered By: Jay Lala on 05-10-2023 Calcium [Mass/Vol] 8.4 mg/dL 8.5-10.1 [facility] Serum or plasma creatinine m easurement (mass/volume)Ordered By: Jay Lala on 05-10-2023 Creatinine [Mass/Vol] 1.07 mg/dL 0.70-1.30 [facility] Comment on above: The validity of the calculated GFR & GFRAA in patients over 70 years has not been determined. Clinical correlation is essential. Serum or plasma urea nitroge n measurement (mass/volume)Ordered By: Jay Lala on 05-10-2023 Urea nitrogen [Mass/Vol] 18 mg/dL 7-18 [facility] Thin prep Papanicolaou smear with manual screeningOrdered By: Jay Lala on 05-10-2023 Thin prep Papanicolaou smear with manual screening 3 5-15 [facility] BASIC METABOLIC PANELon 08-07 Anion gap [Moles/Vol] 13 mmol/L Normal 10-20 [facility] Comment on above: Performed By: #### R A, CH8, CRP, HEPATIC #### [facility] [address] [place], [id number] Calcium [Mass/Vol] 9.0 mg/dL Normal 8.4-10.4 [facility] Comment on above: Performed By: #### R A, CH8, CRP, HEPATIC #### [facility] [address], [place], Chloride [Moles/Vol] 103 mmol/L Normal 97-111 [facility] Comment on above: Performed By: #### R Sugey CH8, CRP, HEPATIC #### [facility] [address], [place], CO2 [Moles/Vol] 25 mmol/L Normal 21-30 [facility] Comment on above: Performed By: #### R A CH8, CRP, HEPATIC #### [facility] [address], [place], Creatinine [Mass/Vol] 0.97 mg/dL Normal 0.80-1.30 [facility] Comment on above: Performed By: #### R Sugey CH8, CRP, HEPATIC #### [facility] [address], [place], ESTIMATED GFR (CKD-EPI) 86 mL/min/1.73sqm Normal >=60 [facility] Comment on above: Result Comment: 2020 CKD EPI Equation using Creatinine without Race Comment: Estimated glomerular filtration rate (eGFR) is calculated without a race coefficient. Values should be interpreted in the context of the patient's full clinical presentation. Reference: 1. Randolph C, Yoanna M, Luisito SAUCEDO, et al.. A Unifying Approach for GFR Estimation: Recommendations of the NKF-ASN Task Force on Reassessing the Inclusion of Race in Diagnosing Kidney Disease. [place] Journal of Kidney Diseases 2021;79(2):268-88.e1. 2. N Engl J Med 1 Vol. 385 Issue 19 Pages 2033-7071 Performed By: #### R A, CH8, CRP, HEPATIC #### [facility] [address], [place], Glucose [Mass/Vol] 212 mg/dL High 80-116 [facility] Comment on above: Performed By: #### R A, CH8, CRP, HEPATIC #### [facility] [address], [place], Potassium [Moles/Vol] 4.7 mmol/L Normal 3.3-5.3 [facility] Comment on above: Performed By: #### R A, CH8, CRP, HEPATIC #### [facility] [address] [place] [address], Sodium [Moles/Vol] 136 mmol/L Normal 135-148 [facility] Comment on above: Performed By: #### R A, CH8, CRP, HEPATIC #### [facility] [address] [place] [address], Urea nitrogen [Mass/Vol] 29 mg/dL High 8- [facility] Comment on above: Performed By: #### R A, CH8, CRP, HEPATIC #### [facility] [address] [place] [address], C-REACTIVE PROTEINon 023 CRP [Mass/Vol] mg/L Normal <0.8 [facility] Comment on above: Performed By: #### R A, CH8, CRP, HEPATIC #### [facility] [address] [place] [address], CBC WITH DIFFERENTIALon 08-07 Basophils (Bld) [#/Vol] 0.06 10*3/uL Normal 0.00-0.20 [facility] Comment on above: Performed By: #### C BCDSAT, ESR #### [facility] [address] [place] [address], Basophils/100 WBC (Bld) 1.0 % Normal <=1.9 [facility] Comment on above: Performed By: #### C BCDSAT, ESR #### [facility] [address] [place] [address], Eosinophils (Bld) [#/Vol] 0.28 10*3/uL Normal 0.00-0.70 [facility] Comment on above: Performed By: #### C BCDSAT, ESR #### [facility] [address] [place] [address], Eosinophils/100 WBC (Bld) 4.7 % High 0.1-4.0 [facility] Comment on above: Performed By: #### C BCDSAT, ESR #### [facility] [address] [place] [address], Erythrocyte distribution width (RBC) [Ratio] 13.6 % Normal 11.5-14.5 [facility] Comment on above: Performed By: #### Chata HARTLEY, ESR #### [facility] [address] [place] [address], Hematocrit (Bld) [Volume fraction] 43.3 % Normal 41.0-53.0 [facility] Comment on above: Performed By: #### C YELITZAAT, ESR #### [facility] [address] [place] [address], Hemoglobin (Bld) [Mass/Vol] 15.0 g/dL Normal 13.9-16.3 [facility] Comment on above: Performed By: #### Chata HARTLEY, ESR #### [facility] [address] [place] [address], Lymphocytes (Bld) [#/Vol] 1.84 10*3/uL Normal 1.00-4.80 [facility] Comment on above: Performed By: #### Chata TORREAT, ESR #### [facility] [address] [place] [address], Lymphocytes/100 WBC (Bld) 30.4 % Normal 24.0-44.0 [facility] Comment on above: Performed By: #### Chata TORREAT, ESR #### [facility] [address] [place] [address], MCH (RBC) [Entitic mass] 30.3 pg Normal 26.0-34.0 [facility] Comment on above: Performed By: #### C YELITZAAT, ESR #### [facility] [address] [place] [address], MCHC (RBC) [Mass/Vol] 34.6 g/dL Normal 32.0-35.9 [facility] Comment on above: Performed By: #### Chata TORREAT, ESR #### [facility] [address] [place] [address], MCV (RBC) [Entitic vol] 88 fL Normal 80-100 [facility] Comment on above: Performed By: #### C BCDSAT, ESR #### [facility] [address], [place], MONOCYTE DISTRIBUTION WIDTH Normal [facility] Comment on above: Performed By: #### C YELITZAAT, ESR #### [facility] [address], [place], Monocytes (Bld) [#/Vol] 0.64 10*3/uL Normal 0.20-1.00 [facility] Comment on above: Performed By: #### C ALEXANDRADSAT, ESR #### [facility] [address], [place], Monocytes/100 WBC (Bld) 10.5 % Normal 2.0-11.0 [facility] Comment on above: Performed By: #### C YELITZAAT, ESR #### [facility] [address] [place] [address], Neutrophils (Bld) [#/Vol] 3.24 10*3/uL Normal 1.50-8.00 [facility] Comment on above: Performed By: #### C YELITZAAT, ESR #### [facility] [address] [place] [address], Neutrophils/100 WBC (Bld) 53.4 % Normal 31.0-76.0 [facility] Comment on above: Performed By: #### C BCSANTAAT, ESR #### [facility] [address], [place], Platelet mean volume (Bld) [Entitic vol] 8.0 fL Normal 7.5-11.2 [facility] Comment on above: Performed By: #### C BCDSAT, ESR #### [facility] [address], [place], Platelets (Bld) [#/Vol] 232 10*3/uL Normal 150-400 [facility] Comment on above: Performed By: #### C BCDSAT, ESR #### [facility] [address], [place], RBC (Bld) [#/Vol] 4.94 10*6/uL Normal 4.50-5.90 [facility] Comment on above: Performed By: #### C BCDSAT, ESR #### [facility] [address] [place] [address], WBC (Bld) [#/Vol] 6.1 10*3/uL Normal 4.5-11.5 [facility] Comment on above: Performed By: #### C BCDSAT, ESR #### [facility] [address] [place] [address], CYCLIC CITRULLINATED PEPTIDE ,*on 08-27-2022 CYCLIC CITRULL. PEPTIDE AB, IGG Normal [facility] Comment on above: Order Comment: Refer ence Range: Negative: < 3.0 U/mL Positive: > or = 3.0 U/mL Result Comment: See scanned report Performed By: #### C CP #### [facility] [address] [place] [address], ERYTHROCYTE SEDIMENTATION RA Lainey 08-27-2022 ESR (Bld) [Velocity] 10 mm/h Normal <=20 [facility] Comment on above: Performed By: #### C BCDSAT, ESR #### [facility] [address] [place] [address], HEPATIC FUNCTION PANELon Albumin [Mass/Vol] 4.0 g/dL Normal 3.4-5.1 [facility] Comment on above: Performed By: #### R A, CH8, CRP, HEPATIC #### [facility] [address] [place] [address], ALK 48 IU/L Normal 40-200 [facility] Comment on above: Performed By: #### R A, CH8, CRP, HEPATIC #### [facility] [address] [place] [address], ALT [Catalytic activity/Vol] 17 U/L Normal 7-40 [facility] Comment on above: Performed By: #### R A, CH8, CRP, HEPATIC #### [facility] [address] [place] [address], AST [Catalytic activity/Vol] 20 U/L Normal 7-40 [facility] Comment on above: Performed By: #### R A, CH8, CRP, HEPATIC #### [facility] [address] [place] [address], Bilirubin [Mass/Vol] 0.5 mg/dL Normal 0.1-1.5 [facility] Comment on above: Performed By: #### R A, CH8, CRP, HEPATIC #### [facility] [address] [place] [address], Bilirubin.direct [Mass/Vol] 0.09 mg/dL Low 0.10-0.30 [facility] Comment on above: Performed By: #### R A, CH8, CRP, HEPATIC #### [facility] [address] [place] [address], Protein [Mass/Vol] 7.0 g/dL Normal 5.7-8.1 [facility] Comment on above: Performed By: #### R A, CH8, CRP, HEPATIC #### [facility] [address] [place] [address], HEPATITIS B CORE ANTIBODYon 08-27-2022 CORE Non-Reactive Normal Nonreactive [facility] Comment on above: Performed By: #### C ORE #### [facility] [address] [place] [address], HEPATITIS C ANTIBODYon 08-27 HCV Non-Reactive Normal Nonreactive [facility] Comment on above: Performed By: #### C BCDSAT, ESR #### [facility] [address] [place] [address], Progress Noteson 08-27-2022 [employer] Aut[employer] Interface Message Text Rheumatology New visit Note Referring Physician: Referring Provider: Self Patient Reason for referral: New patient, establish relationship History of present illness: Simran Gonzalez is a 67 year old male with PMH HTN, DMII, Anxiety. Presents complaining of right 3rd digit pain and swelling. Started May. Was working a lot with his hands at the time. By the end of the day noticed pain and swelling at the 3rd MCP and somewhat PIP. Pain constant. Worse with activity. Worse by the end of the day after he has been very active and the next day as well. Saw orthopedics who gave him Etodolac 500 mg, which helps. Not taking daily. Takes occasional Ibuprofen for back pain. Has chronic low back pain. Worse at the end of the day. Left knee pain. Chronic. Worse with activity. Wears a knee brace. Known arthritis. Was supposed to have surgery, but never did. Knee swell. No AM gel, but will feel tight when it is swollen. Pain gets to 8/10 in severity. Able to complete all ADL's, but has been harder to do work outside the house. 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 Past Surgical History: There is no previous surgical history on file. Social History: Social History Socioeconomic History Marital status: Single Highest education level: Bachelor's degree (e.g., BA, AB, BS) Social Determinants of Health Financial Resource Strain: Low Risk Difficulty of Paying Living Expenses: Not hard at all Food Insecurity: No Food Insecurity Worried About Running Out of Food in the Last Year: Never true Ran Out of Food in the Last Year: Never true Transportation Needs: No Transportation Needs Lack of Transportation (Medical): No Lack of Transportation (Non-Medical): No Physical Activity: Insufficiently Active Days of Exercise per Week: 2 days Minutes of Exercise per Session: 30 min Stress: Stress Concern Present Feeling of Stress : To some extent Social Connections: Unknown Frequency of Communication with Friends and Family: More than three times a week Active Member of Clubs or Organizations: Yes Attends Club or Organization Meetings: 1 to 4 times per year Marital Status: Never Intimate Partner Violence: Not At Risk Fear of Current or Ex-Partner: No Emotionally Abused: No Physically Abused: No Sexually Abused: No Family History: No family history on file. Medications: Current Outpatient Medications on File Prior to Visit Medication Sig Dispense Refill HumaLOG KwikPen 100 UNIT/ML SOPN injection INJECT 12 UNITS SUBCUTANEOUSLY WITH BREAKFAST, 10 UNITS WITH LUNCH, 25 UNITS WITH DINNER, PLUS INJECT PER SLIDING SCALE. MAX 80 UNITS DAILY. insulin regular (HumuLIN R) 100 UNIT/ML injection Inject under the skin. etodolac (LODINE) 500 MG tablet Take by mouth. CARvedilol (COREG) 25 MG tablet take 1 tablet by mouth twice daily for 90 days for 90 days sildenafil citrate (VIAGRA) 100 MG tablet 1 tablet as needed Orally Once a day for 30 day(s) Multiple Vitamin (Multi Vitamin Daily) TABS 1 tablet Orally Once a day for 30 day(s) aspirin 325 MG tablet Take 325 mg by mouth daily. magnesium oxide (MAG-OX) 400 MG tablet 1 tablet as needed Orally PRN for 30 day(s) ALPRAZolam (XANAX) 0.5 MG tablet 1 tablet Orally Twice a day as needed for 30 days insulin aspart (NOVOLOG) 100 UNIT/ML SOPN flexpen injection INJECT 12-14 UNITS SUBCUTANEOUSLY WITH BREAKFAST 12-14 UNITS WITH LUNCH AND 25- 30 UNITS WITH DINNER PLUS SLIDING SCALE UP TO 40 UNITS DAILY Subcutaneous THREE TIMES A DAY insulin glargine (Lantus SoloStar) 100 UNIT/ML SOPN injection INJECT 34 UNITS SUBCUTANEOUSLY ONCE DAILY AT BEDTIME Subcutaneous AT BEDTIME Lantus SoloStar 100 UNIT/ML SOPN injection INJECT 34 UNITS SUBCUTANEOUSLY ONCE DAILY AT BEDTIME insulin lispro, 1 Unit Dial, (HUMALOG KWIKPEN) 100 UNIT/ML SOPN injection Inject 12 units breakfast, 14 units lunch, 30 units dinner plus sliding scale up to 80 units daily No current facility-administered medications on file prior to visit. PHYSICAL EXAMINATION: Constitutional BP 150/72 Pulse 54 Temp 97.1 ???F (36.2 ???C) (Temporal) Wt 194 lb 4.8 oz (88.1 kg) Alert, oriented, comfortable, well developed EYES conjunctivae not injected, no scleromalacia Ear, Nose, Mouth and Throat no oral ulcers Cardiovascular s1 s2, regular rate and rhythm, no murmurs, or pedal edema Respiratory clear to auscultation bilaterally, good chest expansion Gastrointestinal soft, non tender, no hepatosplenomegaly Musculoskeletal See details below Skin No rash, (more content not included)... Normal [facility] [employer] Authentication Interface Message Text Patient was identified by name and date of . Raghavendra Nunez Patient at risk for falls:Yes Falls Risk protocol implemented: Yes Normal [facility] RHEUMATOID FACTORon 08-28-19 23 RHEUMATOID FACTOR < 10 Normal <10 [facility] Comment on above: Performed By: #### R A, CH8, CRP, HEPATIC #### [facility] [address], [place], URIC ACIDon 08-27-2022 Urate [Mass/Vol] 6.8 mg/dL Normal 2.0-7.3 [facility] Comment on above: Performed By: #### U BIJAL #### [facility] [address], [place], HEMOGLOBIN A1C (POC)on 10-30 HbA1c (Bld) [Mass fraction] 7.5 % Abnormal 4.2 - 5.6 % [facility] Vital Signs Date Time Vital Sign Value Performing Clinician Facility 11-03-2024 11:06-0400 [facility] [employer] Work Phone: [facility] 11-03-2024 11:06-0400 Body mass index (BMI) [Ratio] 24.3 kg/m2 [facility] [employer] DEVELOPER Work Phone: [facility] 11-03-2024 11:06-0400 Body [facility] [employer] DEVELOPER Work Phone: [facility] 11-03-2024 11:06-0400 Diastolic blood pressure 80 mm[Hg] [facility] [employer]GA DEVELOPER Work Phone: [facility] 11-03-2024 11:06-0400 Heart rate 64 /min [facility] [employer] MANAGER.PEGA DEVELOPER Work Phone: [facility] 11-03-2024 11:06-0400 Respiratory rate 16 /min [facility] [employer] MERCHANDISING MANAGER.PEGA DEVELOPER Work Phone: [facility] 11-03-2024 11:06-0400 SaO2% (BldA) [Mass fraction] 99 % [facility] ECOMMERCE MERCHANDISING MANAGER.PEGA DEVELOPER Work Phone: [facility] 11-03-2024 11:06-0400 Systolic blood pressure 148 mm[Hg] [facility] ECOMMERCE MERCHANDISING MANAGER.PEGA DEVELOPER Work Phone: [facility] 09-21-2024 11:19-0400 Body height 180.3 cm [facility] ECOMMERCE MERCHANDISING MANAGER.PEGA DEVELOPER Work Phone: [facility] 09-21-2024 11:19-0400 Body mass index (BMI) [Ratio] 24.49 kg/m2 [facility] ECOMMERCE MERCHANDISING MANAGER.PEGA DEVELOPER Work Phone: [facility] 09-21-2024 11:19-0400 Body weight 79.6 kg [facility] ECOMMERCE MERCHANDISING MANAGER.PEGA DEVELOPER Work Phone: [facility] 09-21-2024 11:19-0400 Diastolic blood pressure 69 mm[Hg] [facility] ECOMMERCE MERCHANDISING MANAGER.PEGA DEVELOPER Work Phone: [facility] 09-21-2024 11:19-0400 Heart rate 63 /min [facility] ECOMMERCE MERCHANDISING MANAGER.PEGA DEVELOPER Work Phone: [facility] 09-21-2024 11:19-0400 Respiratory rate 16 /min [facility] ECOMMERCE MERCHANDISING MANAGER.PEGA DEVELOPER Work Phone: [facility] 09-21-2024 11:19-0400 SaO2% (BldA) [Mass fraction] 99 % [facility] ECOMMERCE MERCHANDISING MANAGER.PEGA DEVELOPER Work Phone: [facility] 09-21-2024 11:19-0400 Systolic blood pressure 107 mm[Hg] [facility] ECOMMERCE MERCHANDISING MANAGER.PEGA DEVELOPER Work Phone: [facility] 08-18-2024 22:57-0400 Body mass index (BMI) [Ratio] 25.1 kg/m2 Dr. Mary Martinez MD Work Phone: [facility] 08-18-2024 22:57-0400 Body weight 81.[address] Mary Martinez MD Work Phone: [facility] 08-18-2024 22:53-0400 Body height 180.[address] Mary Martinez MD Work Phone: [facility] 08-18-2024 22:53-0400 Body temperature 98.3 [degF] Dr. Mary Martinez MD Work Phone: [facility] 08-18-2024 22:53-0400 Diastolic blood pressure 83 mm[Hg] Dr. Mary Martinez MD Work Phone: [facility] 08-18-2024 22:53-0400 Heart rate 96 /min Dr. Mary Martinez MD Work Phone: [facility] 08-18-2024 22:53-0400 Respiratory rate 18 /min Dr. Mary Martinez MD Work Phone: [facility] 08-18-2024 22:53-0400 SaO2% (BldA) [Mass fraction] 98 % Dr. Mary Martinez MD Work Phone: [facility] 08-18-2024 22:53-0400 Systolic blood pressure 181 mm[Hg] Dr. Mary Martinez MD Work Phone: [facility] 06-22-2024 11:22-0500 Body mass index (BMI) [Ratio] 24.86 kg/m2 [facility] ECOMMERCE MERCHANDISING MANAGER.PEGA DEVELOPER Work Phone: [facility] 06-22-2024 11:22-0500 Body weight 80.8 kg [facility] ECOMMERCE MERCHANDISING MANAGER.PEGA DEVELOPER Work Phone: [facility] 06-22-2024 11:22-0500 Diastolic blood pressure 76 mm[Hg] [facility] ECOMMERCE MERCHANDISING MANAGER.PEGA DEVELOPER Work Phone: [facility] 06-22-2024 11:22-0500 Heart rate 61 /min [facility] ECOMMERCE MERCHANDISING MANAGER.PEGA DEVELOPER Work Phone: [facility] 06-22-2024 11:22-0500 SaO2% (BldA) [Mass fraction] 99 % [facility] ECOMMERCE MERCHANDISING MANAGER.PEGA DEVELOPER Work Phone: [facility] 06-22-2024 11:22-0500 Systolic blood pressure 126 mm[Hg] [facility] ECOMMERCE MERCHANDISING MANAGER.PEGA DEVELOPER Work Phone: [facility] 02-10-2024 11:04-0400 Body height 180.3 cm [facility] ECOMMERCE MERCHANDISING MANAGER.PEGA DEVELOPER Work Phone: [facility] 02-10-2024 11:04-0400 Body mass index (BMI) [Ratio] 24.95 kg/m2 [facility] ECOMMERCE MERCHANDISING MANAGER.PEGA DEVELOPER Work Phone: [facility] 02-10-2024 11:04-0400 Body weight 81.1 kg [facility] ECOMMERCE MERCHANDISING MANAGER.PEGA DEVELOPER Work Phone: [facility] 02-10-2024 11:04-0400 Diastolic blood pressure 78 mm[Hg] [facility] ECOMMERCE MERCHANDISING MANAGER.PEGA DEVELOPER Work Phone: [facility] 02-10-2024 11:04-0400 Heart rate 60 /min [facility] ECOMMERCE MERCHANDISING MANAGER.[facility] Work Phone: [facility] 02-10-2024 11:04-0400 Respiratory rate 16 /min [facility] ECOMMERCE MERCHANDISING MANAGER.PEGA DEVELOPER Work Phone: [facility] 02-10-2024 11:04-0400 SaO2% (BldA) [Mass fraction] 97 % [facility] ECOMMERCE MERCHANDISING MANAGER.PEGA DEVELOPER Work Phone: [facility] 02-10-2024 11:04-0400 Systolic blood pressure 136 mm[Hg] [facility] ECOMMERCE MERCHANDISING MANAGER.PEGA DEVELOPER Work Phone: [facility] 11-18-2023 08:53-0400 Diastolic blood pressure 60 mm[Hg] Huy Arambula MD Work Phone: [facility] 11-18-2023 08:53-0400 Heart rate 58 /min Huy Arambula MD Work Phone: [facility] 11-18-2023 08:53-0400 Respiratory rate 16 /min Huy Arambula MD Work Phone: [facility] 11-18-2023 08:53-0400 SaO2% (BldA) [Mass fraction] 98 % Huy Arambula MD Work Phone: [facility] 11-18-2023 08:53-0400 Systolic blood pressure 102 mm[Hg] Huy Arambula MD Work Phone: [facility] 11-18-2023 08:05-0400 Body height 180.3 cm Huy Arambula MD Work Phone: [facility] 11-18-2023 08:05-0400 Body mass index (BMI) [Ratio] 24.83 kg/m2 Huy Arambula MD Work Phone: [facility] 11-18-2023 08:05-0400 Body temperature 97.11 [degF] Huy Arambula MD Work Phone: [facility] 11-18-2023 08:05-0400 Body weight 80.74 kg Huy Arambula MD Work Phone: [facility] 11-10-2023 10:30-0400 Body mass index (BMI) [Ratio] 25.37 kg/m2 Ethan Calderon ECOMMERCE MERCHANDISING MANAGER.PEGA DEVELOPER Work Phone: [facility] 11-10-2023 10:30-0400 Body weight 82.5 kg Ethanaquiles Vicente ECOMMERCE MERCHANDISING MANAGER.PEGA DEVELOPER Work Phone: [facility] 11-10-2023 10:30-0400 Diastolic blood pressure 87 mm[Hg] Ethan Calderon ECOMMERCE MERCHANDISING MANAGER.PEGA DEVELOPER Work Phone: [facility] 11-10-2023 10:30-0400 Heart rate 72 /min Ethna Calderon ECOMMERCE MERCHANDISING MANAGER.PEGA DEVELOPER Work Phone: [facility] 11-10-2023 10:30-0400 SaO2% (BldA) [Mass fraction] 100 % [facility] ECOMMERCE MERCHANDISING MANAGER.PEGA DEVELOPER Work Phone: [facility] 11-10-2023 10:30-0400 Systolic blood pressure 170 mm[Hg] [facility] ECOMMERCE MERCHANDISING MANAGER.PEGA DEVELOPER Work Phone: [facility] 10-26-2023 09:44-0400 Body height 180.3 cm Angely Jason ECOMMERCE MERCHANDISING MANAGER.PEGA DEVELOPER Work Phone: [facility] 10-26-2023 09:44-0400 Body mass index (BMI) [Ratio] 25.23 kg/m2 Angely Jason ECOMMERCE MERCHANDISING MANAGER.PEGA DEVELOPER Work Phone: [facility] 10-26-2023 09:44-0400 Body weight 82.06 kg Angely Jason ECOMMERCE MERCHANDISING MANAGER.PEGA DEVELOPER Work Phone: [facility] 10-26-2023 09:44-0400 Diastolic blood pressure 73 mm[Hg] Angely Jason ECOMMERCE MERCHANDISING MANAGER.PEGA DEVELOPER Work Phone: [facility] 10-26-2023 09:44-0400 Heart rate 62 /min Angely Jason ECOMMERCE MERCHANDISING MANAGER.PEGA DEVELOPER Work Phone: [facility] 10-26-2023 09:44-0400 Systolic blood pressure 144 mm[Hg] Angely Jason ECOMMERCE MERCHANDISING MANAGER.PEGA DEVELOPER Work Phone: [facility] 10-23-2023 12:05-0400 Body height 180.3 cm [facility] ECOMMERCE MERCHANDISING MANAGER.PEGA DEVELOPER Work Phone: [facility] 10-23-2023 12:05-0400 Body mass index (BMI) [Ratio] 24.94 kg/m2 [facility] ECOMMERCE MERCHANDISING MANAGER.PEGA DEVELOPER Work Phone: [facility] 10-23-2023 12:05-0400 Body weight 81.1 [facility] ECOMMERCE MERCHANDISING MANAGER.PEGA DEVELOPER Work Phone: [facility] 10-23-2023 12:05-0400 Diastolic blood pressure 78 mm[Hg] [facility] ECOMMERCE MERCHANDISING MANAGER.PEGA DEVELOPER Work Phone: [facility] 10-23-2023 12:05-0400 Heart rate 64 /min [facility] ECOMMERCE MERCHANDISING MANAGER.PEGA DEVELOPER Work Phone: [facility] 10-23-2023 12:05-0400 SaO2% (BldA) [Mass fraction] 98 % [facility] ECOMMERCE MERCHANDISING MANAGER.PEGA DEVELOPER Work Phone: [facility] 10-23-2023 12:05-0400 Systolic blood pressure 156 mm[Hg] [facility] ECOMMERCE MERCHANDISING MANAGER.PEGA DEVELOPER Work Phone: [facility] 08-21-2023 01:25-0400 Body temperature 98.4 [degF] [facility] 08-21-2023 01:25-0400 Diastolic blood pressure 87 mm[Hg] [facility] 08-21-2023 01:25-0400 Heart rate 75 /min [facility] 08-21-2023 01:25-0400 Respiratory rate 17 /min [facility] 08-21-2023 01:25-0400 SaO2% (BldA) [Mass fraction] 97 % [facility] 08-21-2023 01:25-0400 Systolic blood pressure 162 mm[Hg] [facility] 08-20-2023 23:23-0400 Body height 180.34 cm [facility] 08-20-2023 23:23-0400 Body mass index (BMI) [Ratio] 27 kg/m2 [facility] 08-20-2023 23:23-0400 Body weight 87.9 kg [facility] 07-10-2023 09:35-0500 Body height 180 cm [facility] ECOMMERCE MERCHANDISING MANAGER.PEGA DEVELOPER Work Phone: [facility] 07-10-2023 09:35-0500 Body weight 88 kg [facility] ECOMMERCE MERCHANDISING MANAGER.PEGA DEVELOPER Work Phone: [facility] 07-10-2023 09:35-0500 Diastolic blood pressure 74 mm[Hg] [facility] ECOMMERCE MERCHANDISING MANAGER.PEGA DEVELOPER Work Phone: [facility] 07-10-2023 09:35-0500 Heart rate 53 /min [facility] ECOMMERCE MERCHANDISING MANAGER.PEGA DEVELOPER Work Phone: [facility] 07-10-2023 09:35-0500 SaO2% (BldA) [Mass fraction] 97 % [facility] ECOMMERCE MERCHANDISING MANAGER.PEGA DEVELOPER Work Phone: [facility] 07-10-2023 09:35-0500 Systolic blood pressure 118 mm[Hg] [facility] ECOMMERCE MERCHANDISING MANAGER.PEGA DEVELOPER Work Phone: [facility] 05-10-2023 18:04-0500 Diastolic blood pressure 78 mm[Hg] [facility] 05-10-2023 18:04-0500 Heart rate 55 /min [facility] 05-10-2023 18:04-0500 Respiratory rate 18 /min [facility] 05-10-2023 18:04-0500 SaO2% (BldA) [Mass fraction] 95 % [facility] 05-10-2023 18:04-0500 Systolic blood pressure 158 mm[Hg] [facility] 05-10-2023 16:16-0500 Body mass index (BMI) [Ratio] 26.4 kg/m2 [facility] 05-10-2023 16:16-0500 Body weight 85.9 kg [facility] 05-10-2023 15:53-0500 Body height 180.34 cm [facility] 05-10-2023 15:53-0500 Body temperature 97.2 [degF] [facility] 09-24-2022 10:31-0400 Body height 180 cm [facility] ECOMMERCE MERCHANDISING MANAGER.PEGA DEVELOPER Work Phone: [facility] 09-24-2022 10:31-0400 Body weight 86.73 kg [facility] ECOMMERCE MERCHANDISING MANAGER.PEGA DEVELOPER Work Phone: [facility] 09-24-2022 10:31-0400 Diastolic blood pressure 76 mm[Hg] Ethan Kupiec ECOMMERCE MERCHANDISING MANAGER.PEGA DEVELOPER Work Phone: [facility] 09-24-2022 10:31-0400 Heart rate 55 /min Ethan Kupiec ECOMMERCE MERCHANDISING MANAGER.PEGA DEVELOPER Work Phone: [facility] 09-24-2022 10:31-0400 Respiratory rate 16 /min [facility] ECOMMERCE MERCHANDISING MANAGER.PEGA DEVELOPER Work Phone: [facility] 09-24-2022 10:31-0400 SaO2% (BldA) [Mass fraction] 98 % [facility] ECOMMERCE MERCHANDISING MANAGER.PEGA DEVELOPER Work Phone: [facility] 09-24-2022 10:31-0400 Systolic blood pressure 160 mm[Hg] Ethan Kupiec ECOMMERCE MERCHANDISING MANAGER.PEGA DEVELOPER Work Phone: [facility] 02-18-2022 13:36-0400 Diastolic blood pressure 80 mm[Hg] Ethan Kupiec ECOMMERCE MERCHANDISING MANAGER.PEGA DEVELOPER Work Phone: [facility] 02-18-2022 13:36-0400 Systolic blood pressure 130 mm[Hg] Ethan Kupiec ECOMMERCE MERCHANDISING MANAGER.PEGA DEVELOPER Work Phone: [facility] 02-18-2022 13:12-0400 Body height 177.3 cm [facility] ECOMMERCE MERCHANDISING MANAGER.PEGA DEVELOPER Work Phone: [facility] 02-18-2022 13:12-0400 Body weight 86.14 kg [facility] ECOMMERCE MERCHANDISING MANAGER.PEGA DEVELOPER Work Phone: [facility] 02-18-2022 13:12-0400 Heart rate 58 /min [facility] ECOMMERCE MERCHANDISING MANAGER.PEGA DEVELOPER Work Phone: [facility] 02-18-2022 13:12-0400 SaO2% (BldA) [Mass fraction] 99 % [facility] ECOMMERCE MERCHANDISING MANAGER.PEGA DEVELOPER Work Phone: [facility] 12-06-2021 14:38-0400 Body temperature 97.7 [degF] Sandy Moe ECOMMERCE MERCHANDISING MANAGER.PEGA DEVELOPER Work Phone: [facility] 12-06-2021 14:38-0400 Body weight 87.27 kg Sandy Moe ECOMMERCE MERCHANDISING MANAGER.PEGA DEVELOPER Work Phone: [facility] 12-06-2021 14:38-0400 Diastolic blood pressure 84 mm[Hg] Sandy Moe ECOMMERCE MERCHANDISING MANAGER.PEGA DEVELOPER Work Phone: [facility] 12-06-2021 14:38-0400 Heart rate 61 /min Sandy Moe ECOMMERCE MERCHANDISING MANAGER.PEGA DEVELOPER Work Phone: [facility] 12-06-2021 14:38-0400 Respiratory rate 16 /min Sandy Moe ECOMMERCE MERCHANDISING MANAGER.PEGA DEVELOPER Work Phone: [facility] 12-06-2021 14:38-0400 SaO2% (BldA) [Mass fraction] 97 % Sandy Moe ECOMMERCE MERCHANDISING MANAGER.PEGA DEVELOPER Work Phone: [facility] 12-06-2021 14:38-0400 Systolic blood pressure 148 mm[Hg] Sandy Moe ECOMMERCE MERCHANDISING MANAGER.PEGA DEVELOPER Work Phone: [facility] 10-30-2021 13:03-0400 Body height 176.[facility] ECOMMERCE MERCHANDISING MANAGER.PEGA DEVELOPER Work Phone: [facility] 10-30-2021 13:03-0400 Body weight 88.36 [facility] ECOMMERCE MERCHANDISING MANAGER.PEGA DEVELOPER Work Phone: [facility] 10-30-2021 13:03-0400 Diastolic blood pressure 77 mm[Hg] Ethan Kupiec ECOMMERCE MERCHANDISING MANAGER.PEGA DEVELOPER Work Phone: [facility] 10-30-2021 13:03-0400 Heart rate 59 /min [facility] ECOMMERCE MERCHANDISING MANAGER.PEGA DEVELOPER Work Phone: [facility] 10-30-2021 13:03-0400 SaO2% (BldA) [Mass fraction] 97 % [facility] ECOMMERCE MERCHANDISING MANAGER.PEGA DEVELOPER Work Phone: [facility] 10-30-2021 13:03-0400 Systolic blood pressure 148 mm[Hg] Ethan Calderon ECOMMERCE MERCHANDISING MANAGER.LINDA Work Phone: [facility] Encounters Encounter Date Encounter Type Care Provider Facility Start: 12-05-2024 End: 12-05-2024 Telephone encounter Ethan Calderon ECOMMERCE MERCHANDISING MANAGER.PEGA DEVELOPER Work Phone: Endocrinology Comment on above: Office Notes ([facility]/) Start: 11-03-2024 End: 11-03-2024 Patient encounter procedure Ethan Calderon ECOMMERCE MERCHANDISING MANAGER.PEGA DEVELOPER Work Phone: Endocrinology Comment on above: Type 2 diabetes julita itus with hypoglycemia without coma, with long-term current use of insulin (HCC) (Primary Dx); Essential hypertension; Mixed hyperlipidemia; History of pancreatitis; Anxiety Start: 11-03-2024 End: 11-03-2024 [facility] Facility:[facility] Start: 11-02-2024 End: 11-03-2024 Patient encounter procedure Dolores Zhang PhD Work Phone: [facility] Comment on above: 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); Adjustment disorder with anxious mood Start: 09-25-2024 End: 09-27-2024 ambulatory Ethan Calderon ECOMMERCE MERCHANDISING MANAGER.PEGA DEVELOPER Work Phone: Endocrinology Comment on above: pertaining to my vis it September 21 Start: 09-21-2024 End: 09-21-2024 Patient encounter procedure Ethan Calderon ECOMMERCE MERCHANDISING MANAGER.PEGA DEVELOPER Work Phone: Endocrinology Comment on above: Type 2 diabetes julita itus with hypoglycemia without coma, with long-term current use of insulin (HCC) (Primary Dx); Essential hypertension; History of pancreatitis; Mixed hyperlipidemia Start: 09-21-2024 End: 09-21-2024 ambulatory [facility] Facility:[facility] Start: 09-15-2024 End: 09-15-2024 Telephone encounter Ethan Calderon ECOMMERCE MERCHANDISING MANAGER.PEGA DEVELOPER Work Phone: Endocrinology Comment on above: [facility] Chart Note Request Start: 09-13-2024 End: 09-14-2024 Telephone encounter Ethan Calderon ECOMMERCE MERCHANDISING MANAGER.PEGA DEVELOPER Work Phone: Endocrinology Comment on above: Office Notes ([facility]/) Refill Request Start: 08-18-2024 End: 08-18-2024 Emergency department patient visit Fred Carver Facility:[facility] Start: 06-22-2024 End: 06-22-2024 ambulatory [facility] Facility:[facility] Start: 06-22-2024 End: 06-22-2024 Patient encounter procedure Ethan Calderon ECOMMERCE MERCHANDISING MANAGER.PEGA DEVELOPER Work Phone: Endocrinology Comment on above: Type 2 diabetes julita itus with hypoglycemia without coma, with long-term current use of insulin (HCC) (Primary Dx); Essential hypertension; History of pancreatitis; Mixed hyperlipidemia Start: 06-20-2024 End: 06-20-2024 [facility] Facility:[facility] Start: 05-25-2024 End: 05-26-2024 Telephone encounter Ethan Calderon ECOMMERCE MERCHANDISING MANAGER.PEGA DEVELOPER Work Phone: Endocrinology Comment on above: CMN for CGMS ([facility]/) Start: 03-25-2024 End: 03-25-2024 [facility] Facility:[facility] Start: 02-10-2024 End: 02-10-2024 ambulatory [facility] Facility:[facility] Start: 02-10-2024 End: 02-10-2024 Patient encounter procedure Ethan Calderon ECOMMERCE MERCHANDISING MANAGER.PEGA DEVELOPER Work Phone: Endocrinology Comment on above: Type 2 diabetes julita itus with hypoglycemia without coma, with long-term current use of insulin (HCC) (Primary Dx); Essential hypertension; History of pancreatitis; Mixed hyperlipidemia Start: 11-19-2023 ambulatory Ethan santos ECOMMERCE MERCHANDISING MANAGER.PEGA DEVELOPER Work Phone: Endocrinology Comment on above: Jamilah Salmeron Start: 11-19-2023 E-mail encounter fro m caregiver Ethan Calderon ECOMMERCE MERCHANDISING MANAGER.PEGA DEVELOPER Work Phone: Endocrinology Start: 11-18-2023 End: 11-18-2023 Subsequent hospital visit by physician Huy Hauser MD Work Phone: [facility] Comment on above: Abnormal weight loss [R63.4] Start: 11-17-2023 Telephone encounter Ethan avina ECOMMERCE MERCHANDISING MANAGER.PEGA DEVELOPER Work Phone: Endocrinology Comment on above: PA--Humalog Start: 11-16-2023 Refill Ethan santos ECOMMERCE MERCHANDISING MANAGER.PEGA DEVELOPER Work Phone: Endocrinology Comment on above: Refill Request Start: 11-13-2023 ambulatory Ethan santos ECOMMERCE MERCHANDISING MANAGER.PEGA DEVELOPER Work Phone: Endocrinology Comment on above: Procedure Start: 11-13-2023 E-mail encounter fro m caregiver Ethan Calderon ECOMMERCE MERCHANDISING MANAGER.PEGA DEVELOPER Work Phone: Endocrinology Start: 11-11-2023 Telephone encounter Ethan avina ECOMMERCE MERCHANDISING MANAGER.PEGA DEVELOPER Work Phone: Endocrinology Comment on above: Patient Question Start: 11-10-2023 End: 11-10-2023 Patient encounter procedure Ethan Calderon ECOMMERCE MERCHANDISING MANAGER.PEGA DEVELOPER Work Phone: Endocrinology Comment on above: Type 2 diabetes julita itus with hypoglycemia without coma, with long-term current use of insulin (HCC) (Primary Dx); Abnormal weight loss; Essential hypertension; History of pancreatitis; Mixed hyperlipidemia Start: 10-26-2023 End: 10-26-2023 Patient encounter procedure Angely Jason ECOMMERCE MERCHANDISING MANAGER.PEGA DEVELOPER Work Phone: [facility] Comment on above: Abnormal weight loss (Primary Dx); Screening for colon cancer Start: 10-23-2023 End: 10-23-2023 Patient encounter procedure Ethan Calderon ECOMMERCE MERCHANDISING MANAGER.PEGA DEVELOPER Work Phone: Endocrinology Comment on above: Type 2 diabetes julita itus with hypoglycemia without coma, with long-term current use of insulin (HCC) (Primary Dx); Abnormal weight loss; Essential hypertension; History of pancreatitis; Mixed hyperlipidemia Start: 10-21-2023 ambulatory Ethan santos ECOMMERCE MERCHANDISING MANAGER.PEGA DEVELOPER Work Phone: Endocrinology Comment on above: question ? Start: 09-25-2023 Telephone encounter Ethan avina ECOMMERCE MERCHANDISING MANAGER.PEGA DEVELOPER Work Phone: Endocrinology Comment on above: LETHA--Fiasp Start: 09-18-2023 Telephone encounter Ethan avina ECOMMERCE MERCHANDISING MANAGER.PEGA DEVELOPER Work Phone: Endocrinology Comment on above: BOYD OFFICE NOTE REQUEST Start: 08-20-2023 End: 08-21-2023 Emergency department patient visit [facility] Work Phone: Start: 07-14-2023 End: 07-14-2023 ambulatory [facility] Work Phone: Start: 07-14-2023 End: 07-14-2023 Patient encounter procedure [facility] Work Phone: Start: 07-10-2023 End: 07-10-2023 Patient encounter procedure Ethan Caldeorn ECOMMERCE MERCHANDISING MANAGER.PEGA DEVELOPER Work Phone: Endocrinology Comment on above: Type 2 diabetes julita itus with hypoglycemia without coma, with long-term current use of insulin (HCC) (Primary Dx); 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); Essential hypertension; History of pancreatitis; Mixed hyperlipidemia Start: 07-03-2023 End: 07-03-2023 ambulatory [facility] Work Phone: Start: 07-03-2023 End: 07-03-2023 Patient encounter procedure [facility] Work Phone: Start: 06-02-2023 Refill Ethan santos ECOMMERCE MERCHANDISING MANAGER.PEGA DEVELOPER Work Phone: Endocrinology Comment on above: Refill Request Start: 05-10-2023 End: 05-10-2023 Emergency department patient visit [facility] Work Phone: Start: 05-10-2023 End: 05-10-2023 Patient encounter procedure Tl MONAE Work Phone: [facility] Comment on above: Syncope, unspecified syncope type (Primary Dx) Start: 12-19-2022 Telephone encounter Ethan avina ECOMMERCE MERCHANDISING MANAGER.PEGA DEVELOPER Work Phone: Endocrinology Comment on above: Request of office no james ([facility]/) [facility] F orm (CMN for [facility] (dexcom)) Start: 11-21-2022 Telephone encounter Ethan avina ECOMMERCE MERCHANDISING MANAGER.PEGA DEVELOPER Work Phone: Endocrinology Comment on above: Question Start: 10-16-2022 Telephone encounter Ethan avina ECOMMERCE MERCHANDISING MANAGER.PEGA DEVELOPER Work Phone: Endocrinology Comment on above: Dexcom Printout Start: 09-24-2022 Telephone encounter Ethan avina ECOMMERCE MERCHANDISING MANAGER.PEGA DEVELOPER Work Phone: Endocrinology Comment on above: PA--FIASP FLEXTOUCH (NEW START) Start: 09-24-2022 End: 09-24-2022 Patient encounter procedure Ethan Calderon ECOMMERCE MERCHANDISING MANAGER.PEGA DEVELOPER Work Phone: Endocrinology Comment on above: Type 2 diabetes julita itus without complication, with long-term current use of insulin (HCC) (Primary Dx); 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); Essential hypertension; History of pancreatitis; Mixed hyperlipidemia Start: 08-27-2022 End: 09-01-2022 ambulatory UNKNOWN PROVIDER Facility:[facility] Start: 08-21-2022 Refill Ethan santos ECOMMERCE MERCHANDISING MANAGER.LINDA Work Phone: Endocrinology Comment on above: Refill Request Start: 08-18-2022 Telephone encounter Ethan avina ECOMMERCE MERCHANDISING MANAGER.PEGA DEVELOPER Work Phone: Endocrinology Comment on above: Boyd Progress Not e Form Start: 07-16-2022 End: 07-16-2022 Patient encounter procedure Rico Santizo OD Work Phone: Ophthalmology Comment on above: Type 2 diabetes julita itus without retinopathy (HCC) (Primary Dx); Age-related nuclear cataract of both eyes; Refractive error Start: 05-27-2022 Telephone encounter Ethan avina ECOMMERCE MERCHANDISING MANAGER.PEGA DEVELOPER Work Phone: Endocrinology Comment on above: [facility] or (Dexcom ) Start: 02-19-2022 Telephone encounter Ethan avina ECOMMERCE MERCHANDISING MANAGER.PEGA DEVELOPER Work Phone: Endocrinology Comment on above: [facility] Start: 02-18-2022 End: 02-18-2022 Patient encounter procedure Ethan Kuptulio ECOMMERCE MERCHANDISING MANAGER.PEGA DEVELOPER Work Phone: Endocrinology Comment on above: Type 2 diabetes julita itus without complication, with long-term current use of insulin (HCC) (Primary Dx); 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); Essential hypertension; History of pancreatitis; Mixed hyperlipidemia; Erectile dysfunction associated with type 2 diabetes mellitus (HCC) Start: 12-06-2021 End: 12-06-2021 Patient encounter procedure Sandy Rosa ECOMMERCE MERCHANDISING MANAGER.PEGA DEVELOPER Work Phone: [facility] Comment on above: Puncture wound (Prim garo Dx) Start: 10-30-2021 End: 10-30-2021 Patient encounter procedure Ethan Landisdenisc ECOMMERCE MERCHANDISING MANAGER.PEGA DEVELOPER Work Phone: Endocrinology Comment on above: Type 2 diabetes julita itus without complication, with long-term current use of insulin (HCC) (Primary Dx); 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); Essential hypertension; History of pancreatitis; Mixed hyperlipidemia Start: 09-02-2021 Refill Ethan Vicente c ECOMMERCE MERCHANDISING MANAGER.PEGA DEVELOPER Work Phone: Endocrinology Comment on above: Refill Request Procedures Date Procedure Procedure Detail Performing Clinician Start: 09-21-2024 Hemoglobin A1c/Hemoglobin.total in Blood Ethan Vicentec ECOMMERCE MERCHANDISING MANAGER.PEGA DEVELOPER Work Phone: Start: 02-10-2024 Hemoglobin A1c/Hemoglobin.total in Blood Ethan Vicentec ECOMMERCE MERCHANDISING MANAGER.PEGA DEVELOPER Work Phone: Start: 11-18-2023 Colonoscopy flx dx w /collj spec when pfrmd Angely Jason ECOMMERCE MERCHANDISING MANAGER.PEGA DEVELOPER Work Phone: Start: 11-18-2023 Colonoscopy Ethan K upiec ECOMMERCE MERCHANDISING MANAGER.LINDA Work Phone: Start: 11-10-2023 Hemoglobin A1c/Hemoglobin.total in Blood Ethan Bobytulio ALEXANDERN.LINDA Work Phone: Start: 10-23-2023 Gluc bld gluc mntr d ev cleared fda spec home use Ethan Juleschata ECOMMERCE MERCHANDISING MANAGER.LINDA Work Phone: Start: 07-14-2023 X-ray of eye for for eign body Start: 07-14-2023 MRI of brain with contrast Start: 10-30-2021 Hemoglobin A1c/Hemoglobin.total in Blood Ethan Calderon ECOMMERCE MERCHANDISING MANAGER.LINDA Work Phone: Plan of Treatment Date Care Activity Detail Author Start: 11-17-2033 Screening for malignant neoplasm of colon [facility] Start: 01-13-2030 Urine microalbumin profile DTaP,Tdap,Td Vaccine (4 - Td or Tdap) [facility] Start: 03-25-2029 Prostate specific antigen measurement Prostate Cancer Screening Discussion [facility] Start: 06-29-2028 Prostate specific antigen measurement Prostate Cancer Screening Discussion [facility] Start: 11-05-2027 Tetanus vaccination Tetanus (Td or Tdap) Booster [facility] Start: 11-05-2027 Urine microalbumin profile DTAP,TDAP,TD (3 - Td or Tdap) [facility] Start: 09-17-2027 PROSTATE CANCER SCREENING DISCUSSION PROSTATE CANCER SCREENING DISCUSSION [facility] Start: 07-30-2026 PROSTATE CANCER SCREENING DISCUSSION PROSTATE CANCER SCREENING DISCUSSION [facility] Start: 04-14-2026 Screening for malignant neoplasm of colon [facility] Start: 09-21-2025 BP Controlled (<130/80) BP Controlled (<130/80) [facility] Start: 06-22-2025 BP Controlled (<130/80) BP Controlled (<130/80) [facility] Start: 06-20-2025 Creatinine measurement Basic Metabolic Panel [facility] Start: 06-20-2025 Hepatitis B screening Urine Albumin:Creatinine Ratio [facility] Start: 06-20-2025 Urine screening for protein Urine Protein (microalbumin) [facility] Start: 03-25-2025 Hepatitis B surface antibody level LDL Cholesterol [facility] Start: 03-25-2025 Lipid panel Lipid Profile [facility] Start: 03-23-2025 Hemoglobin A1c measurement Hemoglobin A1C [facility] Start: 01-05-2025 End: 01-05-2025 Patient encounter procedure 01/05/2025 11:15 AM EDT Office Visit Endocrinology [address] [address] Ethan Calderon APRN.PEGA DEVELOPER [address] [address] follow up OK per SK Endocrinology Comment on above: follow up [place] per SK Start: 12-21-2024 Hemoglobin A1c measurement HbA1C [facility] Start: 12-01-2024 End: 12-01-2024 Patient encounter procedure 12/01/2024 11:30 AM EDT Office Visit [facility] [address] [place] [address] Dolores Zhang, PhD [address] [id number] [facility] Start: 11-17-2024 Screening for malignant neoplasm of colon Colonoscopy [facility] Start: 11-03-2024 End: 11-03-2024 Patient encounter procedure 11/03/2024 11:15 AM EDT Office Visit Endocrinology [address] [address] Ethan Calderon, SHAR.PEGA DEVELOPER [address] [address] 6 week follow up ok to use new slot Endocrinology Comment on above: 6 week follow up ok to use new slot Start: 10-03-2024 Covid-19 Vaccine () Covid-19 Vaccine () [facility] Start: 09-21-2024 End: 09-21-2024 Patient encounter procedure 09/21/2024 11:30 AM EDT Office Visit Endocrinology [address] [address] Ethan Calderon APRN.PEGA DEVELOPER [address] [address] 3-4 month follow up Endocrinology Comment on above: 3-4 month follow up Start: 09-18-2024 Hemoglobin A1c measurement HbA1C [facility] Start: 08-18-2024 [facility] Start: 07-10-2024 BP Controlled (<130/80) BP Controlled (<130/80) [facility] Start: 06-29-2024 Hepatitis B screening Urine Albumin:Creatinine Ratio [facility] Start: 06-29-2024 Hepatitis B surface antibody level LDL Cholesterol [facility] Start: 06-25-2024 Hemoglobin A1c measurement HbA1C [facility] Start: 06-22-2024 End: 06-22-2024 Patient encounter procedure 06/22/2024 11:30 AM EST Office Visit Endocrinology [address] [address] Ethan Calderon, SHAR.PEGA DEVELOPER [address] [address] 3-4 month follow up Endocrinology Comment on above: 3-4 month follow up Start: 06-08-2024 Advance Directive Discussion Advance Directive Discussion [facility] Start: 05-11-2024 Hemoglobin A1c measurement HbA1C [facility] Start: 02-10-2024 Hemoglobin A1c measurement HbA1C [facility] Start: 02-10-2024 End: 02-10-2024 Patient encounter procedure 02/10/2024 11:00 AM EDT Office Visit Endocrinology [address] [address] Ethan Calderon APRN.PEGA DEVELOPER [address] [address] 3 month follow up Endocrinology Comment on above: 3 month follow up Start: 02-07-2024 Covid-19 Vaccine () Covid-19 Vaccine () [facility] Start: 02-07-2024 Covid-19 Vaccine ( season) Covid-19 Vaccine ( season) [facility] Start: 02-07-2024 Influenza vaccination [facility] Start: 01-01-2024 3 comp foot exam completed Diabetic Foot Exam [facility] Start: 01-01-2024 BP Controlled (<130/80) BP Controlled (<130/80) [facility] Start: 01-01-2024 Diabetic foot examination Diabetic Foot Exam [facility] Start: 12-28-2023 Hemoglobin A1c measurement HbA1C [facility] Start: 12-14-2023 End: 12-14-2023 Patient encounter procedure 12/14/2023 10:00 AM EDT Office Visit Endocrinology [address] [address] download Endocrinology Comment on above: download Start: 11-18-2023 End: 11-18-2023 Patient encounter procedure [facility] [place] Start: 11-16-2023 End: 11-16-2023 Patient encounter procedure 11/16/2023 9:15 AM EDT Office Visit [facility] [address] [facility] [place], [place] [address] Mel Vides MD [address] [place] [phone] EGD + colonoscopy consult, DX unintentional weight loss General Surgery Comment on above: EGD + colonoscopy consult, DX unintentio nal weight loss Start: 11-10-2023 End: 11-10-2023 Patient encounter procedure 11/10/2023 10:30 AM EDT Office Visit Endocrinology [address] [address] Ethan Calderon APRN.PEGA DEVELOPER [address] [address] Follow up Endocrinology Comment on above: Follow up Start: 10-26-2023 End: 10-26-2023 Patient encounter procedure 10/26/2023 10:00 AM EDT Office Visit [facility] [address] [place] [id number] Angely Jason APRN.PEGA DEVELOPER [address] [place] [address] ref/ pcp/ colon consult [facility] Comment on above: ref/ pcp/ colon consult Start: 10-23-2023 End: 10-23-2023 Patient encounter procedure 10/23/2023 12:00 PM EDT Office Visit Endocrinology [address] [address] Ethan Calderon, SHAR.PEGA DEVELOPER [address] [address] Diabetes Follow up Endocrinology Comment on above: Diabetes Follow up Start: 09-17-2023 Hepatitis B screening URINE ALBUMIN:CREATININE RATIO [facility] Start: 09-17-2023 Hepatitis B surface antibody level LDL CHOLESTEROL [facility] Start: 08-21-2023 [facility] Start: 07-16-2023 Glaucoma screening Dilated Retinal Exam [facility] Start: 07-16-2023 Hepatitis C antibody, confirmatory test DILATED RETINAL EXAM [facility] Start: 07-05-2023 Covid-19 Vaccine ( season) Covid-19 Vaccine () [facility] Start: 07-03-2023 Hemoglobin A1c/Hemoglobin.total in Blood HbA1C [facility] Start: 06-08-2023 Advance Directive Discussion Advance Directive Discussion [facility] Start: 06-08-2023 Behavioral Health Screening Behavioral Health Screening [facility] Start: 06-08-2023 Depression Assessment Depression Assessment [facility] Start: 05-10-2023 [facility] Start: 03-18-2023 Hemoglobin A1c/Hemoglobin.total in Blood HBA1C [facility] Start: 02-06-2023 Influenza vaccination INFLUENZA (#1) [facility] Start: 01-22-2023 Hepatitis B screening URINE ALBUMIN:CREATININE RATIO [facility] Start: 12-24-2022 Hemoglobin A1c/Hemoglobin.total in Blood HBA1C [facility] Start: 08-06-2022 Annual wellness visit Annual Wellness Visit ([id number]) [facility] Start: 08-05-2022 COVID-19 VACCINE (6 - Moderna series) COVID-19 VACCINE (6 - Moderna series) [facility] Start: 07-30-2022 Hepatitis B screening URINE ALBUMIN:CREATININE RATIO [facility] Start: 06-08-2022 ADVANCE DIRECTIVE DISCUSSION ADVANCE DIRECTIVE DISCUSSION [facility] Start: 06-08-2022 DEPRESSION ASSESSMENT DEPRESSION ASSESSMENT [facility] Start: 05-09-2022 3 comp foot exam completed DIABETIC FOOT EXAM [facility] Start: 05-02-2022 Hemoglobin A1c/Hemoglobin.total in Blood HBA1C [facility] Start: 04-24-2022 Hemoglobin A1c/Hemoglobin.total in Blood HBA1C [facility] Start: 04-22-2022 Hepatitis B surface antibody level LDL CHOLESTEROL [facility] Start: 02-06-2022 Influenza vaccination INFLUENZA (#1) [facility] Start: 01-27-2022 Hemoglobin A1c/Hemoglobin.total in Blood HBA1C [facility] Start: 11-05-2021 COVID-19 VACCINE (5 - Booster for Moderna series) COVID-19 VACCINE (5 - Booster for Moderna series) [facility] Start: 2021 ADVANCE DIRECTIVE DISCUSSION ADVANCE DIRECTIVE DISCUSSION [facility] Start: 2021 PNEUMOVAX AGE 65 AND OVER WITH 5YR LOOKBACK (#1) PNEUMOVAX AGE 65 AND OVER WITH 5YR LOOKBACK (#1) [facility] Start: 08-06-2021 Medicare Annual Wellness Visit Medicare Annual Wellness Visit [facility] Start: 06-08-2021 DEPRESSION ASSESSMENT DEPRESSION ASSESSMENT [facility] Start: 2016 Hepatitis B (HBV) Vaccine (optional start 60+ years) Hepatitis B (HBV) Vaccine (optional start 60+ years) [facility] Start: 2006 SHINGRIX VACCINE (1 of 2) SHINGRIX VACCINE (1 of 2) [facility] Start: 2001 COLOGUARD (FIT-DNA) COLOGUARD (FIT-DNA) [facility] Start: 2001 Colonoscopy COLONOSCOPY [facility] Start: 2001 COLORECTAL CANCER SCREENING COLORECTAL CANCER SCREENING [facility] Start: [address] COLONOGRAPHY [facility] Start: 2001 FECAL OCCULT BLOOD FECAL OCCULT BLOOD [facility] Start: 2001 Screening for malignant neoplasm of colon [facility] Start: 2001 SIGMOIDOSCOPY SIGMOIDOSCOPY [facility] Start: 08-12-1975 Hepatitis A (HAV) Vaccine (optional start 19+ years) Hepatitis A (HAV) Vaccine (optional start 19+ years) [facility] Start: 1974 ANNUAL PCP TEAM CHRONIC DISEASE VISIT ANNUAL PCP TEAM CHRONIC DISEASE VISIT [facility] Start: 1974 Anxiety Screening Anxiety Screening [facility] Start: 1974 BP CONTROLLED (<130/80) BP CONTROLLED (<130/80) [facility] Start: 1974 Depression Screening Depression Screening [facility] Start: 1974 HEPATITIS C SCREENING HEPATITIS C SCREENING [facility] Start: 1974 HIV SCREENING HIV SCREENING [facility] Start: 1968 Adult depression screening assessment DEPRESSION SCREENING [facility] Start: 1966 Hepatitis C antibody, confirmatory test DILATED RETINAL EXAM [facility] Start: 1962 PNEUMOCOCCAL: 65+ (1 - PCV) PNEUMOCOCCAL: 65+ (1 - PCV) [facility] Start: 1956 Glaucoma screening Eye Exam [facility] Start: 1956 Diabetic foot examination Foot Exam [facility] Patient Education [facility] Work Phone: Patient referral [facility] Work Phone: End: 10-25-2024 Screening colonoscopy COLONOSCOPY SCREENING Endoscopy Routine Abnormal weight loss Screening for colon cancer 1 Occurrences starting 10/26/2023 until 10/25/2024 [facility] Work Phone: Comment on above: 1 Occurrences starting 10/26/2023 until 10/25/2024 [facility] Immunizations Immunization Date Immunization Notes Care Provider Regine alvarado 09-21-2024 Hemoglobin A1C Dolores Huerta Work Phone: [facility] 04-04-2024 influenza, high dose seasonal, preservative-free Dolores Zhang PhD Work Phone: [facility] 04-21-2023 zoster vaccine recombinant Dolores Zhang PhD Work Phone: [facility] 03-19-2023 Respiratory syncytia l virus (RSV), vaccine, recombinant, protein subunit RSV prefusion F, adjuvant reconstituted, 0.5 mL, preservative free (EPG=735) Dolores Zhang PhD Work Phone: [facility] 03-05-2023 Influenza, injectabl e, high-dose seasonal, quadrivalent, preservative free (ADS=093) Dolores Zhang PhD Work Phone: [facility] 03-05-2023 influenza virus vacc ine, unspecified formulation Ethanaquiles Vicentec ECOMMERCE MERCHANDISING MANAGER.PEGA DEVELOPER Work Phone: [facility] 02-17-2023 zoster vaccine recombinant Dolores Zhang PhD Work Phone: [facility] 04-25-2022 Influenza, injectabl e, adjuvanted, quadrivalent, preservative free (SNZ=084) Dolores Zhang PhD Work Phone: [facility] 04-25-2022 Pneumococcal conjuga te 20 valent (PCV20), polysaccharide [id number] conjugate, adjuvant, PF (TLE=357) Dolores Zhang PhD Work Phone: [facility] 09-10-2021 Pfizer Monovalent (1 2+ yrs) SARS-COV-2 (COVID-19) vaccine, mRNA, spike protein, LNP, pres. free, 30 mcg/0.3mL dose, brody-sucrose (PJZ=914) Dolores Zhang PhD Work Phone: [facility] 04-05-2021 Pfizer Monovalent (1 2+ yrs) SARS-COV-2 (COVID-19) vaccine, mRNA, spike protein, LNP, pres. free, 30 mcg/0.3mL dose (ZPS=146) Dolores Zhang PhD Work Phone: [facility] 03-28-2021 influenza, seasonal, injectable Ethan Julesc ECOMMERCE MERCHANDISING MANAGER.PEGA DEVELOPER Work Phone: [facility] Work Phone: 09-05-2020 Moderna Monovalent ( 12+ yrs) COVID-19 vaccine, mRNA, spike protein, LNP, PF, 100 mcg/0.5 mL (ORL=216) Dolores Zhang PhD Work Phone: [facility] 08-08-2020 Moderna Monovalent ( 12+ yrs) COVID-19 vaccine, mRNA, spike protein, LNP, PF, 100 mcg/0.5 mL (FJP=562) Dolores Zhang PhD Work Phone: [facility] 03-29-2020 Seasonal, quadrivale nt, recombinant, injectable influenza vaccine, preservative free Ethan Kupiec ECOMMERCE MERCHANDISING MANAGER.PEGA DEVELOPER Work Phone: [facility] 01-14-2020 tetanus toxoid, redu yvonne diphtheria toxoid, and acellular pertussis vaccine, adsorbed [facility] 04-22-2019 Influenza, injectabl e, Madin Maria Dolores Canine Kidney, quadrivalent with preservative Ethan Kupiec ECOMMERCE MERCHANDISING MANAGER.PEGA DEVELOPER Work Phone: [facility] 11-04-2017 tetanus toxoid, redu yvonne diphtheria toxoid, and acellular pertussis vaccine, adsorbed Ethan Kupiec ECOMMERCE MERCHANDISING MANAGER.PEGA DEVELOPER Work Phone: [facility] 03-11-2017 influenza, injectabl e, quadrivalent, preservative free Ethan Kupiec ECOMMERCE MERCHANDISING MANAGER.PEGA DEVELOPER Work Phone: [facility] 04-14-2016 influenza, seasonal, injectable Ethan Kupiec ECOMMERCE MERCHANDISING MANAGER.PEGA DEVELOPER Work Phone: [facility] 04-06-2015 influenza, injectabl e, quadrivalent, preservative free Ethan Kupiec ECOMMERCE MERCHANDISING MANAGER.PEGA DEVELOPER Work Phone: [facility] 03-06-2014 influenza, injectabl e, quadrivalent, preservative free Ethan Kupiec ECOMMERCE MERCHANDISING MANAGER.PEGA DEVELOPER Work Phone: [facility] 03-06-2014 tetanus toxoid, redu yvonne diphtheria toxoid, and acellular pertussis vaccine, adsorbed Ethan Kupiec ECOMMERCE MERCHANDISING MANAGER.PEGA DEVELOPER Work Phone: [facility] 03-30-2013 influenza, injectabl e, quadrivalent, preservative free Ethan Kupiec ECOMMERCE MERCHANDISING MANAGER.PEGA DEVELOPER Work Phone: [facility] 04-24-2009 influenza, seasonal, injectable, preservative free Ethan Kupiec ECOMMERCE MERCHANDISING MANAGER.PEGA DEVELOPER Work Phone: [facility] 04-11-2009 novel influenza-H1N1 -09, preservative-free, injectable Ethan Kupiec ECOMMERCE MERCHANDISING MANAGER.PEGA DEVELOPER Work Phone: [facility] 04-28-2007 influenza virus vacc ine, whole virus Ethan Kupiec ECOMMERCE MERCHANDISING MANAGER.PEGA DEVELOPER Work Phone: [facility] Payers Date Payer Category Payer Self-pay [id number] 2021 Medicaid [place] [id number] 2021-Present [phone] [address] [place] [address] Medicaid [id number] 2021 [facility] ANTHANGIE ME DICARE SUPPLEMENT ..[id number] 2021 Unknown ANTHEM ANTHEM ME DICARE SUPPLEMENT [id number] 2021-Present [phone] [address] [place] [address] Indemnity [id number] 2021 Unknown MARIAN[place] SUPPLEMENT [id number] 2021-Present [phone] [address] [place] [address] Indemnity [id number] 2021 Unknown [id number] 2021 Medicare MEDICARE MEDICAR E A AND B [id number] 2021-Present [phone] [place] [address] Medicare [id number] 2021 Medicare [id number] 2021 Medicare [id number] 2017 Medicaid [id number] 2016 Unknown MARIANO EXCHANGE PLAN [id number] 1956 Unknown [id number] Unknown [facility] PL[facility] [id number] Unknown [id number] Social History Date Type Detail Facility Start: 09-23-2019 End: 02-18-2022 Tobacco smoking status NHIS Never smoked tobacco [facility] Work Phone: Start: 09-23-2019 End: 02-18-2022 Tobacco use and exposure Smokeless tobacco non-user [facility] Work Phone: Start: 08-02-2021 End: 11-03-2024 Alcohol intake Current drinker of alcohol (finding) [facility] Start: 09-23-2019 History SDOH Alcohol Frequency 2 [facility] Start: 1955 Sex Assigned At Not on file [facility] Start: 10-20-2021 End: 02-18-2022 Exposure to SARS-CoV-2 (event) Not sure [facility] Start: 09-24-2022 End: 10-16-2022 History of Social function [facility] Work Phone: Start: 09-24-2022 End: 10-16-2022 Tobacco use panel [facility] Work Phone: National Score (1-10 0), lower number is lower risk 62 [facility] Start: 10-23-2021 Gender identity Identifies as male gender (finding) [facility] Start: 10-23-2021 Sexual orientation Choose not to disclose [facility] Start: 05-10-2023 End: 08-20-2023 Tobacco smoking status WVIS Unknown if ever smoked [facility] Start: 04-20-2019 None [facility] Start: 04-20-2019 With Family [facility] Start: 09-27-2018 Non-smoker [facility] Start: 1955 Sex Assigned At Male [facility] How often to you hav e a drink containing alcohol? Monthly or less [facility] Work Phone: Start: 08-04-2022 End: 08-18-2024 Sex Male (finding) [facility] Within the last year , have you been afraid of your partner or ex-partner? No [facility] Do you belong to any clubs or organizations such as mormonism groups, unions, fraternal or athletic groups, or school groups? Yes [facility] Are you now , , , , never or living with a partner? Never [facility] Do you feel stress - tense, restless, nervous, or anxious, or unable to sleep at night because your mind is troubled all the time - these days [OSQ] To some extent [facility] (I/We) worried aaron er (my/our) food would run out before (I/we) got money to buy more. Never true [facility] Start: 08-26-2022 Education 17 [facility] Medical Equipment Procedure Code Equipment Code Equipment Origin al Text Equipment Identifier Dates ORIF, elbow 2.0MM LCP PLATES FDA Start: 09-28-2018 ORIF, elbow 2.7MM CORTEX SCREW,SELF TAP FDA Start: 09-28-2018 ORIF, elbow 2.7MM CORTEX SCREW,SELF TAP FDA Start: 09-28-2018 ORIF, elbow 2.7MM CORTEX SCREWS SELF TAP FDA Start: 09-28-2018 ORIF, elbow 2.7MM CORTEX SCREWS,SELF TAP FDA Start: 09-28-2018 ORIF, elbow PASTE,BONE 1CC DIEGO FDA Start: 09-28-2018 ORIF, elbow 2.0MM LCP PLATES FDA Start: 09-28-2018 ORIF, elbow 2.7MM CORTEX SCREW,SELF TAP FDA Start: 09-28-2018 ORIF, elbow 2.7MM CORTEX SCREW,SELF TAP FDA Start: 09-28-2018 ORIF, elbow 2.7MM CORTEX SCREWS SELF TAP FDA Start: 09-28-2018 ORIF, elbow 2.7MM CORTEX SCREWS,SELF TAP FDA Start: 09-28-2018 ORIF, elbow PASTE,BONE 1CC DIEGO FDA Start: 09-28-2018 ORIF, elbow 2.0MM LCP PLATES FDA Start: 09-28-2018 ORIF, elbow 2.7MM CORTEX SCREW,SELF TAP FDA Start: 09-28-2018 ORIF, elbow 2.7MM CORTEX SCREW,SELF TAP FDA Start: 09-28-2018 ORIF, elbow 2.7MM CORTEX SCREWS SELF TAP FDA Start: 09-28-2018 ORIF, elbow 2.7MM CORTEX SCREWS,SELF TAP FDA Start: 09-28-2018 ORIF, elbow PASTE,BONE 1CC DIEGO FDA Start: 09-28-2018 ORIF, elbow 2.0MM LCP PLATES FDA Start: 09-28-2018 ORIF, elbow 2.7MM CORTEX SCREW,SELF TAP FDA Start: 09-28-2018 ORIF, elbow 2.7MM CORTEX SCREW,SELF TAP FDA Start: 09-28-2018 ORIF, elbow 2.7MM CORTEX SCREWS SELF TAP FDA Start: 09-28-2018 ORIF, elbow 2.7MM CORTEX SCREWS,SELF TAP FDA Start: 09-28-2018 ORIF, elbow PASTE,BONE 1CC DIEGO FDA Start: 09-28-2018 ORIF, elbow 2.0MM LCP PLATES FDA Start: 09-28-2018 ORIF, elbow 2.7MM CORTEX SCREW,SELF TAP FDA Start: 09-28-2018 ORIF, elbow 2.7MM CORTEX SCREW,SELF TAP FDA Start: 09-28-2018 ORIF, elbow 2.7MM CORTEX SCREWS SELF TAP FDA Start: 09-28-2018 ORIF, elbow 2.7MM CORTEX SCREWS,SELF TAP FDA Start: 09-28-2018 ORIF, elbow PASTE,BONE 1CC DIEGO FDA Start: 09-28-2018 Use 4 pen needle s daily [id number] Start: 02-01-2021 End: 02-18-2022 Comment on above: Use 4 pen needles da [place] Mental Status Date Assessment Result Facility 08-18-2024 Cognitive function Level Of Cons ciousness Awake;Alert;Appropriate;Follow s Commands [facility] Work Phone: 08-20-2023 Cognitive function Level Of Cons ciousness Awake;Alert;Appropriate;Follow s Commands [facility] Work Phone: 05-10-2023 Cognitive function Level Of Cons ciousness Awake;Alert;Appropriate;Follow s Commands [facility] Work Phone: Clinical Notes 09-02-2021 to 12-05-2024 Telephone Encounter - Aminata Major MA - 12/05/2024 9:34 AM EDTTelephone Encounter - Aminata Major MA - 12/05/2024 9:34 AM EDTPatient InstructionsAminata Major MA - 11/03/2024 11:16 AM EDT Note Date & Type Note Facility 12-05-2024 Telephone encounter Note Received a request for office notes from [facility] Services Notes from: 11/03/2024 Faxed via [employer] at [phone] Transmission Successful. [facility] 12-05-2024 Miscellaneous Notes Received a request for office notes from [facility] Notes from: 11/03/2024 Faxed via [employer] at [phone] Transmission Successful. documented in this encounter [facility] 11-03-2024 Instructions Ethan Calderon APRN.PEGA DEVELOPER - 11/03/2024 11:39 AM EDT Avoid in between meal insulin doses. Take Lantus to 30 units daily in the PM Unless glucose is under 200 then only take 18 units Humalog: Breakfast 7 units Lunch 7 units Dinner 12 units Plus add sliding scale of humalog at meals or to cover a high sugar at meal time if not eating If Blood Glucose (mg/dL) is < 150 Give 0 units 151-200 Give 1 unit 201-250 Give 2 units 251-300 Give 3 units 301-350 Give 4 units > 351 Give 5 units Download the [employer] fermin Message me in two weeks to download the data Follow up in 2 months Ethan Calderon, MSN, ECOMMERCE MERCHANDISING MANAGER, PRINTED CIRCUIT BOARD LAYOUT DESIGNER-C, [facility] Endocrinology [facility] Office [facility]/[place] [address] Fax: documented in this encounter [facility] 11-03-2024 Note HNO ID: [id number] Author: AMINATA MAJOR MA Service: ? Author Type: Shoe Associate Type: Procedures Filed: 11/03/2024 13:05 Note Text: [facility] 11-03-2024 Procedure note Procedure(s): EXTERNAL TESTER REGULATOR, CGM SYS Images from the original note were not included. [facility] 11-03-2024 Procedure note Procedure(s): EXTERNAL TESTER REGULATOR, CGM SYS Images from the original note were not included. documented in this encounter [facility] 11-03-2024 History of Present illness Narrative Reason for Consultation: DM Type 2 Referring Physician: SELF HISTORY OF PRESENT ILLNESS; Mr. Gonzalez is a 69 year old male presenting for follow up regarding DM Type 2. He was initially diagnosed with diabetes age 31 after having pancreatitis. He does not have a family history of diabetes mellitus in his family. LV 09/21/24 A1C 8.8 on 09/21/24 Interval visit today due to A1C and glucose management concerns. History of diabetes, pancreatitis, hypertension, hyperlipidemia, hypoglycemia He messaged me after his appointment in September and was reconsidering seeing a psychiatrist to help him with diabetes/medication anxieties. Met with someone yesterday at [facility] Negative SOLANGE and islet cell AB Cpeptide 0.3 He started Dexcom CGM on 07/26/20. He did not make the insulin changes discussed last visit. Still taking in between insulin doses but worries about taking a full dose before the meal. Admits missing some of the doses. Under stress due to work and home life. He previously decided against an insulin pump. He had been losing weight --now mostly stabalized. He was worked up by PCP and no causes noted. He was referred to filer finish His current diabetes regimen is: Glucagon: baqsimi lantus 15 units daily in AM---taking 29 to 32 units in PM instead Humalog 7-8 units breakfast, 7 units lunch, 12 units dinner --forgets doses. Plus sliding scale of humalog at meals or to cover a high sugar at meal time if not eating If Blood Glucose (mg/dL) is < 150 Give 0 units 151-200 Give 1 unit 201-250 Give 2 units 251-300 Give 3 units 301-350 Give 4 units > 351 Give 5 units Previous DM medications: Unable to recall previous oral agents--did not feel well on them and prefers insulin Fiasp--unable to control glucose Novolog --ineffective Admelog--ineffective Regarding symptoms of hyperglycemia, he is not experiencing any symptoms such as polyuria, polydipsia, nocturia or rapid weight loss or blurry vision. Exercise: occasionally; less active in the winter Simran is checking his blood glucose continuously with Dexcom G7 CGM-- not using at this time. He did bring a logbook today for review: CGM download (10/21/24 to 11/03/24) BG ranges 100 to 300 TIR 41% Very high 18% High 41% Low 0% Very low 0% Avg glucose 201 GMI 8.1% BG is best from 5 AM to 9 AM and 5 pm to 8 pm. BG rises after breakfast and dinner. Hypoglycemia frequency: occasionally Hypoglycemia awareness: not always ; had a low that required EMS assistance in the past ; has been as low as 40 Overall, the patient has no acute complaints at this time. HLD: Off statin secondary to myalgia --crestor PAST MEDICAL HISTORY Diagnosis Date Diabetes (HCC) type 2 Hyperlipidemia Hypertension Pancreatitis (HCC) PAST SURGICAL HISTORY Procedure Laterality Date OTHER broken arm-right--has titanium plate FAMILY HISTORY Problem Relation Age of Onset Heart disease Father Social History Tobacco Use Smoking status: Never Smokeless tobacco: Never Vaping Use Vaping status: Never Used Substance Use Topics Alcohol use: Yes Current Outpatient Medications Medication Sig Dispense Refill glucagon (BAQSIMI) 3 mg/actuation nasal spray Use 1 spray in the nose as needed for low blood sugar. May repeat after 15 minutes using a new device if there is no response. 2 each 1 insulin lispro (HUMALOG KWIKPEN INSULIN) 100 unit/mL Inject subcutaneously 7 units breakfast, 7 units lunch, 12 units dinner plus Ss #1 up to 40 units daily 45 mL 3 insulin glargine (LANTUS SOLOSTAR U-100 INSULIN) 100 unit/mL (3 mL) INJECT 15 UNITS SUBCUTANEOUSLY ONCE DAILY IN AM 15 mL 3 lisinopril (ZESTRIL) 20 mg tablet Insulin [place], Disposable, (BD ULTRAFINE III MINI PEN) 31 gauge x 08/21 Use 4 pen needles daily 400 Each 3 ALPRAZolam (XANAX) 0.5 mg tablet Take 0.5 mg by mouth at bedtime as needed. aspirin 325 mg tablet Take 1 tablet by mouth once daily. No current facility-administered medications for this visit. Allergies As of Date: 11/03/2024 Allergen Noted Reaction WESLEYWIN [PENTAZOCINE LACTATE] 08/08/2009 TRAMADOL HCL 11/22/2019 Other: See Comments Fully Assessed 11/03/2024 REVIEW OF SYSTEMS: Review of Systems Respiratory: Negative for difficulty breathing. Cardiovascular: Negative for chest pain. Gastrointestinal: Negative for nausea, vomiting, diarrhea and constipation. PHYSICAL EXAM: BP 148/80 Pulse 64 Resp 16 Ht 180.3 cm (5' 10.98) Wt 79 kg (174 lb 2.6 oz) SpO2 99% BMI 24.3 kg/m2 Physical Exam Constitutional: Appearance: Normal appearance. Cardiovascular: Rate and Rhythm: Normal rate and regular rhythm. Pulmonary: Effort: Pulmonary effort is normal. Breath sounds: Normal breath sounds. Skin: General: Skin is warm and dry. Neurological: Mental Status: He is alert and oriented to person, place, and time. Psychiatric: Mood and Affect: Mood normal. Behavior: Behavior normal. DATA: Creatinine Date Value Ref Range Status 06/20/2024 0.90 0.73 - 1.22 mg/dL Final Hemoglobin A1C (%) Date Value 07/30/2021 7.8 Hemoglobin A1C (POCT) (%) Date Value 09/21/2024 8.8 ) No components found for: URINEALBUMIN Cholesterol, Total (mg/dL) Date Value 03/25/2024 200 04/22/2021 210 04/22/2021 214 HDL Cholesterol (mg/dL) Date Value 03/25/2024 54 04/22/2021 44 04/22/2021 44 LDL Cholesterol, Calculated (mg/dL) Date Value 03/25/2024 129 04/22/2021 140 04/22/2021 144 Triglyceride (mg/dL) Date Value 03/25/2024 84 04/22/2021 131 04/22/2021 132 IMPRESSION: Mr. Gonzalez is a 69 year old male here for evaluation of DM Type 2 complicated by hypertension, hyperlipidemia, hypoglycemia unawareness . RECOMMENDATIONS: (E11.649, Z79.4) Type 2 diabetes mellitus with hypoglycemia without coma, with long-term current use of insulin ([facility]) (primary encounter diagnosis) Comment: Glycemic control is above goal but showing some improvement. Insulin adjusted. Plan: insulin glargine (LANTUS SOLOSTAR U-100 INSULIN) 100 unit/mL (3 mL) Continue CGM Keep glucagon on hand Avoid in between meal insulin doses. Avoid in between meal insulin doses. Take Lantus to 30 units daily in the PM Unless glucose is under 200 then only take 18 units Humalog: Breakfast 7 units Lunch 7 units Dinner 12 units Plus add sliding scale of humalog at meals or to cover a high sugar at meal time if not eating If Blood Glucose (mg/dL) is < 150 Give 0 units 151-200 Give 1 unit 201-250 Give 2 units 251-300 Give 3 units 301-350 Give 4 units > 351 Give 5 units Download the [employer] fermin Message me in two weeks to download the data Follow up in 2 months (I10) Essential hypertension Comment/Plan: Managed per PCP (Z87.19) History of pancreatitis Comment/Plan: avoid GLP-1 and DPP4. Caution if SGLT2 is used due to post marketing incidences of acute pancreatitis (E78.2) Mixed hyperlipidemia Comment/Plan: He declines statin due to myalgia (F41.9) Anxiety Comment/Plan: now working with psychologist. I spent a total of 40 minutes on the date of the service which included preparing to see the patient, [id number] patient care, completing clinical documentation, obtaining and/or reviewing separately obtained history, performing a medically appropriate examination, counseling and educating the patient/family/caregiver, and ordering medications, tests, or procedures. Ethan Calderon, MSN, ECOMMERCE MERCHANDISING MANAGER, PRINTED CIRCUIT BOARD LAYOUT DESIGNER-C, [facility] Endocrinology [facility]/[address], [address] [place] [address] Fax: documented in this encounter [facility] 11-03-2024 Note HNO ID: [id number] Author: ETHAN CALDERON APRN.CNP Service: ? Author Type: Nurse Practitioner Type: Progress Notes Filed: 11/03/2024 13:05 Note Text: Reason for Consultation: DM Type 2 Referring Physician: SELF HISTORY OF PRESENT ILLNESS; Mr. Gonzalez is a 69 year old male presenting for follow up regarding DM Type 2. He was initially diagnosed with diabetes age 31 after having pancreatitis. He does not have a family history of diabetes mellitus in his family. LV 09/21/24 A1C 8.8 on 09/21/24 Interval visit today due to A1C and glucose management concerns. History of diabetes, pancreatitis, hypertension, hyperlipidemia, hypoglycemia He messaged me after his appointment in September and was reconsidering seeing a psychiatrist to help him with diabetes/medication anxieties. Met with someone yesterday at [facility] Negative SOLANGE and islet cell AB Cpeptide 0.3 He started Dexcom CGM on 07/26/20. He did not make the insulin changes discussed last visit. Still taking in between insulin doses but worries about taking a full dose before the meal. Admits missing some of the doses. Under stress due to work and home life. He previously decided against an insulin pump. He had been losing weight --now mostly stabalized. He was worked up by PCP and no causes noted. He was referred to filer finish His current diabetes regimen is: Glucagon: baqsimi lantus 15 units daily in AM---taking 29 to 32 units in PM instead Humalog 7-8 units breakfast, 7 units lunch, 12 units dinner --forgets doses. Plus sliding scale of humalog at meals or to cover a high sugar at meal time if not eating If Blood Glucose (mg/dL) is < 150 Give 0 units 151-200 Give 1 unit 201-250 Give 2 units 251-300 Give 3 units 301-350 Give 4 units > 351 Give 5 units Previous DM medications: Unable to recall previous oral agents--did not feel well on them and prefers insulin Fiasp--unable to control glucose Novolog --ineffective Admelog--ineffective Regarding symptoms of hyperglycemia, he is not experiencing any symptoms such as polyuria, polydipsia, nocturia or rapid weight loss or blurry vision. Exercise: occasionally; less active in the winter Simran is checking his blood glucose continuously with Dexcom G7 CGM-- not using at this time. He did bring a logbook today for review: CGM download (10/21/24 to 11/03/24) BG ranges 100 to 300 TIR 41% Very high 18% High 41% Low 0% Very low 0% Avg glucose 201 GMI 8.1% BG is best from 5 AM to 9 AM and 5 pm to 8 pm. BG rises after breakfast and dinner. Hypoglycemia frequency: occasionally Hypoglycemia awareness: not always ; had a low that required EMS assistance in the past ; has been as low as 40 Overall, the patient has no acute complaints at this time. HLD: Off statin secondary to myalgia --crestor PAST MEDICAL HISTORY Diagnosis Date Diabetes (HCC) type 2 Hyperlipidemia Hypertension Pancreatitis (HCC) PAST SURGICAL HISTORY Procedure Laterality Date OTHER broken arm-right--has titanium plate FAMILY HISTORY Problem Relation Age of Onset Heart disease Father Social History Tobacco Use Smoking status: Never Smokeless tobacco: Never Vaping Use Vaping status: Never Used Substance Use Topics Alcohol use: Yes Current Outpatient Medications Medication Sig Dispense Refill glucagon (BAQSIMI) 3 mg/actuation nasal spray Use 1 spray in the nose as needed for low blood sugar. May repeat after 15 minutes using a new device if there is no response. 2 each 1 insulin lispro (HUMALOG KWIKPEN INSULIN) 100 unit/mL Inject subcutaneously 7 units breakfast, 7 units lunch, 12 units dinner plus Ss #1 up to 40 units daily 45 mL 3 insulin glargine (LANTUS SOLOSTAR U-100 INSULIN) 100 unit/mL (3 mL) INJECT 15 UNITS SUBCUTANEOUSLY ONCE DAILY IN AM 15 mL 3 lisinopril (ZESTRIL) 20 mg tablet Insulin [place], Disposable, (BD ULTRAFINE III MINI PEN) 31 gauge x 08/21 Use 4 pen needles daily 400 Each 3 ALPRAZolam (XANAX) 0.5 mg tablet Take 0.5 mg by mouth at bedtime as needed. aspirin 325 mg tablet Take 1 tablet by mouth once daily. No current facility-administered medications for this visit. Allergies As of Date: 11/03/2024 Allergen Noted Reaction SYDNEE [PENTAZOCINE LACTATE] 08/08/2009 TRAMADOL HCL 11/22/2019 Other: See Comments Fully Assessed 11/03/2024 REVIEW OF SYSTEMS: Review of Systems Respiratory: Negative for difficulty breathing. Cardiovascular: Negative for chest pain. Gastrointestinal: Negative for nausea, vomiting, diarrhea and constipation. PHYSICAL EXAM: BP 148/80 Pulse 64 Resp 16 Ht 180.3 cm (5' 10.98) Wt 79 kg (174 lb 2.6 oz) SpO2 99% BMI 24.3 kg/m2 Physical Exam Constitutional: Appearance: Normal appearance. Cardiovascular: Rate and Rhythm: Normal rate and regular rhythm. Pulmonary: Effort: Pulmonary effort is normal. Breath sounds: Normal breath sounds. Skin: General: Skin is warm and dry. N (more content not included)... [facility] 11-02-2024 History of Present illness Narrative GEROPSYCH Consult November 03, 2024 Time in: 3pm Time out: 4pm Referred by: Self - web search for Mental Health provider with expertise in Diabetes Clinic: Geropsychology Service Reason for referral: Difficulty with managing aspects of diabetes including an increasing anxiety to take medications due to fear of hypoglycemia. MHA: Some symptoms include: excessive worry, some fatigue, hyperfocus on symptoms of diabetes, panic-like symptoms SUICIDE RISK ASSESSMENT C-SSRS [place]-Suicide Severity Rating Scale Able to complete [place]-Suicide Severity Rating Scale with Patient?: Yes 1) Wish to be : No 2) Current suicidal thoughts: No 6) C-SSRS Suicidal Behavior: No Risk of Suicide: Negative Screen Did patient score moderate or high risk on the C-SSRS?: No SAFE-T MENTAL STATUS EXAM: 1. APPEARANCE: well groomed 2. BEHAVIOR: cooperative, anxious 3. ORIENTATION: Oriented to time, person & place 4. SPEECH: spontaneous, normal rate and flow, talkative 5. THOUGHT PROCESS: logical, organized 6. THOUGHT CONTENT: No evidence of paranoia, No evidence of delusions 7. SUICIDAL/HOMICIDAL IDEATION: No suicidal/homicidal ideations 8. PERCEPTIONS: No evidence of perceptual disturbance 9. MOOD: anxious 10. AFFECT: range full 11.ATTENTION/CONCENTRATION: Sustained 12..RECENT AND REMOTE MEMORY: Within normal limits 13. JUDGMENT AND INSIGHT: Fair 14. FUND OF KNOWLEDGE: good 15. GAIT: not observed Diagnosis: Adjustment disorder with anxiety R/O Somatic Symptom Disorder Service provided/Plan: Brief evaluation meeting to establish current level of functioning and perceived problems Dolores Zhang, PhD documented in this encounter [facility] 09-26-2024 Telephone encounter Note Please review and advise. TREVA: 09/21/24 [facility] 09-26-2024 Miscellaneous Notes Please review and advise. TREVA: 09/21/24 documented in this encounter [facility] 09-21-2024 Instructions Ethan Calderon APRN.CNP - 09/21/2024 11:51 AM EDT Lower Basaglar to 15 units daily and move to AM Humalog: Breakfast 7 units Lunch 7 units Dinner 12 units Plus sliding scale of humalog at meals or to cover a high sugar at meal time if not eating If Blood Glucose (mg/dL) is < 150 Give 0 units 151-200 Give 1 unit 201-250 Give 2 units 251-300 Give 3 units 301-350 Give 4 units > [address] with a low blood sugar See filer finish Follow up in 6 wks Ethan Calderon, MSN, ECOMMERCE MERCHANDISING MANAGER, PRINTED CIRCUIT BOARD LAYOUT DESIGNER-C, [facility] Endocrinology [facility] Medical Office [facility]/[address], [address] [place] [address] Fax: documented in this encounter [facility] 09-21-2024 History of Present illness Narrative Reason for Consultation: DM Type 2 Referring Physician: SELF HISTORY OF PRESENT ILLNESS; Mr. Gonzalez is a 69 year old male presenting for follow up regarding DM Type 2. He was initially diagnosed with diabetes age 31 after having pancreatitis. He does not have a family history of diabetes mellitus in his family . LV 06/22/24 A1C today is 8.8 History of diabetes, pancreatitis, hypertension, hyperlipidemia, hypoglycemia Negative SOLANGE and islet cell AB Cpeptide 0.3 He started Dexcom CGM on 07/26/20. Currently without CGM due to sensor failures. He expects a shipment today. He skipped basaglar the last two nights since he does not have CGM. He also admits taking small doses of humalog within approximately 3 hours and reports he drops low rapidly. [facility] gave him basaglar vs lantus and feels it is more potent and has not been able to take as much. He is fearful of hypoglycemia and states he does not have anyone at home to help him. Reports living with an alcoholic who would or could not help him. 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 He notes he has lots of anxiety and has seen mental health professionals in the past and did not feel it or medication were helpful and is not interested in seeing anyone again. He previously decided against an insulin pump. States he is losing weight again. He was worked up by PCP and no causes noted. He would like see filer finish His current diabetes regimen is: Glucagon: baqsimi Basaglar 30 units daily HS (only 25 units if under 150 at HS)--sometimes 32 units Humalog 15 units breakfast, 15 units lunch, 22 units dinner Plus sliding scale of humalog at meals or to cover a high sugar at meal time if not eating If Blood Glucose (mg/dL) is < 150 Give 0 units 151-200 Give 1 unit 201-250 Give 2 units 251-300 Give 3 units 301-350 Give 4 units > 351 Give 5 units Previous DM medications: Unable to recall previous oral agents--did not feel well on them and prefers insulin Fiasp--unable to control glucose Novolog --ineffective Admelog--ineffective Regarding symptoms of hyperglycemia, he is not experiencing any symptoms such as polyuria, polydipsia, nocturia or rapid weight loss or blurry vision. Exercise: occasionally; less active in the winter Simran is checking his blood glucose continuously with Dexcom G7 CGM-- not using at this time. He did bring a logbook today for review: No BG readings to review today. Hypoglycemia frequency: Hypoglycemia awareness: not always ; had a low that required EMS assistance in the past ; has been as low as 40 Overall, the patient has no acute complaints at this time. HLD: Off statin secondary to myalgia --crestor PAST MEDICAL HISTORY Diagnosis Date Diabetes (HCC) type 2 Hyperlipidemia Hypertension Pancreatitis (HCC) PAST SURGICAL HISTORY Procedure Laterality Date OTHER broken arm-right--has titanium plate FAMILY HISTORY Problem Relation Age of Onset Heart disease Father Social History Tobacco Use Smoking status: Never Smokeless tobacco: Never Vaping Use Vaping status: Never Used Substance Use Topics Alcohol use: Yes Current Outpatient Medications Medication Sig Dispense Refill insulin glargine (LANTUS SOLOSTAR U-100 INSULIN) 100 unit/mL (3 mL) INJECT 30 UNITS SUBCUTANEOUSLY ONCE DAILY AT BEDTIME IF GLUCOSE IS OVER 150; IF UNDER 150 ONLY TAKE 25 UNITS 45 mL 3 insulin lispro (HUMALOG KWIKPEN INSULIN) 100 unit/mL Inject subcutaneously 15 units breakfast, 15 units lunch, 22 units dinner plus Ss #1 up to 70 units daily 75 mL 3 lisinopril (ZESTRIL) 20 mg tablet glucagon (BAQSIMI) 3 mg/actuation nasal spray Use 1 [place] in the nose as needed for low blood sugar. May repeat after 15 minutes using a new device if there is no response. 2 Each 1 Insulin [place], Disposable, (BD ULTRAFINE III MINI PEN) 31 gauge x /16 Use 4 pen needles daily 400 Each 3 ALPRAZolam (XANAX) 0.5 mg tablet Take 0.5 mg by mouth at bedtime as needed. aspirin 325 mg tablet Take 1 tablet by mouth once daily. No current facility-administered medications for this visit. Allergies As of Date: 09/21/2024 Allergen Noted Reaction SYDNEE [PENTAZOCINE LACTATE] 08/08/2009 TRAMADOL HCL 11/22/2019 Other: See Comments Fully Assessed 09/21/2024 REVIEW OF SYSTEMS: Answers submitted by the patient for this visit: Core Review of Systems (Submitted on 09/14/2024) Fever : No Night sweats: No Recent unintentional weight change: Yes Nasal Congestion: No Hearing Loss: No Vision Disturbance: No A cough: No Difficulty Breathing?: No Chest pain: No Irregular heartbeat: No Leg Swelling: No Nausea: No Diarrhea: No Black tarry stools: No Difficulty Urinating?: No Awaken at Night More Than Once to Urinate?: No Joint pain or stiffness: Yes Muscle aches: Yes Leg or Foot Discomfort at Night?: No A rash: No Dizziness: No Headaches: No Memory Loss: No Seizures: No PHYSICAL EXAM: BP 107/69 Pulse 63 Resp 16 Ht 180.3 cm (5' 10.98) Wt 79.6 kg (175 lb 7.8 oz) SpO2 99% BMI 24.49 kg/m2 Physical Exam Constitutional: Appearance: Normal appearance. Cardiovascular: Rate and Rhythm: Normal rate and regular rhythm. Pulmonary: Effort: Pulmonary effort is normal. Breath sounds: Normal breath sounds. Skin: General: Skin is warm and dry. Neurological: Mental Status: He is alert and oriented to person, place, and time. Psychiatric: Mood and Affect: Mood normal. Behavior: Behavior normal. DATA: Creatinine Date Value Ref Range Status 06/20/2024 0.90 0.73 - 1.22 mg/dL Final Hemoglobin A1C (%) Date Value 07/30/2021 7.8 Hemoglobin A1C (POCT) (%) Date Value 09/21/2024 8.8 ) No components found for: URINEALBUMIN Cholesterol, Total (mg/dL) Date Value 03/25/2024 200 04/22/2021 210 04/22/2021 214 HDL Cholesterol (mg/dL) Date Value 03/25/2024 54 04/22/2021 44 04/22/2021 44 LDL Cholesterol (mg/dL) Date Value 03/25/2024 129 04/22/2021 140 04/22/2021 144 Triglyceride (mg/dL) Date Value 03/25/2024 84 04/22/2021 131 04/22/2021 132 IMPRESSION: Mr. Gonzalez is a 69 year old male here for evaluation of DM Type 2 complicated by hypertension, hyperlipidemia, hypoglycemia unawareness . RECOMMENDATIONS: (E11.649, Z79.4) Type 2 diabetes mellitus with hypoglycemia without coma, with long-term current use of insulin ([facility]) (primary encounter diagnosis) Comment: Glycemic control is above goal and variable. He is using variable doses and taking too many injections of humalog contributing to hypoglycemia/variability. He feels basaglar is more potent then lantus however there is not specific indication that this would be the case. Given his concerns I recommend we lower insulin doses and move basaglar to AM. We discussed being consistent with doses and will titrate back up as needed. He admits he is not sure he will follow the outlined plan but will think about. I reinforced the importance of not driving with a low BG and send in for baqsimi again. Plan: HEMOGLOBIN A1C (POC), glucagon (BAQSIMI) 3 mg/actuation nasal spray, insulin lispro (HUMALOG KWIKPEN INSULIN) 100 unit/mL, insulin glargine (LANTUS SOLOSTAR U-100 INSULIN) 100 unit/mL (3 mL), ENDOCRINOLOGY DIETITIAN VISIT (MNT) Continue CGM Keep glucagon on hand Avoid in between meal insulin doses. Lower Basaglar to 15 units daily and move to AM Humalog: Breakfast 7 units Lunch 7 units Dinner 12 units Plus sliding scale of humalog at meals or to cover a high sugar at meal time if not eating If Blood Glucose (mg/dL) is < 150 Give 0 units 151-200 Give 1 unit 201-250 Give 2 units 251-300 Give 3 units 301-350 Give 4 units > [address] with a low blood sugar See filer finish Follow up in 6 wks (I10) Essential hypertension Comment/Plan: Managed per PCP (Z87.19) History of pancreatitis Comment/Plan: avoid GLP-1 and DPP4. Caution if SGLT2 is used due to post marketing incidences of acute pancreatitis (E78.2) Mixed hyperlipidemia Comment/Plan: He declines statin due to myalgia Medical Decision Making: Level: 4 - Moderate Ethan Calderon, MSN, ECOMMER[employer] MERCHANDISING MANAGER, PRINTED CIRCUIT BOARD LAYOUT DESIGNER-C, [facility] Endocrinology [facility]/[address], [address] [place], [place] [address] Fax: documented in this encounter [facility] 09-21-2024 Note HNO ID: [id number] Author: ETHAN CALDERON APRN.CNP Service: ? Author Type: Nurse Practitioner Type: Progress Notes Filed: 09/21/2024 12:35 Note Text: Reason for Consultation: DM Type 2 Referring Physician: SELF HISTORY OF PRESENT ILLNESS; Mr. Gonzalez is a 69 year old male presenting for follow up regarding DM Type 2. He was initially diagnosed with diabetes age 31 after having pancreatitis. He does not have a family history of diabetes mellitus in his family . LV 06/22/24 A1C today is 8.8 History of diabetes, pancreatitis, hypertension, hyperlipidemia, hypoglycemia Negative SOLANGE and islet cell AB Cpeptide 0.3 He started Dexcom CGM on 07/26/20. Currently without CGM due to sensor failures. He expects a shipment today. He skipped basaglar the last two nights since he does not have CGM. He also admits taking small doses of humalog within approximately 3 hours and reports he drops low rapidly. [facility] gave him basaglar vs lantus and feels it is more potent and has not been able to take as much. He is fearful of hypoglycemia and states he does not have anyone at home to help him. Reports living with an alcoholic who would or could not help him. 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 He notes he has lots of anxiety and has seen mental health professionals in the past and did not feel it or medication were helpful and is not interested in seeing anyone again. He previously decided against an insulin pump. States he is losing weight again. He was worked up by PCP and no causes noted. He would like see filer finish His current diabetes regimen is: Glucagon: baqsimi Basaglar 30 units daily HS (only 25 units if under 150 at HS)--sometimes 32 units Humalog 15 units breakfast, 15 units lunch, 22 units dinner Plus sliding scale of humalog at meals or to cover a high sugar at meal time if not eating If Blood Glucose (mg/dL) is < 150 Give 0 units 151-200 Give 1 unit 201-250 Give 2 units 251-300 Give 3 units 301-350 Give 4 units > 351 Give 5 units Previous DM medications: Unable to recall previous oral agents--did not feel well on them and prefers insulin Fiasp--unable to control glucose Novolog --ineffective Admelog--ineffective Regarding symptoms of hyperglycemia, he is not experiencing any symptoms such as polyuria, polydipsia, nocturia or rapid weight loss or blurry vision. Exercise: occasionally; less active in the winter Simran is checking his blood glucose continuously with Dexcom G7 CGM-- not using at this time. He did bring a logbook today for review: No BG readings to review today. Hypoglycemia frequency: Hypoglycemia awareness: not always ; had a low that required EMS assistance in the past ; has been as low as 40 Overall, the patient has no acute complaints at this time. HLD: Off statin secondary to myalgia --crestor PAST MEDICAL HISTORY Diagnosis Date Diabetes (HCC) type 2 Hyperlipidemia Hypertension Pancreatitis (HCC) PAST SURGICAL HISTORY Procedure Laterality Date OTHER broken arm-right--has titanium plate FAMILY HISTORY Problem Relation Age of Onset Heart disease Father Social History Tobacco Use Smoking status: Never Smokeless tobacco: Never Vaping Use Vaping status: Never Used Substance Use Topics Alcohol use: Yes Current Outpatient Medications Medication Sig Dispense Refill insulin glargine (LANTUS SOLOSTAR U-100 INSULIN) 100 unit/mL (3 mL) INJECT 30 UNITS SUBCUTANEOUSLY ONCE DAILY AT BEDTIME IF GLUCOSE IS OVER 150; IF UNDER 150 ONLY TAKE 25 UNITS 45 mL 3 insulin lispro (HUMALOG KWIKPEN INSULIN) 100 unit/mL Inject subcutaneously 15 units breakfast, 15 units lunch, 22 units dinner plus Ss #1 up to 70 units daily 75 mL 3 lisinopril (ZESTRIL) 20 mg tablet glucagon (BAQSIMI) 3 mg/actuation nasal spray Use 1 [place] in the nose as needed for low blood sugar. May repeat after 15 minutes using a new device if there is no response. 2 Each 1 Insulin [place], Disposable, (BD ULTRAFINE III MINI PEN) 31 gauge x 3/16 Use 4 pen needles daily 400 Each 3 ALPRAZolam (XANAX) 0.5 mg tablet Take 0.5 mg by mouth at bedtime as needed. aspirin 325 mg tablet Take 1 tablet by mouth once daily. No current facility-administered medications for this visit. Allergies As of Date: 09/21/2024 Allergen Noted Reaction SYDNEE [PENTAZOCINE LACTATE] 08/08/2009 TRAMADOL HCL 11/22/2019 Other: See Comments Fully Assessed 09/21/2024 REVIEW OF SYSTEMS: Answers submitted by the patient for this visit: Core Review of Systems (Submitted on 09/14/2024) Fever : No Night sweats: No Recent unintentional weight change: Yes Nasal Congestion: No Hearing Loss: No Vision Disturbance: No A cough: No Difficulty Breathing?: No Chest pain: No Irregular heartbeat: No Leg Swelling: No Nausea: No Diarrhea: No (more content not included)... [facility] 09-15-2024 Telephone encounter Note Received a faxed request from [facility] requesting chart notes from the last office visit for diabetes supplies. Faxed notes from 06/22/24 to [phone]. Transmission ok. Closed. [facility] 09-15-2024 Miscellaneous Notes Received a faxed request from [facility] requesting chart notes from the last office visit for diabetes supplies. Faxed notes from 06/22/24 to [phone]. Transmission ok. Closed. documented in this encounter [facility] 09-14-2024 Telephone encounter Note Noted. Rx sent [facility] 09-14-2024 Miscellaneous Notes Noted. Rx sent Patient stopped in checking the status of this. He said that he was out and needed it today. I did let him know that for future, he needs to send the request several days before he runs out. Patient just asked that I make you aware he came in. Images from the original note were not included. Most recent Endocrinology visit: Last encounter Visit on 06/22/2024 (with Ethan Calderon) TREVA: 06/22/24 NOV: 09/21/24 09/24/2022 in [facility] with ETHAN CALDERON for Type 2 diabetes mellitus without complication, with long-term current use of insulin (HCC) 12/31/2022 in [facility] with ETHAN CALDERON for Type 2 diabetes mellitus without complication, with long-term current use of insulin (HCC) 07/10/2023 in [facility] with ETHAN CALDERON for Type 2 diabetes mellitus with hypoglycemia without coma, with long-term current use of insulin (HCC) 10/23/2023 in [facility] with ETHAN CALDERON for Type 2 diabetes mellitus with hypoglycemia without coma, with long-term current use of insulin (HCC) 11/10/2023 in [facility] with ETHAN CALDERON for Type 2 diabetes mellitus with hypoglycemia without coma, with long-term current use of insulin (HCC) 11/18/2023 in [facility] with HUY HAUSER I for 02/10/2024 in [facility] with ETHAN CALDERON for Type 2 diabetes mellitus with hypoglycemia without coma, with long-term current use of insulin (HCC) 06/22/2024 in [facility] with ETHAN CALDERON for Type 2 diabetes mellitus with hypoglycemia without coma, with long-term current use of insulin (HCC) Upcoming Endocrinology Appointments - Next 365 Days Visit Type Date Time Department EST JAYDON PATIENT 09/21/2024 11:30 AM [facility] Requested Prescriptions Pending Prescriptions Disp Refills insulin glargine (LANTUS SOLOSTAR U-100 INSULIN) 100 unit/mL (3 mL) 45 mL 3 Sig: INJECT 30 UNITS SUBCUTANEOUSLY ONCE DAILY AT BEDTIME IF GLUCOSE IS OVER 150; IF UNDER 150 ONLY TAKE 25 UNITS Latest Ref Rng & Units 06/20/2024 03/25/2024 02/10/2024 Hemoglobin A1C Hemoglobin A1C 4.3 - 5.6 % 8.8 8.4 Hemoglobin A1C (POCT) 4.3 - 5.6 % 8.8 Latest Ref Rng & Units 06/20/2024 03/25/2024 06/29/2023 TSH TSH 0.270 - 4.200 mIU/L 2.920 2.970 2.790 Free T3: None on file in the last 12 months Latest Ref Rng & Units 03/25/2024 06/29/2023 09/16/2022 FREE T4 Free T4 0.9 - 1.7 ng/dL 1.1 1.0 1.0 Thyroglobulin: None on file in the last 12 months Latest Ref Rng & Units 06/20/2024 03/25/2024 06/29/2023 Vitamin D Vitamin D 25 Hydroxy 31.0 - 80.0 ng/mL 49.5 57.3 46.4 Latest Ref Rng & Units 06/20/2024 03/25/2024 06/29/2023 Hematocrit Hematocrit 39.0 - 51.0 % 43.5 42.9 42.2 Latest Ref Rng & Units 06/20/2024 03/25/2024 06/29/2023 Creatinine Creatinine 0.73 - 1.22 mg/dL 0.90 0.88 0.88 Latest Ref Rng & Units 06/20/2024 03/25/2024 06/29/2023 eGFR EGFR >=60 mL/min/1.73m 94 94 95 Latest Ref Rng & Units 06/20/2024 03/25/2024 06/29/2023 Potassium Potassium 3.7 - 5.1 mmol/L 4.4 4.3 4.1 Testosterone: None on file in the last 12 months IGF: None on file in the last 12 months Prolactin: None on file in the last 12 months documented in this encounter [facility] 09-14-2024 Telephone encounter Note Patient stopped in checking the status of this. He said that he was out and needed it today. I did let him know that for future, he needs to send the request several days before he runs out. Patient just asked that I make you aware he came in. [facility] 09-14-2024 Telephone encounter Note Images from the original note were not included. Most recent Endocrinology visit: Last encounter Visit on 06/22/2024 (with Ethan Calderon) TREVA: 06/22/24 NOV: 09/21/24 09/24/2022 in [facility] with ETHAN CALDERON for Type 2 diabetes mellitus without complication, with long-term current use of insulin (HCC) 12/31/2022 in [facility] with ETHAN CALDERON for Type 2 diabetes mellitus without complication, with long-term current use of insulin (HCC) 07/10/2023 in [facility] with ETHAN CALDERON for Type 2 diabetes mellitus with hypoglycemia without coma, with long-term current use of insulin (HCC) 10/23/2023 in [facility] with ETHAN CALDERON for Type 2 diabetes mellitus with hypoglycemia without coma, with long-term current use of insulin (HCC) 11/10/2023 in [facility] with ETHAN CALDERON for Type 2 diabetes mellitus with hypoglycemia without coma, with long-term current use of insulin (HCC) 11/18/2023 in [facility] with HUY HAUSER I for 02/10/2024 in [facility] with ETHAN CALDERON for Type 2 diabetes mellitus with hypoglycemia without coma, with long-term current use of insulin (HCC) 06/22/2024 in [facility] with ETHAN CALDERON for Type 2 diabetes mellitus with hypoglycemia without coma, with long-term current use of insulin (HCC) Upcoming Endocrinology Appointments - Next 365 Days Visit Type Date Time Department EST JAYDON PATIENT 09/21/2024 11:30 AM [facility] Requested Prescriptions Pending Prescriptions Disp Refills insulin glargine (LANTUS SOLOSTAR U-100 INSULIN) 100 unit/mL (3 mL) 45 mL 3 Sig: INJECT 30 UNITS SUBCUTANEOUSLY ONCE DAILY AT BEDTIME IF GLUCOSE IS OVER 150; IF UNDER 150 ONLY TAKE 25 UNITS Latest Ref Rng & Units 06/20/2024 03/25/2024 02/10/2024 Hemoglobin A1C Hemoglobin A1C 4.3 - 5.6 % 8.8 8.4 Hemoglobin A1C (POCT) 4.3 - 5.6 % 8.8 Latest Ref Rng & Units 06/20/2024 03/25/2024 06/29/2023 TSH TSH 0.270 - 4.200 mIU/L 2.920 2.970 2.790 Free T3: None on file in the last 12 months Latest Ref Rng & Units 03/25/2024 06/29/2023 09/16/2022 FREE T4 Free T4 0.9 - 1.7 ng/dL 1.1 1.0 1.0 Thyroglobulin: None on file in the last 12 months Latest Ref Rng & Units 06/20/2024 03/25/2024 06/29/2023 Vitamin D Vitamin D 25 Hydroxy 31.0 - 80.0 ng/mL 49.5 57.3 46.4 Latest Ref Rng & Units 06/20/2024 03/25/2024 06/29/2023 Hematocrit Hematocrit 39.0 - 51.0 % 43.5 42.9 42.2 Latest Ref Rng & Units 06/20/2024 03/25/2024 06/29/2023 Creatinine Creatinine 0.73 - 1.22 mg/dL 0.90 0.88 0.88 Latest Ref Rng & Units 06/20/2024 03/25/2024 06/29/2023 eGFR EGFR >=60 mL/min/1.73m 94 94 95 Latest Ref Rng & Units 06/20/2024 03/25/2024 06/29/2023 Potassium Potassium 3.7 - 5.1 mmol/L 4.4 4.3 4.1 Testosterone: None on file in the last 12 months IGF: None on file in the last 12 months Prolactin: None on file in the last 12 months [facility] 09-13-2024 Telephone encounter Note Received a request for office notes from [facility] Notes from: 06/22/2024 Faxed via [employer] at [phone] Transmission Successful. [facility] 09-13-2024 Miscellaneous Notes Received a request for office notes from [facility] Notes from: 06/22/2024 Faxed via [employer] at [phone] Transmission Successful. documented in this encounter [facility] 06-22-2024 Instructions Ethan Calderon APRN.PEGA DEVELOPER - 06/22/2024 11:49 AM EST Keep lantus at 30 units daily (ok to reduce to 25 units if the bedtime glucose is under 150) Avoid in between meal insulin doses. If not eating a meal us only the sliding scale of humalog to treat the blood sugar. Follow up in 3-4 months Ethan Calderon, MSN, E[employer]ER[employer] MERCHANDISING MANAGER, PRINTED CIRCUIT BOARD LAYOUT DESIGNER-C, [facility] Endocrinology [facility] Office [facility]/[address] [place] [address] Fax: documented in this encounter [facility] 06-22-2024 Note HNO ID: [id number] Author: HEATHER RANDLE MA Service: ? Author Type: Shoe Associate Type: Procedures Filed: 06/22/2024 16:37 Note Text: [facility] 06-22-2024 Procedure note Procedure(s): EXTERNAL TESTER REGULATOR, CGM SYS Images from the original note were not included. [facility] 06-22-2024 Procedure note Procedure(s): EXTERNAL TESTER REGULATOR, CGM SYS Images from the original note were not included. documented in this encounter [facility] 06-22-2024 History of Present illness Narrative Reason for Consultation: DM Type 2 Referring Physician: SELF HISTORY OF PRESENT ILLNESS; Mr. Gonzalez is a 68 year old male presenting for follow up regarding DM Type 2. He was initially diagnosed with diabetes age 31 after having pancreatitis. He does not have a family history of diabetes mellitus in his family . LV 02/10/24 A1C 8.8 on 06/20/24 History of diabetes, pancreatitis, hypertension, hyperlipidemia, hypoglycemia Negative SOLANGE and islet cell AB Cpeptide 0.3 More sedentary in the winter. Feels BG is easier to manage during this time. Weight stable. Admits he is scared to take insulin. Anxiety about having a low. Forgets an occasional dose. May take after eating Reduces the insulin amount He started Dexcom CGM on 07/26/20. He decided against an insulin pump. His current diabetes regimen is: Glucagon: baqsimi lantus 34 units daily HS (only 25 units if under 150 at HS) --only taking 30 units Humalog 15 units breakfast, 15 units lunch, 22 units dinner Plus sliding scale of humalog at meals or to cover a high sugar at meal time if not eating If Blood Glucose (mg/dL) is < 150 Give 0 units 151-200 Give 1 unit 201-250 Give 2 units 251-300 Give 3 units 301-350 Give 4 units > 351 Give 5 units Previous DM medications: Unable to recall previous oral agents--did not feel well on them and prefers insulin Fiasp--unable to control glucose Novolog --ineffective Admelog--ineffective Regarding symptoms of hyperglycemia, he is not experiencing any symptoms such as polyuria, polydipsia, nocturia or rapid weight loss or blurry vision. Exercise: occasionally; less active in the winter Simran is checking his blood glucose continuously with Dexcom G7 CGM He did bring a logbook today for review: Dexcom download (06/09/24 to 06/22/24) In range 38% High 45 % Very high 17 % Low 0% Very low 0% GMI 8.1 Average BG 200 BG ranges 100 to 300 BG is best from 5 AM to 10 AM. BG is highest from 1 pm to 2 pm and again after dinner from 8 pm to 5 AM Hypoglycemia frequency: occasionally Hypoglycemia awareness: not always [...] Never Smokeless tobacco: Never Vaping Use Vaping status: Never Used Substance Use Topics Alcohol use: Yes Current Outpatient Medications Medication Sig Dispense Refill insulin glargine (LANTUS SOLOSTAR U-100 INSULIN) 100 unit/mL (3 mL) INJECT 30 UNITS SUBCUTANEOUSLY ONCE DAILY AT BEDTIME IF GLUCOSE IS OVER 150; IF UNDER 150 ONLY TAKE 25 UNITS 45 mL 3 insulin lispro (HUMALOG KWIKPEN INSULIN) 100 unit/mL Inject subcutaneously 15 units breakfast, 15 units lunch, 22 units dinner plus Ss #1 up to 70 units daily 75 mL 3 lisinopril (ZESTRIL) 20 mg tablet glucagon (BAQSIMI) 3 mg/actuation nasal spray Use 1 [place] in the nose as needed for low blood sugar. May repeat after 15 minutes using a new device if there is no response. 2 Each 1 Insulin [place], Disposable, (BD ULTRAFINE III MINI PEN) 31 gauge x 08/21 Use 4 pen needles daily 400 Each 3 ALPRAZolam (XANAX) 0.5 mg tablet Take 0.5 mg by mouth at bedtime as needed. aspirin 325 mg tablet Take 1 tablet by mouth once daily. No current facility-administered medications for this visit. Allergies As of Date: 06/22/2024 Allergen Noted Reaction SYDNEE [PENTAZOCINE LACTATE] 08/08/2009 TRAMADOL HCL 11/22/2019 Other: See Comments Fully Assessed 06/22/2024 REVIEW OF SYSTEMS: Review of Systems Respiratory: Negative for difficulty breathing. Cardiovascular: Negative for chest pain. Gastrointestinal: Negative for nausea, vomiting, diarrhea and constipation. PHYSICAL EXAM: BP 126/76 (BP Site: Right Arm, BP Position: Sitting, BP Cuff Size: Large Adult) Pulse 61 Wt 80.8 kg (178 lb 2.1 oz) SpO2 99% BMI 24.86 kg/m2 Physical Exam Constitutional: Appearance: Normal appearance. Cardiovascular: Rate and Rhythm: Normal rate and regular rhythm. Pulmonary: Effort: Pulmonary effort is normal. Breath sounds: Normal breath sounds. Skin: General: Skin is warm and dry. Neurological: Mental Status: He is alert and oriented to person, place, and time. DATA: Creatinine Date Value Ref Range Status 06/20/2024 0.90 0.73 - 1.22 mg/dL Final Hemoglobin A1C (%) Date Value 06/20/2024 8.8 07/30/2021 7.8 Hemoglobin A1C (POCT) (%) Date Value 02/10/2024 8.8 ) No components found for: URINEALBUMIN Cholesterol, Total (mg/dL) Date Value 03/25/2024 200 04/22/2021 210 04/22/2021 214 HDL Cholesterol (mg/dL) Date Value 03/25/2024 54 04/22/2021 44 04/22/2021 44 LDL Cholesterol (mg/dL) Date Value 03/25/2024 129 04/22/2021 140 04/22/2021 144 Triglyceride (mg/dL) Date Value 03/25/2024 84 04/22/2021 131 04/22/2021 132 IMPRESSION: Mr. Gonzalez is a 68 year old male here for evaluation of DM Type 2 complicated by hypertension, hyperlipidemia, hypoglycemia unawareness . RECOMMENDATIONS: (E11.649, Z79.4) Type 2 diabetes mellitus with hypoglycemia without coma, with long-term current use of insulin ([facility]) (primary encounter diagnosis) Comment: Glycemic control is trending higher. He is contributing to hypoglycemia by taking additional insulin between meals and fluctuating doses. Discussed an insulin pump but he is not ready to make that step. Plan: insulin glargine (LANTUS SOLOSTAR U-100 INSULIN) 100 unit/mL (3 mL) Continue CGM Keep glucagon on hand Avoid in between meal insulin doses. If not eating a meal us only the sliding scale of humalog to treat the blood sugar. Lantus 30 units daily at bedtime unless blood sugars is under 150 at bedtime then use only 25 units Humalog Breakfast 15 units Lunch 15 units Dinner 22 units Plus sliding scale of humalog at meals and bedtime or to cover a high sugar at meal time if not eating If Blood Glucose (mg/dL) is < 150 Give 0 units 151-200 Give 1 unit 201-250 Give 2 units 251-300 Give 3 units 301-350 Give 4 units > 351 Give 5 units Follow up in 3-4 months (I10) Essential hypertension Comment/Plan: Managed per PCP (Z87.19) History of pancreatitis Comment/Plan: avoid GLP-1 and DPP4. Caution if SGLT2 is used due to post marketing incidences of acute pancreatitis (E78.2) Mixed hyperlipidemia Comment/Plan: He declines statin due to myalgia Medical Decision Making: Level: 4 - Moderate Ethan Calderon, MSN, ECOMMERCE MERCHANDISING MANAGER, PRINTED CIRCUIT BOARD LAYOUT DESIGNER-C, [facility] Endocrinology [facility] Medical Office Building/[address] [place] [address] Fax: documented in this encounter [facility] 06-22-2024 Note HNO ID: [id number] Author: ETHAN CALDERON APRN.PEGA DEVELOPER Service: ? Author Type: Nurse Practitioner Type: Progress Notes Filed: 06/22/2024 16:37 Note Text: Reason for Consultation: DM Type 2 Referring Physician: SELF HISTORY OF PRESENT ILLNESS; Mr. Gonzalez is a 68 year old male presenting for follow up regarding DM Type 2. He was initially diagnosed with diabetes age 31 after having pancreatitis. He does not have a family history of diabetes mellitus in his family . LV 02/10/24 A1C 8.8 on 06/20/24 History of diabetes, pancreatitis, hypertension, hyperlipidemia, hypoglycemia Negative SOLANGE and islet cell AB Cpeptide 0.3 More sedentary in the winter. Feels BG is easier to manage during this time. Weight stable. Admits he is scared to take insulin. Anxiety about having a low. Forgets an occasional dose. May take after eating Reduces the insulin amount He started Dexcom CGM on 07/26/20. He decided against an insulin pump. His current diabetes regimen is: Glucagon: baqsimi lantus 34 units daily HS (only 25 units if under 150 at HS) --only taking 30 units Humalog 15 units breakfast, 15 units lunch, 22 units dinner Plus sliding scale of humalog at meals or to cover a high sugar at meal time if not eating If Blood Glucose (mg/dL) is < 150 Give 0 units 151-200 Give 1 unit 201-250 Give 2 units 251-300 Give 3 units 301-350 Give 4 units > 351 Give 5 units Previous DM medications: Unable to recall previous oral agents--did not feel well on them and prefers insulin Fiasp--unable to control glucose Novolog --ineffective Admelog--ineffective Regarding symptoms of hyperglycemia, he is not experiencing any symptoms such as polyuria, polydipsia, nocturia or rapid weight loss or blurry vision. Exercise: occasionally; less active in the winter Simran is checking his blood glucose continuously with Dexcom G7 CGM He did bring a logbook today for review: Dexcom download (06/09/24 to 06/22/24) In range 38% High 45 % Very high 17 % Low 0% Very low 0% GMI 8.1 Average BG 200 BG ranges 100 to 300 BG is best from 5 AM to 10 AM. BG is highest from 1 pm to 2 pm and again after dinner from 8 pm to 5 AM Hypoglycemia frequency: occasionally Hypoglycemia awareness: not always [...] Never Smokeless tobacco: Never Vaping Use Vaping status: Never Used Substance Use Topics Alcohol use: Yes Current Outpatient Medications Medication Sig Dispense Refill insulin glargine (LANTUS SOLOSTAR U-100 INSULIN) 100 unit/mL (3 mL) INJECT 30 UNITS SUBCUTANEOUSLY ONCE DAILY AT BEDTIME IF GLUCOSE IS OVER 150; IF UNDER 150 ONLY TAKE 25 UNITS 45 mL 3 insulin lispro (HUMALOG KWIKPEN INSULIN) 100 unit/mL Inject subcutaneously 15 units breakfast, 15 units lunch, 22 units dinner plus Ss #1 up to 70 units daily 75 mL 3 lisinopril (ZESTRIL) 20 mg tablet glucagon (BAQSIMI) 3 mg/actuation nasal spray Use 1 Paris in the nose as needed for low blood sugar. May repeat after 15 minutes using a new device if there is no response. 2 Each 1 Insulin [place], Disposable, (BD ULTRAFINE III MINI PEN) 31 gauge x 3/16 Use 4 pen needles daily 400 Each 3 ALPRAZolam (XANAX) 0.5 mg tablet Take 0.5 mg by mouth at bedtime as needed. aspirin 325 mg tablet Take 1 tablet by mouth once daily. No current facility-administered medications for this visit. Allergies As of Date: 06/22/2024 Allergen Noted Reaction TALWIN [PENTAZOCINE LACTATE] 08/08/2009 TRAMADOL HCL 11/22/2019 Other: See Comments Fully Assessed 06/22/2024 REVIEW OF SYSTEMS: Review of Systems Respiratory: Negative for difficulty breathing. Cardiovascular: Negative for chest pain. Gastrointestinal: Negative for nausea, vomiting, diarrhea and constipation. PHYSICAL EXAM: BP 126/76 (BP Site: Right Arm, BP Position: Sitting, BP Cuff Size: Large Adult) Pulse 61 Wt 80.8 kg (178 lb 2.1 oz) SpO2 99% BMI 24.86 kg/m2 Physical Exam Constitutional: Appearance: Normal appearance. Cardiovascular: Rate and Rhythm: Normal rate and regular rhythm. Pulmonary: Effort: Pulmonary effort is normal. Breath sounds: Normal breath sounds. Skin: General: Skin is warm and dry. Neurological: Mental Status: He is alert and oriented to person, place, and time. DATA: Creatinine Date Value Ref Range Status 06/20/2024 0.90 0.73 - 1.22 mg/dL Final Hemoglobin A1C (%) Date Value 06/20/2024 8.8 07/30/2021 7.8 Hemoglobin A1C (POCT) (%) Da (more content not included)... [facility] 05-26-2024 Telephone encounter Note Form faxed to [phone]. Closed [facility] 05-26-2024 Miscellaneous Notes Form faxed to [phone]. Closed Form signed. Thank you Type of letter/form/fax request: CMN for CGMS Form received from: [facility] Placed on Provider (Adolfo) for completion Completed form needs to be faxed to [phone] Clinical notes attached. documented in this encounter [facility] 05-26-2024 Telephone encounter Note Form signed. Thank you [facility] 05-25-2024 Telephone encounter Note Type of letter/form/fax request: CMN for CGMS Form received from: [facility] Placed on Provider (Adolfo) for completion Completed form needs to be faxed to [phone] Clinical notes attached. [facility] 02-10-2024 Instructions Ethan Calderon APRN.CNP - 02/10/2024 11:32 AM EDT Lantus 34 units daily at bedtime unless blood sugars is under 150 at bedtime then use only 25 units Humalog Breakfast 15 units Lunch 15 units Dinner 22 units Plus sliding scale of humalog at meals and bedtime or to cover a high sugar at meal time if not eating If Blood Glucose (mg/dL) is < 150 Give 0 units 151-200 Give 1 unit 201-250 Give 2 units 251-300 Give 3 units 301-350 Give 4 units > 351 Give 5 units Follow up in 3-4 months Ethan Calderon, MSN, ECOMMERCE MERCHANDISING MANAGER, PRINTED CIRCUIT BOARD LAYOUT DESIGNER-C, [facility] Endocrinology [facility] Medical Office [facility]/[address], [address] [place] [address] Fax: documented in this encounter [facility] 02-10-2024 History of Present illness Narrative Reason for Consultation: DM Type 2 Referring Physician: SELF HISTORY OF PRESENT ILLNESS; Mr. Gonzalez is a 68 year old male presenting for follow up regarding DM Type 2. He was initially diagnosed with diabetes age 31 after having pancreatitis. He does not have a family history of diabetes mellitus in his family . LV 11/10/23 A1C today is 8.8. up from 8.4 History of diabetes, pancreatitis, hypertension, hyperlipidemia, hypoglycemia Eating anything and everything to keep his weight up which he is maintaining but his BG has been higher. He is reluctant to take more insulin to cover the increased food intake due to fear of hypoglycemia. He reduces his insulin doses and forgets sometimes. Negative SOLANGE and islet cell AB Cpeptide 0.3 He started Dexcom CGM on 07/26/20. He decided against an insulin pump. His current diabetes regimen is: Glucagon: baqsimi lantus 34 units daily HS (only 25 units if under 150 at HS) Humalog 15 units breakfast, 15 units lunch, 22 units dinner Plus sliding scale of humalog at meals or to cover a high sugar at meal time if not eating If Blood Glucose (mg/dL) is < 150 Give 0 units 151-200 Give 1 unit 201-250 Give 2 units 251-300 Give 3 units 301-350 Give 4 units > 351 Give 5 units Previous DM medications: Unable to recall previous oral agents--did not feel well on them and prefers insulin Fiasp--unable to control glucose Novolog --ineffective Admelog--ineffective Regarding symptoms of hyperglycemia, he is not experiencing any symptoms such as polyuria, polydipsia, nocturia or rapid weight loss or blurry vision. Exercise: occasionally; less active in the winter Simran is checking his blood glucose continuously with Dexcom G7 CGM He did bring a logbook today for review: Dexcom download (01/28/24 to 02/10/24) In range 31% High 42% Very high 27% Low 0% Very low 0% GMI 8.4 Average BG 212 BG ranges 100 to 300 BG is elevated and highest overnight. BG rises about 8 pm and stays high until 6 AM. BG is best from 6 AM to 2 pm but still above goal on average Hypoglycemia frequency: occasionally Hypoglycemia awareness: not always ; had a low that required EMS assistance in the past ; has been as low as 40 Overall, the patient has no acute complaints at this time. HLD: Off statin secondary to myalgia --crestor PAST MEDICAL HISTORY No date: Diabetes (HCC) Comment: type 2 No date: Hyperlipidemia No date: Hypertension No date: Pancreatitis PAST SURGICAL HISTORY No date: OTHER Comment: broken arm-right--has titanium plate FAMILY HISTORY Problem Relation Age of Onset Heart disease Father Social History Tobacco Use Smoking status: Never Smokeless tobacco: Never Vaping Use Vaping status: Never Used Substance Use Topics Alcohol use: Yes Current Outpatient Medications Medication Sig Dispense Refill insulin lispro (HUMALOG KWIKPEN INSULIN) 100 unit/mL Inject subcutaneously 15 units breakfast, 15 units lunch, 22 units dinner plus Ss #1 up to 70 units daily 75 mL 3 lisinopril (ZESTRIL) 20 mg tablet insulin glargine (LANTUS SOLOSTAR U-100 INSULIN) 100 unit/mL (3 mL) INJECT 34 UNITS SUBCUTANEOUSLY ONCE DAILY AT BEDTIME IF GLUCOSE IS OVER 150; IF UNDER 150 ONLY TAKE 25 UNITS 45 mL 3 glucagon (BAQSIMI) 3 mg/actuation nasal spray Use 1 [place] in the nose as needed for low blood sugar. May repeat after 15 minutes using a new device if there is no response. 2 Each 1 Insulin [place], Disposable, (BD ULTRAFINE III MINI PEN) 31 gauge x 3/16 Use 4 pen needles daily 400 Each 3 ALPRAZolam (XANAX) 0.5 mg tablet Take 0.5 mg by mouth at bedtime as needed. carvedilol (COREG) 25 mg tablet Take 1 tablet by mouth twice daily. (Patient taking differently: Take 12.5 mg by mouth once daily.) aspirin 325 mg tablet Take 1 tablet by mouth once daily. No current facility-administered medications for this visit. Facility-Administered Medications Ordered in Other Visits Medication Dose Route Frequency Provider Last Rate Last Admin NaCl 0.9% iv infusion 30 mL/hr INTRAVENOUS CONTINUOUS Huy Hauser I, MD 30 mL/hr at 11/18/23 0812 30 mL/hr at 11/18/23 0812 Allergies As of Date: 02/10/2024 Allergen Noted Reaction SYDNEE [PENTAZOCINE LACTATE] 08/08/2009 TRAMADOL HCL 11/22/2019 Other: See Comments Fully Assessed 02/10/2024 REVIEW OF SYSTEMS: Answers submitted by the patient for this visit: Core Review of Systems (Submitted on 02/08/2024) Fever : No Night sweats: No Recent unintentional weight change: Yes Nasal Congestion: No Hearing Loss: No Vision Disturbance: No A cough: No Difficulty Breathing?: No Chest pain: No Irregular heartbeat: No Leg Swelling: No Nausea: No Diarrhea: No Black tarry stools: No Difficulty Urinating?: No Awaken at Night More Than Once to Urinate?: No Joint pain or stiffness: Yes Muscle aches: No Leg or Foot Discomfort at Night?: No A rash: No Dizziness: No Headaches: No Memory Loss: Yes Seizures: No PHYSICAL EXAM: BP 136/78 Pulse 60 Resp 16 Ht 180.3 cm (5' 10.98) Wt 81.1 kg (178 lb 12.7 oz) SpO2 97% BMI 24.95 kg/m2 Physical Exam Constitutional: Appearance: Normal appearance. [...] 7.8 Hemoglobin A1C (POCT) (%) Date Value 11/10/2023 8.4 ) No components found for: URINEALBUMIN Cholesterol, Total (mg/dL) Date Value 06/29/2023 195 04/22/2021 210 04/22/2021 214 HDL Cholesterol (mg/dL) Date Value 06/29/2023 42 04/22/2021 44 04/22/2021 44 LDL Cholesterol (mg/dL) Date Value 06/29/2023 127 04/22/2021 140 04/22/2021 144 Triglyceride (mg/dL) Date Value 06/29/2023 128 04/22/2021 131 04/22/2021 132 IMPRESSION: Mr. Gonzalez is a 68 year old male here for evaluation of DM Type 2 complicated by hypertension, hyperlipidemia, hypoglycemia unawareness . RECOMMENDATIONS: (E11.649, Z79.4) Type 2 diabetes mellitus with hypoglycemia without coma, with long-term current use of insulin (HCC) (primary encounter diagnosis) Comment: Glycemic control is trending higher. Reviewed the importance of taking the accurate dose of insulin and not missing doses. Discussed adding metformin or a trial of SGLT2 though he declines. He wants to work on consistency and see how his control is at follow up. Plan: Continue CGM Keep glucagon on hand Lantus 34 units daily at bedtime unless blood sugars is under 150 at bedtime then use only 25 units Humalog Breakfast 15 units Lunch 15 units Dinner 22 units Plus sliding scale of humalog at meals and bedtime or to cover a high sugar at meal time if not eating If Blood Glucose (mg/dL) is < 150 Give 0 units 151-200 Give 1 unit 201-250 Give 2 units 251-300 Give 3 units 301-350 Give 4 units > 351 Give 5 units Follow up in 3-4 months (I10) Essential hypertension Comment/Plan: Managed per PCP (Z87.19) History of pancreatitis Comment/Plan: avoid GLP-1 and DPP4. Caution if SGLT2 is used due to post marketing incidences of acute pancreatitis (E78.2) Mixed hyperlipidemia Comment/Plan: He declines statin due to myalgia Medical Decision Making: Level: 4 - Moderate Ethan Calderon, MSN, ECOMMERCE MERCHANDISING MANAGER, PRINTED CIRCUIT BOARD LAYOUT DESIGNER-C, [facility] Endocrinology [facility] Medical Office [facility]/[address], [place] [address] Fax: documented in this encounter [facility] 02-10-2024 Note HNO ID: [id number] Author: ETHAN CALDERON APRN.PEGA DEVELOPER Service: ? Author Type: Nurse Practitioner Type: Progress Notes Filed: 02/10/2024 11:49 Note Text: Reason for Consultation: DM Type 2 Referring Physician: SELF HISTORY OF PRESENT ILLNESS; Mr. Gonzalez is a 68 year old male presenting for follow up regarding DM Type 2. He was initially diagnosed with diabetes age 31 after having pancreatitis. He does not have a family history of diabetes mellitus in his family . LV 11/10/23 A1C today is 8.8. up from 8.4 History of diabetes, pancreatitis, hypertension, hyperlipidemia, hypoglycemia Eating anything and everything to keep his weight up which he is maintaining but his BG has been higher. He is reluctant to take more insulin to cover the increased food intake due to fear of hypoglycemia. He reduces his insulin doses and forgets sometimes. Negative SOLANGE and islet cell AB Cpeptide 0.3 He started Dexcom CGM on 07/26/20. He decided against an insulin pump. His current diabetes regimen is: Glucagon: baqsimi lantus 34 units daily HS (only 25 units if under 150 at HS) Humalog 15 units breakfast, 15 units lunch, 22 units dinner Plus sliding scale of humalog at meals or to cover a high sugar at meal time if not eating If Blood Glucose (mg/dL) is < 150 Give 0 units 151-200 Give 1 unit 201-250 Give 2 units 251-300 Give 3 units 301-350 Give 4 units > 351 Give 5 units Previous DM medications: Unable to recall previous oral agents--did not feel well on them and prefers insulin Fiasp--unable to control glucose Novolog --ineffective Admelog--ineffective Regarding symptoms of hyperglycemia, he is not experiencing any symptoms such as polyuria, polydipsia, nocturia or rapid weight loss or blurry vision. Exercise: occasionally; less active in the winter Simran is checking his blood glucose continuously with Dexcom G7 CGM He did bring a logbook today for review: Dexcom download (01/28/24 to 02/10/24) In range 31% High 42% Very high 27% Low 0% Very low 0% GMI 8.4 Average BG 212 BG ranges 100 to 300 BG is elevated and highest overnight. BG rises about 8 pm and stays high until 6 AM. BG is best from 6 AM to 2 pm but still above goal on average Hypoglycemia frequency: occasionally Hypoglycemia awareness: not always ; had a low that required EMS assistance in the past ; has been as low as 40 Overall, the patient has no acute complaints at this time. HLD: Off statin secondary to myalgia --crestor PAST MEDICAL HISTORY No date: Diabetes (HCC) Comment: type 2 No date: Hyperlipidemia No date: Hypertension No date: Pancreatitis PAST SURGICAL HISTORY No date: OTHER Comment: broken arm-right--has titanium plate FAMILY HISTORY Problem Relation Age of Onset Heart disease Father Social History Tobacco Use Smoking status: Never Smokeless tobacco: Never Vaping Use Vaping status: Never Used Substance Use Topics Alcohol use: Yes Current Outpatient Medications Medication Sig Dispense Refill insulin lispro (HUMALOG KWIKPEN INSULIN) 100 unit/mL Inject subcutaneously 15 units breakfast, 15 units lunch, 22 units dinner plus Ss #1 up to 70 units daily 75 mL 3 lisinopril (ZESTRIL) 20 mg tablet insulin glargine (LANTUS SOLOSTAR U-100 INSULIN) 100 unit/mL (3 mL) INJECT 34 UNITS SUBCUTANEOUSLY ONCE DAILY AT BEDTIME IF GLUCOSE IS OVER 150; IF UNDER 150 ONLY TAKE 25 UNITS 45 mL 3 glucagon (BAQSIMI) 3 mg/actuation nasal spray Use 1 [place] in the nose as needed for low blood sugar. May repeat after 15 minutes using a new device if there is no response. 2 Each 1 Insulin [place], Disposable, (BD ULTRAFINE III MINI PEN) 31 gauge x /16 Use 4 pen needles daily 400 Each 3 ALPRAZolam (XANAX) 0.5 mg tablet Take 0.5 mg by mouth at bedtime as needed. carvedilol (COREG) 25 mg tablet Take 1 tablet by mouth twice daily. (Patient taking differently: Take 12.5 mg by mouth once daily.) aspirin 325 mg tablet Take 1 tablet by mouth once daily. No current facility-administered medications for this visit. Facility-Administered Medications Ordered in Other Visits Medication Dose Route Frequency Provider Last Rate Last Admin NaCl 0.9% iv infusion 30 mL/hr INTRAVENOUS CONTINUOUS Huy Hauser I, MD 30 mL/hr at 11/18/23 0812 30 mL/hr at 11/18/23 0812 Allergies As of Date: 02/10/2024 Allergen Noted Reaction WESLEYWIN [PENTAZOCINE LACTATE] 08/08/2009 TRAMADOL HCL 11/22/2019 Other: See Comments Fully Assessed 02/10/2024 REVIEW OF SYSTEMS: Answers submitted by the patient for this visit: Core Review of Systems (Submitted on 02/08/2024) Fever : No Night sweats: No Recent unintentional weight change: Yes Nasal Congestion: No Hearing Loss: No Vision Disturbance: No A cough: No Difficulty Breathing?: No Chest pain: No Irregular heartbeat: No Leg Swelling: No Nausea: No Diarrhea: No Black tarry stools: No Difficulty Urinating?: No Awaken at Nig (more content not included)... [facility] 11-19-2023 Telephone encounter Note Noted. Thank you [facility] 11-19-2023 Miscellaneous Notes Noted. Thank you Received notification from [employer] that patient was APPROVED for Humalog Kwikpen. Dates of approval: 06/08/23-11/17/24 Patient notified via [employer] Closed Form faxed to LETHA Todd at on November 17, 2023; transmission ok. Keep open until approval/denial received Form signed. Thank you Prior Authorization: Medication/Dose: Humalog Kwikpen 100unit/ml Diagnosis: Type 2 diabetes mellitus E11.649, Z79.4 Provider: Ethan Calderon NP Completed Via: Form/Fax Insurance: [employer] Pharmacy: [facility] Notes: Completed PA for Humalog. Patient has tried and failed fiasp, novolog, admelog. It was ineffective in controlling his blood sugars and they were more variable in his blood sugars. Form on desk for review. Please review and sign. Attached last office notes and encounter. 11 pages. Once signed needs to be faxed to [phone]. documented in this encounter [facility] 11-19-2023 Telephone encounter Note Patient notified that he was approved for the humalog kwikpens. Closed [facility] 11-19-2023 Miscellaneous Notes Patient notified that he was approved for the humalog kwikpens. Closed documented in this encounter [facility] 11-19-2023 Telephone encounter Note Received notification from [facility] that patient was APPROVED for Humalog Kwikpen. Dates of approval: 06/08/23-11/17/24 Patient notified via [employer] Closed [facility] 11-18-2023 Note [facility] Patient Name: Simran Gonzalez Procedure Date: 11/18/2023 8:01 AM Date of : 1955 Age: 68 Gender: Male Race: Unknown Attending MD: Huy Hauser MD, [id number] Procedure: Colonoscopy Referring MD: MARY MARTINEZ MD Providers: Huy Hauser MD, Jeramie Goff CRNA (Sewage Reticulation Drafting Officer) Indications: Screening for colorectal malignant neoplasm Findings: The perianal and digital rectal examinations were normal. The colon (entire examined portion) appeared normal. The terminal ileum appeared normal. Patient Profile: This is a 68 year old male. Refer to note in patient chart for documentation of history and physical. Last Colonoscopy: 3 years ago. Impression: - The entire examined colon is normal. - The examined portion of the ileum was normal. - No specimens collected. Recommendation: - Patient has a contact number available for emergencies. The signs and symptoms of potential delayed complications were discussed with the patient. Return to normal activities tomorrow. Written discharge instructions were provided to the patient. - Resume previous diet. - Continue present medications. - Repeat colonoscopy in 10 years for screening purposes. - Return to primary care physician as previously scheduled. Medicines: See the Anesthesia note for documentation of the administered medications Procedure: Pre-Anesthesia Assessment: - Prior to the procedure, a History and Physical was performed, and patient medications and allergies were reviewed. The patient is competent. The risks and benefits of the procedure and the sedation options and risks were discussed with the patient. All questions were answered and informed consent was obtained. Patient identification and proposed procedure were verified by the physician, the nurse and the shaft repairer in the pre-procedure area in the endoscopy suite. Mental Status Examination: alert and oriented. Airway Examination: normal oropharyngeal airway and neck mobility. Respiratory Examination: clear to auscultation. CV Examination: normal. Prophylactic Antibiotics: The patient does not require prophylactic antibiotics. Prior Anticoagulants: The patient has taken no anticoagulant or antiplatelet agents. ASA Grade Assessment: II - A patient with mild systemic disease. After reviewing the risks and benefits, the patient was deemed in satisfactory condition to undergo the procedure. The anesthesia plan was to use monitored anesthesia care (MAC). Immediately prior to administration of medications, the patient was re-assessed for adequacy to receive sedatives. The heart rate, respiratory rate, oxygen saturations, blood pressure, adequacy of pulmonary ventilation, and response to care were monitored throughout the procedure. The physical status of the patient was re-assessed after the procedure. - Sedation was administered by an anesthesia professional. Deep sedation was attained. After I obtained informed consent, the scope was passed under direct vision. Throughout the procedure, the patient's blood pressure, pulse, and oxygen saturations were monitored continuously. Provation AI/GI Genius was used during withdrawal. The COLONOSCOPE was introduced through the anus and advanced to the terminal ileum, with identification of the appendiceal orifice and IC valve. The colonoscopy was performed without difficulty. The patient tolerated the procedure well. The quality of the bowel preparation was good. The terminal ileum, ileo (more content not included)... [facility] 11-18-2023 History and physical note Images from the original note were not included. [facility] [address] [place] [address] Expand All Collapse All Simran Gonzalez is a 68 year old male who presents today for colonoscopy consult. His last colonoscopy was reportedly in 2004 and a polyp was removed. He has no known FMH of CRC. He had a cologuard complete 04/2023 which was negative. He was recommended GI evaluation for unintentional weight loss. He quotes about 17 lbs lost over a 3 month course of time. He states his blood sugars were not well-controlled, ranging in the 200s, so he was only consuming on average one meal daily. He follows with endocrinology. He is now back to eating 3 meals per day and has gained about 4 lbs in one week. He attributes his weight loss to his change in eating habits. He averages a BM daily and denies melena or BRBPR. He denies abdominal pain, has chronic back pain. He denies n/v. He denies reflux, dysphagia or odynophagia. He does not smoke and rarely consumes alcohol. He takes aspirin daily, denies NSAID use in addition otherwise. UPDATED HISTORY AND PHYSICAL EXAMINATION SERVICE DATE: 11/18/2023 SERVICE TIME: 8:40 AM PHYSICAL EXAM MUST BE COMPLETED ON ADMISSION The History and Physical (completed in the past 30 days) has been reviewed and the patient has been examined. The contents accurately reflect the patient's condition with the following additions or revisions since the H&P was completed. Examination indicates no changes. This H&P can be found in the Electronic Medical Record. SIGNATURE: Huy Hauser MD PATIENT NAME: Simran Gonzalez DATE: November 18, 2023 TIME: 8:40 AM PAGER: Huy Hauser MD [facility] marine safety officer,[facility] Clinical bark skinner, [facility] Work Phone: 11-18-2023 History and physical note Images from the original note were not included. [facility] [address] [place] [address] Expand All Collapse All Simran Gonzalez is a 68 year old male who presents today for colonoscopy consult. His last colonoscopy was reportedly in 2004 and a polyp was removed. He has no known FMH of CRC. He had a cologuard complete 04/2023 which was negative. He was recommended GI evaluation for unintentional weight loss. He quotes about 17 lbs lost over a 3 month course of time. He states his blood sugars were not well-controlled, ranging in the 200s, so he was only consuming on average one meal daily. He follows with endocrinology. He is now back to eating 3 meals per day and has gained about 4 lbs in one week. He attributes his weight loss to his change in eating habits. He averages a BM daily and denies melena or BRBPR. He denies abdominal pain, has chronic back pain. He denies n/v. He denies reflux, dysphagia or odynophagia. He does not smoke and rarely consumes alcohol. He takes aspirin daily, denies NSAID use in addition otherwise. UPDATED HISTORY AND PHYSICAL EXAMINATION SERVICE DATE: 11/18/2023 SERVICE TIME: 8:40 AM PHYSICAL EXAM MUST BE COMPLETED ON ADMISSION The History and Physical (completed in the past 30 days) has been reviewed and the patient has been examined. The contents accurately reflect the patient's condition with the following additions or revisions since the H&P was completed. Examination indicates no changes. This H&P can be found in the Electronic Medical Record. SIGNATURE: Huy Hauser MD PATIENT NAME: Simran Gonzalez DATE: November 18, 2023 TIME: 8:40 AM PAGER: Huy Hauser MD [facility] marine safety officer,[facility] Clinical bark skinner, [facility] documented in this encounter [facility] 11-17-2023 Telephone encounter Note Form faxed to LETHA Todd at on November 17, 2023; transmission ok. Keep open until approval/denial received [facility] 11-17-2023 Telephone encounter Note Form signed. Thank you [facility] 11-17-2023 Telephone encounter Note Prior Authorization: Medication/Dose: Humalog Kwikpen 100unit/ml Diagnosis: Type 2 diabetes mellitus E11.649, Z79.4 Provider: Ethan Calderon NP Completed Via: Form/Fax Insurance: [employer] Pharm[facility]: [facility] Notes: Completed PA for Humalog. Patient has tried and failed fiasp, novolog, admelog. It was ineffective in controlling his blood sugars and they were more variable in his blood sugars. Form on desk for review. Please review and sign. Attached last office notes and encounter. 11 pages. Once signed needs to be faxed to [phone]. [facility] 11-17-2023 Telephone encounter Note Will do PA. Closed [facility] 11-17-2023 Miscellaneous Notes Will do PA. Closed Had a lengthy visit with patient on 11/09. He has not tolerated fiasp, novolog and admelog. These insulins were ineffective in controlling his BG and it was more variable. He does well with humalog. Please do PA. Thank you Humalog is not covered. Insurance prefers Fiasp, which patient has used before. 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 He has not tolerated fiasp, novolog and admelog. These insulins were ineffective in controlling his BG and it was more variable. He does well with humalog. Please do PA. Thank you [facility] 11-16-2023 Telephone encounter Note Humalog is not covered. Insurance prefers Fiasp, which patient has used before. (I just spoke to patient he was going to pick and shovel man all medications today, please send) [facility] 11-16-2023 Telephone encounter Note Notified patient of Ethan Calderon CNP's message. Patient verbalized understanding and all questions were answered. Encounter closed. [facility] 11-16-2023 Miscellaneous Notes Notified patient of Ethan Calderon CNP's message. Patient verbalized understanding and all questions were answered. Encounter closed. Called and left a message for patient to check his Mychart with the instructions for his colonoscopy. Keep open till read. The day before the colonoscopy he can take humalog as usual unless he is running low then cover sugars with the sliding scale portion only. For lantus the night before the procedure he can take only 25 units. The AM of colonoscopy he can skip humalog unless his BG is over 200 then treat this with the sliding scale of humalog. Resume all doses per usual once eating again. Thank you PT was seen in the office yesterday and has some follow up questions. PT is having a colonoscopy next week and will need to fast. Are there special instructions for him in regards to insulin and diet? Ok to My Chart message or call [phone]. documented in this encounter [facility] 11-13-2023 Telephone encounter Note Called and left a message for patient to check his Mychart with the instructions for his colonoscopy. Keep open till read. [facility] 11-13-2023 Telephone encounter Note Sent patient the instructions for his colonoscopy. Closed [facility] 11-13-2023 Miscellaneous Notes Sent patient the instructions for his colonoscopy. Closed documented in this encounter [facility] 11-13-2023 Telephone encounter Note The day before the colonoscopy he can take humalog as usual unless he is running low then cover sugars with the sliding scale portion only. For lantus the night before the procedure he can take only 25 units. The AM of colonoscopy he can skip humalog unless his BG is over 200 then treat this with the sliding scale of humalog. Resume all doses per usual once eating again. Thank you [facility] 11-11-2023 Telephone encounter Note PT was seen in the office yesterday and has some follow up questions. PT is having a colonoscopy next week and will need to fast. Are there special instructions for him in regards to insulin and diet? Ok to My Chart message or call [phone]. [facility] 11-10-2023 Instructions Ethan Calderon APRN.PEGA DEVELOPER - 11/10/2023 10:50 AM EDT Lantus 34 units daily at bedtime unless blood sugars is under 150 at bedtime then use only 25 units Humalog Breakfast 15 units Lunch 15 units Dinner 22 units Plus sliding scale of humalog at meals and bedtime or to cover a high sugar at meal time if not eating If Blood Glucose (mg/dL) is < 150 Give 0 units 151-200 Give 1 unit 201-250 Give 2 units 251-300 Give 3 units 301-350 Give 4 units > 351 Give 5 units Follow up 3 months Ethan Calderon, MSN, [employer] MERCHANDISING MANAGER, PRINTED CIRCUIT BOARD LAYOUT DESIGNER-C, [facility] Endocrinology [facility] Office [facility]/[address] [place] [address] Fax: documented in this encounter [facility] 11-10-2023 History of Present illness Narrative Reason for Consultation: DM Type 2 Referring Physician: SELF HISTORY OF PRESENT ILLNESS; Mr. Gonzalez is a 68 year old male presenting for follow up regarding DM Type 2. He was initially diagnosed with diabetes age 31 after having pancreatitis. He does not have a family history of diabetes mellitus in his family . LV 10/23/23 A1C 8.4 today Here for an interval visit due to labile BG. History of diabetes, pancreatitis, hypertension, hyperlipidemia, hypoglycemia Negative SOLANGE and islet cell AB Cpeptide 0.3 He started Dexcom CGM on 07/26/20. He decided against an insulin pump. Realized his powerade has corn syrup and was affecting his BG and he has since stopped it. Tried admelog and felt it did not work so he went back to his supply of fiasp but felt is also was not working and BG was too labile He went to his remaining supply of humalog and feels this works better and able to trust its effects better. States he has also used novolog in the past and did not work to control his glucose. Weight has stabalized; now eating breakfast Still taking extra humalog after eating if BG is still high His current diabetes regimen is: Glucagon: baqsimi lantus 34 units daily HS (only 25 units if under 150 at HS) --has been varying the dose Admelog 10 units breakfast, 10 units lunch, 22 units dinner --taking 15 units B and L Plus sliding scale of admelog at meals or to cover a high sugar at meal time if not eating If Blood Glucose (mg/dL) is < 150 Give 0 units 151-200 Give 1 unit 201-250 Give 2 units 251-300 Give 3 units 301-350 Give 4 units > 351 Give 5 units Previous DM medications: Unable to recall previous oral agents--did not feel well on them and prefers insulin Fiasp--unable to control glucose Novolog --ineffective Admelog--ineffective Regarding symptoms of hyperglycemia, he is not experiencing any symptoms such as polyuria, polydipsia, nocturia or rapid weight loss or blurry vision. Exercise: occasionally; less active in the winter Simran is checking his blood glucose continuously with Dexcom G7 CGM He did bring a logbook today for review: Dexcom download (10/28/23 to 11/10/23) In range 26% High 43 % Very high 31% Low 0% Very low 0% GMI 8.6 Average BG 223 BG ranges 130 to 325 BG is best from 5 pm to 8 pm He is above goal from 9 pm to 4 pm Hypoglycemia frequency: occasionally; less recently Hypoglycemia awareness: not always ; had a [...] Refill lisinopril (ZESTRIL) 20 mg tablet insulin glargine (LANTUS SOLOSTAR U-100 INSULIN) 100 unit/mL (3 mL) INJECT 34 UNITS SUBCUTANEOUSLY ONCE DAILY AT BEDTIME IF GLUCOSE IS OVER 150; IF UNDER 150 ONLY TAKE 25 UNITS 45 mL 3 glucagon (BAQSIMI) 3 mg/actuation nasal spray Use 1 [place] in the nose as needed for low blood sugar. May repeat after 15 minutes using a new device if there is no response. 2 Each 1 Insulin [place], Disposable, (BD ULTRAFINE III MINI PEN) 31 gauge x 3/16 Use 4 pen needles daily 400 Each 3 ALPRAZolam (XANAX) 0.5 mg tablet Take 0.5 mg by mouth at bedtime as needed. carvedilol (COREG) 25 mg tablet Take 1 tablet by mouth twice daily. (Patient taking differently: Take 12.5 mg by mouth once daily.) aspirin 325 mg tablet Take 1 tablet by mouth once daily. insulin lispro (HUMALOG KWIKPEN INSULIN) 100 unit/mL Inject subcutaneously 15 units breakfast, 15 units lunch, 22 units dinner plus Ss #1 up to 70 units daily 75 mL 3 No current facility-administered medications for this visit. Allergies As of Date: 11/10/2023 Allergen Noted Reaction SYDNEE [PENTAZOCINE LACTATE] 08/08/2009 TRAMADOL HCL 11/22/2019 Other: See Comments Fully Assessed 11/10/2023 REVIEW OF SYSTEMS: Review of Systems Respiratory: Negative for difficulty breathing. Cardiovascular: Negative for chest pain. Gastrointestinal: Negative for nausea, vomiting, diarrhea and constipation. PHYSICAL EXAM: BP 170/87 Pulse 72 Wt 82.5 kg (181 lb 14.1 oz) SpO2 100% BMI 25.37 kg/m2 Physical Exam Constitutional: Appearance: Normal appearance. [...] 7.8 Hemoglobin A1C (POCT) (%) Date Value 11/10/2023 8.4 ) No components found for: URINEALBUMIN Cholesterol, Total (mg/dL) Date Value 06/29/2023 195 04/22/2021 210 04/22/2021 214 HDL Cholesterol (mg/dL) Date Value 06/29/2023 42 04/22/2021 44 04/22/2021 44 LDL Cholesterol (mg/dL) Date Value 06/29/2023 127 04/22/2021 140 04/22/2021 144 Triglyceride (mg/dL) Date Value 06/29/2023 128 04/22/2021 131 04/22/2021 132 IMPRESSION: Mr. Gonzalez is a 68 year old male here for evaluation of DM Type 2 complicated by hypertension, hyperlipidemia, hypoglycemia unawareness . RECOMMENDATIONS: (E11.649, Z79.4) Type 2 diabetes mellitus with hypoglycemia without coma, with long-term current use of insulin ([facility]) (primary encounter diagnosis) Comment: Glycemic control is above goal but less variable. Reviewed best practice in taking insulin; avoiding insulin between meals, avoid fluctuations in lantus dosing. Plan: Continue CGM Keep glucagon on hand Advised: Do not drive with a low BG. Take baqsimi and call 911. Lantus 34 units daily at bedtime unless blood sugars is under 150 at bedtime then use only 25 units Humalog Breakfast 15 units Lunch 15 units Dinner 22 units Plus sliding scale of humalog at meals and bedtime or to cover a high sugar at meal time if not eating If Blood Glucose (mg/dL) is < 150 Give 0 units 151-200 Give 1 unit 201-250 Give 2 units 251-300 Give 3 units 301-350 Give 4 units > 351 Give 5 units Follow up 3 months (R63.4) Abnormal weight loss Comment/Plan: stabalized and now up a few lb (I10) Essential hypertension Comment/Plan: Managed per PCP (Z87.19) History of pancreatitis Comment/Plan: avoid GLP-1 and DPP4 (E78.2) Mixed hyperlipidemia Comment/Plan: He declines statin due to myalgia I spent a total of 30 minutes on the date of the service which included preparing to see the patient, [id number] patient care, completing clinical documentation, obtaining and/or reviewing separately obtained history, performing a medically appropriate examination, counseling and educating the patient/family/caregiver, ordering medications, tests, or procedures, and communicating results to the patient/family/caregiver. Ethan Calderon, MSN, [employer] MERCHANDISING MANAGER, PRINTED CIRCUIT BOARD LAYOUT DESIGNER-C, [facility] Endocrinology [facility] Medical Office [facility]/[address] [place] [address] Fax: documented in this encounter [facility] 10-26-2023 History of Present illness Narrative Images from the original note were not included. Simran Gonzalez is a 68 year old male who presents today for colonoscopy consult. His last colonoscopy was reportedly in 2004 and a polyp was removed. He has no known FMH of CRC. He had a cologuard complete 04/2023 which was negative. He was recommended GI evaluation for unintentional weight loss. He quotes about 17 lbs lost over a 3 month course of time. He states his blood sugars were not well-controlled, ranging in the 200s, so he was only consuming on average one meal daily. He follows with endocrinology. He is now back to eating 3 meals per day and has gained about 4 lbs in one week. He attributes his weight loss to his change in eating habits. He averages a BM daily and denies melena or BRBPR. He denies abdominal pain, has chronic back pain. He denies n/v. He denies reflux, dysphagia or odynophagia. He does not smoke and rarely consumes alcohol. He takes aspirin daily, denies NSAID use in addition otherwise. 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) Hypertensive Heart Disease Without Congestive Heart Failure Vasovagal Symptom FAMILY HISTORY Problem Relation Age of Onset Heart disease Father PAST MEDICAL HISTORY Diagnosis Date Diabetes (HCC) type 2 Hyperlipidemia Hypertension Pancreatitis PAST SURGICAL HISTORY Procedure Laterality Date OTHER broken arm-right--has titanium plate Social History Tobacco Use Smoking status: Never Smokeless tobacco: Never Vaping Use Vaping Use: Never used Substance Use Topics Alcohol use: Yes ALLERGIES Allergen Reactions [place] [Pentazocine* Tramadol Hcl Other: See Comments insulin lispro (ADMELOG SOLOSTAR U-100 INSULIN) 100 unit/mL Inject subcutaneously 10 units breakfast, 10 units lunch, 22 units dinner plus SS #1 up to 60 units daily lisinopril (ZESTRIL) 20 mg tablet insulin glargine (LANTUS SOLOSTAR U-100 INSULIN) 100 unit/mL (3 mL) INJECT 34 UNITS SUBCUTANEOUSLY ONCE DAILY AT BEDTIME IF GLUCOSE IS OVER 150; IF UNDER 150 ONLY TAKE 25 UNITS glucagon (BAQSIMI) 3 mg/actuation nasal spray Use 1 [place] in the nose as needed for low blood sugar. May repeat after 15 minutes using a new device if there is no response. Insulin [place], Disposable, (BD ULTRAFINE III MINI PEN) 31 gauge x 08/21 Use 4 pen needles daily ALPRAZolam (XANAX) 0.5 mg tablet Take 0.5 mg by mouth at bedtime as needed. carvedilol (COREG) 25 mg tablet Take 1 tablet by mouth twice daily. (Patient taking differently: Take 12.5 mg by mouth once daily.) aspirin 325 mg tablet Take 1 tablet by mouth once daily. BP 144/73 Pulse 62 Ht 5' 11 (1.80m) Wt 180 lb 14.4 oz (82.1kg) BMI 25.24 kg/(m^2). Physical Exam Constitutional: Appearance: Normal appearance. HENT: Head: Normocephalic and atraumatic. Cardiovascular: Rate and Rhythm: Normal rate and regular rhythm. Heart sounds: Normal heart sounds. Pulmonary: Effort: Pulmonary effort is normal. Breath sounds: Normal breath sounds. Abdominal: General: Bowel sounds are normal. Palpations: Abdomen is soft. Musculoskeletal: General: Normal range of motion. Cervical back: Neck supple. Skin: General: Skin is warm and dry. Neurological: General: No focal deficit present. Mental Status: He is alert and oriented to person, place, and time. Psychiatric: Mood and Affect: Mood normal. Behavior: Behavior normal. ASSESSMENT/PLAN: 1. Abnormal weight loss - ICD9: 783.21, ICD10: R63.4 (primary diagnosis) - Recommended colonoscopy and EGD to further evaluate his unintentional weight loss. This was discussed at length. While his weight loss could very well be related to his changes in eating habits, we discussed regardless with his history of polyps, Cologuard is not an appropriate CRC screening measure for him. We discussed gold standard being colonoscopy. R/b/a were discussed. The patient definitively declines EGD and will consider colonoscopy. He was provided prep information and will call to schedule if he wishes to proceed. - COLONOSCOPY SCREENING 2. Screening for colon cancer - ICD9: V76.51, ICD10: Z12.11 - COLONOSCOPY SCREENING Angely Jason APRN.CNP [facility] [address] [place] [address], [address] [place] [address] Department: [phone] This note was generated with voice recognition software and may contain errors, including spelling, grammar, syntax and misrecognition of what was dictated, that are not fully corrected. documented in this encounter [facility] 10-23-2023 Instructions Ethan Calderon APRN.CNP - 10/23/2023 12:31 PM EDT Continue lantus 34 units daily at bedtime *only take 25 units if the bedtime sugar is 150 or less Switch fiasp to admelog Breakfast 10 units Lunch 10 units Dinner 22 units Plus admelog scale at meals or meal time if not eating If Blood Glucose (mg/dL) is < 150 Give 0 units 151-200 Give 1 unit 201-250 Give 2 units 251-300 Give 3 units 301-350 Give 4 units > 351 Give 5 units Update me next week. Ethan Calderon, MSN, [employer]ER[employer] MERCHANDISING MANAGER, PRINTED CIRCUIT BOARD LAYOUT DESIGNER-C, [facility] Endocrinology [facility] Medical Office [facility]/[address] [place] [address] Fax: documented in this encounter [facility] 10-23-2023 History of Present illness Narrative Reason for Consultation: DM Type 2 Referring Physician: SELF HISTORY OF PRESENT ILLNESS; Mr. Gonzalez is a 68 year old male presenting for follow up regarding DM Type 2. He was initially diagnosed with diabetes age 31 after having pancreatitis. He does not have a family history of diabetes mellitus in his family . LV 07/10/23 A1C 8.4 on 10/21/23 History of diabetes, pancreatitis, hypertension, hyperlipidemia, hypoglycemia He contacted me yesterday reporting episodes of hypoglycemia and had been in ED. Also reported weight loss. He was added on today to discuss. States he drives himself to ED when his sugar is 2 arrows down on CGM. Has glucagon at home but has not used. Lives with a GF but states she is an alcoholic and may not be able to save him. Not eating breakfast and lunch because his BG is high in mid 200's. Has lost weight which he is very concerned about. 194lb in July. 178lb today States his PCP is now on a cancer stanley due to weight loss Had thyroid checked this week and states it was normal States he normally loses about 10 lb when warmer weather starts and he is more active He varies his insulin doses, having highs and low. Took total of 28 units insulin dinner last night. Has a traditional meter at home but not using often. He is scared of using fiasp --having variable blood sugars on it, harder to control Negative SOLANGE and islet cell AB Cpeptide 0.3 He started Dexcom CGM on 07/26/20. He decided against an insulin pump. His current diabetes regimen is: Glucagon: baqsimi lantus 34 units daily HS (only 25 units if under 150 at HS) Fiasp 11-14 units breakfast, 11-14 units lunch, 20-24 units dinner Plus sliding scale of Fiasp at meals or to cover a high [...] a logbook today for review: Dexcom download (10/10/23 to 10/23/23) In range 43% High 39% Very high 17% Low <1% Very low <1% GMI 8.0 Average BG 194 BG is best from 4 pm to 8 pm at 160 avg but variable. He spikes the most at 8 pm and is highest from 8pm to MN BG is above goal from MN to 3 pm BG ranges 70 to 300 Hypoglycemia frequency: yes, occasionally Hypoglycemia awareness: not always ; had [...] Refill lisinopril (ZESTRIL) 20 mg tablet insulin glargine (LANTUS SOLOSTAR U-100 INSULIN) 100 unit/mL (3 mL) INJECT 34 UNITS SUBCUTANEOUSLY ONCE DAILY AT BEDTIME IF GLUCOSE IS OVER 150; IF UNDER 150 ONLY TAKE 25 UNITS 45 mL 3 glucagon (BAQSIMI) 3 mg/actuation nasal spray Use 1 [place] in the nose as needed for low blood sugar. May repeat after 15 minutes using a new device if there is no response. 2 Each 1 Insulin [place], Disposable, (BD ULTRAFINE III MINI PEN) 31 gauge x 08/21 Use 4 pen needles daily 400 Each 3 ALPRAZolam (XANAX) 0.5 mg tablet Take 0.5 mg by mouth at bedtime as needed. carvedilol (COREG) 25 mg tablet Take 1 tablet by mouth twice daily. (Patient taking differently: Take 12.5 mg by mouth once daily.) aspirin 325 mg tablet Take 1 tablet by mouth once daily. insulin lispro (ADMELOG SOLOSTAR U-100 INSULIN) 100 unit/mL Inject subcutaneously 10 units breakfast, 10 units lunch, 22 units dinner plus SS #1 up to 60 units daily 30 mL 3 No current facility-administered medications for this visit. Allergies As of Date: 10/23/2023 Allergen Noted Reaction WESLEYWIN [PENTAZOCINE LACTATE] 08/08/2009 TRAMADOL HCL 11/22/2019 Other: See Comments Fully Assessed 10/23/2023 REVIEW OF SYSTEMS: Review of Systems Constitutional: Positive for recent unintentional weight change. Respiratory: Negative for difficulty breathing. Cardiovascular: Negative for chest pain. Gastrointestinal: Negative for nausea, vomiting, diarrhea and constipation. PHYSICAL EXAM: BP 156/78 Pulse 64 Ht 180.3 cm (5' 11) Wt 81.1 kg (178 lb 12.7 oz) SpO2 98% BMI 24.94 kg/m2 Physical Exam Constitutional: Appearance: Normal appearance. Neurological: Mental Status: He is alert and [...] 04/22/2021 132 IMPRESSION: Mr. Gonzalez is a 68 year old male here for evaluation of DM Type 2 complicated by hypertension, hyperlipidemia, hypoglycemia unawareness . RECOMMENDATIONS: (E11.649, Z79.4) Type 2 diabetes mellitus with hypoglycemia without coma, with long-term current use of insulin ([facility]) (primary encounter diagnosis) Comment: Glycemic control has worsened. He taking insulin and eating inconsistently. He is varying insulin doses, over correcting highs and lows and taking insulin between meals contributing to his concern and variability. Will switch fiasp to admelog given his concerns. Plan: GLUCOSE, BLOOD (POC), insulin lispro (ADMELOG SOLOSTAR U-100 INSULIN) 100 unit/mL Continue CGM Keep glucagon on hand Advised: Do not drive with a low BG. Take baqsimi and call 911. Continue lantus 34 units daily at bedtime *only take 25 units if the bedtime sugar is 150 or less Switch fiasp to admelog Breakfast 10 units Lunch 10 units Dinner 22 units Plus admelog scale at meals or meal time if not eating If Blood Glucose (mg/dL) is < 150 Give 0 units 151-200 Give 1 unit 201-250 Give 2 units 251-300 Give 3 units 301-350 Give 4 units > 351 Give 5 units Update me next week. Eat consistent meals. Taking admelog at the start of the meals. Avoid insulin between meals Verify hypoglycemia is improving with fingersticks 15 min after treating vs relying on Dexcom Follow up in November as scheduled. (R63.4) Abnormal weight loss Comment/Plan: likely due to skipping meals, being more active and uncontrolled glucose. Thyroid was normal in June and states it was repeated this week and was normal. (I10) Essential hypertension Comment/Plan: Managed per PCP (Z87.19) History of pancreatitis Comment/Plan: avoid GLP-1 and DPP4 (E78.2) Mixed hyperlipidemia Comment/Plan: He declines statin due to myalgia Medical Decision Making: Level: 4 - Moderate Ethan Calderon, MSN, ECOMMERCE MERCHANDISING MANAGER, PRINTED CIRCUIT BOARD LAYOUT DESIGNER-C, CDE Endocrinology [facility] Medical Office [facility]/[address], [address] [place], [place] [address] Fax: documented in this encounter [facility] 10-22-2023 Telephone encounter Note I called patient and left a voicemail stating that we scheduled him for tomorrow at noon. [facility] 10-22-2023 Miscellaneous Notes I called patient and left a voicemail stating that we scheduled him for tomorrow at noon. I had a cancellation at noon tomorrow 10/22. Please hold the slot and call to see if he can come in to discuss. Thank you Patient came into office and wants assistance right away. Please advise. It seems this is the purpose of the appointment. Perhaps we should provide him a longer appointment instead? Thoughts? documented in this encounter [facility] 10-22-2023 Telephone encounter Note I had a cancellation at noon tomorrow 10/22. Please hold the slot and call to see if he can come in to discuss. Thank you [facility] 10-22-2023 Telephone encounter Note Patient came into office and wants assistance right away. [facility] 10-22-2023 Telephone encounter Note Please advise. It seems this is the purpose of the appointment. Perhaps we should provide him a longer appointment instead? Thoughts? [facility] 09-25-2023 Miscellaneous Notes SIMRAN GONZALEZ ([place]: [id number]) Fiasp FlexTouch 100UNIT/ML pen-injectors Form [employer] Medicare Electronic PA Form (2016 NCPDP) Created 1 day ago Sent to Plan 1 hour ago Plan Response 1 hour ago Submit Clinical Questions Determination Message from Plan The patient currently has access to the requested medication and a Prior Authorization is not needed for the patient/medication. Closed documented in this encounter [facility] 09-18-2023 Miscellaneous Notes DEB FAXED A OFFICE NOTE REQUEST. SENT ELECTRONICALLY THROUGH [employer] TO FAX#[phone] documented in this encounter [facility] 07-10-2023 History of Present illness Narrative Reason for Consultation: DM Type [...] (BAQSIMI) 3 mg/actuation nasal spray Use 1 [place] in the nose as needed for low blood sugar. May repeat after 15 minutes using a new device if there is no response. 2 Each 1 insulin glargine (LANTUS SOLOSTAR U-100 INSULIN) 100 unit/mL (3 mL) INJECT 34 UNITS SUBCUTANEOUSLY ONCE DAILY AT BEDTIME IF GLUCOSE IS OVER 150; IF UNDER 150 ONLY TAKE 25 UNITS 45 mL 3 Insulin [place], Disposable, (BD ULTRAFINE III MINI PEN) 31 [...] 118/74 Pulse 53 Ht 180 cm (5' 10.87) Wt 88 kg (194 lb 0.1 oz) [...] which included preparing to see the patient, [id number] patient care, completing clinical documentation, obtaining and/or reviewing separately obtained history, performing a medically appropriate examination, counseling and educating the patient/family/caregiver, ordering medications, tests, or procedures, and communicating results to the patient/family/caregiver. Ethan Calderon, MSN, ECOMMERCE MERCHANDISING MANAGER, PRINTED CIRCUIT BOARD LAYOUT DESIGNER-C, CDE Endocrinology [facility] Medical Office [facility]/[address], [address] [place], [place] [address] Fax: documented in this encounter [facility] 06-03-2023 Miscellaneous Notes Patient called back and [...] refilled. Please advise. documented in this encounter [facility] 05-10-2023 History of Present illness Narrative 67-year-old male COVID-positive at home presents for diarrhea and syncope. Patient states he has had presyncopal episodes for the past few days. Today he had diarrhea and had a syncopal episode. He did not hit his head. He is on Paxlovid for the COVID. Due to syncopal episodes, recommended evaluation in the emergency room. He understands. He will go to [facility]. documented in this encounter [facility] 12-19-2022 Miscellaneous Notes Form faxed to [facility] at on December 19, 2022; transmission ok. Form signed. Thank you Form on docs desk/basket for review from [facility] for Dexcom. Please review and sign. Needs to be faxed to [phone]. Attached last office note. documented in this encounter [facility] 12-19-2022 Miscellaneous Notes Received a request of office notes from [facility]. Office notes from: 06/26/2022 and 09/24/2022. Faxed to:[phone] Confirmation fax received. Transmission successful. documented in this encounter [facility] 11-24-2022 Miscellaneous Notes Called patient and left voicemail to call office back or check his [employer] messages. Encounter closed We can skip labs [...] work is needed. documented in this encounter [facility] 10-16-2022 Miscellaneous Notes Reviewed. MC message sent to patient Glucose readings on your desk for review documented in this encounter [facility] 09-24-2022 Miscellaneous Notes Prior Authorization: Medication/Dose: Fiasp FlexTouch 100 units/mL. Inject subcutaneous three times daily with meals plus SSI. TDD: 70 units. Diagnosis: Type 2 Diabetes (E11.9) Provider: Ethan Calderon CNP Completed Via: [facility] Landry: [id number] Insurance: [place] Medicare Phone: Fax: Pharmacy: [facility] Notes: Patient has been APPROVED. Simran Gonzalez ([place]: [id number]) Rx #: [id number] Fiasp FlexTouch 100UNIT/ML pen-injectors Form [facility] Form (2017 [facility]) Created 2 hours ago Sent to Plan 37 minutes ago Plan Response 37 minutes ago Submit Clinical Questions less than a minute ago Determination Favorable less than a minute ago Message from Plan CaseId:[id number];Status:Approved ;Review Type:Prior Auth;Coverage Start Date:08/25/2022;Coverage End Date:09/24/2023; Closed. documented in this encounter [facility] 09-24-2022 Instructions Ethan Calderon APRN.CNP - 09/24/2022 10:52 AM EDT Continue lantus [...] wks. 5. Follow up in 3 months. Ethan Calderon, MSN, ECOMMERCE MERCHANDISING MANAGER, PRINTED CIRCUIT BOARD LAYOUT DESIGNER-C, CDE Endocrinology [facility] Office [facility]/[place] [address] Fax: documented in this encounter [facility] 09-24-2022 Procedure note Procedure(s): EXTERNAL TESTER REGULATOR, CGM SYS Images from the original note were not included. documented in this encounter [facility] 09-24-2022 History of Present illness Narrative Reason for Consultation: DM Type [...] 80 units daily 75 mL 3 Insulin [place], Disposable, (BD ULTRAFINE III MINI PEN) 31 [...] As of Date: 09/24/2022 Allergen Noted Reaction WESLEYFADY [PENTAZOCINE LACTATE] 08/08/2009 TRAMADOL HCL 11/22/2019 Other: See Comments Fully Assessed 09/24/2022 REVIEW OF SYSTEMS: Review of Systems Respiratory: Negative for difficulty breathing. Cardiovascular: Negative for chest pain. Gastrointestinal: Negative for nausea, vomiting, diarrhea and constipation. PHYSICAL EXAM: BP 160/76 Pulse 55 Resp 16 Ht 180 cm (5' 10.87) Wt 86.7 kg (191 lb 3.2 oz) [...] Medical Decision Making: Level: 4 - Moderate Ethan Calderon, MSN, ECOMMERCE MERCHANDISING MANAGER, PRINTED CIRCUIT BOARD LAYOUT DESIGNER-C, CDE Endocrinology [facility] Office [facility]/[address], [address] [place], [place] [address] Fax: documented in this encounter [facility] 08-21-2022 Miscellaneous Notes Requester: Patient Last Visit in Endocrinology: Provider name: Ethan Calderon CNP , Date 06/26/2022 Next Scheduled Appt in Endo: 09/24/2022 Last Refill: 02/18/2022 Number of Refills given: 3 Requested Prescriptions Pending Prescriptions Disp Refills insulin glargine (LANTUS SOLOSTAR U-100 INSULIN) 100 unit/mL (3 mL) 45 mL 3 Sig: INJECT 34 UNITS SUBCUTANEOUSLY ONCE DAILY AT BEDTIME Please review and advise. Aminata Major MA documented in this encounter [facility] 08-18-2022 Miscellaneous Notes Received a fax from [email or web address] to send most recent progress note for DM diagnosis. Faxed. Transmission okay. closed documented in this encounter [facility] 07-16-2022 History of Present illness Narrative Assessment and Plan: 1. Type 2 diabetes mellitus without retinopathy (HCC) -Patient education on the importance of strict blood sugar control in order to minimize the risk of vision loss from Diabetes Mellitus. -Advised close follow-up with primary care physician / mid level net developer. -Advised keeping scheduled eye examinations with sooner follow-up if any new symptoms develop. -Return in one year for Dilated fundus examination. 2. Age-related nuclear cataract of both eyes -Patient Education on natural progression of cataract. -Cataract Surgery not indicated at this time. -Return as advised for follow-up or sooner if symptoms increase. 3. Refractive error -Glasses Rx given today. Rico Santizo, GINNY I have reviewed, confirmed, and edited as [...] and treatment options. documented in this encounter [facility] 07-16-2022 Instructions Rico Santizo OD - 07/16/2022 9:59 AM EST Patient education on the importance of strict blood sugar control in order to minimize the risk of vision loss from Diabetes Mellitus. Advised close follow-up with primary care physician / mid level net developer. Advised keeping scheduled eye examinations with sooner follow-up if any new symptoms develop. Please call the office with decreased vision or increased eye pain. documented in this encounter [facility] 05-28-2022 Miscellaneous Notes Form faxed, Transmission ok CLOSED Form signed. Thank you Form on docs desk/basket for review from [employer]. Please review and sign. Needs to be faxed to [phone]. documented in this encounter [facility] 02-19-2022 Miscellaneous Notes Form faxed, transmission ok Closed Form signed. Thank you Request for last OV note, note from 02/18/22 faxed [phone] Transmission OK documented in this encounter [facility] 02-18-2022 History of Present illness Narrative Reason for Consultation: DM Type [...] 80 units daily 75 mL 3 Insulin [place], Disposable, (BD ULTRAFINE III MINI PEN) 31 [...] 130/80 Pulse 58 Ht 177.3 cm (5' 9.8) Wt 86.1 kg (189 lb 14.4 oz) [...] mL), HUMALOG KWIKPEN INSULIN 100 unit/mL, Insulin [place], Disposable, (BD ULTRAFINE III MINI PEN) 31 [...] Medical Decision Making: Level: 4 - Moderate Ethan Calderon, MSN, ECOMMERCE MERCHANDISING MANAGER, PRINTED CIRCUIT BOARD LAYOUT DESIGNER-C, CDE Endocrinology [facility] Medical Office Building/[address], [address] [place] [address] Fax: documented in this encounter [facility] 12-06-2021 Instructions Sandy Rosa APRN.LINDA - 12/06/2021 [...] signs of redness documented in this encounter [facility] 12-06-2021 History of Present illness Narrative Subjective The history is provided by the patient. No russian language professor was used. HPI Simran Gonzalez is a 66 year old male who presents today for wanting finger check due to poking it [...] have confirmed and edited as necessary, the [facility] Review of Systems Constitutional: Negative for chills [...] Wound care discussed Patient leaving Thursday for [place] will take keflex with him and start if develops redness or swelling. Diagnosis and treatment plan were discussed and questions were answered to the patient's satisfaction. Pt acknowledged understanding of concepts and follow up plan. Specific signs and symptoms that would indicate the need for higher level of care were discussed in detail warranting prompt ER evaluation. Sandy Rosa APRN.CNP documented in this encounter [facility] 10-30-2021 History of Present illness Narrative Reason for Consultation: DM Type [...] DAILY AT BEDTIME 15 mL 5 Insulin [place], Disposable, (BD ULTRAFINE III MINI PEN) 31 [...] Adult) Pulse 59 Ht 176.7 cm (5' 9.57) Wt 88.4 kg (194 lb 12.8 oz) [...] which included preparing to see the patient, [id number] patient care, completing clinical documentation, obtaining and/or reviewing separately obtained history, performing a medically appropriate examination, counseling and educating the patient/family/caregiver, ordering medications, tests, or procedures and communicating results to the patient/family/caregiver. Ethan Calderon, MSN, ECOMMERCE MERCHANDISING MANAGER, PRINTED CIRCUIT BOARD LAYOUT DESIGNER-C, CDE Endocrinology [facility] Office [facility]/[address] [place] [id number] Fax: documented in this encounter [facility] 09-02-2021 Miscellaneous Notes Patient came into the office requesting refills as follows: Insurance will only cover Humalog. Pending Prescriptions Disp Refills HUMALOG KWIKPEN (U-100) INSULIN 100 UNIT/ML SUBCUTANEOUS 75 mL 3 Sig: Inject 12 units breakfast, 10 units lunch, 25 units dinner plus sliding scale up to 80 units daily JULIA: Yes Please review and advise. Angely Tan Ma documented in this encounter [facility] Discharge summary Note Date/Time August 21, 2023 1:13am [facility] Medical Records Department [address] [place] [address] Emergency Department Summary 08/21/23 MR#: [id number] Acct: [id number] Name: SIMRAN GONZALEZ Rep #:[id number] : [id number] 68 From: Fred Carver DO PCP: Dr. Mary Martinez MD Status:REG ER Location: ED HPI History of Present Illness Chief Complaint: Hypoglycemia Informant: patient Narrative Narrative: Patient is a 68-year-old male with past medical history of insulin-dependent diabetes hypertension anxiety. He states that he did not eat a large dinner butstill took his normal regular insulin around 630 this evening. He states he noticed that he started to feel off and checked his blood sugar and it dropped as low as 40. He states he drank multiple sodas and took multiple glucose tabs for this. He reports after taking all his sugar he had bouts of diarrhea and then continue to monitor his blood sugar and it was increasing into the 300s andthis concerned him so he presents for evaluation [facility] Medical History (Updated 08/21/23 @ 01:[address] Fred Carver DO) Anxiety Diabetes HTN (hypertension) Osteoporosis Pancreatitis Home Medications carvedilol 25 mg tablet 12.5 mg PO DAILY 12/19/17 [History Last Taken 09/28/18 07:00] insulin NPH isoph U-100 human 100 unit/mL subcutaneous suspension See Protocol SQ QHS 12/19/17 [History Last Taken Unknown] insulin regular human 100 unit/mL injection solution See Protocol IJ DAILY 12/19/17 [History Last Taken Unknown] aspirin 325 mg tablet 325 mg PO DAILY@0800 09/01/18 [History Last Taken 09/23/18] cholecalciferol (vitamin D3) 50 mcg (2,000 unit) capsule 2,000 unit PO DAILY 09/01/18 [History Last Taken Unknown] alprazolam 0.5 mg tablet 0.5 mg PO .DAILYPRN PRN anxiety 08/20/23 [History Last Taken Unknown] Allergy/AdvReac Type Severity Reaction Status Date / Time diphenhydramine Allergy Other Verified 08/20/23 23:26 [From Benadryl] pentazocine [From Talwin] Allergy Nausea Verified 08/20/23 23:26 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 Allergy Mucosal Uncoded 05/10/23 15:52 lesions Surgical History h/o right ulnar plating Social History Smoking Status: Never smoker ROS ROS ED Constitutional Constitutional ED: Denies chills or fever(s) Eyes Eyes: Denies change in vision ENT ENT ED: Denies sore throat Cardiovascular Cardiovascular: Denies chest pain Respiratory/Chest Respiratory/Chest: Denies cough or dyspnea Gastrointestinal Gastrointestinal: Reports diarrhea; Denies abdominal pain, nausea or vomiting Genitourinary Genitourinary ED: Denies dysuria Musculoskeletal Musculoskeletal: Denies myalgias Integumentary Denies rash Neurologic Neurologic: Denies headache(s) Psychiatric Psychiatric: Reports anxiety; Denies suicidal ideation or suicidal thoughts Hematologic/Lymphatic Hematologic/Lymphatic: Denies easy bleeding or easy bruising EXAM Physical Exam Const Vital Signs: 08/20/23 23:23 Temperature 98.4 F Temperature Source Temporal Pulse Rate 80 Respiratory Rate 17 Blood Pressure 175/86 H Blood Pressure Mean 115 Pulse Ox 98 Oxygen Delivery Method Room Air Positive well nourished and well developed General Appearance ED: well developed; Negative for pallor HEENT Reports dry mucous membranes HEENT Narrative: Mucous membranes are dry and tacky but there are no secondary changes to suggestinfection in the posterior pharynx Mouth ED: Yes dry mucous membranes Mouth: dry mucous membranes Eyes PERRL and EOMs intact bilaterally General Eye ED: Negative for scleral icterus Neck supple Neck Narrative: No nuchal rigidity or meningeal signs noted Resp normal respiratory effort and clear to auscultation bilaterally Cardio regular rate and regular rhythm Rate: other Other Details: Radial and carotid pulses are equal and symmetric GI non-tender and non-distended GI Narrative: Abdomen is soft nontender nondistended with hyperactive bowel sounds no voluntary guarding or rigidity or pulsatile mass Auscultation: hyperactive bowel sounds Palpation: soft Extremity normal to inspection Neuro oriented x3, CN's II-XII intact bilaterally and no sensory deficits noted Sensorium / Orientation: alert Motor Exam: strength 5/5 throughout Psych mental status grossly normal Skin no rashes or lesions noted Skin Narrative: Skin turgor slightly increased General Skin Exam: Negative for jaundice or pallor MDM MDM MDM Narrative Medical decision making narrative: Patient arrived to the ER hypertensive otherwise with stable vitals. He reported inadvertently taking a larger insulin dose despite only eating a small amount for dinner. He states he then tried to overcorrect by drinking multiple sodas and taking an multiple sugar pills. Now blood sugar is elevated. Demential diagnosis is for DKA versus HHS versus dehydration versus acute kidneyinjury versus electrolyte abnormality. As patient did this inadvertently there is no need for psychiatric evaluation. Basic blood work was obtained and it shows normal anion gap as well as normal bicarb going against DKA. Serum osmolality is 298 going against HHS. Patient blood work also revealed no signs of acute kidney injury or severe electrolyte abnormality. Patient was given 5 units of subq insulin as well as 1 L of fluid and his blood sugar remained stable at approximately 300. As he does not have signs of DKA or HHS or electrolyte abnormality or acute kidney injury and his blood sugar is now holding stable there is no need for further evaluation in ER and patient is otherwise safe for discharge History & Record Review Discussion w/independent historian: Patient Lab Data Attestation: I reviewed the patient's lab results. Labs: Laboratory Results - last 24 hr 08/21/23 00:18 WBC 6.0 RBC 4.51 L Hgb 13.0 Hct 38.7 L MCV 85.8 MCH 28.8 MCHC 33.6 RDW Std Deviation 40.2 RDW Coeff of [place] 12.9 Plt Count 224 MPV 9.2 Immature Gran % (Auto) 0.200 Neut % (Auto) 63.3 Lymph % (Auto) 20.5 [place] % (Auto) 11.5 H Eos % (Auto) 3.7 Baso % (Auto) 0.8 Absolute Neuts (auto) 3.8 Absolute Lymphs (auto) 1.23 Nucleated RBC % 0 Sodium 136 Potassium 3.9 Chloride 103 Carbon Dioxide 26.0 Anion Gap 7 BUN 25 H Creatinine 1.27 Estim Creat Clear Calc 60.11 Est GFR (MDRD) Af Amer 73 Est GFR (MDRD) Non-Af 60 BUN/Creatinine Ratio 19.7 Glucose 305 H Calcium 8.5 Magnesium 1.9 Discharge Plan Triage Chief Complaint: Hypoglycemia ED Provider: Fred Carver Dx/Rx/DC Orders Clinical Impression: Insulin adverse reaction, Insulin dependent diabetes mellitus, Hypertension Instructions: ED Diabetic Insulin Reaction Prescriptions: No Action carvedilol 25 MG tablet 12.5 mg PO DAILY insulin regular human 100 UNIT/ML solution See Protocol IJ DAILY Protocol: 2. Sliding Scale Insulin Low-Med Dosing Condition: 150-209 mg/dl = 1 unit Condition: 210-269 mg/dl = 2 units Condition: 270-329 mg/dl = 3 units Condition: 330-389 mg/dl = 4 units Condition: 390-449 mg/dl = 5 units Condition: Greater than 449 call physician Protocol Text: - Use for Total Daily Dose of Insulin 28-36 units - Average size patients LOW MEDIUM DOSING ALGORITHM Rx Instructions: SLIDING SCALE insulin NPH isoph U-100 human 100 UNIT/ML suspension See Protocol SQ QHS Protocol: 2. Sliding Scale Insulin Low-Med Dosing Condition: 150-209 mg/dl = 1 unit Condition: 210-269 mg/dl = 2 units Condition: 270-329 mg/dl = 3 units Condition: 330-389 mg/dl = 4 units Condition: 390-449 mg/dl = 5 units Condition: Greater than 449 call physician Protocol Text: - Use for Total Daily Dose of Insulin 28-36 units - Average size patients LOW MEDIUM DOSING ALGORITHM Rx Instructions: SLIDING SCALE aspirin 325 MG tablet 325 mg PO DAILY@0800 cholecalciferol (vitamin D3) 2,000 UNIT capsule 2,000 unit PO DAILY alprazolam 0.5 mg tablet 0.5 mg PO .DAILYPRN PRN (Reason: anxiety) Primary Care Provider: Mary Martinez Referrals: Mary Martinez MD [Primary Care Provider] - Activity Restrictions/Additional Instructions: Please continue to monitor your blood sugar but take your diabetic medications as directed by your doctor and return to the ER should you have any further concerns Disposition Disposition: Home, Self Care What to do if you have Problems For any increased pain, shortness of breath, bleeding, nausea or vomiting, chestpain, or any unexpected problems, contact your Primary Care Provider. Call [facility] ([phone]) or report to the closest Emergency Room. Call 911 if necessary. 08/21/23 0120 <Electronically signed by Fred Carver DO> Cosigner Signature (if applicable): CC: Dr. Mary Martinez MD ~ Signed [facility] Work Phone: Evaluation note* Diagnosis Type 2 diabetes mellitus without complication, with long-term current use of insulin (HCC) [facility] Diagnosis Type 2 diabetes mellitus without complication, with long-term current use of insulin (HCC)- Primary 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) Essential hypertension Unspecified essential hypertension History of pancreatitis Personal history of other diseases of digestive system Mixed hyperlipidemia [facility]* Diagnosis Puncture wound- Primary Open wound(s) (multiple) of unspecified site(s), without mention of complication [facility]* Diagnosis Type 2 diabetes mellitus without [...] stated as uncontrolled [facility]* Diagnosis Type 2 diabetes mellitus without retinopathy (HCC)- Primary Type II or unspecified type diabetes mellitus without mention of complication, not stated as uncontrolled Age-related nuclear cataract of both eyes Senile nuclear sclerosis Refractive error Unspecified disorder of refraction and accommodation documented in this encounter [facility] note* Diagnosis Type 2 diabetes mellitus without complication, with long-term current use of insulin (HCC) [facility] Diagnosis Type 2 diabetes mellitus without complication, with long-term current use of insulin (HCC)- Primary 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) Essential hypertension Unspecified essential hypertension History of pancreatitis Personal history of other diseases of digestive system Mixed hyperlipidemia [facility] Diagnosis Type 2 diabetes mellitus without complication, with long-term current use of insulin (HCC) [facility] noteNo assessment information availableWAdams County Regional [facility] Work Phone: [facility]* Diagnosis Syncope, unspecified syncope type- Primary [facility]* Diagnosis Type 2 diabetes mellitus with hypoglycemia without coma, with long-term current use of insulin (HCC)- Primary 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) Essential hypertension Unspecified essential hypertension History of pancreatitis Personal history of other diseases of digestive system Mixed hyperlipidemia [facility]* Diagnosis Type 2 diabetes mellitus without complication, with long-term current use of insulin (HCC) [facility]* Diagnosis Type 2 diabetes mellitus with hypoglycemia without coma, with long-term current use of insulin (HCC)- Primary Abnormal weight loss Loss of weight Essential hypertension Unspecified essential hypertension History of pancreatitis Personal history of other diseases of digestive system Mixed hyperlipidemia [facility] Diagnosis Abnormal weight loss- Primary Loss of weight Screening for colon cancer Special screening for malignant neoplasms, colon documented [facility]* Diagnosis Type 2 diabetes mellitus with hypoglycemia without coma, with long-term current use of insulin (HCC)- Primary [facility]* Diagnosis Type 2 diabetes mellitus with hypoglycemia without coma, with long-term current use of insulin (HCC)- Primary Essential hypertension Unspecified essential hypertension History of pancreatitis Personal history of other diseases of digestive system Mixed hyperlipidemia [facility]* Diagnosis Abnormal weight loss Loss of weight Screening for colon cancer Special screening for malignant neoplasms, colon [facility]* Diagnosis Type 2 diabetes mellitus with hypoglycemia without coma, with long-term current use of insulin (HCC)- Primary Essential hypertension Unspecified essential hypertension History of pancreatitis Personal history of other diseases of digestive system Mixed hyperlipidemia [facility]* Diagnosis Type 2 diabetes mellitus with hypoglycemia without coma, with long-term current use of insulin (HCC) [facility]* Diagnosis Type 2 diabetes mellitus with hypoglycemia without coma, with long-term current use of insulin (HCC)- Primary Essential hypertension Unspecified essential hypertension History of pancreatitis Personal history of other diseases of digestive system Mixed hyperlipidemia [facility]* Diagnosis Anxiety- Primary Anxiety state, unspecified [facility]* Diagnosis Disorder associated with type 2 diabetes mellitus (HCC)- Primary Adjustment disorder with anxious mood Adjustment disorder with anxiety [facility] Diagnosis Type 2 diabetes mellitus with hypoglycemia without coma, with long-term current use of insulin (HCC)- Primary Essential hypertension Unspecified essential hypertension Mixed hyperlipidemia History of pancreatitis Personal history of other diseases of digestive system Anxiety Anxiety state, unspecified [facility] Additional Instructions Please maintain hydrationWAdams County Regional [facility] Center Work Phone: Hospital Discharge instructions Additional Instructions Please continue to monitor your blood sugar but take your diabetic medications as directed by your doctor and return to the ER should you have any further concernsFort [facility] Work Phone: Reason for referral (narrative)* Outpatient Procedure (Routine) - Pending Review Specialty Diagnoses / Procedures Referred By Taz dejesus Referred To Contact [facility] Diagnoses Abnormal weight loss Screening for colon cancer Procedures COLONOSCOPY SCREENING COLONOSCOPY FLX DX W/COLLJ SPEC WHEN PFRMD Angely Jason APRN.CNP [address] [place] [address] [facility] [address] [place] [id number] Referral ID Status Reason Start Date Expiration Date Visits Requested Visits Authorized [id number] Pending Review Auto-Generat ed Referral 10/26/2023 10/25/2024 1 1 [facility] Outpatient Procedure (Routine) - Ref Not Required Specialty Diagnoses / Procedures Referred By Contac t Referred To Contact ENDOSCOPY Diagnoses Abnormal weight loss Screening for colon cancer Procedures COLONOSCOPY SCREENING COLONOSCOPY FLX DX W/COLLJ SPEC WHEN Angely Tidwell APRN.PEGA DEVELOPER [address] [facility] [address] [place] [address] [facility] [address] [facility] [address] [place] [address] Referral ID Status Reason Start Date Expiration Date Visits Requested Visits Authorized [id number] Ref Not Required Auto-Generat ed Referral 10/26/2023 10/25/2024 1 1 [facility] (narrative)No reason for referral information availableWAdams County Regional Medical Center Work Phone: Reason for visit Narrative* Outpatient Procedure (Routine) - Ref Not Required Specialty Diagnoses / Procedures Referred By Contac t Referred To Contact ENDOSCOPY Diagnoses Abnormal weight loss Screening for colon cancer Procedures COLONOSCOPY SCREENING COLONOSCOPY FLX DX W/COLLJ SPEC WHEN PFAngely Schroeder APRN.PEGA DEVELOPER [address] [facility] [address] [place] [address] [facility] [address] [facility] [address] [place] [address] Referral ID Status Reason Start Date Expiration Date Visits Requested Visits Authorized [id number] Ref Not Required Auto-Generat ed Referral 10/26/2023 10/25/2024 1 1 [facility] Reason for Referral Specialty Diagnoses / Procedures Referred By Contac t Referred To Contact Urology Diagnoses Erectile dysfunction associated with type 2 diabetes mellitus (HCC) Procedures CONSULT TO UROLOGY OFFICE/OUTPATIENT [facility] 60-74 MINUTES Ethan Calderon APRN.CNP [address] [address] Referral ID Status Reason Start Date Expiration Date Visits Requested Visits Authorized [id number] Pending Review PCP Requested Referral 02/18/2022 02/18/2023 1 1 Medications Administered Section Active Administered Medications - up to 3 most recent administrations Medication Order MAR Action Action Date Dose Rate Site fluorescein-benoxinate 0.25-0.4 % 1 Drop (FLURESS) 1 Drop, BOTH EYES, DIRECTED, Starting on Thu07/16/22 at 0930, Until Thu07/16/22 at 2128, Administer for applanation tonometry. In the event of a Fluress shortage, administer Keysha-Fluor 1 drop into both eyes as directed [...] Family History Records FoundNo Family History Records FoundNo Family History Records Found Advance Directives No Advanced Directives Records Found Advance Directive Response Recorded Date/ Time Living Will No May 10 4:13pm Power of Credit Controller No May 10, 2023 4:13pm Advance Directive Response Recorded Date/ Time Name of Medical Power of Credit Controller SISTER-VIET MUNSON LTZ August 20, 2023 11:37pm Living Will Yes August 20, 2023 11:37pm Power of Credit Controller Yes August 19 11:37pm Advance Directive Response Recorded Date/ Time Living Will Yes August 18, 2024 11:07pm Power of Credit Controller Yes August 18 11:07pm Name of Medical Power of Credit Controller sister-john haas August 18, 2024 11:07pm Chief Complaint and Reason for Visit Chief Complaint syncope Chief Complaint syncope 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 Chief Complaint syncope 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 Hypoglycemia, Diarrhea Chief Complaint Admit Date hypoglycemia August 18, 2024 10: 51pm Additional Source Comments Source Comments (unrecognize d section and content) In the event this informatio n is protected by the Federal Confidentiality of Alcohol and Drug Abuse Patient Records regulations: The Federal rules restrict any use of the information to criminally investigate or prosecute any alcohol or drug abuse patient.[facility] System[facility] the event this information is protected by the Federal Confidentiality of Alcohol and Drug Abuse Patient Records regulations: The Federal rules restrict any use of the information to criminally investigate or prosecute any alcohol or drug abuse patient.[facility] SystemIn the event this information is protected by the Federal Confidentiality of Alcohol and Drug Abuse Patient Records regulations: The Federal rules restrict any use of the information to criminally investigate or prosecute any alcohol or drug abuse patient.[facility] SystemIn the event this information is protected by the Federal Confidentiality of Alcohol and Drug Abuse Patient Records regulations: The Federal rules restrict any use of the information to criminally investigate or prosecute any alcohol or drug abuse patient.[facility] SystemIn the event this information is protected by the Federal Confidentiality of Alcohol and Drug Abuse Patient Records regulations: The Federal rules restrict any use of the information to criminally investigate or prosecute any alcohol or drug abuse patient.[facility] SystemIn the event this information is protected by the Federal Confidentiality of Alcohol and Drug Abuse Patient Records regulations: The Federal rules restrict any use of the information to criminally investigate or prosecute any alcohol or drug abuse patient.[facility] SystemIn the event this information is protected by the Federal Confidentiality of Alcohol and Drug Abuse Patient Records regulations: The Federal rules restrict any use of the information to criminally investigate or prosecute any alcohol or drug abuse patient.[facility] SystemIn the event this information is protected by the Federal Confidentiality of Alcohol and Drug Abuse Patient Records regulations: The Federal rules restrict any use of the information to criminally investigate or prosecute any alcohol or drug abuse patient.[facility] SystemIn the event this information is protected by the Federal Confidentiality of Alcohol and Drug Abuse Patient Records regulations: The Federal rules restrict any use of the information to criminally investigate or prosecute any alcohol or drug abuse patient.[facility] SystemIn the event this information is protected by the Federal Confidentiality of Alcohol and Drug Abuse Patient Records regulations: The Federal rules restrict any use of the information to criminally investigate or prosecute any alcohol or drug abuse patient.[facility] SystemIn the event this information is protected by the Federal Confidentiality of Alcohol and Drug Abuse Patient Records regulations: The Federal rules restrict any use of the information to criminally investigate or prosecute any alcohol or drug abuse patient.[facility] SystemIn the event this information is protected by the Federal Confidentiality of Alcohol and Drug Abuse Patient Records regulations: The Federal rules restrict any use of the information to criminally investigate or prosecute any alcohol or drug abuse patient.[facility] SystemIn the event this information is protected by the Federal Confidentiality of Alcohol and Drug Abuse Patient Records regulations: The Federal rules restrict any use of the information to criminally investigate or prosecute any alcohol or drug abuse patient.[facility] SystemIn the event this information is protected by the Federal Confidentiality of Alcohol and Drug Abuse Patient Records regulations: The Federal rules restrict any use of the information to criminally investigate or prosecute any alcohol or drug abuse patient.[facility] SystemIn the event this information is protected by the Federal Confidentiality of Alcohol and Drug Abuse Patient Records regulations: The Federal rules restrict any use of the information to criminally investigate or prosecute any alcohol or drug abuse patient.[facility] SystemIn the event this information is protected by the Federal Confidentiality of Alcohol and Drug Abuse Patient Records regulations: The Federal rules restrict any use of the information to criminally investigate or prosecute any alcohol or drug abuse patient.[facility] SystemIn the event this information is protected by the Federal Confidentiality of Alcohol and Drug Abuse Patient Records regulations: The Federal rules restrict any use of the information to criminally investigate or prosecute any alcohol or drug abuse patient.[facility] SystemIn the event this information is protected by the Federal Confidentiality of Alcohol and Drug Abuse Patient Records regulations: The Federal rules restrict any use of the information to criminally investigate or prosecute any alcohol or drug abuse patient.[facility] SystemIn the event this information is protected by the Federal Confidentiality of Alcohol and Drug Abuse Patient Records regulations: The Federal rules restrict any use of the information to criminally investigate or prosecute any alcohol or drug abuse patient.[facility] SystemIn the event this information is protected by the Federal Confidentiality of Alcohol and Drug Abuse Patient Records regulations: The Federal rules restrict any use of the information to criminally investigate or prosecute any alcohol or drug abuse patient.[facility] SystemIn the event this information is protected by the Federal Confidentiality of Alcohol and Drug Abuse Patient Records regulations: The Federal rules restrict any use of the information to criminally investigate or prosecute any alcohol or drug abuse patient.[facility] SystemIn the event this information is protected by the Federal Confidentiality of Alcohol and Drug Abuse Patient Records regulations: The Federal rules restrict any use of the information to criminally investigate or prosecute any alcohol or drug abuse patient.[facility] SystemIn the event this information is protected by the Federal Confidentiality of Alcohol and Drug Abuse Patient Records regulations: The Federal rules restrict any use of the information to criminally investigate or prosecute any alcohol or drug abuse patient.[facility] SystemIn the event this information is protected by the Federal Confidentiality of Alcohol and Drug Abuse Patient Records regulations: The Federal rules restrict any use of the information to criminally investigate or prosecute any alcohol or drug abuse patient.[facility] SystemIn the event this information is protected by the Federal Confidentiality of Alcohol and Drug Abuse Patient Records regulations: The Federal rules restrict any use of the information to criminally investigate or prosecute any alcohol or drug abuse patient.[facility] SystemIn the event this information is protected by the Federal Confidentiality of Alcohol and Drug Abuse Patient Records regulations: The Federal rules restrict any use of the information to criminally investigate or prosecute any alcohol or drug abuse patient.[facility] SystemIn the event this information is protected by the Federal Confidentiality of Alcohol and Drug Abuse Patient Records regulations: The Federal rules restrict any use of the information to criminally investigate or prosecute any alcohol or drug abuse patient.[facility] SystemIn the event this information is protected by the Federal Confidentiality of Alcohol and Drug Abuse Patient Records regulations: The Federal rules restrict any use of the information to criminally investigate or prosecute any alcohol or drug abuse patient.[facility] SystemIn the event this information is protected by the Federal Confidentiality of Alcohol and Drug Abuse Patient Records regulations: The Federal rules restrict any use of the information to criminally investigate or prosecute any alcohol or drug abuse patient.[facility] SystemIn the event this information is protected by the Federal Confidentiality of Alcohol and Drug Abuse Patient Records regulations: The Federal rules restrict any use of the information to criminally investigate or prosecute any alcohol or drug abuse patient.[facility] SystemIn the event this information is protected by the Federal Confidentiality of Alcohol and Drug Abuse Patient Records regulations: The Federal rules restrict any use of the information to criminally investigate or prosecute any alcohol or drug abuse patient.[facility] SystemIn the event this information is protected by the Federal Confidentiality of Alcohol and Drug Abuse Patient Records regulations: The Federal rules restrict any use of the information to criminally investigate or prosecute any alcohol or drug abuse patient.[facility] SystemIn the event this information is protected by the Federal Confidentiality of Alcohol and Drug Abuse Patient Records regulations: The Federal rules restrict any use of the information to criminally investigate or prosecute any alcohol or drug abuse patient.[facility] SystemIn the event this information is protected by the Federal Confidentiality of Alcohol and Drug Abuse Patient Records regulations: The Federal rules restrict any use of the information to criminally investigate or prosecute any alcohol or drug abuse patient.[facility] SystemIn the event this information is protected by the Federal Confidentiality of Alcohol and Drug Abuse Patient Records regulations: The Federal rules restrict any use of the information to criminally investigate or prosecute any alcohol or drug abuse patient.[facility] SystemIn the event this information is protected by the Federal Confidentiality of Alcohol and Drug Abuse Patient Records regulations: The Federal rules restrict any use of the information to criminally investigate or prosecute any alcohol or drug abuse patient.[facility] SystemIn the event this information is protected by the Federal Confidentiality of Alcohol and Drug Abuse Patient Records regulations: The Federal rules restrict any use of the information to criminally investigate or prosecute any alcohol or drug abuse patient.[facility] SystemIn the event this information is protected by the Federal Confidentiality of Alcohol and Drug Abuse Patient Records regulations: The Federal rules restrict any use of the information to criminally investigate or prosecute any alcohol or drug abuse patient.[facility] SystemIn the event this information is protected by the Federal Confidentiality of Alcohol and Drug Abuse Patient Records regulations: The Federal rules restrict any use of the information to criminally investigate or prosecute any alcohol or drug abuse patient.[facility] SystemIn the event this information is protected by the Federal Confidentiality of Alcohol and Drug Abuse Patient Records regulations: The Federal rules restrict any use of the information to criminally investigate or prosecute any alcohol or drug abuse patient.[facility] Reason for Visit (unrecogniz ed section and content) Reason Onset Date Comments Refill Request 09/02/2021 Reason Comments Insulin Dependent Diabetes Mellitus Reason Comments poked finger with a metal esha x 1 day Reason Comments Follow Up Insulin Dependent Diabetes Mellitus Reason Comments [facility] Reason Comments [facility] Form Dexcom Reason Comments Diabetes Specialty Diagnoses / Procedures Referred By Taz t Referred To Contact Ophthalmology Diagnoses Type 2 diabetes mellitus without complication, with long-term current use of insulin (HCC) Procedures CONSULT TO OPHTHALMOLOGY OFFICE/OUTPATIENT NEW HIGH MDM 60-74 MINUTES Ethan Calderon, ECOMMERCE MERCHANDISING MANAGER.PEGA DEVELOPER [address] [address] Referral ID Status Reason Start Date Expiration Date Visits Requested Visits Authorized [id number] Pending Review PCP Requested Referral 06/26/2022 06/26/2023 1 1 Reason Comments Deb Progress Note Form Reason Onset Date Comments Refill Request 08/21/2022 Reason Comments PA--FIASP FLEXTOUCH (NEW START) Reason Comments Dexcom Printout Reason Comments Question Reason Comments Request of office notes [facility] Reason Comments [facility] Form CMN for CGMS (de xcom) Reason Onset Date Comments Refill Request 06/03/2023 Reason Comments [facility] OFFICE NOTE REQUEST Reason Comments PA--Fiasp Reason Comments Consult Colon consult Reason Comments Patient Question Reason Onset Date Comments Refill Request 11/16/2023 Reason Comments PA--Humalog Reason Comments CMN for CGMS [facility] Reason Comments Follow Up type 2 dm Insulin Dependent Diabetes Mellitus Reason Comments Office Notes [facility] Reason Onset Date Comments Refill Request 09/13/2024 Reason Comments [facility] Chart Note Request Reason Comments Follow Up Established Patient Insulin Dependent Diabetes Mellitus Reason Comments Evaluation New patient, to establish relationship Reason Comments Follow Up Established Patient Insulin Dependent Diabetes Mellitus Care Teams (unrecognized sec tion and content) [employer] Relationship Specialty Start Date End Date Mary Martinez MD PCP - General Internal Medicine 11/18/16 [employer] Relationship Specialty Start Date End Date Mary Martinez MD PCP - General Internal Medicine 11/18/16 [employer] Relationship Specialty Start Date End Date Mary Martinez MD PCP - General Internal Medicine 11/18/16 [employer] Relationship Specialty Start Date End Date Mary Martinez MD PCP - General Internal Medicine 11/18/16 [employer] Relationship Specialty Start Date End Date Mary Martinez MD PCP - General Internal Medicine 11/18/16 [employer] Relationship Specialty Start Date End Date Mary Martinez MD PCP - General Internal Medicine 11/18/16 [employer] Relationship Specialty Start Date End Date Mary Martinez MD PCP - General Internal Medicine 11/18/16 [employer] Relationship Specialty Start Date End Date Mary Martinez MD PCP - General Internal Medicine 11/18/16 [employer] Relationship Specialty Start Date End Date Mary Martinez MD PCP - General Internal Medicine 11/18/16 [employer] Relationship Specialty Start Date End Date Mary Martinez MD PCP - General Internal Medicine 11/18/16 [employer] Relationship Specialty Start Date End Date Mary Martinez MD PCP - General Internal Medicine 11/18/16 [employer] Relationship Specialty Start Date End Date Mary Martinez MD PCP - General Internal Medicine 11/18/16 Team Status: Active Member Role Status Dates MARY MARTINEZ Family Provider Active Dr. Mary Martinez MD Primary Care Provider Active Team Status: Inactive Member Role Status Dates Dr. Mary Martinez MD Primary Care Provider Active Dr. Dayana Bonds MD Emergency Provider Active [employer] Relationship Specialty Start Date End Date Mary Martinez MD PCP - General Internal Medicine 11/18/16 Team Status: Inactive Member Role Status Dates Dr. Mary Martinez MD Primary Care Provider Active Dr. Dayana Bonds MD Attending Provider, Emergency Provider Active Team Status: Inactive Member Role Status Dates Dr. Mary Martinez MD Primary Care Provider Active Dr. Chris Pillai MD Attending Provider, Referring Pr ovider Active [employer] Relationship Specialty Start Date End Date Mary Martinez MD PCP - General Internal Medicine 11/18/16 [employer] Relationship Specialty Start Date End Date Mary Martinez MD PCP - General Internal Medicine 11/18/16 Team Status: Inactive Member Role Status Dates Dr. Mary Martinez MD Primary Care Provider Active Dr. Fred Carver DO Emergency Provider Active [employer] Relationship Specialty Start Date End Date Mary Martinez MD PCP - General Internal Medicine 11/18/16 [employer] Relationship Specialty Start Date End Date Mary Martinez MD PCP - General Internal Medicine 11/18/16 [employer] Relationship Specialty Start Date End Date Mary Martinez MD PCP - General Internal Medicine 11/18/16 [employer] Relationship Specialty Start Date End Date Mary Martinez MD PCP - General Internal Medicine 11/18/16 [employer] Relationship Specialty Start Date End Date Mary Martinez MD PCP - General Internal Medicine 11/18/16 [employer] Relationship Specialty Start Date End Date Mary Martinez MD PCP - General Internal Medicine 11/18/16 [employer] Relationship Specialty Start Date End Date Mary Martinez MD PCP - General Internal Medicine 11/18/16 [employer] Relationship Specialty Start Date End Date Mary Martinez MD PCP - General Internal Medicine 11/18/16 Team Status: Active Member Role Status Dates Dr. Mary Martinez MD Primary Care Provider Active Team Status: Inactive Member Role Status Dates Dr. Mary Martinez MD Primary Care Provider Active Start: August 18, 2024 End: August 18, 2024 Dr. Fred Carver DO Emergency Provider Active Start: August 18, 2024 End: August 18, 2024 [employer] Relationship Specialty Start Date End Date Mary Martinez MD PCP - General Internal Medicine 11/18/16 [employer] Relationship Specialty Start Date End Date Mary Martinez MD PCP - General Internal Medicine 11/18/16 [employer] Relationship Specialty Start Date End Date Mary Martinez MD PCP - General Internal Medicine 11/18/16 [employer] Relationship Specialty Start Date End Date Mary Martinez MD PCP - General Internal Medicine 11/18/16 [employer] Relationship Specialty Start Date End Date Marisol Downs DO [facility] [place] [address] Physician Rheumatology 09/06/22 [employer] Relationship Specialty Start Date End Date Mary Martinez MD PCP - General Internal Medicine 11/18/16 (unrecognized sect ion and content) No Status Records FoundNo Status Records FoundNo Status Records Found INFORMATION SOURCE (unrecogn ized section and content) DATE CREATED AUTHOR 10/02/2022 [facility] DATE CREATED AUTHOR AUTHOR'S ORGANIZ ATION 08/28/2024 [facility] DATE CREATED AUTHOR AUTHOR'S ORGANIZ ATION 12/05/2024 [facility] Goals (unrecognized section and content) Goals may be documented in a n alternate sectionGoals may be documented in an alternate sectionGoals may be documented in an alternate sectionGoals may be documented in an alternate sectionGoals may be documented in an alternate section FOR RECORDS PERTAINING TO PATIENTS WHO ARE [...] BE BASED ON THE PRIMARY CLINICAL RECORDS. [facility]. provides no warranty or guarantee of the accuracy or completeness of information in this document.
[2025-01-29 03:09] LABS: Anion Gap 15 (5-15); BUN 29 mg/dL (4-19); BUN/Creat Ratio 22.9 RATIO (10-20); Calcium,Total 9.3 mg/dL (7.6-11.0); Carbon Dioxide 23.3 mmol/L (21.0-32.0); Chloride 103 mmol/L (98-108); Estimated Creatinine Clearance 58.83 ml/min (50-250); Glucose 56 mg/dL (70-99); Potassium 3.2 mmol/L (3.3-5.1)
--- NOTE | 2025-01-29 03:15 | EX.ED.DYSGE1 ---
HPI History of Present Illness Chief Complaint: Hypoglycemia Informant: patient Narrative Narrative: Patient is a 69-year-old male with past medical history of hypertension and insulin-dependent diabetes. He states he is on a sliding scale short acting insulin that he takes with meals and a nighttime long-acting. He reports that he checked his blood sugar before bed and it was elevated at approximately 250 and therefore he states he took 25 units of his long-acting insulin. He states he was getting ready to go to bed when he began to feel off which he states can correlate with a drop in his blood sugar. He states he checked his blood sugar and it had dropped from 250 to approximately 80. He states he had concerned that it would continue to drop and he would need medical intervention so therefore he drove to the hospital. He states he drank [address] to try to keep his blood sugar elevated. Patient states that he keeps his long-acting and short acting insulin in separate locations and therefore he has low concern that he mixed up the medication and he states he also has low concern that he injected an abnormal amount by accident. He states that until this event he has felt perfectly normal and denies any known sick contacts or sick symptoms [facility] Medical History (Updated 01/30/25 @ 01:[address] Fred Carver, DO) Anxiety Osteoporosis Pancreatitis Diabetes HTN (hypertension) Home Medications ?Medication ?Instructions ?Recorded ?Last Taken ?Type carvedilol 25 mg tablet 12.5 mg PO DAILY 12/19/17 09/28/18 07:00 History insulin NPH isoph U-100 human 100 See Protocol SQ QHS 12/19/17 Unknown History unit/mL subcutaneous suspension insulin regular human 100 unit/mL See Protocol IJ DAILY 12/19/17 Unknown History injection solution aspirin 325 mg tablet 325 mg PO DAILY@0800 09/01/18 09/23/18 History cholecalciferol (vitamin D3) 50 2,000 unit PO DAILY 09/01/18 Unknown History mcg (2,000 unit) capsule alprazolam 0.5 mg tablet 0.5 mg PO .DAILYPRN PRN anxiety 08/20/23 Unknown History Allergy/AdvReac Type Severity Reaction Status Date / Time diphenhydramine (From Allergy Other Verified 08/18/24 22:55 Benadryl) pentazocine (From [place]win) Allergy Nausea Verified 08/18/24 22:55 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 Allergy Mucosal Uncoded 05/10/23 15:52 lesions Surgical History h/o right ulnar plating Social History Smoking Status: Never smoker ROS ROS ED Constitutional Constitutional ED: Denies chills or fever(s) Eyes Eyes: Denies blurry vision or change in vision ENT ENT ED: Denies sore throat Cardiovascular Cardiovascular: Denies chest pain Respiratory/Chest Respiratory/Chest: Denies cough or dyspnea Gastrointestinal Gastrointestinal: Denies abdominal pain, diarrhea, nausea or vomiting Genitourinary Genitourinary ED: Denies dysuria Musculoskeletal Musculoskeletal: Denies myalgias Integumentary Denies rash Neurologic Neurologic: Denies headache(s) Hematologic/Lymphatic Hematologic/Lymphatic: Denies easy bleeding or easy bruising EXAM Physical Exam Const Vital Signs: 01/29/25 01:35 01/29/25 01:41 01/29/25 03:18 Temperature 98.1 F 98.3 F Temperature Source Oral Pulse Rate 80 77 Respiratory Rate 16 16 Respiratory Effort Normal Respiratory Pattern Normal Blood Pressure 154/80 H 136/74 H Blood Pressure Mean 104 94 Pulse Ox 100 98 Oxygen Delivery Method Room Air Positive well nourished and well developed General Appearance ED: well developed; Negative for pallor HEENT HEENT Narrative: Normocephalic atraumatic No tongue or lip swelling no oral lesions no airway edema or compromise; no secondary findings in the posterior pharynx to suggest infection Eyes PERRL and EOMs intact bilaterally General Eye ED: Negative for scleral icterus Neck supple Neck Narrative: No nuchal rigidity or meningeal signs Resp normal respiratory effort and clear to auscultation bilaterally Cardio regular rate and regular rhythm GI normal to inspection, nondistended, normoactive bowel sounds, non-tender, non-distended and no masses Auscultation: normoactive bowel sounds Palpation: soft Back/Spine no CVA tenderness Extremity normal to inspection Neuro oriented x3, CN's II-XII intact bilaterally and no sensory deficits noted Sensorium / Orientation: alert Motor Exam: strength 5/5 throughout Psych mental status grossly normal Skin no rashes or lesions noted General Skin Exam: Negative for jaundice or pallor MDM MDM MDM Narrative Medical decision making narrative: Patient arrived to the ER mildly hypertensive but has a past medical history of this and otherwise with stable vitals. He reported a drop in his blood sugar and Accu-Chek upon arrival was at the lower end of normal around 60. The patient was adamant he did not mixup the vials of his short and long-acting insulin. He is also fairly certain that he injected the 25 unit and not a larger amount by accident. We discussed the potential abdominal CT to check for an insulinoma. Patient states he has had scans recently that did not reveal any acute finding and therefore does not feel like he needs a CT scan at this time. Basic blood work was obtained which did confirm a low glucose value but otherwise no clinically significant finding. He was given D10 and food. He was watched in the ER for a few hours and his blood sugar improved to the 180 and was remained stable. Therefore this time with improvement of the hypoglycemia without precipitous dropping and no obvious findings for a secondary infection as the cause of the hypoglycemia I do not feel need for further intervention or admission and is otherwise safe for discharge History & Record Review Discussion w/independent historian: Patient Lab Data Attestation: I reviewed the patient's lab results. Labs: Laboratory Results - last 24 hr 01/29/25 01:40 WBC 9.2 RBC 4.76 Hgb 13.9 Hct 41.1 MCV 86.3 MCH 29.2 MCHC 33.8 RDW Std Deviation 39.9 RDW Coeff of [place] 12.7 Plt Count 227 MPV 11.2 Immature Gran % (Auto) 0.200 Neut % (Auto) 44.6 L Lymph % (Auto) 39.7 [place] % (Auto) 11.5 H Eos % (Auto) 3.1 Baso % (Auto) 0.9 Absolute Neuts (auto) 4.1 Absolute Lymphs (auto) 3.64 Nucleated RBC % 0 Sodium 141 Potassium 3.2 L Chloride 103 Carbon Dioxide 23.3 Anion Gap 15 BUN 29 H Creatinine 1.28 H Estim Creat Clear Calc 58.83 Est GFR (MDRD) Non-Af 61 BUN/Creatinine Ratio 22.9 H Glucose 56 L Calcium 9.3 Discharge Plan Triage Chief Complaint: Hypoglycemia ED Provider: Fred Carver Dx/Rx/DC Orders Clinical Impression: Hypoglycemia, Hypertension, Diabetes mellitus type 2, insulin dependent Instructions: Hypoglycemia (Low Blood Sugar) Prescriptions: No Action carvedilol 25 MG tablet 12.5 mg PO DAILY insulin regular human 100 UNIT/ML solution See Protocol IJ DAILY Protocol: 2. Sliding Scale Insulin Low-Med Dosing Condition: 150-209 mg/dl = 1 unit Condition: 210-269 mg/dl = 2 units Condition: 270-329 mg/dl = 3 units Condition: 330-389 mg/dl = 4 units Condition: 390-449 mg/dl = 5 units Condition: Greater than 449 call physician Protocol Text: - Use for Total Daily Dose of Insulin 28-36 units - Average size patients LOW MEDIUM DOSING ALGORITHM Rx Instructions: SLIDING SCALE insulin NPH isoph U-100 human 100 UNIT/ML suspension See Protocol SQ QHS Protocol: 2. Sliding Scale Insulin Low-Med Dosing Condition: 150-209 mg/dl = 1 unit Condition: 210-269 mg/dl = 2 units Condition: 270-329 mg/dl = 3 units Condition: 330-389 mg/dl = 4 units Condition: 390-449 mg/dl = 5 units Condition: Greater than 449 call physician Protocol Text: - Use for Total Daily Dose of Insulin 28-36 units - Average size patients LOW MEDIUM DOSING ALGORITHM Rx Instructions: SLIDING SCALE aspirin 325 MG tablet 325 mg PO DAILY@0800 cholecalciferol (vitamin D3) 2,000 UNIT capsule 2,000 unit PO DAILY alprazolam 0.5 mg tablet 0.5 mg PO .DAILYPRN PRN (Reason: anxiety) Primary Care Provider: Miriam Martinez Referrals: Miriam Martinez MD [Primary Care Provider] - Activity Restrictions/Additional Instructions: Please continue to monitor your blood sugars at home and treat accordingly. Follow-up with your family doctor for repeat evaluation and return to the ER should you have any further concerns Print Language: Swedish Disposition Disposition: Home, Self Care Discharge Date/Time: 01/29/25 03:24
[2025-01-29 03:18] VITALS: BP 136/74; PULSE 77; RESP 16; TEMP 36.8; O2SAT 98
== END 2025-01-29 03:24 | disposition home or self-care (01) ==
PROVIDERS: Emergency Provider Emergency Medicine; PCP Internal Medicine; Visit Provider Emergency Medicine
DX: E11.649 Type 2 diabetes mellitus with hypoglycemia without coma (principal); Z79.4 Long term (current) use of insulin; I10 Essential (primary) hypertension; Z79.82 Long term (current) use of aspirin; F41.9 Anxiety disorder, unspecified; Z79.899 Other long term (current) drug therapy
CPT/HCPCS: 80048; 82962; 85025; 96360; 99283

== ENCOUNTER → 2025-05-03 | Outpatient (CLI) | payer MEDICARE, BC, SELFPAY ==
--- NOTE | 2025-05-03 07:56 | MRI_ITS ---
EXAM: PELVIS W/WO CONTRAST 05/03/2025 CLINICAL HISTORY: ELEVATED PSA. TECHNIQUE: Procedure Code: [id number] Modality: MR Procedure: PELVIS W/WO CONTRAST Multiplanar and multisequence images were obtained without and with intravenous gadolinium contrast. CONTRAST: Clariscan VOLUME: 15 mL COMPARISON: None FINDINGS: Image quality:Diagnostic PSA:4.25ng/mL Prostate size: 4.3 x 5 x 4.1cms Prostate volume: 46.15mL PSA density:4.25 ng/mL??? Prostate Transition zone: PI-RADS 2 findings. Benign prostatic hyperplasia. No suspicious lesion. *Lesion none. *T2 score: 1: normal appearing transition zone (rare) or a round, completely encapsulated nodule (typical nodule of benign prostatic hyperplasia) *DWI score: 1; no abnormality on ADC or high b-value DWI. *DCE: N/A. *Overall PI-RADS: PI-RADS 1: very low (clinically significant cancer is highly unlikely to be present) *Extracapsular extension:No gross extracapsular extension. Peripheral Zone: Background changes of likely prostatitis (PI-RADS 2). No suspicious lesion. Normal signal. *Lesion none. *T2 score: 1. *DWI score: 1; no abnormality on ADC or high b-value DWI. *DCE: N/A. *Overall PI-RADS: 1. *Extracapsular extension:No gross extracapsular extension. Neurovascular bundles: Unremarkable. Seminal vesicles: Unremarkable. Bladder: Underdistended and suboptimally evaluated, grossly unremarkable. Lymph nodes: Unremarkable. Bones: No destructive or frankly suspicious bony lesions identified on nondedicated evaluation. Grade 1 anterolisthesis of L4 on L5. Other: None. MRI/Pelvis W/WO Contrast IMPRESSION: Benign prostatic hyperplasia. No suspicious lesion seen in the prostate gland to suspect neoplasm. PI-RADS 1: very low (clinically significant cancer is highly unlikely to be pre sent) Reading Location: [facility]
== END | disposition home or self-care (01) ==
LOC: OPMRI 07:51
PROVIDERS: PCP Internal Medicine; Referring Provider Urology; Visit Provider Urology
DX: R97.20 Elevated prostate specific antigen [PSA] (principal)
CPT/HCPCS: 72197; A9575; A4216